=== PATIENT | male | born 1940 | race Caucasian/White ===

== ENCOUNTER 2017-05-23 12:31 | Outpatient (CLI) | payer MEDICARE, OTHER ==
[2017-05-23 20:23] LABS: BILIRUBIN,URINE NEGATIVE (NEGATIVE); GLUCOSE, URINE (UA) NEGATIVE (NEGATIVE); KETONES,URINE (UA) NEGATIVE (NEGATIVE); LEUKOCYTE ESTERASE, URINE SMALL (NEGATIVE); NITRITE,URINE NEGATIVE (NEGATIVE); OCCULT BLOOD,URINE NEGATIVE (NEGATIVE); PROTEIN,URINE NEGATIVE (NEGATIVE); UROBILINOGEN,URINE 0.2 (NORMAL) E.U./dL (NORMAL)
[2017-05-23 20:35] LABS: CLARITY,URINE CLOUDY (CLEAR); EPITHELIAL CELLS,UR RARE Transitional /HPF (<= Few); SQUAMOUS EPITHELIAL CELL,UR RARE Squamous (<= Few)
[2017-05-23 20:36] LABS: BACTERIA,URINE None Seen /HPF (None Seen); CRYSTALS,URINE 6-10 Calcium Oxalate /LPF
== END 2017-05-23 12:32 | disposition home or self-care (01) ==
LOC: LAB.R 12:31
PROVIDERS: ATTEND Family Medicine
DX: N39.0 Urinary tract infection, site not specified (principal)
CPT/HCPCS: 81001; 87077; 87086

== ENCOUNTER 2017-08-02 14:06 | Outpatient (CLI) | payer MEDICARE, OTHER | END 2017-08-02 14:07 | disposition critical access hospital (66) | LOC: EMS 14:06 | PROVIDERS: ATTEND Surgery | DX: H92.22 Otorrhagia, left ear (principal) | CPT/HCPCS: A0425; A0429 ==

== ENCOUNTER 2017-08-02 14:25 | Emergency (ER) | payer MEDICARE, OTHER ==
--- NOTE | 2017-08-02 14:35 | ED Physician Documentation ---
History of Present Illness - Stated complaint Stated Complaint: EAR BLEED - Chief complaint Chief Complaint: Heent - History obtained from History obtained from: Patient, EMS - History of Present Illness Timing: Today Pain level max: 0 Pain level now: 0 Improved by: nothing Worsened by: nothing - Additonal information Additional information: States was cleaning his left ear today when he developed a bleeding from the ear. He is on eliquis. Called EMS. No trauma. Currently feels normal. Bleeding is now resolved. 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 Cardiovascular: Pacemaker - Present Medications Home Medications: Ambulatory Orders Medication Instructions Recorded Confirmed Acetaminophen [Tylenol] 650 mg PO Q6H PRN 07/30/13 03/09/16 Digoxin [Lanoxin] 125 mcg PO DAILY 07/30/13 03/09/16 Docusate Sodium 250Mg Capsule 100 mg PO BID 07/30/13 03/09/16 [Colace] Famotidine 20 mg PO DAILY 07/30/13 03/09/16 Furosemide [Lasix] 40 mg PO BID 07/30/13 03/09/16 Metoprolol Succinate [Toprol Xl] 25 mg PO BID 07/30/13 03/09/16 Warfarin [Coumadin] 2 mg PO 1400 07/30/13 03/09/16 Calcium Carb, Citrate/Vit D3 1 tab PO DAILY 12/20/14 03/09/16 [Calcium + D3 ER Tablet] Multivit-Min/FA/Lycopen/Lutein 1 tab PO DAILY 12/20/14 03/09/16 [Centrum Silver Tablet] Vitamin B Complex 1 tab PO DAILY 12/20/14 03/09/16 Atorvastatin Calcium 40 mg PO QPM 03/09/16 03/09/16 - Allergies Allergies/Adverse Reactions: Allergies Allergy/AdvReac Type Severity Reaction Status Date / Time Sulfa (Sulfonamide Allergy Unknown unk Verified 07/30/13 14:22 Antibiotics) sulfamethoxazole Allergy Unknown unk Verified 07/30/13 14:22 [From Bactrim] trimethoprim [From Bactrim] Allergy Unknown unk Verified 07/30/13 14:22 - Social History Does the pt smoke?: No Smoking Status: Never smoker Does the pt drink ETOH?: No Does the pt have substance abuse?: No - Immunizations Immunizations are current?: Yes - POLST Patient has POLST: Yes POLST Status: CPR, no intubation, PD ED PE NORMAL - Vitals Vital signs reviewed: Yes - General General: Alert and oriented X 3, No acute distress - HEENT HEENT: Moist mucous membranes, Other (R ear is normal. L ear canal has no bleeding currently. clots removed with cotton swab. TM normal. ) - Neck Neck: Supple, no meningeal sign - Derm Derm: Warm and dry - Neuro Neuro: Alert and oriented X 3 - Psych Psych: Normal mood, Normal affect Results - Vitals Vitals: Vital Signs - 24 hr 08/02/17 14:28 Temperature 36.7 C Heart Rate 63 Respiratory 18 Rate Blood Pressure 151/60 H O2 Saturation 96 Oxygen O2 Source Room air PD MEDICAL DECISION MAKING - ED course Complexity details: considered differential, d/w patient ED course: Patient is a 76-year-old male who presents to the emergency department after sustaining trauma to the ear canal from a Q-tip earlier today. He is on Eliquis however the bleeding resolved spontaneously. Will continue supportive care and follow-up with his doctor. Patient counseled regarding signs and symptoms for which I believe and urgent re-evaluation would be necessary. Patient with good understanding of and agreement to plan and is comfortable going home at this time This document was made in part using voice recognition software. While efforts are made to proofread this document, sound alike and grammatical errors may occur. Departure - Departure Disposition: 01 Home, Self Care Clinical Impression: Trauma of ear canal Qualifiers: Encounter type: initial encounter Qualified Code(s): S09.91XA - Unspecified injury of ear, initial encounter Condition: Good Instructions: ED Wax Ear Home Removal Follow-Up: your,doctor in 1 week [Other] Comments: Please stop placing objects into your ear. Discharge Date/Time: 08/02/17 17:06
[2017-08-02 14:38] VITALS: BP 151/60
== END 2017-08-02 17:06 | disposition home or self-care (01) ==
LOC: ED 14:25
DX: S09.91XA Unspecified injury of ear, initial encounter (principal); X58.XXXA Exposure to other specified factors, initial encounter; Y93.E8 Activity, other personal hygiene; I48.91 Unspecified atrial fibrillation; Z79.01 Long term (current) use of anticoagulants
CPT/HCPCS: 85610; 99282; 99283

== ENCOUNTER 2017-09-20 07:02 | Outpatient (CLI) | payer MEDICARE, OTHER | END 2017-09-20 07:03 | disposition critical access hospital (66) | LOC: EMS 07:02 | PROVIDERS: ATTEND Surgery | DX: N50.82 Scrotal pain (principal); R06.02 Shortness of breath | CPT/HCPCS: A0425; A0427 ==

== ENCOUNTER 2017-09-20 07:22 | Inpatient (IN) | payer MEDICARE, OTHER ==
--- NOTE | 2017-09-20 07:58 | ED Physician Documentation ---
PD HPI DYSPNEA - Stated complaint Stated Complaint: SOA - Chief complaint Chief Complaint: General - History obtained from History obtained from: Patient - History of Present Illness Timing - onset: Today Timing - onset during: Rest Timing - duration: Hours Timing - details: Gradual onset, Still present Improved by: O2, Nitro, Lasix Worsened by: Exertion, Laying flat Associated symptoms: Other (testicular pain.). No: Chest pain / discomfort Similar symptoms before: Diagnosis (CHF/COPD) Recently seen: Not recently seen - Additional information Additional information: 77-year-old male with a history of COPD and CHF has developed increasing exertional dyspnea and pain in the testicles. He has not had much in way of swelling of his ankles he was evaluated at the scene by paramedics he did sound wet and was hypertensive and was given intravenous Lasix and nitroglycerin paste prior to arrival here. He is somewhat improved on arrival. He does have oxygen requirement for hypoxia. Review of Systems Constitutional: denies: Fever, Chills, Myalgias Eyes: denies: Decreased vision Ears: denies: Ear pain Nose: denies: Rhinorrhea / runny nose, Congestion Throat: denies: Sore throat Cardiac: denies: Chest pain / pressure, Palpitations Respiratory: reports: Dyspnea, Cough, Wheezing GI: denies: Abdominal Pain, Nausea, Vomiting : reports: Dysuria. denies: Frequency, Discharge Skin: denies: Rash Musculoskeletal: denies: Neck pain, Back pain, Extremity pain Neurologic: denies: Generalized weakness, Focal weakness, Numbness PD PAST MEDICAL HISTORY - Past Medical History Cardiovascular: Congestive heart failure, High cholesterol, CT, Atrial fibrillation Respiratory: Pneumonia, Shortness of breath Neuro: CVA Endocrine/Autoimmune: None GI: GI bleed, Ulcers, Hemorrhoids : Benign prostate hypertrophy, Incontinence HEENT: None Psych: None Musculoskeletal: None Derm: None - Past Surgical History Past Surgical History: Yes General: Cholecystectomy, 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 Cardiovascular: Pacemaker - Present Medications Home Medications: Ambulatory Orders Medication Instructions Recorded Confirmed Acetaminophen [Tylenol] 650 mg PO Q6H PRN 07/30/13 09/20/17 Digoxin [Lanoxin] 125 mcg PO DAILY 07/30/13 09/20/17 Furosemide [Lasix] 40 mg PO DAILY 07/30/13 09/20/17 Calcium Carb, Citrate/Vit D3 1 tab PO BID 12/20/14 09/20/17 [Calcium + D3 ER Tablet] Multivit-Min/FA/Lycopen/Lutein 1 tab PO DAILY 12/20/14 09/20/17 [Centrum Silver Tablet] Vitamin B Complex 1 tab PO DAILY 12/20/14 09/20/17 Atorvastatin Calcium 40 mg PO QPM 03/09/16 09/20/17 Amiodarone [Pacerone] 200 mg PO DAILY 09/20/17 09/20/17 Amox/Clav 875/125 [Augmentin] 1 each PO Q12H 09/20/17 09/20/17 Apixaban [Eliquis] 5 mg PO BID 09/20/17 09/20/17 Ascorbic Acid [Vitamin C] 500 mg PO DAILY 09/20/17 09/20/17 Aspirin [Aspirin EC] 325 mg PO DAILY 09/20/17 09/20/17 Ipratropium/Albuterol Sulfate 3 ml INH TID 09/20/17 09/20/17 [Iprat-Albut 0.5-3(2.5) mg/3 ml] Metoprolol Tartrate [Lopressor] 25 mg PO BID 09/20/17 09/20/17 Nitrofurantoin [Macrobid] 100 mg PO BID 09/20/17 09/20/17 Senna [Senokot] 8.6 mg PO BID 09/20/17 09/20/17 - Allergies Allergies/Adverse Reactions: Allergies Allergy/AdvReac Type Severity Reaction Status Date / Time Sulfa (Sulfonamide Allergy Unknown unk Verified 07/30/13 14:22 Antibiotics) sulfamethoxazole Allergy Unknown unk Verified 07/30/13 14:22 [From Bactrim] trimethoprim [From Bactrim] Allergy Unknown unk Verified 07/30/13 14:22 - Social History Does the pt smoke?: No Smoking Status: Never smoker Does the pt drink ETOH?: No Does the pt have substance abuse?: No - Immunizations Immunizations are current?: Yes - POLST Patient has POLST: Yes POLST Status: CPR, no intubation, PD ED PE NORMAL - Vitals Vital signs reviewed: Yes - General General: Well developed/nourished, Other (tachypneic with effort of sitting up) - HEENT HEENT: Atraumatic, PERRL, EOMI - Neck Neck: Supple, no meningeal sign, No bony TTP - Cardiac Cardiac: Other (irregularly irregular rate and rhythm) - Respiratory Respiratory: Other (tachypneic sitting up with crackles at the right base. ) - Abdomen Abdomen: Soft, Non tender - Male Male : Other (There is no swelling or specific tenderness the patient does complain of pain in the testicles. There is no obvious edema, no discharge, no erythema and no herniation. ) - Back Back: No CVA TTP, No spinal TTP - Derm Derm: Normal color, Warm and dry, No rash - Extremities Extremities: No deformity, No edema - Neuro Neuro: Alert and oriented X 3, Other (hemiparetic to the left There is dysarthria presnent as well. ) Eye Opening: Spontaneous Motor: Obeys Commands Verbal: Oriented GCS Score: 15 - Psych Psych: Normal mood, Normal affect Results - Vitals Vitals: Vital Signs - 24 hr 09/20/17 09/20/17 07:30 09:32 Temperature 36.3 C L Heart Rate 93 68 Respiratory 18 20 Rate Blood Pressure 126/93 H O2 Saturation 96 99 Oxygen O2 Source Room air - EKG (time done) 0733 Rate: Rate (enter#) (72) Rhythm: Atrial fibrillation Intervals: LBBB Compare to prior EKG: Changed from prior EKG ([facility] 03-09-2016 rate has decreased) Computer interpretation: Agree with computer - Labs Labs: Laboratory Tests 09/20/17 09/20/17 09/20/17 08:00 08:20 08:20 WBC 8.0 RBC 4.10 L Hgb 10.7 L Hct 34.0 L MCV 83.0 MCH 26.2 L MCHC 31.5 L RDW 17.2 H Plt Count 260 MPV 8.4 Neut # 6.3 Lymph # 0.8 L [place] # 0.7 Eos # 0.1 Baso # 0.1 Absolute Nucleated RBC 0.01 Nucleated RBC % 0.1 Sodium 139 Potassium 3.4 L Chloride 107 Carbon Dioxide 23 Anion Gap 9.0 BUN 24 H Creatinine 1.4 H Estimated GFR (MDRD) 49 L Glucose 76 Calcium 8.5 Total Bilirubin 1.0 AST 44 H ALT 38 Alkaline Phosphatase 172 H Troponin I B-Natriuretic Peptide Total Protein 8.4 H Albumin 3.0 L Globulin 5.4 H Albumin/Globulin Ratio 0.6 L Lipase 16 L Urine Color YELLOW Urine Clarity CLEAR Urine pH 6.0 Ur Specific [place] 1.010 Urine Protein NEGATIVE Urine Glucose (UA) NEGATIVE Urine Ketones NEGATIVE Urine Occult Blood NEGATIVE Urine Nitrite NEGATIVE Urine Bilirubin NEGATIVE Urine Urobilinogen 0.2 (NORMAL) Ur Leukocyte Esterase NEGATIVE Ur Microscopic Review NOT INDICATED Urine Culture Comments NOT INDICATED Last Dose Date Last Dose Time Digoxin 09/20/17 09/20/17 09/20/17 08:20 08:20 08:20 WBC RBC Hgb Hct MCV MCH MCHC RDW Plt Count MPV Neut # Lymph # [place] # Eos # Baso # Absolute Nucleated RBC Nucleated RBC % Sodium Potassium Chloride Carbon Dioxide Anion Gap BUN Creatinine Estimated GFR (MDRD) Glucose Calcium Total Bilirubin AST ALT Alkaline Phosphatase Troponin I 0.07 B-Natriuretic Peptide 898 H Total Protein Albumin Globulin Albumin/Globulin Ratio Lipase Urine Color Urine Clarity Urine pH Ur Specific [place] Urine Protein Urine Glucose (UA) Urine Ketones Urine Occult Blood Urine Nitrite Urine Bilirubin Urine Urobilinogen Ur Leukocyte Esterase Ur Microscopic Review Urine Culture Comments Last Dose Date UNK Last Dose Time UNK Digoxin 1.0 - Rads (name of study) 2 veiw chest Radiology: Prelim report reviewed (Impression: 1. Consistent with CHF superimposed on chronic lung disease. Superimposed infiltrate is not excluded.) , EMP read indepedently, See rad report Procedures - IVC sono (time) 0750 Bedside IVC sono: IVC measures (cm) (2.28), IVC collapsed c insp (cm) (2.28), High CVP PD MEDICAL DECISION MAKING - ED course Complexity details: reviewed old records, reviewed results, re-evaluated patient , considered differential, d/w patient ED course: 77 y/o male with increased dyspnea has a plethoric IVC on exam and no peripheral edema. He has testicular pain and on swelling. He was treated in the field for CHF and he is slightly improved on arrival to the ED. He continues to have dyspnea and hypoxia and his chest x-ray is concerning. He is admitted for further treatment. Departure - Departure Disposition: 66 [facility] DC/Xfer Clinical Impression: Hypoxia CHF (congestive heart failure) Qualifiers: Heart failure type: unspecified Heart failure chronicity: acute on chronic Qualified Code(s): I50.9 - Heart failure, unspecified Discharge Date/Time: 09/20/17 11:38
[2017-09-20 08:24] LABS: BILIRUBIN,URINE NEGATIVE (NEGATIVE); GLUCOSE, URINE (UA) NEGATIVE (NEGATIVE); KETONES,URINE (UA) NEGATIVE (NEGATIVE); LEUKOCYTE ESTERASE, URINE NEGATIVE (NEGATIVE); NITRITE,URINE NEGATIVE (NEGATIVE); OCCULT BLOOD,URINE NEGATIVE (NEGATIVE); PROTEIN,URINE NEGATIVE (NEGATIVE); UROBILINOGEN,URINE 0.2 (NORMAL) E.U./dL (NORMAL)
[2017-09-20 08:27] LABS: CLARITY,URINE CLEAR (CLEAR)
[2017-09-20 08:41] LABS: BASOPHILS # (AUTO) 0.1 10^3/uL (0.0-0.1); BASOPHILS % (AUTO) 1.3 %; EOSINOPHILS # (AUTO) 0.1 10^3/uL (0.0-0.7); EOSINOPHILS % (AUTO) 1.7 %; HGB - HEMOGLOBIN 10.7 g/dL (14.0-18.0); LYMPHOCYTES # (AUTO) 0.8 10^3/uL (1.5-3.5); LYMPHOCYTES % (AUTO) 10.3 %; MEAN CORPUSCULAR HEMOGLOBIN 26.2 pg (27.0-31.0); MEAN CORPUSCULAR HGB CONC 31.5 g/dL (32.0-36.0); MEAN PLATELET VOLUME 8.4 fL (7.4-11.4); MONOCYTES # (AUTO) 0.7 10^3/uL (0.0-1.0); MONOCYTES % (AUTO) 8.5 %; NEUTROPHILS # (AUTO) 6.3 10^3/uL (1.5-6.6); NEUTROPHILS % (AUTO) 78.2 %; PLT - PLATELET COUNT 260 10^3/uL (130-450); RED CELL DISTRIBUTION WIDTH 17.2 % (12.0-15.0)
[2017-09-20 08:57] LABS: ALBUMIN/GLOBULIN RATIO 0.6 (1.0-2.2); CALCIUM 8.5 mg/dL (8.5-10.3); CREATININE 1.4 mg/dL (0.6-1.2); TOTAL PROTEIN 8.4 g/dL (6.7-8.2)
--- NOTE | 2017-09-20 09:22 | XRAY Preliminary Report ---
Exam: XR CHEST 2 VIEW X-RAY IMPRESSION: 1. Consistent with CHF superimposed upon chronic lung disease. Superimposed infiltrate is not exclude atul [place] SITE ID: [id number]
--- NOTE | 2017-09-20 09:22 | XRAY Report ---
EXAM: CHEST RADIOGRAPHY EXAM DATE: 09/20/2017 09:03 AM. CLINICAL HISTORY: Dyspnea. History of CHF, COPD. COMPARISON: 03/09/2016. TECHNIQUE: 2 views. FINDINGS: Lungs/Pleura: Low lung volumes. Bilateral interstitial and airspace opacities and indistinct vasculat ure. Possible small pleural effusions. No pneumothorax. Mediastinum: Grossly stable prominent cardiomediastinal silhouette. Abandoned left subclavian ICD rem ains in place. Other: No acute fracture identified. IMPRESSION: 1. Consistent with CHF superimposed upon chronic lung disease. Superimposed infiltrate is not exclude atul [place] Referring Provider Line: [phone] SITE ID: [id number]
[2017-09-20] MEDS ORDERED: oxyCODONE 5 MG TABLET PO PRN (10:45)
[2017-09-20] MEDS ORDERED: PROMETHAZINE 25 MG/1 ML VIAL IM PRN (10:45)
[2017-09-20] MEDS ORDERED: ACETAMINOPHEN 325 MG TABLET PO PRN (10:45)
[2017-09-20] MEDS ORDERED: ONDANSETRON 4 MG/2 ML VIAL IVP PRN (10:45)
[2017-09-20] MEDS ORDERED: PROCHLORPERAZINE 10 MG/2 ML VIAL IVP PRN (10:45)
--- NOTE | 2017-09-20 10:56 | HISTORY & PHYSICAL EXAMINATION ---
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 The patient states that he was in his normal state of health when this morning he began feeling very short of air. He states that at baseline he gets around in on a scooter at his home in [facility]. The patient states that he minimally exerts himself to transfer to the scooter and states that he does not have any dyspnea with the exertion that he does. He states that today while he was just sitting in bed he began feeling very short of air. He also states that he felt orthopneic as he could not lie flat. The patient denies having had any cough, fevers or chills. He denies any upper respiratory symptoms. The patient does admit to mildly increased lower extremity edema. He also complains of pain in his groin and medial thighs which has been there for about 1 year. This has been assessed in the past with a testicular ultrasound that was within normal limits. The pain has not changed since then. The patient denies any chest pain or chest pressure. Patient denies any headaches, blurred vision, runny nose, sore throat, nasal congestion, difficulty swallowing, abdominal pain, nausea, vomiting, diaphoresis , diarrhea, constipation, urinary urgency, urinary frequency, dysuria, joint pain, muscle aches, back pain, neck stiffness, new focal neurologic deficits, recent unintentional weight loss, hair loss, skin changes or any changes in his appetite. Patient was seen at [place] by EMS who gave the patient IV Lasix and placed a Nitropaste as the patient appeared to be in respiratory distress and was hypoxic. On presentation to the emergency department the patient was afebrile and vital signs were within normal limits the patient however was hypoxic and did appear to be in some mild respiratory distress. The patient's lab work revealed a elevated BNP of 898 and a mild anemia of 10.7 with a creatinine of 1.4 which was near his baseline. The patient did have some slight hypokalemia of 3.4. The patient appeared to have some lower extremity swelling and crackles on examination. The emergency room physician did do a bedside ultrasound which did reveal that patient had a distended superior vena cava suggestive of fluid overload. The patient also underwent a chest x-ray which revealed CHF superimposed upon chronic lung disease. The patient had no leukocytosis or fevers and denied any cough. The patient's EKG was atrial fibrillation with no obvious ST elevations or ischemic changes. The patient's troponin was 0.07 which was near his baseline. Given the patient's hypoxia and increased shortness of air the patient was admitted to the hospital for a CHF exacerbation. 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 He has been there for about 15 years. His only family in the area is a nephew who lives in [place]. The patient has been twice and is . He has 4 sons who live all over the [place] 1 of whom is a colonel in the [employer]. 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 The patient [facility] The patient previously was a heavy smoker smoking 2 packs per day for about 20 years but quit after his stroke. The patient also was a heavy drinker but also quit after his stroke. The patient denies any illicit drug use. - POLST Patient has POLST: Yes POLST Status: CPR, no intubation Meds/Allgy - Home Medications Home Medications: Ambulatory Orders Medication Instructions Recorded Confirmed Acetaminophen [Tylenol] 650 mg PO Q6H PRN 07/30/13 09/20/17 Digoxin [Lanoxin] 125 mcg PO DAILY 07/30/13 09/20/17 Furosemide [Lasix] 40 mg PO DAILY 07/30/13 09/20/17 Calcium Carb, Citrate/Vit D3 1 tab PO BID 12/20/14 09/20/17 [Calcium + D3 ER Tablet] Multivit-Min/FA/Lycopen/Lutein 1 tab PO DAILY 12/20/14 09/20/17 [Centrum Silver Tablet] Vitamin B Complex 1 tab PO DAILY 12/20/14 09/20/17 Atorvastatin Calcium 40 mg PO QPM 03/09/16 09/20/17 Amiodarone [Pacerone] 200 mg PO DAILY 09/20/17 09/20/17 Amox/Clav 875/125 [Augmentin] 1 each PO Q12H 09/20/17 09/20/17 Apixaban [Eliquis] 5 mg PO BID 09/20/17 09/20/17 Ascorbic Acid [Vitamin C] 500 mg PO DAILY 09/20/17 09/20/17 Aspirin [Aspirin EC] 325 mg PO DAILY 09/20/17 09/20/17 Ipratropium/Albuterol Sulfate 3 ml INH TID 09/20/17 09/20/17 [Iprat-Albut 0.5-3(2.5) mg/3 ml] Metoprolol Tartrate [Lopressor] 25 mg PO BID 09/20/17 09/20/17 Nitrofurantoin [Macrobid] 100 mg PO BID 09/20/17 09/20/17 Senna [Senokot] 8.6 mg PO BID 09/20/17 09/20/17 - Allergies Allergies/Adverse Reactions: Allergies Allergy/AdvReac Type Severity Reaction Status Date / Time Sulfa (Sulfonamide Allergy Unknown unk Verified 07/30/13 14:22 Antibiotics) sulfamethoxazole Allergy Unknown unk Verified 07/30/13 14:22 [From Bactrim] trimethoprim [From Bactrim] Allergy Unknown unk Verified 07/30/13 14:22 Review of Systems - Other Findings Other Findings: A comprehensive review of systems was performed the pertinent positives and negatives are stated above in the HPI and the remainder of the review of systems is negative. Exam - Vital Signs Reviewed Vital Signs: Yes Vital Signs: Vital Signs x48h Temp Pulse Resp BP Pulse Ox 09/20/17 09:32 68 20 126/93 H 99 09/20/17 07:30 36.3 C L 93 18 96 - Physical Exam General Appearance: positive: Alert, Mild distress (respiratory) Eyes Bilateral: positive: Normal inspection, PERRL, EOMI, No lid inflammation, Conjunctivae nml, No scleral icterus ENT: positive: ENT inspection nml, Pharynx nml, No signs of dehydration. negative: Purulent nasal drainage, Pharyngeal erythema, Oral lesions Neck: positive: Nml inspection, Thyroid nml, Trachea midline. negative: Thyromegaly, Lymphadenopathy (R), Lymphadenopathy (L), Stiff neck, Carotid bruit , Tracheal deviation Respiratory: positive: Chest non-tender, Rales (Bibasilar) Cardiovascular: positive: No murmur, No gallop, Irregularly irregular, JVD present Peripheral Pulses: positive: 2+ Abdomen: positive: Non-tender, No organomegaly, Nml bowel sounds, No distention. negative: Guarding, Rebound, Hepatomegaly Back: positive: Nml inspection. negative: CVA tenderness (R), CVA tenderness (L ) Skin: positive: No rash, Warm. negative: Cyanosis, Diaphoresis, Pallor Extremities: positive: Non-tender, Full ROM, Nml appearance, Pedal edema ( Bilateral 1+) Neurologic/Psychiatric: positive: Oriented x3, CN's nml (2-12), Weakness (Left sided with left upper extremity contracture), Slurred/abnml speech (dysarthria) Conclusion/Plan - Problem List (1) Systolic CHF with reduced left ventricular function, NYHA class 3 Conclusion/Plan: Patient presented with shortness of air, lower extremity swelling, orthopnea had an elevated BNP of 898 and chest x-ray showed CHF pattern. The patient was hypoxic on presentation and crackles on examination with elevated JVD. [facility] and therefore does minimal exertion but today he was short of air at rest. Patient was given Lasix in the emergency department and did have some slight improvement but still remained hypoxic. Patient's previous echocardiogram showed an ejection fraction of less than 20%. EKG and troponin negative for acute infarct Plan: IV Lasix 40 mg twice daily Strict I's and O's Daily weights Fluid restriction 1500 mL's Continue patient's home dose of metoprolol and digoxin Start patient on spironolactone and lisinopril Monitor on telemetry Echocardiogram Supplemental oxygen (2) Atrial fibrillation Conclusion/Plan: The patient has history of chronic atrial fibrillation and is in atrial fibrillation on presentation. The patient has a controlled rate. He is on Eliquis for anticoagulation. Patient's chads 2 score is 5. Plan: Continue patient's home dose of Eliquis Continue metoprolol and digoxin for rate control Telemetry monitoring Qualifiers: Atrial fibrillation type: chronic Qualified Code(s): I48.2 - Chronic atrial fibrillation (3) Hypokalemia Conclusion/Plan: The patient has hypokalemia on presentation likely from Lasix at home. Patient will be given potassium replacement will monitor his potassium. (4) CKD (chronic kidney disease) stage 3, GFR 30-59 ml/min Conclusion/Plan: Patient has CKD stage III and presents with creatinine of 1.4 which is near his baseline. We will avoid nephrotoxic agents Patient will be started on lisinopril and spironolactone given his severe CHF to optimize treatment as his GFR is above 40 Monitor creatinine (5) COPD (chronic obstructive pulmonary disease) Conclusion/Plan: Patient has history of COPD likely due to smoking and does take nebulizer as needed. Patient does not appear to have wheezing or COPD exacerbation at this time We will continue the patient on as needed duo nebs but there is no need for steroids or antibiotics at this time Qualifiers: COPD type: unspecified COPD Qualified Code(s): J44.9 - Chronic obstructive pulmonary disease, unspecified (6) History of coronary artery disease Conclusion/Plan: Patient has history of coronary artery disease and is on metoprolol and Lipitor as well as aspirin for optimal treatment of CAD. Patient will be continued on these medications Patient does not appear to have had an PA as his troponin and EKG were negative. (7) History of CVA (cerebrovascular accident) Conclusion/Plan: Patient had a large CVA in 1998 leaving him with left sided weakness and dysarthria. Patient is currently on aspirin and Lipitor as well as Eliquis to prevent stroke. We will continue these treatments. - Lab Results Lab results reviewed: Yes Fish Bones: 09/20/17 08:20 09/20/17 08:20 Other Lab Results: Laboratory Results WBC 8.0 x10^3/uL (4.8-10.8) 09/20/17 08:20 RBC 4.10 10^6/uL (4.70-6.10) L 09/20/17 08:20 Hgb 10.7 g/dL (14.0-18.0) L 09/20/17 08:20 Hct 34.0 % (42.0-52.0) L 09/20/17 08:20 MCV 83.0 fL (80.0-94.0) 09/20/17 08:20 MCH 26.2 pg (27.0-31.0) L 09/20/17 08:20 MCHC 31.5 g/dL (32.0-36.0) L 09/20/17 08:20 RDW 17.2 % (12.0-15.0) H 09/20/17 08:20 Plt Count 260 10^3/uL (130-450) 09/20/17 08:20 MPV 8.4 fL (7.4-11.4) 09/20/17 08:20 Neut # 6.3 10^3/uL (1.5-6.6) 09/20/17 08:20 Lymph # 0.8 10^3/uL (1.5-3.5) L 09/20/17 08:20 [place] # 0.7 10^3/uL (0.0-1.0) 09/20/17 08:20 Eos # 0.1 10^3/uL (0.0-0.7) 09/20/17 08:20 Baso # 0.1 10^3/uL (0.0-0.1) 09/20/17 08:20 Absolute Nucleated RBC 0.01 x10^3/uL 09/20/17 08:20 Nucleated RBC % 0.1 /100WBC 09/20/17 08:20 Sodium 139 mmol/L (135-145) 09/20/17 08:20 Potassium 3.4 mmol/L (3.5-5.0) L 09/20/17 08:20 Chloride 107 mmol/L (101-111) 09/20/17 08:20 Carbon Dioxide 23 mmol/L (21-32) 09/20/17 08:20 Anion Gap 9.0 (6-13) 09/20/17 08:20 BUN 24 mg/dL (6-20) H 09/20/17 08:20 Creatinine 1.4 mg/dL (0.6-1.2) H 09/20/17 08:20 Estimated GFR (MDRD) 49 (>89) L 09/20/17 08:20 Glucose 76 mg/dL (70-100) 09/20/17 08:20 Calcium 8.5 mg/dL (8.5-10.3) 09/20/17 08:20 Total Bilirubin 1.0 mg/dL (0.2-1.0) 09/20/17 08:20 AST 44 IU/L (10-42) H 09/20/17 08:20 ALT 38 IU/L (10-60) 09/20/17 08:20 Alkaline Phosphatase 172 IU/L (42-121) H 09/20/17 08:20 Troponin I 0.07 ng/mL (<0.49) 09/20/17 08:20 B-Natriuretic Peptide 898 pg/mL (5-100) H 09/20/17 08:20 Total Protein 8.4 g/dL (6.7-8.2) H 09/20/17 08:20 Albumin 3.0 g/dL (3.2-5.5) L 09/20/17 08:20 Globulin 5.4 g/dL (2.1-4.2) H 09/20/17 08:20 Albumin/Globulin Ratio 0.6 (1.0-2.2) L 09/20/17 08:20 Lipase 16 U/L (22-51) L 09/20/17 08:20 Urine Color YELLOW 09/20/17 08:00 Urine Clarity CLEAR (CLEAR) 09/20/17 08:00 Urine pH 6.0 PH (5.0-7.5) 09/20/17 08:00 Ur Specific [place] 1.010 (1.002-1.030) 09/20/17 08:00 Urine Protein NEGATIVE mg/dL (NEGATIVE) 09/20/17 08:00 Urine Glucose (UA) NEGATIVE mg/dL (NEGATIVE) 09/20/17 08:00 Urine Ketones NEGATIVE mg/dL (NEGATIVE) 09/20/17 08:00 Urine Occult Blood NEGATIVE (NEGATIVE) 09/20/17 08:00 Urine Nitrite NEGATIVE (NEGATIVE) 09/20/17 08:00 Urine Bilirubin NEGATIVE (NEGATIVE) 09/20/17 08:00 Urine Urobilinogen 0.2 (NORMAL) E.U./dL (NORMAL) 09/20/17 08:00 Ur Leukocyte Esterase NEGATIVE (NEGATIVE) 09/20/17 08:00 Ur Microscopic Review NOT INDICATED 09/20/17 08:00 Urine Culture Comments NOT INDICATED 09/20/17 08:00 Last Dose Date [facility] 09/20/17 08:20 Last Dose Time [facility] 09/20/17 08:20 Digoxin 1.0 ng/mL 09/20/17 08:20 - Diagnostic Imaging Results Diagnostic Imaging Results: positive: Final report reviewed - EKG Results EKG Interpreted Independently: Yes EKG Findings: Atrial fibrillation Core Measures - Anticipated LOS I expect patient to be DC'd or transferred within 96 hours.: Yes - DVT/VTE - Prophylaxis VTE/DVT Device ordered at admit?: Yes
[2017-09-20] MEDS ORDERED: IPRATROPIUM/ALBUTEROL 3 ML NEB INH PRN (11:36)
[2017-09-20] MEDS ORDERED: DIGOXIN 125 MCG TABLET PO SCH (12:00)
[2017-09-20] MEDS: AMIODARONE 200 MG TABLET PO SCH (12:35)
[2017-09-20] MEDS ORDERED: PERFLUTREN LIPID MICROSPHERES 1.65 MG/1.5 ML VIAL IVP ONE (14:00)
[2017-09-20] MEDS: SODIUM CHLORIDE FLUSH 0.9% 10 ML SYRINGE IVP SCH (16:59)
[2017-09-20] MEDS: FUROSEMIDE 40 MG/4 ML VIAL IVP SCH (17:22)
[2017-09-20] MEDS ORDERED: METOPROLOL SUCCINATE 25 MG TABLET PO SCH (21:00)
[2017-09-20] MEDS: ATORVASTATIN 40 MG TABLET PO SCH (21:08)
[2017-09-20] MEDS: APIXABAN 2.5 MG TABLET PO SCH (21:09)
[2017-09-20] MEDS: MIN OIL/DIMETHICON/COCONUT OIL 92 GM TUBE TOP PRN (21:12)
[2017-09-21] MEDS: SODIUM CHLORIDE FLUSH 0.9% 10 ML SYRINGE IVP SCH ×3 (01:34→16:16)
[2017-09-21 05:18] LABS: BASOPHILS # (AUTO) 0.1 10^3/uL (0.0-0.1); BASOPHILS % (AUTO) 0.8 %; EOSINOPHILS # (AUTO) 0.1 10^3/uL (0.0-0.7); EOSINOPHILS % (AUTO) 1.6 %; HGB - HEMOGLOBIN 9.8 g/dL (14.0-18.0); LYMPHOCYTES # (AUTO) 0.9 10^3/uL (1.5-3.5); LYMPHOCYTES % (AUTO) 11.3 %; MEAN CORPUSCULAR HEMOGLOBIN 26.1 pg (27.0-31.0); MEAN CORPUSCULAR HGB CONC 31.2 g/dL (32.0-36.0); MEAN CORPUSCULAR VOLUME 83.7 fL (80.0-94.0); MEAN PLATELET VOLUME 8.4 fL (7.4-11.4); MONOCYTES # (AUTO) 0.7 10^3/uL (0.0-1.0); MONOCYTES % (AUTO) 9.1 %; NEUTROPHILS # (AUTO) 5.9 10^3/uL (1.5-6.6); NEUTROPHILS % (AUTO) 77.2 %; PLT - PLATELET COUNT 249 10^3/uL (130-450); RED BLOOD COUNT 3.74 10^6/uL (4.70-6.10); RED CELL DISTRIBUTION WIDTH 17.4 % (12.0-15.0); WHITE BLOOD COUNT 7.6 x10^3/uL (4.8-10.8)
[2017-09-21 05:39] LABS: ALBUMIN 2.8 g/dL (3.2-5.5); ALBUMIN/GLOBULIN RATIO 0.5 (1.0-2.2); CALCIUM 8.3 mg/dL (8.5-10.3); CREATININE 1.5 mg/dL (0.6-1.2)
[2017-09-21] MEDS: FUROSEMIDE 40 MG/4 ML VIAL IVP SCH ×2 (05:55→21:04)
[2017-09-21] MEDS: MIN OIL/DIMETHICON/COCONUT OIL 92 GM TUBE TOP PRN ×4 (05:58→19:53)
[2017-09-21] MEDS: AMIODARONE 200 MG TABLET PO SCH ×3 (08:38→12:26)
[2017-09-21] MEDS: APIXABAN 2.5 MG TABLET PO SCH ×2 (08:39→21:06)
[2017-09-21] MEDS: LISINOPRIL 5 MG TABLET PO SCH (08:41)
[2017-09-21] MEDS: FAMOTIDINE 20 MG TABLET PO SCH (08:41)
[2017-09-21] MEDS: SPIRONOLACTONE 25 MG TABLET PO SCH (08:41)
[2017-09-21] MEDS: POTASSIUM CHLORIDE 20 MEQ TABLET PO SCH (08:42)
[2017-09-21] MEDS: POLYETHYLENE GLYCOL 3350 17 GM PACKET PO SCH (08:45)
[2017-09-21] MEDS: METOPROLOL TARTRATE 25 MG TABLET PO SCH ×2 (08:54→21:07)
[2017-09-21] MEDS ORDERED: ENOXAPARIN 40 MG/0.4 ML SYRINGE SUBQ SCH (09:00)
[2017-09-21] MEDS ORDERED: SODIUM CHLORIDE FLUSH 0.9% 10 ML SYRINGE ONE ×2 (13:56→14:39)
[2017-09-21] MEDS ORDERED: FUROSEMIDE 40 MG TABLET PO SCH (16:00)
--- NOTE | 2017-09-21 17:10 | PROVIDER PROGRESS NOTE ---
Assessment/Plan - Problem List (1) Systolic CHF with reduced left ventricular function, NYHA class 3 Assessment/Plan: Patient presented with shortness of air, lower extremity swelling, orthopnea had an elevated BNP of 898 and chest x-ray showed CHF pattern. The patient was hypoxic on presentation and crackles on examination with elevated JVD. Patient [place] a sc[place] the [place] and therefore does minimal exertion but today he was short of air at rest. Patient was given Lasix in the emergency department and did have some slight improvement but still remained hypoxic. Patient's previous echocardiogram showed an ejection fraction of less than 20%. EKG and troponin negative for acute infarct Plan: IV Lasix 40 mg twice daily Strict I's and O's Daily weights Fluid restriction 1500 mL's Held patient's home dose of metoprolol and digoxin secondary to bradycardia Started patient on spironolactone and lisinopril for CHF Tele showing bradycardia with HR in 50s to 30s patient asymptomatic Echocardiogram shows improved EF of 30-35% with moderate to severe aortic stenosis and pulmonary hypertension Wean off O2 Will switch to PO lasix tomorrow Patient improving (2) Bradycardia Conclusion/Plan: Patient asymptomatic with normal BP HR in 50s down to 30s when sleeping Will hold metoprolol and digoxin and monitor Will restart meds once the HR is improved likely is on too much with both metoprolol and digoxin may need just one (3) Atrial fibrillation Conclusion/Plan: The patient has history of chronic atrial fibrillation and is in atrial fibrillation on presentation. The patient has a controlled rate. He is on Eliquis for anticoagulation. Patient's chads 2 score is 5. Plan: Continue patient's home dose of Eliquis Holding metoprolol and digoxin for bradycardia Continue Telemetry monitoring Qualifiers: Atrial fibrillation type: chronic Qualified Code(s): I48.2 - Chronic atrial fibrillation (4) Hypokalemia Conclusion/Plan: Resolved will continue supplemental K as patient is on Lasix (5) CKD (chronic kidney disease) stage 3, GFR 30-59 ml/min Conclusion/Plan: Patient has CKD stage III and presents with creatinine of 1.4 which is near his baseline. 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 Patient does not appear to have wheezing or COPD exacerbation at this time We will continue the patient on as needed duo nebs but there is no need for steroids or antibiotics at this time Stable Qualifiers: COPD type: unspecified COPD Qualified Code(s): J44.9 - Chronic obstructive pulmonary disease, unspecified (7) History of coronary artery disease Conclusion/Plan: Patient has history of coronary artery disease and is on metoprolol and Lipitor as well as aspirin for optimal treatment of CAD. Patient will be continued on these medications Patient does not appear to have had an SC as his troponin and EKG were negative. (8) History of CVA (cerebrovascular accident) Conclusion/Plan: Patient had a large CVA in 1998 leaving him with left sided weakness and dysarthria. Patient is currently on aspirin and Lipitor as well as Eliquis to prevent stroke. We will continue these treatments. - Current Meds Current Meds: Current Medications Generic Name Dose Route Start Last Admin Trade Name Freq PRN Reason Stop Dose Admin Amiodarone HCl 200 mg 09/20/17 12:00 09/21/17 12:26 Pacerone PO 200 mg DAILY LUCY Administration Apixaban 5 mg 09/20/17 21:00 09/21/17 08:39 Eliquis PO 5 mg BID LUCY Administration Atorvastatin Calcium 40 mg 09/20/17 21:00 09/20/17 21:08 Lipitor PO 40 mg QPM LUCY Administration Famotidine 20 mg 09/21/17 09:00 09/21/17 08:41 Pepcid PO 20 mg DAILY LUCY Administration Furosemide 60 mg 09/21/17 16:00 09/21/17 16:12 Lasix PO 60 mg BIDDIURETIC LUCY Administration Lisinopril 5 mg 09/21/17 09:00 09/21/17 08:41 Zestril PO 5 mg DAILY LUCY Administration Metoprolol Tartrate 25 mg 09/21/17 09:00 09/21/17 08:54 Lopressor PO Not Given BID LUCY Mineral Oil 1 applic 09/20/17 17:43 09/21/17 16:14 Cavilon TOP 1 applic PRN PRN Administration Skin Care Polyethylene Glycol 17 gm 09/21/17 09:00 09/21/17 08:45 Miralax PO 17 gm DAILY LUCY Administration Potassium Chloride 20 meq 09/21/17 08:00 09/21/17 08:42 K-Dur PO 20 meq DAILYWM LUCY Administration Sodium Chloride 10 ml 09/20/17 17:00 09/21/17 16:16 Normal Saline Flush 0.9% IVP 10 ml [id number],1700 LUCY Administration Spironolactone 12.5 mg 09/21/17 09:00 09/21/17 08:41 Aldactone PO 12.5 mg DAILY LUCY Administration - Lab Result Lab results reviewed: Yes Fish Bone Diagrams: 09/21/17 05:00 09/21/17 05:00 - Diagnostic Imaging Results Diagnostic Imaging Results: Final report reviewed - Additional Planning Condition/Complexity: Guarded My Orders: My Active Orders 09/20/17 17:43 Min Oil/Dimeth/Coconut Oil Crm [Cavilon] 1 applic TOP PRN PRN 09/20/17 21:00 Apixaban [Eliquis] 5 mg PO BID Atorvastatin [Lipitor] 40 mg PO QPM 09/20/17 Dinner Soft Mechanical Diet [DIET] 09/21/17 09:00 Lisinopril [Zestril] 5 mg PO DAILY Metoprolol Tartrate [Lopressor] 25 mg PO BID Spironolactone [Aldactone] 12.5 mg PO DAILY 09/21/17 16:00 Furosemide [Lasix] 60 mg PO BIDDIURETIC Plan Discussed with:: Patient Time Spent: 31-60 minutes Subjective - Subjective Patient Reports: Feeling Better, Shortness of Breath (Says his SOB is better today), Other (Lower extremity swelling is improved) Nursing Reports: No Complaints Objective Vital Signs: Vital Signs - 24 hr 09/20/17 09/20/17 09/20/17 17:14 18:51 23:41 Temperature 36.7 C 36.7 C Heart Rate [ 58 L 57 L Brachial] Respiratory 20 20 Rate Blood Pressure Blood Pressure 110/82 H 115/65 108/62 [Right Brachial artery] O2 Saturation 96 99 09/21/17 09/21/17 09/21/17 05:00 07:27 08:54 Temperature 36.4 C L 36.3 C L Heart Rate [ 56 L 102 H Brachial] Respiratory 20 20 Rate Blood Pressure 111/47 L Blood Pressure 104/53 L 125/53 L [Right Brachial artery] O2 Saturation 100 97 09/21/17 09/21/17 13:00 15:51 Temperature 36.3 C L 36.2 C L Heart Rate [ 57 L 63 Brachial] Respiratory 26 H 24 Rate Blood Pressure Blood Pressure 94/58 L 105/63 [Right Brachial artery] O2 Saturation 93 97 Oxygen O2 Source Room air I&O (Last 24 Hrs): Intake and Output Totals x24h 09/19/17 09/20/17 09/21/17 23:59 23:59 23:59 Intake Total 370 410 Output Total 1210 870 Balance -840 -460 General: Alert, Oriented x3, Cooperative, Other (Dysarthria) HEENT: Atraumatic, PERRLA, EOMI, Mucous membr. moist/pink Neck: Supple, No JVD, No thyromegaly, +2 carotid pulse wo bruit, No LAD Lymphatic: no adenopathy Neuro: Alert, CN 2-12 Grossly Intact, Oriented Times 3, Other (Left sided weakness with right upper extremity contracture, dysarthria) Cardiovascular: Other (Systolic murmur, irregular, bradycardia) Respiratory: Chest non-tender, Rales (bases) Abdomen: Normal bowel sounds, Soft, No tenderness, No hepatospenomegaly, No masses Extremities: No clubbing, No cyanosis, Normal pulses, Other (Mild LE edema) - Results Results: Laboratory Results WBC 7.6 x10^3/uL (4.8-10.8) 09/21/17 05:00 RBC 3.74 10^6/uL (4.70-6.10) L 09/21/17 05:00 Hgb 9.8 g/dL (14.0-18.0) L 09/21/17 05:00 Hct 31.3 % (42.0-52.0) L 09/21/17 05:00 MCV 83.7 fL (80.0-94.0) 09/21/17 05:00 MCH 26.1 pg (27.0-31.0) L 09/21/17 05:00 MCHC 31.2 g/dL (32.0-36.0) L 09/21/17 05:00 RDW 17.4 % (12.0-15.0) H 09/21/17 05:00 Plt Count 249 10^3/uL (130-450) 09/21/17 05:00 MPV 8.4 fL (7.4-11.4) 09/21/17 05:00 Neut # 5.9 10^3/uL (1.5-6.6) 09/21/17 05:00 Lymph # 0.9 10^3/uL (1.5-3.5) L 09/21/17 05:00 [place] # 0.7 10^3/uL (0.0-1.0) 09/21/17 05:00 Eos # 0.1 10^3/uL (0.0-0.7) 09/21/17 05:00 Baso # 0.1 10^3/uL (0.0-0.1) 09/21/17 05:00 Absolute Nucleated RBC 0.01 x10^3/uL 09/21/17 05:00 Nucleated RBC % 0.1 /100WBC 09/21/17 05:00 Sodium 138 mmol/L (135-145) 09/21/17 05:00 Potassium 3.6 mmol/L (3.5-5.0) 09/21/17 05:00 Chloride 103 mmol/L (101-111) 09/21/17 05:00 Carbon Dioxide 26 mmol/L (21-32) 09/21/17 05:00 Anion Gap 9.0 (6-13) 09/21/17 05:00 BUN 26 mg/dL (6-20) H 09/21/17 05:00 Creatinine 1.5 mg/dL (0.6-1.2) H 09/21/17 05:00 Estimated GFR (MDRD) 45 (>89) L 09/21/17 05:00 Glucose 78 mg/dL (70-100) 09/21/17 05:00 Calcium 8.3 mg/dL (8.5-10.3) L 09/21/17 05:00 Magnesium 2.0 mg/dL (1.7-2.8) 09/21/17 05:00 Total Bilirubin 1.0 mg/dL (0.2-1.0) 09/21/17 05:00 AST 39 IU/L (10-42) 09/21/17 05:00 ALT 34 IU/L (10-60) 09/21/17 05:00 Alkaline Phosphatase 153 IU/L (42-121) H 09/21/17 05:00 Troponin I 0.07 ng/mL (<0.49) 09/20/17 08:20 B-Natriuretic Peptide 697 pg/mL (5-100) H 09/21/17 05:00 Total Protein 8.0 g/dL (6.7-8.2) 09/21/17 05:00 Albumin 2.8 g/dL (3.2-5.5) L 09/21/17 05:00 Globulin 5.2 g/dL (2.1-4.2) H 09/21/17 05:00 Albumin/Globulin Ratio 0.5 (1.0-2.2) L 09/21/17 05:00 Lipase 16 U/L (22-51) L 09/20/17 08:20 Urine Color YELLOW 09/20/17 08:00 Urine Clarity CLEAR (CLEAR) 09/20/17 08:00 Urine pH 6.0 PH (5.0-7.5) 09/20/17 08:00 Ur Specific [place] 1.010 (1.002-1.030) 09/20/17 08:00 Urine Protein NEGATIVE mg/dL (NEGATIVE) 09/20/17 08:00 Urine Glucose (UA) NEGATIVE mg/dL (NEGATIVE) 09/20/17 08:00 Urine Ketones NEGATIVE mg/dL (NEGATIVE) 09/20/17 08:00 Urine Occult Blood NEGATIVE (NEGATIVE) 09/20/17 08:00 Urine Nitrite NEGATIVE (NEGATIVE) 09/20/17 08:00 Urine Bilirubin NEGATIVE (NEGATIVE) 09/20/17 08:00 Urine Urobilinogen 0.2 (NORMAL) E.U./dL (NORMAL) 09/20/17 08:00 Ur Leukocyte Esterase NEGATIVE (NEGATIVE) 09/20/17 08:00 Ur Microscopic Review NOT INDICATED 09/20/17 08:00 Urine Culture Comments NOT INDICATED 09/20/17 08:00 Last Dose Date K 09/20/17 08:20 Last Dose Time [facility] 09/20/17 08:20 Digoxin 1.0 ng/mL 09/20/17 08:20 ABX Reporting Has patient been on IV antibiotics over the past 48 hours?: No
[2017-09-21] MEDS: ZINC OXIDE 20% OINT 28.35 GM TUBE TOP PRN ×2 (17:57→19:53)
[2017-09-21] MEDS: SODIUM CHLORIDE FLUSH 0.9% 10 ML SYRINGE IVP PRN (21:04)
[2017-09-21] MEDS: ATORVASTATIN 40 MG TABLET PO SCH (21:06)
[2017-09-22] MEDS: SODIUM CHLORIDE FLUSH 0.9% 10 ML SYRINGE IVP SCH ×3 (00:03→20:57)
[2017-09-22] MEDS: ZINC OXIDE 20% OINT 28.35 GM TUBE TOP PRN ×2 (05:30→08:57)
[2017-09-22 05:34] LABS: BASOPHILS # (AUTO) 0.1 10^3/uL (0.0-0.1); BASOPHILS % (AUTO) 1.1 %; EOSINOPHILS # (AUTO) 0.2 10^3/uL (0.0-0.7); EOSINOPHILS % (AUTO) 2.2 %; HGB - HEMOGLOBIN 9.8 g/dL (14.0-18.0); LYMPHOCYTES # (AUTO) 1.1 10^3/uL (1.5-3.5); LYMPHOCYTES % (AUTO) 13.5 %; MEAN CORPUSCULAR HEMOGLOBIN 25.9 pg (27.0-31.0); MEAN CORPUSCULAR HGB CONC 31.1 g/dL (32.0-36.0); MEAN CORPUSCULAR VOLUME 83.2 fL (80.0-94.0); MONOCYTES % (AUTO) 11.8 %; NEUTROPHILS % (AUTO) 71.4 %; PLT - PLATELET COUNT 257 10^3/uL (130-450); RED BLOOD COUNT 3.79 10^6/uL (4.70-6.10); RED CELL DISTRIBUTION WIDTH 17.2 % (12.0-15.0); WHITE BLOOD COUNT 8.4 x10^3/uL (4.8-10.8)
[2017-09-22 06:08] LABS: ALBUMIN 2.6 g/dL (3.2-5.5); ALBUMIN/GLOBULIN RATIO 0.5 (1.0-2.2); BILIRUBIN,TOTAL 0.8 mg/dL (0.2-1.0); CALCIUM 8.3 mg/dL (8.5-10.3); CREATININE 1.8 mg/dL (0.6-1.2); MAGNESIUM 1.9 mg/dL (1.7-2.8); TOTAL PROTEIN 7.9 g/dL (6.7-8.2)
[2017-09-22] MEDS: SODIUM CHLORIDE FLUSH 0.9% 10 ML SYRINGE IVP PRN (06:11)
[2017-09-22] MEDS: FUROSEMIDE 40 MG/4 ML VIAL IVP SCH (06:11)
[2017-09-22] MEDS: POLYETHYLENE GLYCOL 3350 17 GM PACKET PO SCH (08:02)
[2017-09-22] MEDS: LISINOPRIL 5 MG TABLET PO SCH (08:52)
[2017-09-22] MEDS: SPIRONOLACTONE 25 MG TABLET PO SCH (08:52)
[2017-09-22] MEDS: FAMOTIDINE 20 MG TABLET PO SCH (10:17)
[2017-09-22] MEDS: POTASSIUM CHLORIDE 20 MEQ TABLET PO SCH (10:17)
[2017-09-22] MEDS: APIXABAN 2.5 MG TABLET PO SCH ×2 (10:18→20:56)
--- NOTE | 2017-09-22 18:17 | PROVIDER PROGRESS NOTE ---
Assessment/Plan - Problem List (1) Systolic CHF with reduced left ventricular function, NYHA class 3 Assessment/Plan: Patient presented with shortness of air, lower extremity swelling, orthopnea had an elevated BNP of 898 and chest x-ray showed CHF pattern. The patient was hypoxic on presentation and crackles on examination with elevated JVD. Patient uses a scooter at the snf and therefore does minimal exertion but today he was short of air at rest. Patient was given Lasix in the emergency department and did have some slight improvement but still remained hypoxic. Patient's previous echocardiogram showed an ejection fraction of less than 20%. 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 The patient has a controlled rate. He is on Eliquis for anticoagulation. Patient's chads 2 score is 5. Plan: Continue patient's home dose of Eliquis Holding metoprolol and digoxin for bradycardia Continue Telemetry monitoring Qualifiers: Atrial fibrillation type: chronic Qualified Code(s): I48.2 - Chronic atrial fibrillation (4) Hypokalemia Conclusion/Plan: Resolved will continue supplemental K as patient is on Lasix (5) CKD (chronic kidney disease) stage 3, GFR 30-59 ml/min Conclusion/Plan: Patient has CKD stage III and presents with creatinine of 1.4 which is near his baseline. Patient will be started on lisinopril and spironolactone given his severe CHF to optimize treatment as his GFR is above 40 [employer] worsening to 1.8 today Stop lasix and monitor (6) COPD (chronic obstructive pulmonary disease) Conclusion/Plan: Patient has history of COPD likely due to smoking and does take nebulizer as needed. Patient does not appear to have wheezing or COPD exacerbation at this time We will continue the patient on as needed duo nebs but there is no need for steroids or antibiotics at this time Stable Qualifiers: COPD type: unspecified COPD Qualified Code(s): J44.9 - Chronic obstructive pulmonary disease, unspecified (7) History of coronary artery disease Conclusion/Plan: Patient has history of coronary artery disease and is on metoprolol and Lipitor as well as aspirin for optimal treatment of CAD. Patient will be continued on these medications Patient does not appear to have had an SC as his troponin and EKG were negative. (8) History of CVA (cerebrovascular accident) Conclusion/Plan: Patient had a large CVA in 1998 leaving him with left sided weakness and dysarthria. Patient is currently on aspirin and Lipitor as well as Eliquis to prevent stroke. We will continue these treatments. - Current Meds Current Meds: Current Medications Generic Name Dose Route Start Last Admin Trade Name Freq PRN Reason Stop Dose Admin Apixaban 5 mg 09/20/17 21:00 09/22/17 10:18 Eliquis PO 5 mg BID LUCY Administration Atorvastatin Calcium 40 mg 09/20/17 21:00 09/21/17 21:06 Lipitor PO 40 mg QPM LUCY Administration Famotidine 20 mg 09/21/17 09:00 09/22/17 10:17 Pepcid PO 20 mg DAILY LUCY Administration Lisinopril 5 mg 09/21/17 09:00 09/22/17 08:52 Zestril PO Not Given DAILY LUCY Mineral Oil 1 applic 09/20/17 17:43 09/21/17 19:53 Cavilon TOP 1 applic PRN PRN Administration Skin Care Multi-Ingredient Ointment 1 applic 09/21/17 17:17 09/22/17 08:57 Zinc Oxide TOP 1 applic PRN PRN Administration Skin Care Polyethylene Glycol 17 gm 09/21/17 09:00 09/22/17 08:02 Miralax PO Not Given DAILY LUCY Potassium Chloride 20 meq 09/21/17 08:00 09/22/17 10:17 K-Dur PO 20 meq DAILYWM LUCY Administration Sodium Chloride 10 ml 09/20/17 10:45 09/22/17 06:11 Normal Saline Flush 0.9% IVP 10 ml PRN PRN Administration NEEDED PER PROVIDER ORDERS Sodium Chloride 10 ml 09/20/17 17:00 09/22/17 10:17 Normal Saline Flush 0.9% IVP 10 ml 0100,0900,1700 LUCY Administration Spironolactone 12.5 mg 09/21/17 09:00 09/22/17 08:52 Aldactone PO Not Given DAILY LUCY - Lab Result Lab results reviewed: Yes Fish Bone Diagrams: 09/22/17 05:25 09/22/17 05:25 - Diagnostic Imaging Results Diagnostic Imaging Results: Final report reviewed - Additional Planning Condition/Complexity: Improved My Orders: My Active Orders 09/21/17 17:17 Zinc Oxide 20% Oint [Zinc Oxide] 1 applic TOP PRN PRN Consult/Specialty: PT Plan Discussed with:: Patient Time Spent: 31-60 minutes Subjective - Subjective Patient Reports: Feeling Better, Resting Comfortably, Pain (Testicular pain improved), Shortness of Breath (Improved) Nursing Reports: No Complaints Objective Vital Signs: Vital Signs - 24 hr 09/21/17 09/21/17 09/21/17 19:57 20:24 21:07 Temperature 36.4 C L Heart Rate Heart Rate [ 56 L Brachial] Respiratory 28 H Rate Blood Pressure 110/65 Blood Pressure 102/46 L 110/65 [Right Brachial artery] O2 Saturation 96 09/22/17 09/22/17 09/22/17 00:01 05:00 07:43 Temperature 36.5 C 36.6 C 36.5 C Heart Rate Heart Rate [ 53 L 68 57 L Brachial] Respiratory 20 20 20 Rate Blood Pressure Blood Pressure 104/40 L 105/50 L 110/61 [Right Brachial artery] O2 Saturation 95 96 96 09/22/17 09/22/17 09/22/17 08:40 13:41 15:51 Temperature 36.3 C L 36.2 C L Heart Rate 59 L Heart Rate [ 70 62 Brachial] Respiratory 18 19 18 Rate Blood Pressure Blood Pressure 112/68 125/60 [Right Brachial artery] O2 Saturation 95 97 Oxygen O2 Source Room air I&O (Last 24 Hrs): Intake and Output Totals x24h 09/20/17 09/21/17 09/22/17 23:59 23:59 23:59 Intake Total 370 860 710 Output Total 1210 1195 745 Balance -840 -335 -35 General: Alert, Oriented x3, Cooperative, Other (Dysarthria) HEENT: Atraumatic, PERRLA, EOMI, Other (Dry mucus membranes) Neck: Supple, No JVD, No thyromegaly, +2 carotid pulse wo bruit, No LAD Lymphatic: no adenopathy Neuro: Alert, Focal Deficits (Left sided weakness, dysarthria), CN 2-12 Grossly Intact Cardiovascular: No murmurs, Other (Bradycardia) Respiratory: Chest non-tender, No respiratory distress, Rales (Bases) Abdomen: Normal bowel sounds, Soft, No tenderness, No hepatospenomegaly, No masses Extremities: No clubbing, No cyanosis, Normal pulses, Other (LE edema much improved) Skin: No rashes, No breakdown - Results Results: Laboratory Results WBC 8.4 x10^3/uL (4.8-10.8) 09/22/17 05:25 RBC 3.79 10^6/uL (4.70-6.10) L 09/22/17 05:25 Hgb 9.8 g/dL (14.0-18.0) L 09/22/17 05:25 Hct 31.5 % (42.0-52.0) L 09/22/17 05:25 MCV 83.2 fL (80.0-94.0) 09/22/17 05:25 MCH 25.9 pg (27.0-31.0) L 09/22/17 05:25 MCHC 31.1 g/dL (32.0-36.0) L 09/22/17 05:25 RDW 17.2 % (12.0-15.0) H 09/22/17 05:25 Plt Count 257 10^3/uL (130-450) 09/22/17 05:25 MPV 8.0 fL (7.4-11.4) 09/22/17 05:25 Neut # 6.0 10^3/uL (1.5-6.6) 09/22/17 05:25 Lymph # 1.1 10^3/uL (1.5-3.5) L 09/22/17 05:25 [place] # 1.0 10^3/uL (0.0-1.0) 09/22/17 05:25 Eos # 0.2 10^3/uL (0.0-0.7) 09/22/17 05:25 Baso # 0.1 10^3/uL (0.0-0.1) 09/22/17 05:25 Absolute Nucleated RBC 0.00 x10^3/uL 09/22/17 05:25 Nucleated RBC % 0.0 /100WBC 09/22/17 05:25 Sodium 137 mmol/L (135-145) 09/22/17 05:25 Potassium 3.9 mmol/L (3.5-5.0) 09/22/17 05:25 Chloride 102 mmol/L (101-111) 09/22/17 05:25 Carbon Dioxide 27 mmol/L (21-32) 09/22/17 05:25 Anion Gap 8.0 (6-13) 09/22/17 05:25 BUN 32 mg/dL (6-20) H 09/22/17 05:25 Creatinine 1.8 mg/dL (0.6-1.2) H 09/22/17 05:25 Estimated GFR (MDRD) 37 (>89) L 09/22/17 05:25 Glucose 79 mg/dL (70-100) 09/22/17 05:25 Calcium 8.3 mg/dL (8.5-10.3) L 09/22/17 05:25 Magnesium 1.9 mg/dL (1.7-2.8) 09/22/17 05:25 Total Bilirubin 0.8 mg/dL (0.2-1.0) 09/22/17 05:25 AST 36 IU/L (10-42) 09/22/17 05:25 ALT 31 IU/L (10-60) 09/22/17 05:25 Alkaline Phosphatase 149 IU/L (42-121) H 09/22/17 05:25 Troponin I 0.07 ng/mL (<0.49) 09/20/17 08:20 B-Natriuretic Peptide 499 pg/mL (5-100) H 09/22/17 05:25 Total Protein 7.9 g/dL (6.7-8.2) 09/22/17 05:25 Albumin 2.6 g/dL (3.2-5.5) L 09/22/17 05:25 Globulin 5.3 g/dL (2.1-4.2) H 09/22/17 05:25 Albumin/Globulin Ratio 0.5 (1.0-2.2) L 09/22/17 05:25 Lipase 16 U/L (22-51) L 09/20/17 08:20 Urine Color YELLOW 09/20/17 08:00 Urine Clarity CLEAR (CLEAR) 09/20/17 08:00 Urine pH 6.0 PH (5.0-7.5) 09/20/17 08:00 Ur Specific [place] 1.010 (1.002-1.030) 09/20/17 08:00 Urine Protein NEGATIVE mg/dL (NEGATIVE) 09/20/17 08:00 Urine Glucose (UA) NEGATIVE mg/dL (NEGATIVE) 09/20/17 08:00 Urine Ketones NEGATIVE mg/dL (NEGATIVE) 09/20/17 08:00 Urine Occult Blood NEGATIVE (NEGATIVE) 09/20/17 08:00 Urine Nitrite NEGATIVE (NEGATIVE) 09/20/17 08:00 Urine Bilirubin NEGATIVE (NEGATIVE) 09/20/17 08:00 Urine Urobilinogen 0.2 (NORMAL) E.U./dL (NORMAL) 09/20/17 08:00 Ur Leukocyte Esterase NEGATIVE (NEGATIVE) 09/20/17 08:00 Ur Microscopic Review NOT INDICATED 09/20/17 08:00 Urine Culture Comments NOT INDICATED 09/20/17 08:00 Last Dose Date K 09/20/17 08:20 Last Dose Time [facility] 09/20/17 08:20 Digoxin 1.0 ng/mL 09/20/17 08:20 ABX Reporting Has patient been on IV antibiotics over the past 48 hours?: No
[2017-09-22] MEDS: ATORVASTATIN 40 MG TABLET PO SCH (20:56)
[2017-09-23] MEDS: SODIUM CHLORIDE FLUSH 0.9% 10 ML SYRINGE IVP SCH ×3 (00:11→20:39)
[2017-09-23] MEDS ORDERED: ZOLPIDEM 5 MG TABLET PO PRN (00:46)
[2017-09-23 05:30] LABS: BASOPHILS # (AUTO) 0.1 10^3/uL (0.0-0.1); BASOPHILS % (AUTO) 1.3 %; EOSINOPHILS # (AUTO) 0.1 10^3/uL (0.0-0.7); EOSINOPHILS % (AUTO) 1.5 %; HGB - HEMOGLOBIN 10.1 g/dL (14.0-18.0); LYMPHOCYTES # (AUTO) 0.9 10^3/uL (1.5-3.5); LYMPHOCYTES % (AUTO) 12.4 %; MEAN CORPUSCULAR HEMOGLOBIN 25.5 pg (27.0-31.0); MEAN CORPUSCULAR HGB CONC 30.9 g/dL (32.0-36.0); MEAN CORPUSCULAR VOLUME 82.7 fL (80.0-94.0); MONOCYTES # (AUTO) 0.8 10^3/uL (0.0-1.0); MONOCYTES % (AUTO) 10.8 %; NEUTROPHILS # (AUTO) 5.6 10^3/uL (1.5-6.6); PLT - PLATELET COUNT 268 10^3/uL (130-450); RED BLOOD COUNT 3.97 10^6/uL (4.70-6.10); RED CELL DISTRIBUTION WIDTH 17.2 % (12.0-15.0); WHITE BLOOD COUNT 7.6 x10^3/uL (4.8-10.8)
[2017-09-23 05:47] LABS: ALBUMIN 2.7 g/dL (3.2-5.5); ALBUMIN/GLOBULIN RATIO 0.5 (1.0-2.2); BILIRUBIN,TOTAL 0.8 mg/dL (0.2-1.0); CALCIUM 8.7 mg/dL (8.5-10.3); CREATININE 1.7 mg/dL (0.6-1.2); TOTAL PROTEIN 8.4 g/dL (6.7-8.2)
[2017-09-23] MEDS: POLYETHYLENE GLYCOL 3350 17 GM PACKET PO SCH (09:27)
[2017-09-23] MEDS: SPIRONOLACTONE 25 MG TABLET PO SCH (10:40)
[2017-09-23] MEDS: POTASSIUM CHLORIDE 20 MEQ TABLET PO SCH (10:40)
[2017-09-23] MEDS: APIXABAN 2.5 MG TABLET PO SCH ×2 (10:41→20:39)
[2017-09-23] MEDS: FAMOTIDINE 20 MG TABLET PO SCH (10:41)
[2017-09-23] MEDS ORDERED: FUROSEMIDE 20 MG TABLET PO SCH (11:00)
[2017-09-23] MEDS: CARVEDILOL 3.125 MG TABLET PO SCH ×2 (11:16→20:44)
--- NOTE | 2017-09-23 12:56 | PROVIDER PROGRESS NOTE ---
Assessment/Plan - Problem List (1) Systolic CHF with reduced left ventricular function, NYHA class 3 Assessment/Plan: Yesterday his Dig and Metoprolol were stopped (due to bradycardia). Will remain off Dig due to low HR. Amiodarone was also stopped (due to bradycardia) and will stay off it, since it is not maintaining sinus rhythm. I will restart B-yogi as HR is 60-70 today, and use Coreg 6.25 bid. Due to his COPD, will watch for wheezing and if not tolerated, will resume Metoprolol. Stop Lisinopril (as CKD got worse), resume Lasix po and start Spironolactone. (2) Bradycardia Assessment/Plan: Yesterday his Dig and Metoprolol were stopped (due to bradycardia). Will remain off Dig due to low HR, in order to restart a B-yogi. Amiodarone was also stopped (due to bradycardia) and will stay off it, since it is not maintaining sinus rhythm. (3) Atrial fibrillation Qualifiers: Atrial fibrillation type: chronic Qualified Code(s): I48.2 - Chronic atrial fibrillation Assessment/Plan: Pt on Eliquis, dose reviewed and is correct. Amio stopped as it is not maintaining NSR. Restarting a B-yogi may be enough to control HR. (4) CKD (chronic kidney disease) stage 3, GFR 30-59 ml/min Assessment/Plan: Yesterday, the Lasix was stopped when creat katlin. I will restart Lasix plus Spironolactone but stop Potassium. Watch creat before Dc (probably tomorrow). (5) History of CVA (cerebrovascular accident) Assessment/Plan: Chronic L sided weakness and patient is at baseline. - Current Meds Current Meds: Current Medications Generic Name Dose Route Start Last Admin Trade Name Freq PRN Reason Stop Dose Admin Apixaban 5 mg 09/20/17 21:00 09/23/17 10:41 Eliquis PO 5 mg BID LUCY Administration Atorvastatin Calcium 40 mg 09/20/17 21:00 09/22/17 20:56 Lipitor PO 40 mg QPM LUCY Administration Carvedilol 6.25 mg 09/23/17 11:00 09/23/17 11:16 Coreg PO 6.25 mg BID LUCY Administration Famotidine 20 mg 09/21/17 09:00 09/23/17 10:41 Pepcid PO 20 mg DAILY LUCY Administration Furosemide 20 mg 09/23/17 11:00 09/23/17 11:16 Lasix PO 20 mg DAILY LUCY Administration Mineral Oil 1 applic 09/20/17 17:43 09/21/17 19:53 Cavilon TOP 1 applic PRN PRN Administration Skin Care Multi-Ingredient Ointment 1 applic 09/21/17 17:17 09/22/17 08:57 Zinc Oxide TOP 1 applic PRN PRN Administration Skin Care Polyethylene Glycol 17 gm 09/21/17 09:00 09/23/17 09:27 Miralax PO Not Given DAILY LUCY Potassium Chloride 20 meq 09/21/17 08:00 09/23/17 10:40 K-Dur PO 20 meq DAILYWM LUCY Administration Sodium Chloride 10 ml 09/20/17 10:45 09/22/17 06:11 Normal Saline Flush 0.9% IVP 10 ml PRN PRN Administration NEEDED PER PROVIDER ORDERS Sodium Chloride 10 ml 09/20/17 17:00 09/23/17 10:41 Normal Saline Flush 0.9% IVP 10 ml 0100,0900,1700 LUCY Administration Spironolactone 12.5 mg 09/21/17 09:00 09/23/17 10:40 Aldactone PO 12.5 mg DAILY LUCY Administration - Lab Result Fish Bone Diagrams: 09/23/17 05:14 09/23/17 05:14 - Additional Planning My Orders: My Active Orders 09/23/17 10:24 Miscellaenous Nursing Order [RC] QSHIFT 09/23/17 11:00 Carvedilol [Coreg] 6.25 mg PO BID Furosemide [Lasix] 20 mg PO DAILY Subjective - Subjective Patient Reports: Feeling Better, Resting Comfortably, Fatigue Nursing Reports: No Complaints Objective Vital Signs: Vital Signs - 24 hr 09/22/17 09/22/17 09/22/17 13:41 15:51 20:58 Temperature 36.3 C L 36.2 C L 36.3 C L Heart Rate [ 70 62 62 Brachial] Respiratory 19 18 18 Rate Blood Pressure 112/68 125/60 123/59 L [Right Brachial artery] O2 Saturation 95 97 95 09/23/17 09/23/17 09/23/17 00:26 05:00 08:27 Temperature 36.3 C L 36.3 C L 36.3 C L Heart Rate [ 62 61 70 Brachial] Respiratory 18 18 19 Rate Blood Pressure 129/77 122/77 125/106 H [Right Brachial artery] O2 Saturation 96 97 93 Oxygen O2 Source Room air I&O (Last 24 Hrs): Intake and Output Totals x24h 09/21/17 09/22/17 09/23/17 23:59 23:59 23:59 Intake Total 860 710 640 Output Total 1195 845 240 Balance -335 -135 400 General: Alert, Oriented x3 HEENT: Mucous membr. moist/pink Neck: Supple, No JVD Neuro: Other (L sided weakness from old CVA) Cardiovascular: No murmurs Respiratory: Breath sounds nml Abdomen: Soft Extremities: No edema - Results Results: Laboratory Results WBC 7.6 x10^3/uL (4.8-10.8) 09/23/17 05:14 RBC 3.97 10^6/uL (4.70-6.10) L 09/23/17 05:14 Hgb 10.1 g/dL (14.0-18.0) L 09/23/17 05:14 Hct 32.8 % (42.0-52.0) L 09/23/17 05:14 MCV 82.7 fL (80.0-94.0) 09/23/17 05:14 MCH 25.5 pg (27.0-31.0) L 09/23/17 05:14 MCHC 30.9 g/dL (32.0-36.0) L 09/23/17 05:14 RDW 17.2 % (12.0-15.0) H 09/23/17 05:14 Plt Count 268 10^3/uL (130-450) 09/23/17 05:14 MPV 8.0 fL (7.4-11.4) 09/23/17 05:14 Neut # 5.6 10^3/uL (1.5-6.6) 09/23/17 05:14 Lymph # 0.9 10^3/uL (1.5-3.5) L 09/23/17 05:14 [place] # 0.8 10^3/uL (0.0-1.0) 09/23/17 05:14 Eos # 0.1 10^3/uL (0.0-0.7) 09/23/17 05:14 Baso # 0.1 10^3/uL (0.0-0.1) 09/23/17 05:14 Absolute Nucleated RBC 0.00 x10^3/uL 09/23/17 05:14 Nucleated RBC % 0.0 /100WBC 09/23/17 05:14 Sodium 138 mmol/L (135-145) 09/23/17 05:14 Potassium 4.1 mmol/L (3.5-5.0) 09/23/17 05:14 Chloride 104 mmol/L (101-111) 09/23/17 05:14 Carbon Dioxide 26 mmol/L (21-32) 09/23/17 05:14 Anion Gap 8.0 (6-13) 09/23/17 05:14 BUN 34 mg/dL (6-20) H 09/23/17 05:14 Creatinine 1.7 mg/dL (0.6-1.2) H 09/23/17 05:14 Estimated GFR (MDRD) 39 (>89) L 09/23/17 05:14 Glucose 81 mg/dL (70-100) 09/23/17 05:14 Calcium 8.7 mg/dL (8.5-10.3) 09/23/17 05:14 Magnesium 2.0 mg/dL (1.7-2.8) 09/23/17 05:14 Total Bilirubin 0.8 mg/dL (0.2-1.0) 09/23/17 05:14 AST 34 IU/L (10-42) 09/23/17 05:14 ALT 31 IU/L (10-60) 09/23/17 05:14 Alkaline Phosphatase 149 IU/L (42-121) H 09/23/17 05:14 Troponin I 0.07 ng/mL (<0.49) 09/20/17 08:20 B-Natriuretic Peptide 669 pg/mL (5-100) H 09/23/17 05:14 Total Protein 8.4 g/dL (6.7-8.2) H 09/23/17 05:14 Albumin 2.7 g/dL (3.2-5.5) L 09/23/17 05:14 Globulin 5.7 g/dL (2.1-4.2) H 09/23/17 05:14 Albumin/Globulin Ratio 0.5 (1.0-2.2) L 09/23/17 05:14 Lipase 16 U/L (22-51) L 09/20/17 08:20 Urine Color YELLOW 09/20/17 08:00 Urine Clarity CLEAR (CLEAR) 09/20/17 08:00 Urine pH 6.0 PH (5.0-7.5) 09/20/17 08:00 Ur Specific [place] 1.010 (1.002-1.030) 09/20/17 08:00 Urine Protein NEGATIVE mg/dL (NEGATIVE) 09/20/17 08:00 Urine Glucose (UA) NEGATIVE mg/dL (NEGATIVE) 09/20/17 08:00 Urine Ketones NEGATIVE mg/dL (NEGATIVE) 09/20/17 08:00 Urine Occult Blood NEGATIVE (NEGATIVE) 09/20/17 08:00 Urine Nitrite NEGATIVE (NEGATIVE) 09/20/17 08:00 Urine Bilirubin NEGATIVE (NEGATIVE) 09/20/17 08:00 Urine Urobilinogen 0.2 (NORMAL) E.U./dL (NORMAL) 09/20/17 08:00 Ur Leukocyte Esterase NEGATIVE (NEGATIVE) 09/20/17 08:00 Ur Microscopic Review NOT INDICATED 09/20/17 08:00 Urine Culture Comments NOT INDICATED 09/20/17 08:00 Last Dose Date [facility] 09/20/17 08:20 Last Dose Time [facility] 09/20/17 08:20 Digoxin 1.0 ng/mL 09/20/17 08:20 ABX Reporting Has patient been on IV antibiotics over the past 48 hours?: No
[2017-09-23] MEDS: ATORVASTATIN 40 MG TABLET PO SCH (20:39)
[2017-09-24] MEDS: SODIUM CHLORIDE FLUSH 0.9% 10 ML SYRINGE IVP SCH ×3 (00:05→21:03)
[2017-09-24 05:47] LABS: BASOPHILS # (AUTO) 0.1 10^3/uL (0.0-0.1); BASOPHILS % (AUTO) 1.2 %; EOSINOPHILS # (AUTO) 0.1 10^3/uL (0.0-0.7); HGB - HEMOGLOBIN 10.1 g/dL (14.0-18.0); LYMPHOCYTES # (AUTO) 0.9 10^3/uL (1.5-3.5); LYMPHOCYTES % (AUTO) 12.4 %; MEAN CORPUSCULAR HEMOGLOBIN 25.9 pg (27.0-31.0); MEAN CORPUSCULAR HGB CONC 31.3 g/dL (32.0-36.0); MEAN CORPUSCULAR VOLUME 82.6 fL (80.0-94.0); MEAN PLATELET VOLUME 8.6 fL (7.4-11.4); MONOCYTES # (AUTO) 0.8 10^3/uL (0.0-1.0); MONOCYTES % (AUTO) 10.4 %; NEUTROPHILS # (AUTO) 5.5 10^3/uL (1.5-6.6); PLT - PLATELET COUNT 261 10^3/uL (130-450); RED BLOOD COUNT 3.89 10^6/uL (4.70-6.10); RED CELL DISTRIBUTION WIDTH 17.2 % (12.0-15.0); WHITE BLOOD COUNT 7.4 x10^3/uL (4.8-10.8)
[2017-09-24 06:01] LABS: ALBUMIN 2.7 g/dL (3.2-5.5); ALBUMIN/GLOBULIN RATIO 0.5 (1.0-2.2); BILIRUBIN,TOTAL 0.9 mg/dL (0.2-1.0); CALCIUM 8.7 mg/dL (8.5-10.3); CREATININE 1.6 mg/dL (0.6-1.2); MAGNESIUM 2.1 mg/dL (1.7-2.8)
[2017-09-24] MEDS: POTASSIUM CHLORIDE 20 MEQ TABLET PO SCH (10:13)
[2017-09-24] MEDS: FUROSEMIDE 20 MG TABLET PO SCH ×2 (10:15→21:04)
[2017-09-24] MEDS: APIXABAN 2.5 MG TABLET PO SCH ×2 (10:15→21:04)
[2017-09-24] MEDS: FAMOTIDINE 20 MG TABLET PO SCH (10:15)
[2017-09-24] MEDS: SPIRONOLACTONE 25 MG TABLET PO SCH (10:16)
[2017-09-24] MEDS: CARVEDILOL 3.125 MG TABLET PO SCH (10:16)
[2017-09-24] MEDS: POLYETHYLENE GLYCOL 3350 17 GM PACKET PO SCH (12:05)
--- NOTE | 2017-09-24 17:46 | PROVIDER PROGRESS NOTE ---
Assessment/Plan - Problem List (1) Systolic CHF with reduced left ventricular function, NYHA class 3 Assessment/Plan: BNP went up, O2 sats dropped and RR increased this am. Will increase Lasix dose. No DCh today. (2) Bradycardia Assessment/Plan: HR estella even with low dose of Coreg. Will decrease Coreg mckinney to 3.125 bid. Poss DCh tomorrow. (3) Atrial fibrillation Qualifiers: Atrial fibrillation type: chronic Qualified Code(s): I48.2 - Chronic atrial fibrillation Assessment/Plan: Continue anticoagulant. (4) CKD (chronic kidney disease) stage 3, GFR 30-59 ml/min Assessment/Plan: Abnormal. Watching creat as meds adjusted for CHF. (5) History of CVA (cerebrovascular accident) Assessment/Plan: Stable. - Current Meds Current Meds: Current Medications Generic Name Dose Route Start Last Admin Trade Name Freq PRN Reason Stop Dose Admin Apixaban 5 mg 09/20/17 21:00 09/24/17 10:15 Eliquis PO 5 mg BID LUCY Administration Atorvastatin Calcium 40 mg 09/20/17 21:00 09/23/17 20:39 Lipitor PO 40 mg QPM LUCY Administration Carvedilol 6.25 mg 09/23/17 11:00 09/24/17 10:16 Coreg PO 6.25 mg BID LUCY Administration Famotidine 20 mg 09/21/17 09:00 09/24/17 10:15 Pepcid PO 20 mg DAILY LUCY Administration Furosemide 40 mg 09/24/17 09:08 09/24/17 10:15 Lasix PO 40 mg BID LUCY Administration Mineral Oil 1 applic 09/20/17 17:43 09/21/17 19:53 Cavilon TOP 1 applic PRN PRN Administration Skin Care Multi-Ingredient Ointment 1 applic 09/21/17 17:17 09/22/17 08:57 Zinc Oxide TOP 1 applic PRN PRN Administration Skin Care Polyethylene Glycol 17 gm 09/21/17 09:00 09/24/17 12:05 Miralax PO Not Given DAILY LUCY Potassium Chloride 20 meq 09/21/17 08:00 09/24/17 10:13 K-Dur PO 20 meq DAILYWM LUCY Administration Sodium Chloride 10 ml 09/20/17 10:45 09/22/17 06:11 Normal Saline Flush 0.9% IVP 10 ml PRN PRN Administration NEEDED PER PROVIDER ORDERS Sodium Chloride 10 ml 09/20/17 17:00 09/24/17 10:13 Normal Saline Flush 0.9% IVP 10 ml 0100,0900,1700 LUCY Administration Spironolactone 12.5 mg 09/21/17 09:00 09/24/17 10:16 Aldactone PO 12.5 mg DAILY LUCY Administration - Lab Result Fish Bone Diagrams: 09/24/17 05:05 09/24/17 05:05 - Additional Planning My Orders: My Active Orders 09/24/17 09:08 Furosemide [Lasix] 40 mg PO BID 09/24/17 10:54 Zolpidem [Ambien] 5 mg PO QPM PRN 09/25/17 05:00 BMP, RFLX TO IONIZED CA IF [CHEM] DAILYLAB BNP - B-NATRIURETIC PEPTIDE [IAI] DAILYLAB MAGNESIUM [CHEM] DAILYLAB Subjective - Subjective Patient Reports: Feeling Better Nursing Reports: Other (Appears more weak. HR was in 40's during sleep.) Objective Vital Signs: Vital Signs - 24 hr 09/23/17 09/24/17 09/24/17 19:43 00:55 05:00 Temperature 36.2 C L 36.3 C L 36.4 C L Heart Rate [ Apical] Heart Rate [ 51 L 57 L 82 Brachial] Respiratory 18 18 18 Rate Blood Pressure 117/77 104/54 L 115/58 L [Right Brachial artery] O2 Saturation 94 95 95 09/24/17 09/24/17 09/24/17 08:28 10:29 13:57 Temperature 36.2 C L Heart Rate [ 45 L Apical] Heart Rate [ 81 Brachial] Respiratory 20 26 H Rate Blood Pressure 145/56 H 120/51 L [Right Brachial artery] O2 Saturation 90 L 96 89 L 09/24/17 09/24/17 13:58 15:53 Temperature 36.3 C L Heart Rate [ Apical] Heart Rate [ 58 L Brachial] Respiratory 26 H 24 Rate Blood Pressure 113/76 [Right Brachial artery] O2 Saturation 99 95 Oxygen O2 Source Nasal cannula I&O (Last 24 Hrs): Intake and Output Totals x24h 09/22/17 09/23/17 09/24/17 23:59 23:59 23:59 Intake Total 710 965 600 Output Total 845 540 815 Balance -135 425 -215 General: Alert, Other (Appears tired and more pale.) HEENT: Atraumatic, Mucous membr. moist/pink Neck: Supple, No JVD Neuro: Other (L sided weakness) Cardiovascular: No murmurs Respiratory: Other (Diminished) Abdomen: Soft Extremities: No edema - Results Results: Laboratory Results WBC 7.4 x10^3/uL (4.8-10.8) 09/24/17 05:05 RBC 3.89 10^6/uL (4.70-6.10) L 09/24/17 05:05 Hgb 10.1 g/dL (14.0-18.0) L 09/24/17 05:05 Hct 32.1 % (42.0-52.0) L 09/24/17 05:05 MCV 82.6 fL (80.0-94.0) 09/24/17 05:05 MCH 25.9 pg (27.0-31.0) L 09/24/17 05:05 MCHC 31.3 g/dL (32.0-36.0) L 09/24/17 05:05 RDW 17.2 % (12.0-15.0) H 09/24/17 05:05 Plt Count 261 10^3/uL (130-450) 09/24/17 05:05 MPV 8.6 fL (7.4-11.4) 09/24/17 05:05 Neut # 5.5 10^3/uL (1.5-6.6) 09/24/17 05:05 Lymph # 0.9 10^3/uL (1.5-3.5) L 09/24/17 05:05 [place] # 0.8 10^3/uL (0.0-1.0) 09/24/17 05:05 Eos # 0.1 10^3/uL (0.0-0.7) 09/24/17 05:05 Baso # 0.1 10^3/uL (0.0-0.1) 09/24/17 05:05 Absolute Nucleated RBC 0.01 x10^3/uL 09/24/17 05:05 Nucleated RBC % 0.1 /100WBC 09/24/17 05:05 Sodium 135 mmol/L (135-145) 09/24/17 05:05 Potassium 4.4 mmol/L (3.5-5.0) 09/24/17 05:05 Chloride 103 mmol/L (101-111) 09/24/17 05:05 Carbon Dioxide 24 mmol/L (21-32) 09/24/17 05:05 Anion Gap 8.0 (6-13) 09/24/17 05:05 BUN 34 mg/dL (6-20) H 09/24/17 05:05 Creatinine 1.6 mg/dL (0.6-1.2) H 09/24/17 05:05 Estimated GFR (MDRD) 42 (>89) L 09/24/17 05:05 Glucose 86 mg/dL (70-100) 09/24/17 05:05 Calcium 8.7 mg/dL (8.5-10.3) 09/24/17 05:05 Magnesium 2.1 mg/dL (1.7-2.8) 09/24/17 05:05 Total Bilirubin 0.9 mg/dL (0.2-1.0) 09/24/17 05:05 AST 34 IU/L (10-42) 09/24/17 05:05 ALT 29 IU/L (10-60) 09/24/17 05:05 Alkaline Phosphatase 150 IU/L (42-121) H 09/24/17 05:05 Troponin I 0.07 ng/mL (<0.49) 09/20/17 08:20 B-Natriuretic Peptide 755 pg/mL (5-100) H 09/24/17 05:05 Total Protein 8.0 g/dL (6.7-8.2) 09/24/17 05:05 Albumin 2.7 g/dL (3.2-5.5) L 09/24/17 05:05 Globulin 5.3 g/dL (2.1-4.2) H 09/24/17 05:05 Albumin/Globulin Ratio 0.5 (1.0-2.2) L 09/24/17 05:05 Lipase 16 U/L (22-51) L 09/20/17 08:20 Urine Color YELLOW 09/20/17 08:00 Urine Clarity CLEAR (CLEAR) 09/20/17 08:00 Urine pH 6.0 PH (5.0-7.5) 09/20/17 08:00 Ur Specific [place] 1.010 (1.002-1.030) 09/20/17 08:00 Urine Protein NEGATIVE mg/dL (NEGATIVE) 09/20/17 08:00 Urine Glucose (UA) NEGATIVE mg/dL (NEGATIVE) 09/20/17 08:00 Urine Ketones NEGATIVE mg/dL (NEGATIVE) 09/20/17 08:00 Urine Occult Blood NEGATIVE (NEGATIVE) 09/20/17 08:00 Urine Nitrite NEGATIVE (NEGATIVE) 09/20/17 08:00 Urine Bilirubin NEGATIVE (NEGATIVE) 09/20/17 08:00 Urine Urobilinogen 0.2 (NORMAL) E.U./dL (NORMAL) 09/20/17 08:00 Ur Leukocyte Esterase NEGATIVE (NEGATIVE) 09/20/17 08:00 Ur Microscopic Review NOT INDICATED 09/20/17 08:00 Urine Culture Comments NOT INDICATED 09/20/17 08:00 Last Dose Date [facility] 09/20/17 08:20 Last Dose Time [facility] 09/20/17 08:20 Digoxin 1.0 ng/mL 09/20/17 08:20
[2017-09-24] MEDS: ATORVASTATIN 40 MG TABLET PO SCH (21:04)
[2017-09-24] MEDS: ZOLPIDEM 5 MG TABLET PO PRN (21:07)
[2017-09-25] MEDS: SODIUM CHLORIDE FLUSH 0.9% 10 ML SYRINGE IVP SCH ×4 (01:43→23:45)
[2017-09-25 05:15] LABS: BUN - BLOOD UREA NITROGEN 31 mg/dL (6-20); CALCIUM 8.6 mg/dL (8.5-10.3); CARBON DIOXIDE - CO2 25 mmol/L (21-32); CHLORIDE 102 mmol/L (101-111); CREATININE 1.6 mg/dL (0.6-1.2); GFR - MDRD 42 (>89); GLUCOSE 91 mg/dL (70-100); MAGNESIUM 2.1 mg/dL (1.7-2.8); SODIUM 134 mmol/L (135-145)
[2017-09-25] MEDS: FAMOTIDINE 20 MG TABLET PO SCH (09:08)
[2017-09-25] MEDS: FUROSEMIDE 20 MG TABLET PO SCH ×2 (09:09→20:48)
[2017-09-25] MEDS: SPIRONOLACTONE 25 MG TABLET PO SCH (09:09)
[2017-09-25] MEDS: CARVEDILOL 3.125 MG TABLET PO SCH ×2 (09:10→20:48)
[2017-09-25] MEDS: POLYETHYLENE GLYCOL 3350 17 GM PACKET PO SCH (09:10)
[2017-09-25] MEDS: POTASSIUM CHLORIDE 20 MEQ TABLET PO SCH (09:10)
[2017-09-25] MEDS: APIXABAN 2.5 MG TABLET PO SCH ×2 (09:10→20:48)
--- NOTE | 2017-09-25 15:49 | PROVIDER PROGRESS NOTE ---
Assessment/Plan - Problem List (1) Systolic CHF with reduced left ventricular function, NYHA class 3 Assessment/Plan: Fatigue is worse, despite improved respiratory exam. BNP katlin again. Will not DCh yest today due to marked fatigue. (2) Bradycardia Assessment/Plan: HR now 50's on lowest dose of Coreg, no Dig or Amiodarone (3) Atrial fibrillation Qualifiers: Atrial fibrillation type: chronic Qualified Code(s): I48.2 - Chronic atrial fibrillation Assessment/Plan: Stable HR and on Anticoagulant. (4) CKD (chronic kidney disease) stage 3, GFR 30-59 ml/min Assessment/Plan: Stable despite higher po Lasix dose Continue to monitor creat (5) History of CVA (cerebrovascular accident) Assessment/Plan: Stable - Current Meds Current Meds: Current Medications Generic Name Dose Route Start Last Admin Trade Name Freq PRN Reason Stop Dose Admin Apixaban 5 mg 09/20/17 21:00 09/25/17 09:10 Eliquis PO 5 mg BID LUCY Administration Atorvastatin Calcium 40 mg 09/20/17 21:00 09/24/17 21:04 Lipitor PO 40 mg QPM LUCY Administration Carvedilol 3.125 mg 09/25/17 09:00 09/25/17 09:10 Coreg PO 3.125 mg BID LUCY Administration Famotidine 20 mg 09/21/17 09:00 09/25/17 09:08 Pepcid PO 20 mg DAILY LUCY Administration Furosemide 40 mg 09/24/17 09:08 09/25/17 09:09 Lasix PO 40 mg BID LUCY Administration Mineral Oil 1 applic 09/20/17 17:43 09/21/17 19:53 Cavilon TOP 1 applic PRN PRN Administration Skin Care Multi-Ingredient Ointment 1 applic 09/21/17 17:17 09/22/17 08:57 Zinc Oxide TOP 1 applic PRN PRN Administration Skin Care Polyethylene Glycol 17 gm 09/21/17 09:00 09/25/17 09:10 Miralax PO Not Given DAILY LUCY Potassium Chloride 20 meq 09/21/17 08:00 09/25/17 09:10 K-Dur PO 20 meq DAILYWM LUCY Administration Sodium Chloride 10 ml 09/20/17 10:45 09/22/17 06:11 Normal Saline Flush 0.9% IVP 10 ml PRN PRN Administration NEEDED PER PROVIDER ORDERS Sodium Chloride 10 ml 09/20/17 17:00 09/25/17 09:10 Normal Saline Flush 0.9% IVP 10 ml 0100,0900,1700 LUCY Administration Spironolactone 12.5 mg 09/21/17 09:00 09/25/17 09:09 Aldactone PO 12.5 mg DAILY LUCY Administration Zolpidem Tartrate 5 mg 09/24/17 10:54 09/24/17 21:07 Ambien PO 5 mg QPM PRN Administration Insomnia - Lab Result Fish Bone Diagrams: 09/24/17 05:05 09/25/17 04:35 - Additional Planning My Orders: My Active Orders 09/25/17 09:00 Carvedilol [Coreg] 3.125 mg PO BID 09/26/17 05:00 BMP - BASIC METABOLIC PANEL [CHEM] DAILYLAB BNP - B-NATRIURETIC PEPTIDE [IAI] DAILYLAB CBC - COMP BLD CT W/AUTO DIFF [HEME] DAILYLAB Subjective - Subjective Patient Reports: Fatigue Nursing Reports: Other (Too tired to eat) Objective Vital Signs: Vital Signs - 24 hr 09/24/17 09/24/17 09/25/17 15:53 21:01 00:45 Temperature 36.3 C L 36.4 C L Heart Rate [ 58 L 60 57 L Brachial] Respiratory 24 22 20 Rate Blood Pressure 113/76 106/71 105/48 L [Right Brachial artery] O2 Saturation 95 98 99 09/25/17 09/25/17 09/25/17 05:58 08:43 14:07 Temperature 36.3 C L 36.3 C L 36.3 C L Heart Rate [ 60 126 H 58 L Brachial] Respiratory 18 22 20 Rate Blood Pressure 109/54 L 131/49 H 131/83 H [Right Brachial artery] O2 Saturation 100 92 96 Oxygen O2 Source Room air I&O (Last 24 Hrs): Intake and Output Totals x24h 09/23/17 09/24/17 09/25/17 23:59 23:59 23:59 Intake Total 965 750 395 Output Total 540 1140 1200 Balance 425 390 80 General: Other (Sleeping,arouses but appears tired) HEENT: Mucous membr. moist/pink Neck: Supple, No JVD Neuro: Other (L sided weakness) Cardiovascular: No murmurs Respiratory: No respiratory distress, Breath sounds nml Abdomen: Soft Extremities: No edema - Results Results: Laboratory Results WBC 7.4 x10^3/uL (4.8-10.8) 09/24/17 05:05 RBC 3.89 10^6/uL (4.70-6.10) L 09/24/17 05:05 Hgb 10.1 g/dL (14.0-18.0) L 09/24/17 05:05 Hct 32.1 % (42.0-52.0) L 09/24/17 05:05 MCV 82.6 fL (80.0-94.0) 09/24/17 05:05 MCH 25.9 pg (27.0-31.0) L 09/24/17 05:05 MCHC 31.3 g/dL (32.0-36.0) L 09/24/17 05:05 RDW 17.2 % (12.0-15.0) H 09/24/17 05:05 Plt Count 261 10^3/uL (130-450) 09/24/17 05:05 MPV 8.6 fL (7.4-11.4) 09/24/17 05:05 Neut # 5.5 10^3/uL (1.5-6.6) 09/24/17 05:05 Lymph # 0.9 10^3/uL (1.5-3.5) L 09/24/17 05:05 [place] # 0.8 10^3/uL (0.0-1.0) 09/24/17 05:05 Eos # 0.1 10^3/uL (0.0-0.7) 09/24/17 05:05 Baso # 0.1 10^3/uL (0.0-0.1) 09/24/17 05:05 Absolute Nucleated RBC 0.01 x10^3/uL 09/24/17 05:05 Nucleated RBC % 0.1 /100WBC 09/24/17 05:05 Sodium 134 mmol/L (135-145) L 09/25/17 04:35 Potassium 4.3 mmol/L (3.5-5.0) 09/25/17 04:35 Chloride 102 mmol/L (101-111) 09/25/17 04:35 Carbon Dioxide 25 mmol/L (21-32) 09/25/17 04:35 Anion Gap 7.0 (6-13) 09/25/17 04:35 BUN 31 mg/dL (6-20) H 09/25/17 04:35 Creatinine 1.6 mg/dL (0.6-1.2) H 09/25/17 04:35 Estimated GFR (MDRD) 42 (>89) L 09/25/17 04:35 Glucose 91 mg/dL (70-100) 09/25/17 04:35 Calcium 8.6 mg/dL (8.5-10.3) 09/25/17 04:35 Ionized Calcium NO 09/25/17 04:35 Magnesium 2.1 mg/dL (1.7-2.8) 09/25/17 04:35 Total Bilirubin 0.9 mg/dL (0.2-1.0) 09/24/17 05:05 AST 34 IU/L (10-42) 09/24/17 05:05 ALT 29 IU/L (10-60) 09/24/17 05:05 Alkaline Phosphatase 150 IU/L (42-121) H 09/24/17 05:05 Troponin I 0.07 ng/mL (<0.49) 09/20/17 08:20 B-Natriuretic Peptide 866 pg/mL (5-100) H 09/25/17 04:35 Total Protein 8.0 g/dL (6.7-8.2) 09/24/17 05:05 Albumin 2.7 g/dL (3.2-5.5) L 09/24/17 05:05 Globulin 5.3 g/dL (2.1-4.2) H 09/24/17 05:05 Albumin/Globulin Ratio 0.5 (1.0-2.2) L 09/24/17 05:05 Lipase 16 U/L (22-51) L 09/20/17 08:20 Urine Color YELLOW 09/20/17 08:00 Urine Clarity CLEAR (CLEAR) 09/20/17 08:00 Urine pH 6.0 PH (5.0-7.5) 09/20/17 08:00 Ur Specific [place] 1.010 (1.002-1.030) 09/20/17 08:00 Urine Protein NEGATIVE mg/dL (NEGATIVE) 09/20/17 08:00 Urine Glucose (UA) NEGATIVE mg/dL (NEGATIVE) 09/20/17 08:00 Urine Ketones NEGATIVE mg/dL (NEGATIVE) 09/20/17 08:00 Urine Occult Blood NEGATIVE (NEGATIVE) 09/20/17 08:00 Urine Nitrite NEGATIVE (NEGATIVE) 09/20/17 08:00 Urine Bilirubin NEGATIVE (NEGATIVE) 09/20/17 08:00 Urine Urobilinogen 0.2 (NORMAL) E.U./dL (NORMAL) 09/20/17 08:00 Ur Leukocyte Esterase NEGATIVE (NEGATIVE) 09/20/17 08:00 Ur Microscopic Review NOT INDICATED 09/20/17 08:00 Urine Culture Comments NOT INDICATED 09/20/17 08:00 Last Dose Date [facility] 09/20/17 08:20 Last Dose Time [facility] 09/20/17 08:20 Digoxin 1.0 ng/mL 09/20/17 08:20
[2017-09-25] MEDS: ATORVASTATIN 40 MG TABLET PO SCH (20:48)
[2017-09-25] MEDS: ZOLPIDEM 5 MG TABLET PO PRN (23:44)
[2017-09-26 04:58] LABS: BASOPHILS # (AUTO) 0.1 10^3/uL (0.0-0.1); BASOPHILS % (AUTO) 1.1 %; EOSINOPHILS # (AUTO) 0.2 10^3/uL (0.0-0.7); HGB - HEMOGLOBIN 10.3 g/dL (14.0-18.0); LYMPHOCYTES % (AUTO) 12.9 %; MEAN CORPUSCULAR HEMOGLOBIN 25.8 pg (27.0-31.0); MEAN CORPUSCULAR HGB CONC 31.5 g/dL (32.0-36.0); MEAN PLATELET VOLUME 8.7 fL (7.4-11.4); MONOCYTES # (AUTO) 0.7 10^3/uL (0.0-1.0); MONOCYTES % (AUTO) 9.3 %; NEUTROPHILS # (AUTO) 5.8 10^3/uL (1.5-6.6); NEUTROPHILS % (AUTO) 73.7 %; PLT - PLATELET COUNT 270 10^3/uL (130-450); RED BLOOD COUNT 3.99 10^6/uL (4.70-6.10); WHITE BLOOD COUNT 7.8 x10^3/uL (4.8-10.8)
[2017-09-26 05:02] LABS: CALCIUM 8.7 mg/dL (8.5-10.3); CREATININE 1.7 mg/dL (0.6-1.2)
[2017-09-26 08:30] VITALS: BP 132/59
[2017-09-26] MEDS: CARVEDILOL 3.125 MG TABLET PO SCH (09:59)
[2017-09-26] MEDS: SPIRONOLACTONE 25 MG TABLET PO SCH (10:01)
[2017-09-26] MEDS: SODIUM CHLORIDE FLUSH 0.9% 10 ML SYRINGE IVP SCH (10:01)
[2017-09-26] MEDS: APIXABAN 2.5 MG TABLET PO SCH (10:02)
[2017-09-26] MEDS: FAMOTIDINE 20 MG TABLET PO SCH (10:03)
[2017-09-26] MEDS: POTASSIUM CHLORIDE 20 MEQ TABLET PO SCH (10:03)
[2017-09-26] MEDS: FUROSEMIDE 20 MG TABLET PO SCH (10:03)
[2017-09-26] MEDS: POLYETHYLENE GLYCOL 3350 17 GM PACKET PO SCH (10:04)
--- NOTE | 2017-09-26 11:23 | Discharge Plan ---
"Discharge Plan for SNF / [facility] - DC Plan and Transition Orders Disposition: 03 SNF DC/Xfer Condition: Stable SNF Transition Orders: Admit to: [facility] under the care of Dr Hernandez Discharge Diagnosis: 1) Acute on chronic systolic heart failure exacerbation (NYHA Class III) 2) Symptomatic Bradycardia 3) Chronic Afib 4) CKD, stage 3 5) History of CVA with L sided weakness 6) COPD, stable 7) History of CAD, stable 8) Anemia, of chronic disease 9) Code Status: Full Code Medicare Certification: I certify that Post Hospital detention care is medically necessary on a continuing basis for any of the conditions for which she/he is receiving care during hospitalization. Notify PCP of admission and forward orders to primary provider for signature. Weight on admission and Daily. Call PCP immediately if weight increases by 5 pounds over 1 day, or if patient develops dyspnea, chest pain/tightness or edema. House Bowel Program: Yes If no BM after 2 days, nurse may give M.O.M. 30ml PO PRN and /or ducolax Supp 1 ND and /or KEARA 250mg P.O., and/or senna 1-2 tabs PO. On day 3 nurse may give repeat above order until residents constipation is resolved. Immunizations: Annual Influenza Vaccine: Yes. (between Jan 17 and August 16.) Unless allergy or already given Two-Step PPD: Yes per [facility] [id number] or appropriate documentation of approved exceptions Treatments & Other Orders: OOB daily Oxygen Orders: None Lab Tests or X-Rays Orders: None Orthopedic Orders: None. Medications: PLEASE REFER TO THE DISCHARGE MEDICATION LIST. Insulin Orders? No Allergies and Adverse Reactions: Allergies Allergy/AdvReac Type Severity Reaction Status Date / Time Sulfa (Sulfonamide Allergy Unknown unk Verified 07/30/13 14:22 Antibiotics) sulfamethoxazole Allergy Unknown unk Verified 07/30/13 14:22 [From Bactrim] trimethoprim [From Bactrim] Allergy Unknown unk Verified 07/30/13 14:22 - Medications New Prescriptions: Carvedilol [Coreg] 3.125 mg PO BID #60 tablet Furosemide [Lasix] 40 mg PO BID #60 tablet Potassium Chloride [K-Dur] 10 meq PO DAILYWM #30 tablet Spironolactone [Aldactone] 12.5 mg PO DAILY #15 tablet - Diet Type: No added salt May have monthly special meal: Yes - Therapies | Activity Rehabilitation Potential: Maintain present ADL Functional Activity: Activity as Tolerated Additional Instructions: Note: some new medications, some were stopped and some changed doses. A Palliative Care Consult is recommended (to reconsider and establish Code Status and consider Comfort Care)"
--- NOTE | 2017-09-30 09:52 | DISCHARGE SUMMARY ---
Physician: Romana Pascual MD DATE OF ADMISSION: 09/20/2017 DATE OF DISCHARGE: 09/26/2017 HISTORY OF PRESENT ILLNESS: This is a 77-year-old white male with a history of systolic heart failure, EF of 20%, history of stroke in 1998 with residual left-sided weakness, dysarthria, hypertension, hyperlipidemia, CAD, atrial fibrillation on Eliquis, history of a pacemaker which has stopped working after he underwent an MRI. The patient presented to the hospital with complaints of shortness of breath even despite only having minimal exertion with transferring to a scooter, which is his baseline activity. He had no cough or fever. He was admitted for management of a congestive heart failure exacerbation. HOSPITAL COURSE AND DISCHARGE DIAGNOSES 1. Acute on chronic systolic heart failure exacerbation, [place] Heart Association class III, ACC/AHA, class III. The patient required IV diuretics. He improved and then had worsening with climb of BNP and was already back on oral diuretics, which needed to be doubled in dose. He had blood tests showing BNP of 898 on presentation, improved to 499, but then increased again to 866 on the day before discharge and at discharge was again better at 669. Troponin test during this stay was negative at 0.07. He underwent an echo on 09/20/2017 which showed LVEF of 30% to 35%, mild improvement from the past. RV is enlarged with moderately depressed function as well and PA pressure 58 mmHg was found. The patient had no physical therapy ordered because of his baseline minimal activity. 2. Symptomatic bradycardia. On admission, he was found to have heart rates as low as 30 and because no pacemaker was now working, his medications were adjusted, with digoxin being stopped entirely, amiodarone being stopped entirely since it was not maintaining sinus rhythm, and metoprolol tartrate 25 mg b.i.d. being changed to Coreg, eventually down to just Coreg 3.125 b.i.d. With this, his heart rate at discharge was 55-80. 3. Chronic atrial fibrillation. The patient was maintained on his anticoagulant. His amiodarone was discontinued as it was not maintaining sinus rhythm. As above, many medications were stopped because of slow ventricular rate in atrial fibrillation. 4. Chronic kidney disease stage 3. The patient's diuretics needed to be balanced with a rising creatinine. For this reason, his diuresis and hospital stay was long. His admission creatinine was 1.4, which was between 1.5 and 1.8 during the hospital stay; on discharge today, his creatinine was 1.7. 5. History of cerebrovascular accident with left-sided weakness. The patient was able to feed himself. His other activity was severely limited as described above. The patient's plan was to be able to continue to use a scooter upon discharge back to his assisted living facility. 6. Chronic obstructive pulmonary disease. The patient had no wheezing, no obvious exacerbation of COPD or bronchospasm during the stay. 7. History of coronary artery disease. There was no evidence of ischemia, no symptoms of angina during the stay. 8. Anemia of chronic disease. This patient's admission hemoglobin was 10.7, and he ranged in the 9.8-10.3 range during hospitalization. ALLERGIES 1. SULFA. 2. TRIMETHOPRIM. MEDICATIONS AT TIME OF DISCHARGE 1. Tylenol p.r.n. 2. Eliquis 5 mg p.o. b.i.d. 3. Vitamin C daily. 4. Adult dose aspirin daily. 5. Lipitor 40 mg every evening. 6. Calcium with vitamin D3 daily. 7. Coreg 3.125 p.o. b.i.d. 8. Lasix 40 mg p.o. b.i.d. 9. Ipratropium albuterol inhaler t.i.d. p.r.n. 10. Centrum Silver 1 daily. 11. Potassium 10 mEq daily. 12. Senna 8.6 mg b.i.d. 13. Spironolactone 12.5 mg daily. 14. Vitamin B daily. (his Digoxin and amiodarone and Lopressor were entirely stopped). NEW MEDICATIONS 1. Coreg. 2. Spironolactone. 3. There was a lower dose of potassium. LABORATORY AND IMAGING: Reviewed and summarized above. CONDITION AT DISCHARGE: Poor. PHYSICAL EXAMINATION VITAL SIGNS: Blood pressure 132/60, heart rate of 84, in atrial fibrillation, afebrile. Room air saturation 91%-94%. HEENT: Revealed moist oral mucosa. NECK: Without JVD or carotid bruits. CHEST: Clear. HEART: Sounds are normal, but distant. ABDOMEN: Obese, nontender. EXTREMITIES: No edema. No clubbing or cyanosis. NEUROLOGIC: Left-sided weakness and speech was slow but appropriate. FOLLOWUP: With his PCP and upper extremity surgeon in the next 1-2 weeks. CODE STATUS: FULL CODE. This was reviewed with the patient and he does want to be resuscitated and intubated if needed. Time required to complete this entire discharge, dictation, review of records, medication management 60 minutes. TD: 09/30/2017 00:12 NARESH
== END 2017-09-26 12:59 | disposition home or self-care (01) | DRG 291 ==
LOC: EDUNIT# → ED 07:22 → MS3 10:45
PROVIDERS: ADMIT Internal Medicine; ATTEND Internal Medicine
DX: I50.9 Heart failure, unspecified (principal); I13.0 Hypertensive heart and chronic kidney disease with heart failure and stage 1 through stage 4 chronic kidney disease, or unspecified chronic kidney disease; N50.812 Left testicular pain; N50.811 Right testicular pain; I50.23 Acute on chronic systolic (congestive) heart failure; I48.91 Unspecified atrial fibrillation; I69.354 Hemiplegia and hemiparesis following cerebral infarction affecting left non-dominant side; N18.3 Chronic kidney disease, stage 3 (moderate); I69.322 Dysarthria following cerebral infarction; E78.5 Hyperlipidemia, unspecified; Z95.0 Presence of cardiac pacemaker; R09.02 Hypoxemia; E87.6 Hypokalemia; J44.9 Chronic obstructive pulmonary disease, unspecified; I25.10 Atherosclerotic heart disease of native coronary artery without angina pectoris; D63.8 Anemia in other chronic diseases classified elsewhere; I48.2 Chronic atrial fibrillation; R00.1 Bradycardia, unspecified; T46.0X5A Adverse effect of cardiac-stimulant glycosides and drugs of similar action, initial encounter; T44.7X5A Adverse effect of beta-adrenoreceptor antagonists, initial encounter; I27.20 Pulmonary hypertension, unspecified; I35.0 Nonrheumatic aortic (valve) stenosis; N40.1 Benign prostatic hyperplasia with lower urinary tract symptoms; N39.498 Other specified urinary incontinence; N50.819 Testicular pain, unspecified; I25.2 Old myocardial infarction; Z79.899 Other long term (current) drug therapy; Z79.01 Long term (current) use of anticoagulants; Z79.82 Long term (current) use of aspirin; Z87.01 Personal history of pneumonia (recurrent); Z87.11 Personal history of peptic ulcer disease; Z87.891 Personal history of nicotine dependence
CPT/HCPCS: 36415; 71046; 80048; 80053; 80162; 81001; 81003; 83690; 83735; 83880; 84439; 84484; 85025; 87086; 93005; 93306; 99284; 99285

== ENCOUNTER 2017-10-12 06:23 | Inpatient (IN) | payer MEDICARE, OTHER ==
[2017-10-12 06:52] LABS: BASOPHILS # (AUTO) 0.1 10^3/uL (0.0-0.1); EOSINOPHILS # (AUTO) 0.1 10^3/uL (0.0-0.7); EOSINOPHILS % (AUTO) 1.2 %; HGB - HEMOGLOBIN 9.3 g/dL (14.0-18.0); LYMPHOCYTES # (AUTO) 1.2 10^3/uL (1.5-3.5); LYMPHOCYTES % (AUTO) 17.5 %; MEAN CORPUSCULAR HEMOGLOBIN 25.1 pg (27.0-31.0); MEAN CORPUSCULAR HGB CONC 31.1 g/dL (32.0-36.0); MEAN CORPUSCULAR VOLUME 80.8 fL (80.0-94.0); MEAN PLATELET VOLUME 8.2 fL (7.4-11.4); MONOCYTES # (AUTO) 0.7 10^3/uL (0.0-1.0); MONOCYTES % (AUTO) 10.5 %; NEUTROPHILS % (AUTO) 69.8 %; PLT - PLATELET COUNT 278 10^3/uL (130-450); RED BLOOD COUNT 3.69 10^6/uL (4.70-6.10); RED CELL DISTRIBUTION WIDTH 18.2 % (12.0-15.0); WHITE BLOOD COUNT 7.1 x10^3/uL (4.8-10.8)
[2017-10-12 06:59] LABS: CALCIUM 8.5 mg/dL (8.5-10.3); CREATININE 1.6 mg/dL (0.6-1.2)
[2017-10-12] MEDS ORDERED: POTASSIUM BICARB 25 MEQ TABLET PO STA (07:11)
--- NOTE | 2017-10-12 07:26 | XRAY Report ---
EXAM: CHEST RADIOGRAPHY EXAM DATE: 10/12/2017 07:13 AM. CLINICAL HISTORY: Dyspnea. COMPARISON: 09/20/2017. TECHNIQUE: 2 views. FINDINGS: Lungs/Pleura: Lung volumes are low. There are extensive diffuse bilateral interstitial and airspace o pacities. The proximal pulmonary vasculature is prominent and indistinct. The bilateral costophrenic sulci are obscured, which may be due to small bilateral pleural effusions. No pneumothorax. Mediastinum: There is stable marked enlargement of the cardiac silhouette. There is an abandoned left subclavian cardiac lead, in unchanged position. Other: Bones appear diffusely demineralized. No acute osseous abnormality. IMPRESSION: Findings suggestive of CHF/fluid overload, likely on a background of chronic lung disease. Superimpos ed aspiration or pneumonia cannot be completely excluded. [facility] Referring Provider Line: [phone] SITE ID: [id number]
--- NOTE | 2017-10-12 07:26 | XRAY Preliminary Report ---
Exam: XR CHEST 2 VIEW X-RAY IMPRESSION: Findings suggestive of CHF/fluid overload, likely on a background of chronic lung disease. Superimpos ed aspiration or pneumonia cannot be completely excluded. [facility] SITE ID: [id number]
--- NOTE | 2017-10-12 07:30 | ED Physician Documentation ---
PD HPI DYSPNEA - Stated complaint Stated Complaint: MALE - Chief complaint Chief Complaint: Resp - History obtained from History obtained from: Patient - History of Present Illness Timing - onset: How many days ago (2) Timing - onset during: Rest Timing - duration: Days Timing - details: Gradual onset, Still present Inciting event(s): Other (On lasix 80mg daily) Improved by: O2, Rest, Sitting up Worsened by: Exertion, Laying flat Associated symptoms: Other (pain in the thighs medially) Similar symptoms before: Diagnosis (CHF) Recently seen: Admitted - Additional information Additional information: 77-year-old male with history of CHF with an ejection fraction of 35% and a history of COPD has been in the hospital earlier this month diuresed extensively and his medications have been adjusted. He has been on 40 mg of Lasix twice daily and spironolactone. He is now developed pain and spasm of the muscles on the inside of his thighs bilaterally and this is bad enough pain that is kept him awake at night for the past 2 nights. He states that his breathing itself is not different from his usual baseline. Review of Systems Constitutional: denies: Fever Eyes: denies: Decreased vision Ears: denies: Ear pain Nose: denies: Congestion Throat: denies: Sore throat Cardiac: denies: Chest pain / pressure, Palpitations Respiratory: reports: Dyspnea. denies: Cough GI: denies: Abdominal Pain, Nausea, Vomiting : reports: Frequency. denies: Dysuria Skin: denies: Rash Musculoskeletal: reports: Extremity pain. denies: Neck pain, Back pain Neurologic: reports: Generalized weakness. 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 Cardiovascular: Pacemaker - Present Medications Home Medications: Ambulatory Orders Medication Instructions Recorded Confirmed Acetaminophen [Tylenol] 650 mg PO Q6H PRN 07/30/13 09/20/17 Calcium Carb, Citrate/Vit D3 1 tab PO BID 12/20/14 09/20/17 [Calcium + D3 ER Tablet] Multivit-Min/FA/Lycopen/Lutein 1 tab PO DAILY 12/20/14 09/20/17 [Centrum Silver Tablet] Apixaban [Eliquis] 5 mg PO BID #0 09/26/17 09/20/17 Ascorbic Acid [Vitamin C] 500 mg PO DAILY #0 09/26/17 09/20/17 Aspirin [Aspirin EC] 325 mg PO DAILY #0 09/26/17 09/20/17 Atorvastatin Calcium 40 mg PO QPM #0 09/26/17 09/20/17 Carvedilol [Coreg] 3.125 mg PO BID #60 tablet 09/26/17 Furosemide [Lasix] 40 mg PO BID #60 tablet 09/26/17 Ipratropium/Albuterol Sulfate 3 ml INH TID #0 09/26/17 09/20/17 [Iprat-Albut 0.5-3(2.5) mg/3 ml] Senna [Senokot] 8.6 mg PO BID #0 09/26/17 09/20/17 Spironolactone [Aldactone] 12.5 mg PO DAILY #15 tablet 09/26/17 Vitamin B Complex 1 tab PO DAILY #0 09/26/17 09/20/17 Potassium Citrate [Potassium 1 tab PO DAILY 10/12/17 10/12/17 Citrate ER] - Allergies Allergies/Adverse Reactions: Allergies Allergy/AdvReac Type Severity Reaction Status Date / Time Sulfa (Sulfonamide Allergy Unknown unk Verified 10/12/17 06:39 Antibiotics) sulfamethoxazole Allergy Unknown unk Verified 10/12/17 06:39 [From Bactrim] trimethoprim [From Bactrim] Allergy Unknown unk Verified 10/12/17 06:39 - Social History Does the pt smoke?: No Smoking Status: Never smoker Does the pt drink ETOH?: No Does the pt have substance abuse?: No - Immunizations Immunizations are current?: Yes - POLST Patient has POLST: Yes POLST Status: CPR, no intubation, PD ED PE NORMAL - Vitals Vital signs reviewed: Yes (hypertensive ) - General General: Alert and oriented X 3, Well developed/nourished, Other (There is dysarthria present and baseline tachypnea. There is no audible wheeze. ) - HEENT HEENT: Atraumatic, PERRL, EOMI - Neck Neck: Supple, no meningeal sign - Cardiac Cardiac: Other (irregularly irregular heart rate and rhythm with 2/6 holosystolic murmer at LSB) - Respiratory Respiratory: Other (tachypneic at rest with scattered rales and squeaks. ) - Abdomen Abdomen: Soft, Non tender - Back Back: No CVA TTP, No spinal TTP - Derm Derm: Normal color, Warm and dry, No rash - Extremities Extremities: No deformity, No edema, Other (There is intense muscle spasm on the inner thighs bilaterally. There is no peripheral edema and no scrotal edema the testes are nontender.) - Neuro Neuro: No motor deficit, No sensory deficit Eye Opening: Spontaneous Motor: Obeys Commands Verbal: Oriented GCS Score: 15 - Psych Psych: Normal mood, Normal affect Results - Vitals Vitals: Vital Signs - 24 hr 10/12/17 10/12/17 10/12/17 06:25 07:39 10:18 Temperature 36.0 C L Heart Rate 90 94 102 H Respiratory 18 22 29 H Rate Blood Pressure 151/91 H 126/84 H 102/75 O2 Saturation 99 93 91 L 10/12/17 10/12/17 11:20 13:58 Temperature Heart Rate 87 92 Respiratory 20 20 Rate Blood Pressure 99/73 118/81 H O2 Saturation 100 95 Oxygen O2 Source Nasal cannula - Labs Labs: Laboratory Tests 10/12/17 10/12/17 10/12/17 06:46 06:46 06:46 WBC 7.1 RBC 3.69 L Hgb 9.3 L Hct 29.9 L MCV 80.8 MCH 25.1 L MCHC 31.1 L RDW 18.2 H Plt Count 278 MPV 8.2 Neut # 5.0 Lymph # 1.2 L [place] # 0.7 Eos # 0.1 Baso # 0.1 Absolute Nucleated RBC 0.00 Nucleated RBC % 0.1 Sodium 134 L Potassium 3.1 L Chloride 102 Carbon Dioxide 25 Anion Gap 7.0 BUN 31 H Creatinine 1.6 H Estimated GFR (MDRD) 42 L Glucose 72 Calcium 8.5 Troponin I 0.07 B-Natriuretic Peptide Urine Color Urine Clarity Urine pH Ur Specific [place] Urine Protein Urine Glucose (UA) Urine Ketones Urine Occult Blood Urine Nitrite Urine Bilirubin Urine Urobilinogen Ur Leukocyte Esterase Urine RBC Urine WBC Ur Squamous Epith Cells Urine Bacteria Urine Casts Ur Microscopic Review Urine Culture Comments 10/12/17 10/12/17 06:46 10:20 WBC RBC Hgb Hct MCV MCH MCHC RDW Plt Count MPV Neut # Lymph # [place] # Eos # Baso # Absolute Nucleated RBC Nucleated RBC % Sodium Potassium Chloride Carbon Dioxide Anion Gap BUN Creatinine Estimated GFR (MDRD) Glucose Calcium Troponin I B-Natriuretic Peptide 880 H Urine Color YELLOW Urine Clarity CLEAR Urine pH 5.0 Ur Specific [place] 1.015 Urine Protein NEGATIVE Urine Glucose (UA) NEGATIVE Urine Ketones NEGATIVE Urine Occult Blood NEGATIVE Urine Nitrite NEGATIVE Urine Bilirubin NEGATIVE Urine Urobilinogen 0.2 (NORMAL) Ur Leukocyte Esterase SMALL H Urine RBC None Seen Urine WBC 11-25 H Ur Squamous Epith Cells FEW Squamous Urine Bacteria Moderate H Urine Casts 3-5 Hyaline Casts Ur Microscopic Review INDICATED Urine Culture Comments INDICATED - Rads (name of study) chest Radiology: Prelim report reviewed (Impression: Findings suggestive of CHF/fluid overload, likely on a background of chronic lung disease. Superimposed aspiration or pneumonia cannot be completely excluded.), EMP read indepedently, See rad report Procedures - IVC sono (time) 0740 Bedside IVC sono: IVC measures (cm) (2.39), IVC collapsed c insp (cm) (2.39), High CVP PD MEDICAL DECISION MAKING - ED course Complexity details: reviewed old records, reviewed results, re-evaluated patient , considered differential, d/w patient ED course: Presents to the emergency department with pain in his groin which on examination appears to be muscle spasm of the thigh muscles. He has been under extensive diuresis and despite this he continues to have some pulmonary edema. His breathing does not appear to be different from his baseline according to the patient and he has no peripheral edema. His inferior vena cava is plethoric with a measurement of 2.39 consistent with an elevated central venous pressure. His BNP is slightly above where his discharge value was from his recent hospitalization. Here in the emergency department an IV is established and he is administered magnesium sulfate and morphine. This does help with his pain and he is able to sleep in the ED but he feels he needs to be in the hospital. He does have UTI and he is given a dose of levaquin IV. The hospitalist Dr. Recio is consulted in the case and will care for the patients needs in the hospital. Departure - Departure Disposition: ED Place in Observation Clinical Impression: Systolic CHF with reduced left ventricular function, NYHA class 3 Urinary tract infection Qualifiers: Urinary tract infection type: site unspecified Hematuria presence: without hematuria Qualified Code(s): N39.0 - Urinary tract infection, site not specified
[2017-10-12] MEDS ORDERED: MAGNESIUM SULFATE 2 GRAM 2 GM/50 ML BAG IV ONE (07:42)
[2017-10-12] MEDS ORDERED: ONDANSETRON 4 MG/2 ML VIAL IVP STA (07:42)
[2017-10-12] MEDS ORDERED: MORPHINE 2 MG/ML SYRINGE IVP STA (07:42)
[2017-10-12 10:29] LABS: BILIRUBIN,URINE NEGATIVE (NEGATIVE); GLUCOSE, URINE (UA) NEGATIVE (NEGATIVE); KETONES,URINE (UA) NEGATIVE (NEGATIVE); LEUKOCYTE ESTERASE, URINE SMALL (NEGATIVE); NITRITE,URINE NEGATIVE (NEGATIVE); OCCULT BLOOD,URINE NEGATIVE (NEGATIVE); PROTEIN,URINE NEGATIVE (NEGATIVE); UROBILINOGEN,URINE 0.2 (NORMAL) E.U./dL (NORMAL)
[2017-10-12 10:31] LABS: CLARITY,URINE CLEAR (CLEAR)
[2017-10-12 10:43] LABS: BACTERIA,URINE Moderate /HPF (None Seen); CASTS, URINE 3-5 Hyaline Casts /LPF; RBC,URINE None Seen /HPF (0-5); SQUAMOUS EPITHELIAL CELL,UR FEW Squamous (<= Few)
[2017-10-12] MEDS ORDERED: levoFLOXacin 500 MG/100 ML 500 MG/100 ML BAG IV ONE (12:55)
[2017-10-12] MEDS ORDERED: ACETAMINOPHEN 325 MG TABLET PO PRN (15:10)
[2017-10-12] MEDS ORDERED: ONDANSETRON 4 MG/2 ML VIAL IVP PRN (15:10)
[2017-10-12] MEDS ORDERED: MORPHINE 2 MG/ML SYRINGE IVP PRN (15:10)
[2017-10-12] MEDS ORDERED: POTASSIUM CHLORIDE 20 MEQ TABLET PO STA (15:21)
--- NOTE | 2017-10-12 15:27 | HISTORY & PHYSICAL EXAMINATION ---
Chief Complaint - Chief Complaint Chief Complaint: groin area pain History of Present Illness - Admitted From Admitted From:: ER - History Obtained From History obtained from: Pt - History of Present Illness HPI Comment/Other: Mr. Beltre is 77-yrs-old male with a PMH significant for systolic CHF with EF of 30-35%, pulmonary hypertension, high cholesterol, CO, Afib with Eliquis, COPD, GI bleeding, ulcers, hemorrhoids, BPH, pneumonia, shortness of breath, who present ER for complaints of recurrence of groin edema, testicle pain and difficult to walk. Upon examination to pt, pt has mild groin area edema but without tenderness, erythema or skin teared or infection. Then pt actually pointed to his inner bilateral thighs pain, and muscle spasm. He state he can not walk because of pain. Pt also present cough with yellowish sputum per pt reports. Pt denies fever, chill, chest pain, abdominal pain, nausea, vomiting, diarrhea, dysuria. Pt report he has smoked cigarette for more than 40 yrs, then stopped now. He has COPD as well. Lab test in ER, pt has low Na 134, K 3.1, creatinine 1.6 which is similar as his previous test, BNO 880 mildly elevated from previous 670, HGB 9.3 with MCV 81. CXR reveals suggestion of CHF/Fluid overload, likely on a background of chronic lung disease. Superimposed aspiration or pneumonia can not be completely excluded. pt is afrible, HR 92, BP 118/81, 95% sats on 2 liter of O2. History - Past Medical History Cardiovascular: reports: Congestive heart failure, High cholesterol, CO, Atrial fibrillation Respiratory: reports: Pneumonia, Shortness of breath Endocrine/Autoimmune: reports: None GI: reports: GI bleed, Ulcers, Hemorrhoids : reports: Benign prostate hypertrophy, Incontinence HEENT: reports: None Psych: reports: None Musculoskeletal: reports: None Derm: reports: None MRSA Hx?: No - Past Surgical History General: reports: Cholecystectomy, EGD Ortho: reports: Hip replacement /[employer]: reports: Other Cardiovascular: reports: Pacemaker - Family & Social History Family History: Mother: , Diabetes, Type 2, Father: , CAD Family History Comment/Other: Father and sister both had rheumatoid arthritis Social History Notes: Patient lives at [facility]. He has been there for about 15 years. His only family in the area is a nephew who lives in [place]. The patient has been twice and is . He has 4 sons who live all over the [place] 1 of whom is a colonel in the [employer]. 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 The patient currently uses a scooter at his correction. The patient previously was a heavy smoker smoking 2 packs per day for about 20 years but quit after his stroke. The patient also was a heavy drinker but also quit after his stroke. The patient denies any illicit drug use. - POLST Patient has POLST: Yes POLST Status: Full Code Meds/Allgy - Home Medications Home Medications: Ambulatory Orders Medication Instructions Recorded Confirmed Acetaminophen [Tylenol] 650 mg PO Q6H PRN 07/30/13 10/12/17 Calcium Carb, Citrate/Vit D3 1 tab PO BID 12/20/14 10/12/17 [Calcium + D3 ER Tablet] Multivit-Min/FA/Lycopen/Lutein 1 tab PO DAILY 12/20/14 10/12/17 [Centrum Silver Tablet] Apixaban [Eliquis] 5 mg PO BID #0 09/26/17 10/12/17 Ascorbic Acid [Vitamin C] 500 mg PO DAILY #0 09/26/17 10/12/17 Aspirin [Aspirin EC] 325 mg PO DAILY #0 09/26/17 10/12/17 Atorvastatin Calcium 40 mg PO QPM #0 09/26/17 10/12/17 Carvedilol [Coreg] 3.125 mg PO BID #60 tablet 09/26/17 10/12/17 Furosemide [Lasix] 40 mg PO BID #60 tablet 09/26/17 10/12/17 Ipratropium/Albuterol Sulfate 3 ml INH TID #0 09/26/17 10/12/17 [Iprat-Albut 0.5-3(2.5) mg/3 ml] Senna [Senokot] 8.6 mg PO BID #0 09/26/17 10/12/17 Spironolactone [Aldactone] 12.5 mg PO DAILY #15 tablet 09/26/17 10/12/17 Vitamin B Complex 1 tab PO DAILY #0 09/26/17 10/12/17 Potassium Citrate [Potassium 1 tab PO DAILY 10/12/17 10/12/17 Citrate ER] - Allergies Allergies/Adverse Reactions: Allergies Allergy/AdvReac Type Severity Reaction Status Date / Time Sulfa (Sulfonamide Allergy Unknown unk Verified 10/12/17 06:39 Antibiotics) sulfamethoxazole Allergy Unknown unk Verified 10/12/17 06:39 [From Bactrim] trimethoprim [From Bactrim] Allergy Unknown unk Verified 10/12/17 06:39 Review of Systems - Constitutional Constitutional: reports: Fatigue, Weakness. denies: Fever, Chills, Malaise, Poor appetite, Diaphoresis, Night sweats - Eyes Eyes: denies: Pain, Irritation, Amaurosis, Blurred vision, Spots in vision, Field loss, Vision loss, Dipolpia - Ears, Nose & Throat Ears, Nose & Throat: reports: Hearing loss. denies: Ear pain, Hearing aids, Tinnitus, Vertigo, Nasal pain, Nasal discharge, Nosebleeds, Nasal obstruction, Nasal congestion, Dentures, Sore throat, Mouth lesions, Bleeding gums - Cardiovascular Cariovascular: denies: Irregular heart rate, Palpitations, Chest pain, Edema, Lightheadedness, Syncope, Exertional dyspnea, Decr. exercise tolerance - Respiratory Respiratory: reports: Cough, Sputum production. denies: Wheezing, Snoring, Hemoptysis, Orthopnea, SOB at rest, SOB with exertion, Apnea, Pleuritic pain - Gastrointestinal Gastrointestinal: denies: Abdominal pain, Abdominal distention, Constipation, Diarrhea, Change in bowel habits, Rectal bleeding, Black stools, Bloody stools, Nausea, Vomiting, Bile emesis, [place] blood emesis, Coffee grounds emesis, Reflux /heartburn - Genitourinary Genitourinary: reports: Incontinence. denies: Dysuria, Frequency, Urgency, Hematuria, Flank pain, Nocturia, Urethral discharge - Musculoskeletal Musculoskeletal: reports: Muscle pain. denies: Back pain, Muscle aches, Stiffness, Limited range of motion, Muscle weakness, Gout, Joint pain - Integumentary Integumentary: denies: Rash, Pruritis, Lesions, Dryness, Lumps, Acne, Pigment changes, Nail changes - Neurological Neurological: reports: General weakness. denies: Focal weakness, Headache, Dizziness, Numbness, Memory problems, Pre-existing deficit, Abnormal gait, Seizures, Incoordination, Slurred speech - Psychiatric Psychiatric: denies: Depression, Anxiety, Suicidal, Delusions, Hallucinations, Homicidal - Endocrine Endocrine: denies: Polyuria, Polydypsia, Polyphagia, Intolerance to cold - Hematologic/Lymphatic Hematologic/Lymphatic: denies: Anemia, Bruising, Petechiae, Blood clots, Lymphadenopathy, Bleeding tendencies Exam - Vital Signs Reviewed Vital Signs: Yes Vital Signs: Vital Signs x48h Pulse Resp BP Pulse Ox 10/12/17 13:58 92 20 118/81 H 95 10/12/17 11:20 87 20 99/73 100 10/12/17 10:18 102 H 29 H 102/75 91 L 10/12/17 07:39 94 22 126/84 H 93 - Physical Exam General Appearance: positive: No acute distress, Alert. negative: Lethargic Eyes Bilateral: positive: Normal inspection, PERRL, No lid inflammation, Conjunctivae nml ENT: positive: ENT inspection nml, Pharynx nml, No signs of dehydration. negative: Purulent nasal drainage, Pharyngeal erythema, Oral lesions Neck: positive: Nml inspection, Thyroid nml, No JVD, Trachea midline. negative : Thyromegaly, Lymphadenopathy (R), Lymphadenopathy (L), Stiff neck, Swelling/ bruising, Tracheal deviation Respiratory: positive: Chest non-tender, No respiratory distress, Other ( bilateral low lobe with crackles) Cardiovascular: positive: Regular rate & rhythm, Systolic murmur, Diastolic murmur. negative: Extrasystoles, Tachycardia, Bradycardia Peripheral Pulses: positive: 2+ Abdomen: positive: Non-tender, No organomegaly, Nml bowel sounds, No distention. negative: Tenderness, Guarding, Rebound Back: positive: Nml inspection. negative: CVA tenderness (R), CVA tenderness (L ) Skin: positive: Color nml, No rash, Warm, Dry. negative: Cyanosis, Diaphoresis , Pallor Extremities: positive: Non-tender, Full ROM, Nml appearance. negative: Pedal edema, Calf tenderness, Joint swelling, Troy's sign/cords Neurologic/Psychiatric: positive: Oriented x3, Sensation nml, Mood/affect nml, Weakness. negative: Sensory loss, Facial droop, Slurred/abnml speech, Depressed mood/affect Conclusion/Plan - Problem List (1) CHF exacerbation Conclusion/Plan: CXR revealing, elevated BNP, edema at groin area, previous ECHO study revealing of impaired systolic CHF, all suggest pt has CHF exacerbation start on IV of Lasix, and closely monitor renal function, and check BNP. pt's base BNP at 670 on tele and vital monitor daily lab test daily weight fluid restriction reduce salt (2) UTI (urinary tract infection) Conclusion/Plan: UA reveals positive UTI start on Rocephin follow up UA culture (3) Pneumonia Conclusion/Plan: pt present strong cough with yellowish sputum, with crackles lung sound, hx of COPD, and CXR indicate possible pneumonia treat with Azithyromycin PO add Rocephin IV sputum culture breathing treatment O2 supplement as needed blood culture, follow up (4) CKD (chronic kidney disease) Conclusion/Plan: stable as his baseline. avoid nephotoxical agent daily lab monitor (5) Hypokalemia Conclusion/Plan: replacement daily lab monitor (6) History of COPD Conclusion/Plan: stable, Duoneb PRN (7) Hx of coronary artery disease Conclusion/Plan: stable, denies chest pain tele, vital monitor (8) A-fib Conclusion/Plan: HR stable, resume home Eliquis and aspirin (9) Spasm of muscle Conclusion/Plan: pain control, baclofen (10) DVT prophylaxis Conclusion/Plan: SCD. pt has Eliquis and Aspirin (11) Full code status Conclusion/Plan: pt request full code - Lab Results Fish Bones: 10/12/17 06:46 10/12/17 06:46 Core Measures - Anticipated LOS I expect patient to be DC'd or transferred within 96 hours.: Yes - DVT/VTE - Prophylaxis VTE/DVT Device ordered at admit?: Yes VTE/DVT Prophylaxis med ordered at admit?: No
[2017-10-12] MEDS: SODIUM CHLORIDE FLUSH 0.9% 10 ML SYRINGE IVP SCH (16:30)
[2017-10-12] MEDS: FUROSEMIDE 40 MG/4 ML VIAL IVP SCH (16:31)
[2017-10-12 17:04] LABS: MEAN RETIC VALUE 60.6; RED BLOOD COUNT 3.8 10^6/uL (4.70-6.10)
[2017-10-12 17:23] LABS: % IRON SATURATION 6 % (20-50); IRON 25 ug/dL (45-182); TOTAL IRON BINDING CAPACITY 427 ug/dL (250-450); TRANSFERRIN 305 mg/dL (180-329)
[2017-10-12 18:00] LABS: FERRITIN 12.6 ng/mL (23.9-336.2)
[2017-10-12] MEDS: ATORVASTATIN 40 MG TABLET PO SCH (20:59)
[2017-10-12] MEDS: BACLOFEN 10 MG TABLET PO SCH (20:59)
[2017-10-12] MEDS: CARVEDILOL 3.125 MG TABLET PO SCH (20:59)
[2017-10-12] MEDS: cefTRIAXone 1 GM in SODIUM CHLORIDE 0.9% MINIBAG 100 ML IV SCH (20:59)
[2017-10-12] MEDS: APIXABAN 2.5 MG TABLET PO SCH (20:59)
[2017-10-12] MEDS: guaiFENesin 600 MG TABLET PO SCH (20:59)
[2017-10-12] MEDS ORDERED: cefTRIAXone 1 GM VIAL IVP SCH (21:00)
[2017-10-12] MEDS: FAMOTIDINE 20 MG TABLET PO SCH (21:00)
[2017-10-12] MEDS: SODIUM CHLORIDE FLUSH 0.9% 10 ML SYRINGE IVP PRN (21:00)
--- NOTE | 2017-10-12 22:21 | Ultrasound Preliminary Report ---
Exam: US TESTICLE IMPRESSION: Left epididymal cyst, otherwise unremarkable scrotal ultrasound exam. [facility] SITE ID: [id number]
--- NOTE | 2017-10-12 22:21 | Ultrasound Report ---
EXAM: SCROTAL ULTRASOUND EXAM DATE: 10/12/2017 08:22 PM. CLINICAL HISTORY: Pain and edema. COMPARISON: None. TECHNIQUE: Real-time scanning was performed with static images obtained. Both color-flow and Doppler spectral analysis were utilized. FINDINGS: Right: Testis: 3.7 x 2.2 x 2.6 cm. Heterogeneous echotexture without evidence of mass or hyperemia. Epididymis: 0.9 x 0.7 x 1 cm. Normal size and echotexture. No mass or abnormal blood flow. Hydrocele: None. Varicocele: None. Left: Testis: 3.8 x 2.2 x 2.8 cm. Heterogeneous echotexture without evidence of mass or hyperemia. Epididymis: 1.3 x 0.7 x 1.1 cm. normal size and echotexture. There is a 4 mm cyst within the body of the epididymis. Hydrocele: None. Varicocele: None. IMPRESSION: Left epididymal cyst, otherwise unremarkable scrotal ultrasound exam. [facility] Referring Provider Line: [phone] SITE ID: [id number]
[2017-10-13] MEDS: SODIUM CHLORIDE FLUSH 0.9% 10 ML SYRINGE IVP SCH ×4 (01:13→23:43)
[2017-10-13] MEDS: FUROSEMIDE 40 MG/4 ML VIAL IVP SCH ×2 (05:31→13:53)
[2017-10-13] MEDS: BACLOFEN 10 MG TABLET PO SCH ×3 (05:31→21:59)
[2017-10-13] MEDS: SODIUM CHLORIDE FLUSH 0.9% 10 ML SYRINGE IVP PRN ×3 (05:32→13:53)
[2017-10-13 06:32] LABS: BASOPHILS # (AUTO) 0.1 10^3/uL (0.0-0.1); BASOPHILS % (AUTO) 1.7 %; EOSINOPHILS % (AUTO) 0.5 %; HGB - HEMOGLOBIN 9.2 g/dL (14.0-18.0); LYMPHOCYTES # (AUTO) 0.9 10^3/uL (1.5-3.5); LYMPHOCYTES % (AUTO) 11.7 %; MEAN CORPUSCULAR HEMOGLOBIN 25.6 pg (27.0-31.0); MEAN CORPUSCULAR HGB CONC 31.4 g/dL (32.0-36.0); MEAN CORPUSCULAR VOLUME 81.5 fL (80.0-94.0); MEAN PLATELET VOLUME 8.8 fL (7.4-11.4); MONOCYTES # (AUTO) 0.8 10^3/uL (0.0-1.0); MONOCYTES % (AUTO) 10.9 %; NEUTROPHILS # (AUTO) 5.6 10^3/uL (1.5-6.6); NEUTROPHILS % (AUTO) 75.2 %; PLT - PLATELET COUNT 246 10^3/uL (130-450); RED BLOOD COUNT 3.58 10^6/uL (4.70-6.10); WHITE BLOOD COUNT 7.5 x10^3/uL (4.8-10.8)
[2017-10-13 06:42] LABS: ALBUMIN 2.6 g/dL (3.2-5.5); ALBUMIN/GLOBULIN RATIO 0.5 (1.0-2.2); CREATININE 1.9 mg/dL (0.6-1.2); MAGNESIUM 2.4 mg/dL (1.7-2.8); TOTAL PROTEIN 7.8 g/dL (6.7-8.2)
[2017-10-13] MEDS ORDERED: cefTRIAXone 1 GM VIAL IVP SCH (09:00)
[2017-10-13] MEDS: FAMOTIDINE 20 MG TABLET PO SCH ×2 (09:07→21:59)
[2017-10-13] MEDS: CARVEDILOL 3.125 MG TABLET PO SCH ×2 (09:07→21:59)
[2017-10-13] MEDS: AZITHROMYCIN 250 MG TABLET PO SCH (09:13)
[2017-10-13] MEDS: CHOLECALCIFEROL 400 UNIT TABLET PO SCH ×2 (09:14→21:59)
[2017-10-13] MEDS: MULTIVITAMIN W/MINERALS TABLET PO SCH (09:14)
[2017-10-13] MEDS: ASPIRIN EC 325 MG TABLET PO SCH (09:15)
[2017-10-13] MEDS: CALCIUM CITRATE 250 MG TABLET PO SCH ×3 (09:15→21:59)
[2017-10-13] MEDS: APIXABAN 2.5 MG TABLET PO SCH ×2 (09:15→21:59)
[2017-10-13] MEDS: ASCORBIC ACID CHEW 500 MG TABLET PO SCH (09:15)
[2017-10-13] MEDS: POTASSIUM CHLORIDE 20 MEQ TABLET PO SCH (09:15)
[2017-10-13] MEDS: guaiFENesin 600 MG TABLET PO SCH ×2 (09:17→21:59)
[2017-10-13] MEDS: SPIRONOLACTONE 25 MG TABLET PO SCH (09:17)
[2017-10-13] MEDS: FERROUS SULFATE 325 MG TABLET PO SCH (09:17)
[2017-10-13] MEDS: cefTRIAXone 1 GM in SODIUM CHLORIDE 0.9% MINIBAG 100 ML IV SCH (10:23)
[2017-10-13] MEDS: POLYETHYLENE GLYCOL 3350 17 GM PACKET PO SCH (10:24)
--- NOTE | 2017-10-13 15:38 | PROVIDER PROGRESS NOTE ---
Subjective - Prog Note Date Prog Note Date: 10/13/17 - Subjective Pt reports feeling: Improved Subjective: pt report he is doing better, breathing is better, no more pain at groin area. Pt denies fever, chill, CP. Current Medications - Current Medications Current Medications: Active Medications Acetaminophen (Tylenol) 650 mg PO Q4HR PRN PRN Reason: Pain 1 to 4 Albuterol/Ipratropium (Duoneb) 3 ml INH Q4HR PRN PRN Reason: Wheezing Apixaban (Eliquis) 5 mg PO BID [facility] Last Admin: 10/13/17 09:15 Dose: 5 mg Ascorbic Acid (Vitamin C) 500 mg PO DAILY [facility] Last Admin: 10/13/17 09:15 Dose: 500 mg Aspirin (Ecotrin) 325 mg PO DAILY [facility] Last Admin: 10/13/17 09:15 Dose: 325 mg Atorvastatin Calcium (Lipitor) 40 mg PO QPM [facility] Last Admin: 10/12/17 20:59 Dose: 40 mg Azithromycin (Zithromax) 500 mg PO DAILY [facility] Last Admin: 10/13/17 09:13 Dose: 500 mg Baclofen (Lioresal) 10 mg PO TID [facility] Last Admin: 10/13/17 13:53 Dose: 10 mg Calcium Citrate () 250 mg PO BID [facility] Last Admin: 10/13/17 10:25 Dose: 250 mg Carvedilol (Coreg) 3.125 mg PO BID [facility] Last Admin: 10/13/17 09:07 Dose: 3.125 mg Cholecalciferol (Vitamin D3) 400 unit PO BID [facility] Last Admin: 10/13/17 09:14 Dose: 400 unit Famotidine (Pepcid) 20 mg PO BID [facility] Last Admin: 10/13/17 09:07 Dose: 20 mg Ferrous Sulfate (Feosol) 325 mg PO DAILYWM [facility] Last Admin: 10/13/17 09:17 Dose: 325 mg Furosemide (Lasix Inj 40 Mg Vial) 40 mg IVP BIDDIURETIC [facility] Last Admin: 10/13/17 13:53 Dose: 40 mg Guaifenesin (Mucinex) 600 mg PO BID [facility] Last Admin: 10/13/17 09:17 Dose: 600 mg Ceftriaxone Sodium 1 gm/ (Sodium Chloride) 100 mls @ 200 mls/hr IV DAILY [facility] Last Infusion: 10/13/17 10:45 Dose: Infused Morphine Sulfate (Morphine) 2 mg IVP Q2H PRN PRN Reason: Pain 8 to 10 Multivitamins/Minerals (Theragran M) 1 tab PO DAILYWM [facility] Last Admin: 10/13/17 09:14 Dose: 1 tab Ondansetron HCl (Zofran Inj) 4 mg IVP Q6HR PRN PRN Reason: Nausea / Vomiting Vitamin B Complex 1 each PO DAILY [facility] Last Admin: 10/13/17 10:25 Dose: Not Given Polyethylene Glycol (Miralax) 17 gm PO DAILY [facility] Last Admin: 10/13/17 10:24 Dose: 17 gm Potassium Chloride (K-Dur) 20 meq PO DAILY [facility] Last Admin: 10/13/17 09:15 Dose: 20 meq Sodium Chloride (Normal Saline Flush 0.9%) 10 ml IVP PRN PRN PRN Reason: NEEDED PER PROVIDER ORDERS Last Admin: 10/13/17 13:53 Dose: 10 ml Sodium Chloride (Normal Saline Flush 0.9%) 10 ml IVP 0100,0900,1700 [facility] Last Admin: 10/13/17 09:29 Dose: 10 ml Spironolactone (Aldactone) 12.5 mg PO DAILY [facility] Last Admin: 10/13/17 09:17 Dose: 12.5 mg Acetaminophen [Tylenol] 650 mg PO Q6H PRN 07/30/13 Calcium Carb, Citrate/Vit D3 [Calcium + D3 ER Tablet] 1 tab PO BID 12/20/14 Multivit-Min/FA/Lycopen/Lutein [Centrum Silver Tablet] 1 tab PO DAILY 12/20/14 Potassium Citrate [Potassium Citrate ER] 1 tab PO DAILY 10/12/17 Objective - Vital Signs/Intake & Output Reviewed Vital Signs: Yes Vital Signs: Vital Signs x48h Temp Pulse Resp BP Pulse Ox 10/13/17 08:00 36.3 C L 88 18 98/64 96 Intake & Output: Intake & Output 10/10/17 10/11/17 10/12/17 10/13/17 23:59 23:59 23:59 23:59 Intake Total 970 1200 Output Total 725 850 Balance 245 350 - Objective General Appearance: positive: No acute distress, Alert. negative: Lethargic Eyes Bilateral: positive: Normal inspection, PERRL, No lid inflammation, Conjunctivae nml ENT: positive: ENT inspection nml, Pharynx nml, No signs of dehydration. negative: Purulent nasal drainage, Pharyngeal erythema, Oral lesions Neck: positive: Nml inspection, Thyroid nml, No JVD, Trachea midline. negative : Thyromegaly, Lymphadenopathy (R), Lymphadenopathy (L), Stiff neck, Carotid bruit, Swelling/bruising, Tracheal deviation Respiratory: positive: Chest non-tender, No respiratory distress. negative: Wheezes, Rales, Rhonchi Cardiovascular: positive: Regular rate & rhythm, No gallop, Systolic murmur. negative: Irregularly irregular, Extrasystoles, Tachycardia, Bradycardia, JVD present Peripheral Pulses: 2+ Radial (R), 2+ Radial (L), 2+ Dorsalis pedis (R), 2+ Dorsalis pedis (L) Abdomen: positive: Non-tender, No organomegaly, Nml bowel sounds, No distention. negative: Tenderness, Guarding, Rebound Back: positive: Nml inspection. negative: CVA tenderness (R), CVA tenderness (L ) Skin: positive: Color nml, No rash, Warm, Dry. negative: Cyanosis, Diaphoresis , Pallor Extremities: positive: Non-tender, Full ROM, Nml appearance. negative: Calf tenderness, Joint swelling, Troy's sign/cords Neurologic/Psychiatric: positive: Oriented x3, Sensation nml, Mood/affect nml. negative: Sensory loss, Facial droop, Slurred/abnml speech, Depressed mood/ affect - Lab Results Fish Bones: 10/13/17 05:50 10/13/17 05:50 Other Labs: Lab Results x24hrs 10/13/17 10/13/17 10/13/17 Range/Units 05:50 05:50 05:50 WBC 7.5 (4.8-10.8) x10^3/uL RBC 3.58 L (4.70-6.10) 10^6/uL Hgb 9.2 L (14.0-18.0) g/dL Hct 29.2 L (42.0-52.0) % MCV 81.5 (80.0-94.0) fL MCH 25.6 L (27.0-31.0) pg MCHC 31.4 L (32.0-36.0) g/dL RDW 18.0 H (12.0-15.0) % Plt Count 246 (130-450) 10^3/uL MPV 8.8 (7.4-11.4) fL Reticulocyte % (Auto) (0.5-2.3) % Neut # 5.6 (1.5-6.6) 10^3/uL Lymph # 0.9 L (1.5-3.5) 10^3/uL [place] # 0.8 (0.0-1.0) 10^3/uL Eos # 0.0 (0.0-0.7) 10^3/uL Baso # 0.1 (0.0-0.1) 10^3/uL Absolute Nucleated RBC 0.00 x10^3/uL Nucleated RBC % 0.0 /100WBC Absolute Retic (0.020-0.110) 10^6/uL Sodium 134 L (135-145) mmol/L Potassium 4.2 (3.5-5.0) mmol/L Chloride 102 (101-111) mmol/L Carbon Dioxide 23 (21-32) mmol/L Anion Gap 9.0 (6-13) BUN 37 H (6-20) mg/dL Creatinine 1.9 H (0.6-1.2) mg/dL Estimated GFR (MDRD) 35 L (>89) Glucose 81 (70-100) mg/dL Calcium 8.0 L (8.5-10.3) mg/dL Magnesium 2.4 (1.7-2.8) mg/dL Iron (45-182) ug/dL TIBC (250-450) ug/dL % Saturation (20-50) % Transferrin (180-329) mg/dL Ferritin (23.9-336.2) ng/mL Total Bilirubin 1.0 (0.2-1.0) mg/dL AST 54 H (10-42) IU/L ALT 55 (10-60) IU/L Alkaline Phosphatase 169 H (42-121) IU/L Lactate Dehydrogenase (91-225) IU/L B-Natriuretic Peptide 869 H (5-100) pg/mL Total Protein 7.8 (6.7-8.2) g/dL Albumin 2.6 L (3.2-5.5) g/dL Globulin 5.2 H (2.1-4.2) g/dL Albumin/Globulin Ratio 0.5 L (1.0-2.2) Vitamin B12 (180-914) pg/mL 10/12/17 10/12/17 10/12/17 Range/Units 16:50 16:50 16:50 WBC (4.8-10.8) x10^3/uL RBC (4.70-6.10) 10^6/uL Hgb (14.0-18.0) g/dL Hct (42.0-52.0) % MCV (80.0-94.0) fL MCH (27.0-31.0) pg MCHC (32.0-36.0) g/dL RDW (12.0-15.0) % Plt Count (130-450) 10^3/uL MPV (7.4-11.4) fL Reticulocyte % (Auto) (0.5-2.3) % Neut # (1.5-6.6) 10^3/uL Lymph # (1.5-3.5) 10^3/uL [place] # (0.0-1.0) 10^3/uL Eos # (0.0-0.7) 10^3/uL Baso # (0.0-0.1) 10^3/uL Absolute Nucleated RBC x10^3/uL Nucleated RBC % /100WBC Absolute Retic (0.020-0.110) 10^6/uL Sodium (135-145) mmol/L Potassium (3.5-5.0) mmol/L Chloride (101-111) mmol/L Carbon Dioxide (21-32) mmol/L Anion Gap (6-13) BUN (6-20) mg/dL Creatinine (0.6-1.2) mg/dL Estimated GFR (MDRD) (>89) Glucose (70-100) mg/dL Calcium (8.5-10.3) mg/dL Magnesium (1.7-2.8) mg/dL Iron 25 L (45-182) ug/dL TIBC 427 (250-450) ug/dL % Saturation 6 L (20-50) % Transferrin 305 (180-329) mg/dL Ferritin 12.6 L (23.9-336.2) ng/mL Total Bilirubin (0.2-1.0) mg/dL AST (10-42) IU/L ALT (10-60) IU/L Alkaline Phosphatase (42-121) IU/L Lactate Dehydrogenase 192 (91-225) IU/L B-Natriuretic Peptide (5-100) pg/mL Total Protein (6.7-8.2) g/dL Albumin (3.2-5.5) g/dL Globulin (2.1-4.2) g/dL Albumin/Globulin Ratio (1.0-2.2) Vitamin B12 844 (180-914) pg/mL 10/12/17 Range/Units 16:50 WBC (4.8-10.8) x10^3/uL RBC 3.80 L (4.70-6.10) 10^6/uL Hgb (14.0-18.0) g/dL Hct (42.0-52.0) % MCV (80.0-94.0) fL MCH (27.0-31.0) pg MCHC (32.0-36.0) g/dL RDW (12.0-15.0) % Plt Count (130-450) 10^3/uL MPV (7.4-11.4) fL Reticulocyte % (Auto) 2.61 H (0.5-2.3) % Neut # (1.5-6.6) 10^3/uL Lymph # (1.5-3.5) 10^3/uL [place] # (0.0-1.0) 10^3/uL Eos # (0.0-0.7) 10^3/uL Baso # (0.0-0.1) 10^3/uL Absolute Nucleated RBC x10^3/uL Nucleated RBC % /100WBC Absolute Retic 0.099 (0.020-0.110) 10^6/uL Sodium (135-145) mmol/L Potassium (3.5-5.0) mmol/L Chloride (101-111) mmol/L Carbon Dioxide (21-32) mmol/L Anion Gap (6-13) BUN (6-20) mg/dL Creatinine (0.6-1.2) mg/dL Estimated GFR (MDRD) (>89) Glucose (70-100) mg/dL Calcium (8.5-10.3) mg/dL Magnesium (1.7-2.8) mg/dL Iron (45-182) ug/dL TIBC (250-450) ug/dL % Saturation (20-50) % Transferrin (180-329) mg/dL Ferritin (23.9-336.2) ng/mL Total Bilirubin (0.2-1.0) mg/dL AST (10-42) IU/L ALT (10-60) IU/L Alkaline Phosphatase (42-121) IU/L Lactate Dehydrogenase (91-225) IU/L B-Natriuretic Peptide (5-100) pg/mL Total Protein (6.7-8.2) g/dL Albumin (3.2-5.5) g/dL Globulin (2.1-4.2) g/dL Albumin/Globulin Ratio (1.0-2.2) Vitamin B12 (180-914) pg/mL ABX Reporting Has patient been on IV antibiotics over the past 48 hours?: Yes Assessment/Plan - Problem List (1) CHF exacerbation Impression: (1) CHF exacerbation Conclusion/Plan: pt feel better, breathing is better, BNP slightly is going down. continue Lasix IV daily lab test daily weight fluid restriction reduce salt tele and vital monitor CXR revealing, elevated BNP, edema at groin area, previous ECHO study revealing of impaired systolic CHF, all suggest pt has CHF exacerbation start on IV of Lasix, and closely monitor renal function, and check BNP. pt's base BNP at 670 on tele and vital monitor daily lab test daily weight fluid restriction reduce salt (2) UTI (urinary tract infection) Conclusion/Plan: UA reveals positive UTI start on Rocephin follow up UA culture (3) Pneumonia Conclusion/Plan: pt present strong cough with yellowish sputum, with crackles lung sound, hx of COPD, and CXR indicate possible pneumonia treat with Azithyromycin PO add Rocephin IV sputum culture breathing treatment O2 supplement as needed blood culture, follow up (4) CKD (chronic kidney disease) Conclusion/Plan: stable as his baseline. avoid nephotoxical agent daily lab monitor (5) Hypokalemia Conclusion/Plan: resolved replacement daily lab monitor (6) History of COPD Conclusion/Plan: stable, Duoneb PRN (7) Hx of coronary artery disease Conclusion/Plan: stable, denies chest pain tele, vital monitor (8) A-fib Conclusion/Plan: stable, continue Eliquis and aspirin HR stable, resume home Eliquis and aspirin (9) Spasm of muscle Conclusion/Plan: pain is controlled pain control, baclofen (10) weakness order PT/OT continue PT/OT
[2017-10-13] MEDS: ATORVASTATIN 40 MG TABLET PO SCH (21:59)
[2017-10-14 06:24] LABS: BASOPHILS # (AUTO) 0.1 10^3/uL (0.0-0.1); BASOPHILS % (AUTO) 0.8 %; EOSINOPHILS # (AUTO) 0.1 10^3/uL (0.0-0.7); EOSINOPHILS % (AUTO) 1.4 %; HGB - HEMOGLOBIN 9.4 g/dL (14.0-18.0); LYMPHOCYTES # (AUTO) 0.9 10^3/uL (1.5-3.5); LYMPHOCYTES % (AUTO) 12.4 %; MEAN CORPUSCULAR HEMOGLOBIN 25.3 pg (27.0-31.0); MEAN CORPUSCULAR HGB CONC 31.4 g/dL (32.0-36.0); MEAN CORPUSCULAR VOLUME 80.6 fL (80.0-94.0); MEAN PLATELET VOLUME 8.5 fL (7.4-11.4); MONOCYTES # (AUTO) 0.8 10^3/uL (0.0-1.0); MONOCYTES % (AUTO) 12.3 %; NEUTROPHILS # (AUTO) 5.1 10^3/uL (1.5-6.6); NEUTROPHILS % (AUTO) 73.1 %; PLT - PLATELET COUNT 258 10^3/uL (130-450); RED BLOOD COUNT 3.69 10^6/uL (4.70-6.10); WHITE BLOOD COUNT 6.9 x10^3/uL (4.8-10.8)
[2017-10-14 06:36] LABS: ALBUMIN 2.6 g/dL (3.2-5.5); ALBUMIN/GLOBULIN RATIO 0.5 (1.0-2.2); BILIRUBIN,TOTAL 0.7 mg/dL (0.2-1.0); CALCIUM 8.3 mg/dL (8.5-10.3); TOTAL PROTEIN 8.1 g/dL (6.7-8.2)
[2017-10-14] MEDS: FUROSEMIDE 40 MG/4 ML VIAL IVP SCH (07:00)
[2017-10-14] MEDS: BACLOFEN 10 MG TABLET PO SCH ×3 (07:00→20:46)
[2017-10-14] MEDS: IPRATROPIUM/ALBUTEROL 3 ML NEB INH PRN (07:30)
[2017-10-14] MEDS: cefTRIAXone 1 GM in SODIUM CHLORIDE 0.9% MINIBAG 100 ML IV SCH (09:00)
[2017-10-14] MEDS: SODIUM CHLORIDE FLUSH 0.9% 10 ML SYRINGE IVP SCH ×2 (09:01→17:01)
[2017-10-14] MEDS: AZITHROMYCIN 250 MG TABLET PO SCH (09:02)
[2017-10-14] MEDS: CHOLECALCIFEROL 400 UNIT TABLET PO SCH ×2 (09:02→20:46)
[2017-10-14] MEDS: POTASSIUM CHLORIDE 20 MEQ TABLET PO SCH (09:02)
[2017-10-14] MEDS: SODIUM CHLORIDE FLUSH 0.9% 10 ML SYRINGE IVP PRN ×2 (09:02→09:45)
[2017-10-14] MEDS: SPIRONOLACTONE 25 MG TABLET PO SCH (09:03)
[2017-10-14] MEDS: ASCORBIC ACID CHEW 500 MG TABLET PO SCH (09:03)
[2017-10-14] MEDS: ASPIRIN EC 325 MG TABLET PO SCH (09:03)
[2017-10-14] MEDS: FAMOTIDINE 20 MG TABLET PO SCH ×2 (09:03→20:46)
[2017-10-14] MEDS: FERROUS SULFATE 325 MG TABLET PO SCH (09:03)
[2017-10-14] MEDS: CARVEDILOL 3.125 MG TABLET PO SCH ×2 (09:03→20:46)
[2017-10-14] MEDS: MULTIVITAMIN W/MINERALS TABLET PO SCH (09:03)
[2017-10-14] MEDS: CALCIUM CITRATE 250 MG TABLET PO SCH ×2 (09:04→20:46)
[2017-10-14] MEDS: guaiFENesin 600 MG TABLET PO SCH ×2 (09:04→20:46)
[2017-10-14] MEDS: POLYETHYLENE GLYCOL 3350 17 GM PACKET PO SCH (09:18)
[2017-10-14] MEDS: APIXABAN 2.5 MG TABLET PO SCH ×2 (09:26→20:46)
[2017-10-14] MEDS ORDERED: FUROSEMIDE 40 MG TABLET PO SCH (14:00)
--- NOTE | 2017-10-14 15:12 | PROVIDER PROGRESS NOTE ---
Subjective - Prog Note Date Prog Note Date: 10/14/17 - Subjective Pt reports feeling: Improved Subjective: pt state he feel better than before. he breath better. No fever, chill, CP Current Medications - Current Medications Current Medications: Active Medications Acetaminophen (Tylenol) 650 mg PO Q4HR PRN PRN Reason: Pain 1 to 4 Albuterol/Ipratropium (Duoneb) 3 ml INH Q4HR PRN PRN Reason: Wheezing Last Admin: 10/14/17 07:30 Dose: 3 ml Apixaban (Eliquis) 5 mg PO BID [facility] Last Admin: 10/14/17 09:26 Dose: 5 mg Ascorbic Acid (Vitamin C) 500 mg PO DAILY [facility] Last Admin: 10/14/17 09:03 Dose: 500 mg Aspirin (Ecotrin) 325 mg PO DAILY [facility] Last Admin: 10/14/17 09:03 Dose: 325 mg Atorvastatin Calcium (Lipitor) 40 mg PO QPM [facility] Last Admin: 10/13/17 21:59 Dose: 40 mg Azithromycin (Zithromax) 500 mg PO DAILY [facility] Last Admin: 10/14/17 09:02 Dose: 500 mg Baclofen (Lioresal) 10 mg PO TID [facility] Last Admin: 10/14/17 13:57 Dose: 10 mg Calcium Citrate () 250 mg PO BID [facility] Last Admin: 10/14/17 09:04 Dose: 250 mg Carvedilol (Coreg) 3.125 mg PO BID [facility] Last Admin: 10/14/17 09:03 Dose: 3.125 mg Cholecalciferol (Vitamin D3) 400 unit PO BID [facility] Last Admin: 10/14/17 09:02 Dose: 400 unit Famotidine (Pepcid) 20 mg PO BID [facility] Last Admin: 10/14/17 09:03 Dose: 20 mg Ferrous Sulfate (Feosol) 325 mg PO DAILYWM [facility] Last Admin: 10/14/17 09:03 Dose: 325 mg Furosemide (Lasix) 40 mg PO BID [facility] Last Admin: 10/14/17 17:01 Dose: Not Given Guaifenesin (Mucinex) 600 mg PO BID [facility] Last Admin: 10/14/17 09:04 Dose: 600 mg Ceftriaxone Sodium 1 gm/ (Sodium Chloride) 100 mls @ 200 mls/hr IV DAILY [facility] Last Infusion: 10/14/17 09:30 Dose: Infused Morphine Sulfate (Morphine) 2 mg IVP Q2H PRN PRN Reason: Pain 8 to 10 Multivitamins/Minerals (Theragran M) 1 tab PO DAILYWM [facility] Last Admin: 10/14/17 09:03 Dose: 1 tab Ondansetron HCl (Zofran Inj) 4 mg IVP Q6HR PRN PRN Reason: Nausea / Vomiting Vitamin B Complex 1 each PO DAILY [facility] Last Admin: 10/14/17 09:15 Dose: Not Given Polyethylene Glycol (Miralax) 17 gm PO DAILY [facility] Last Admin: 10/14/17 09:18 Dose: Not Given Potassium Chloride (K-Dur) 20 meq PO DAILY [facility] Last Admin: 10/14/17 09:02 Dose: 20 meq Sodium Chloride (Normal Saline Flush 0.9%) 10 ml IVP PRN PRN PRN Reason: NEEDED PER PROVIDER ORDERS Last Admin: 10/14/17 09:45 Dose: 10 ml Sodium Chloride (Normal Saline Flush 0.9%) 10 ml IVP 0100,0900,1700 [facility] Last Admin: 10/14/17 17:01 Dose: 10 ml Spironolactone (Aldactone) 12.5 mg PO DAILY [facility] Last Admin: 10/14/17 09:03 Dose: 12.5 mg Acetaminophen [Tylenol] 650 mg PO Q6H PRN 07/30/13 Calcium Carb, Citrate/Vit D3 [Calcium + D3 ER Tablet] 1 tab PO BID 12/20/14 Multivit-Min/FA/Lycopen/Lutein [Centrum Silver Tablet] 1 tab PO DAILY 12/20/14 Potassium Citrate [Potassium Citrate ER] 1 tab PO DAILY 10/12/17 Objective - Vital Signs/Intake & Output Reviewed Vital Signs: Yes Vital Signs: Vital Signs x48h Temp Pulse Pulse Pulse Pulse Resp BP 10/14/17 13:27 36.4 C L 80 22 10/14/17 11:10 72 83 118/98 H 10/14/17 07:45 36.2 C L 82 20 10/14/17 07:30 79 22 BP BP Pulse Ox 10/14/17 13:27 118/98 H 96 10/14/17 11:10 122/54 L 10/14/17 07:45 113/88 H 93 10/14/17 07:30 Intake & Output: Intake & Output 10/11/17 10/12/17 10/13/17 10/14/17 23:59 23:59 23:59 23:59 Intake Total 970 1570 640 Output Total 725 1250 470 Balance 245 320 170 - Objective General Appearance: positive: No acute distress, Alert. negative: Lethargic Eyes Bilateral: positive: Normal inspection, PERRL, No lid inflammation, Conjunctivae nml ENT: positive: ENT inspection nml, Pharynx nml. negative: Purulent nasal drainage, Pharyngeal erythema, Oral lesions Neck: positive: Nml inspection, Thyroid nml, No JVD, Trachea midline. negative : Thyromegaly, Lymphadenopathy (R), Lymphadenopathy (L), Stiff neck, Swelling/ bruising, Tracheal deviation Respiratory: positive: Chest non-tender, No respiratory distress, Breath sounds nml. negative: Wheezes, Rales Cardiovascular: positive: Regular rate & rhythm, No gallop, Systolic murmur. negative: Irregularly irregular, Extrasystoles, Tachycardia, Bradycardia Peripheral Pulses: 2+ Radial (R), 2+ Radial (L), 2+ Dorsalis pedis (R), 2+ Dorsalis pedis (L) Abdomen: positive: Non-tender, No organomegaly, Nml bowel sounds, No distention. negative: Tenderness, Guarding, Rebound Back: positive: Nml inspection. negative: CVA tenderness (R), CVA tenderness (L ) Skin: positive: Color nml, No rash, Warm, Dry. negative: Cyanosis, Diaphoresis , Pallor Extremities: positive: Non-tender, Full ROM, Nml appearance. negative: Calf tenderness, Joint swelling, Troy's sign/cords Neurologic/Psychiatric: positive: Oriented x3, Motor nml, Sensation nml. negative: Mood/affect nml, Sensory loss, Facial droop, Slurred/abnml speech, Depressed mood/affect Reflexes: Bicep (L): 0 - Lab Results Fish Bones: 10/14/17 06:04 10/14/17 06:04 Other Labs: Lab Results x24hrs 10/14/17 10/14/17 Range/Units 06:04 06:04 WBC 6.9 (4.8-10.8) x10^3/uL RBC 3.69 L (4.70-6.10) 10^6/uL Hgb 9.4 L (14.0-18.0) g/dL Hct 29.8 L (42.0-52.0) % MCV 80.6 (80.0-94.0) fL MCH 25.3 L (27.0-31.0) pg MCHC 31.4 L (32.0-36.0) g/dL RDW 18.0 H (12.0-15.0) % Plt Count 258 (130-450) 10^3/uL MPV 8.5 (7.4-11.4) fL Neut # 5.1 (1.5-6.6) 10^3/uL Lymph # 0.9 L (1.5-3.5) 10^3/uL [place] # 0.8 (0.0-1.0) 10^3/uL Eos # 0.1 (0.0-0.7) 10^3/uL Baso # 0.1 (0.0-0.1) 10^3/uL Absolute Nucleated RBC 0.01 x10^3/uL Nucleated RBC % 0.1 /100WBC Sodium 133 L (135-145) mmol/L Potassium 4.3 (3.5-5.0) mmol/L Chloride 102 (101-111) mmol/L Carbon Dioxide 24 (21-32) mmol/L Anion Gap 7.0 (6-13) BUN 41 H (6-20) mg/dL Creatinine 2.0 H (0.6-1.2) mg/dL Estimated GFR (MDRD) 33 L (>89) Glucose 104 H (70-100) mg/dL Calcium 8.3 L (8.5-10.3) mg/dL Total Bilirubin 0.7 (0.2-1.0) mg/dL AST 53 H (10-42) IU/L ALT 56 (10-60) IU/L Alkaline Phosphatase 180 H (42-121) IU/L Total Protein 8.1 (6.7-8.2) g/dL Albumin 2.6 L (3.2-5.5) g/dL Globulin 5.5 H (2.1-4.2) g/dL Albumin/Globulin Ratio 0.5 L (1.0-2.2) ABX Reporting Has patient been on IV antibiotics over the past 48 hours?: Yes Assessment/Plan - Problem List (1) CHF exacerbation Impression: (1) CHF exacerbation Conclusion/Plan: pt feel better and improved switched PO Lasix as home meds daily lab test daily weight fluid restriction reduce salt tele and vital monitor pt feel better, breathing is better, BNP slightly is going down. continue Lasix IV daily lab test daily weight fluid restriction reduce salt tele and vital monitor CXR revealing, elevated BNP, edema at groin area, previous ECHO study revealing of impaired systolic CHF, all suggest pt has CHF exacerbation start on IV of Lasix, and closely monitor renal function, and check BNP. pt's base BNP at 670 on tele and vital monitor daily lab test daily weight fluid restriction reduce salt (2) UTI (urinary tract infection) Conclusion/Plan: UA culture positive Proteus Mirabilis, sensitivity to Rocephin continue Rocephin UA reveals positive UTI start on Rocephin follow up UA culture (3) Pneumonia Conclusion/Plan: pt state his breath is better continue antibiotics and breathing treatment blood culture negative in preliminary culture pt present strong cough with yellowish sputum, with crackles lung sound, hx of COPD, and CXR indicate possible pneumonia treat with Azithyromycin PO add Rocephin IV sputum culture breathing treatment O2 supplement as needed blood culture, follow up (4) CKD (chronic kidney disease) Conclusion/Plan: slight worsening, switch IV Lasix to PO hydration stable as his baseline. avoid nephotoxical agent daily lab monitor (5) Hypokalemia Conclusion/Plan: resolved replacement daily lab monitor (6) History of COPD Conclusion/Plan: stable, Duoneb PRN (7) Hx of coronary artery disease Conclusion/Plan: stable, denies chest pain tele, vital monitor (8) A-fib Conclusion/Plan: stable, continue Eliquis and aspirin HR stable, resume home Eliquis and aspirin (9) Spasm of muscle Conclusion/Plan: pain is controlled pain control, baclofen (10) weakness continue PT/OT recommendation of previous living location order PT/OT continue PT/OT
[2017-10-14] MEDS: FUROSEMIDE 40 MG TABLET PO SCH ×2 (17:01→20:49)
[2017-10-14] MEDS: ATORVASTATIN 40 MG TABLET PO SCH (20:46)
[2017-10-15] MEDS: SODIUM CHLORIDE FLUSH 0.9% 10 ML SYRINGE IVP SCH ×4 (00:23→23:36)
[2017-10-15 05:44] LABS: BASOPHILS # (AUTO) 0.1 10^3/uL (0.0-0.1); BASOPHILS % (AUTO) 0.9 %; EOSINOPHILS # (AUTO) 0.1 10^3/uL (0.0-0.7); HGB - HEMOGLOBIN 9.4 g/dL (14.0-18.0); LYMPHOCYTES # (AUTO) 0.7 10^3/uL (1.5-3.5); LYMPHOCYTES % (AUTO) 9.4 %; MEAN CORPUSCULAR HEMOGLOBIN 25.1 pg (27.0-31.0); MEAN CORPUSCULAR HGB CONC 30.6 g/dL (32.0-36.0); MEAN CORPUSCULAR VOLUME 81.8 fL (80.0-94.0); MEAN PLATELET VOLUME 8.8 fL (7.4-11.4); MONOCYTES # (AUTO) 0.9 10^3/uL (0.0-1.0); MONOCYTES % (AUTO) 12.4 %; NEUTROPHILS # (AUTO) 5.5 10^3/uL (1.5-6.6); NEUTROPHILS % (AUTO) 75.3 %; PLT - PLATELET COUNT 248 10^3/uL (130-450); RED BLOOD COUNT 3.73 10^6/uL (4.70-6.10); RED CELL DISTRIBUTION WIDTH 18.5 % (12.0-15.0); WHITE BLOOD COUNT 7.3 x10^3/uL (4.8-10.8)
[2017-10-15 05:57] LABS: ALBUMIN 2.5 g/dL (3.2-5.5); ALBUMIN/GLOBULIN RATIO 0.5 (1.0-2.2); BILIRUBIN,TOTAL 0.6 mg/dL (0.2-1.0); CALCIUM 8.3 mg/dL (8.5-10.3); CREATININE 1.9 mg/dL (0.6-1.2); TOTAL PROTEIN 7.6 g/dL (6.7-8.2)
[2017-10-15] MEDS: BACLOFEN 10 MG TABLET PO SCH ×3 (06:08→21:11)
[2017-10-15] MEDS: IPRATROPIUM/ALBUTEROL 3 ML NEB INH PRN ×2 (07:39→13:16)
[2017-10-15] MEDS: cefTRIAXone 1 GM in SODIUM CHLORIDE 0.9% MINIBAG 100 ML IV SCH (08:14)
[2017-10-15] MEDS: MULTIVITAMIN W/MINERALS TABLET PO SCH (08:14)
[2017-10-15] MEDS: SPIRONOLACTONE 25 MG TABLET PO SCH (08:14)
[2017-10-15] MEDS: CALCIUM CITRATE 250 MG TABLET PO SCH ×2 (08:14→21:12)
[2017-10-15] MEDS: ASPIRIN EC 325 MG TABLET PO SCH (08:14)
[2017-10-15] MEDS: FAMOTIDINE 20 MG TABLET PO SCH ×2 (08:15→21:12)
[2017-10-15] MEDS: FERROUS SULFATE 325 MG TABLET PO SCH (08:15)
[2017-10-15] MEDS: POTASSIUM CHLORIDE 20 MEQ TABLET PO SCH (08:15)
[2017-10-15] MEDS: CHOLECALCIFEROL 400 UNIT TABLET PO SCH ×2 (08:15→21:12)
[2017-10-15] MEDS: CARVEDILOL 3.125 MG TABLET PO SCH ×2 (08:15→21:12)
[2017-10-15] MEDS: guaiFENesin 600 MG TABLET PO SCH ×2 (08:15→21:12)
[2017-10-15] MEDS: APIXABAN 2.5 MG TABLET PO SCH ×2 (08:15→21:11)
[2017-10-15] MEDS: ASCORBIC ACID CHEW 500 MG TABLET PO SCH (08:15)
[2017-10-15] MEDS: FUROSEMIDE 40 MG TABLET PO SCH ×2 (08:15→21:12)
[2017-10-15] MEDS: POLYETHYLENE GLYCOL 3350 17 GM PACKET PO SCH (08:16)
[2017-10-15] MEDS ORDERED: MIN OIL/DIMETHICON/COCONUT OIL 92 GM TUBE TOP PRN (09:04)
--- NOTE | 2017-10-15 13:12 | PROVIDER PROGRESS NOTE ---
Subjective - Prog Note Date Prog Note Date: 10/15/17 - Subjective Pt reports feeling: Improved Subjective: pt report he feel better. pt is living at [facility] where request pre- schedule of [facility]. plan pt to d/c tomorrow. Pt denies chest pain, fiver, chill. Current Medications - Current Medications Current Medications: Active Medications Acetaminophen (Tylenol) 650 mg PO Q4HR PRN PRN Reason: Pain 1 to 4 Albuterol/Ipratropium (Duoneb) 3 ml INH Q4HR PRN PRN Reason: Wheezing Last Admin: 10/15/17 13:16 Dose: 3 ml Apixaban (Eliquis) 5 mg PO BID [facility] Last Admin: 10/15/17 08:15 Dose: 5 mg Ascorbic Acid (Vitamin C) 500 mg PO DAILY [facility] Last Admin: 10/15/17 08:15 Dose: 500 mg Aspirin (Ecotrin) 325 mg PO DAILY [facility] Last Admin: 10/15/17 08:14 Dose: 325 mg Atorvastatin Calcium (Lipitor) 40 mg PO QPM [facility] Last Admin: 10/14/17 20:46 Dose: 40 mg Baclofen (Lioresal) 10 mg PO TID [facility] Last Admin: 10/15/17 06:08 Dose: 10 mg Calcium Citrate () 250 mg PO BID [facility] Last Admin: 10/15/17 08:14 Dose: 250 mg Carvedilol (Coreg) 3.125 mg PO BID [facility] Last Admin: 10/15/17 08:15 Dose: 3.125 mg Cholecalciferol (Vitamin D3) 400 unit PO BID [facility] Last Admin: 10/15/17 08:15 Dose: 400 unit Famotidine (Pepcid) 20 mg PO BID [facility] Last Admin: 10/15/17 08:15 Dose: 20 mg Ferrous Sulfate (Feosol) 325 mg PO DAILYWM [facility] Last Admin: 10/15/17 08:15 Dose: 325 mg Furosemide (Lasix) 40 mg PO BID [facility] Last Admin: 10/15/17 08:15 Dose: 40 mg Guaifenesin (Mucinex) 600 mg PO BID [facility] Last Admin: 10/15/17 08:15 Dose: 600 mg Ceftriaxone Sodium 1 gm/ (Sodium Chloride) 100 mls @ 200 mls/hr IV DAILY [facility] Last Infusion: 10/15/17 09:33 Dose: Infused Mineral Oil (Cavilon) 1 applic TOP PRN PRN PRN Reason: Skin Care Morphine Sulfate (Morphine) 2 mg IVP Q2H PRN PRN Reason: Pain 8 to 10 Multivitamins/Minerals (Theragran M) 1 tab PO DAILYWM [facility] Last Admin: 10/15/17 08:14 Dose: 1 tab Ondansetron HCl (Zofran Inj) 4 mg IVP Q6HR PRN PRN Reason: Nausea / Vomiting Vitamin B Complex 1 each PO DAILY [facility] Last Admin: 10/15/17 08:16 Dose: Not Given Polyethylene Glycol (Miralax) 17 gm PO DAILY [facility] Last Admin: 10/15/17 08:16 Dose: Not Given Potassium Chloride (K-Dur) 20 meq PO DAILY [facility] Last Admin: 10/15/17 08:15 Dose: 20 meq Sodium Chloride (Normal Saline Flush 0.9%) 10 ml IVP PRN PRN PRN Reason: NEEDED PER PROVIDER ORDERS Last Admin: 10/14/17 09:45 Dose: 10 ml Sodium Chloride (Normal Saline Flush 0.9%) 10 ml IVP 0100,0900,1700 [facility] Last Admin: 10/15/17 08:16 Dose: 10 ml Spironolactone (Aldactone) 12.5 mg PO DAILY [facility] Last Admin: 10/15/17 08:14 Dose: 12.5 mg Acetaminophen [Tylenol] 650 mg PO Q6H PRN 14 Calcium Carb, Citrate/Vit D3 [Calcium + D3 ER Tablet] 1 tab PO BID 12/20/14 Multivit-Min/FA/Lycopen/Lutein [Centrum Silver Tablet] 1 tab PO DAILY 12/20/14 Potassium Citrate [Potassium Citrate ER] 1 tab PO DAILY 10/12/17 Objective - Vital Signs/Intake & Output Reviewed Vital Signs: Yes Vital Signs: Vital Signs x48h Temp Pulse Pulse Resp BP Pulse Ox 10/15/17 08:00 36.2 C L 81 18 127/69 94 10/15/17 07:39 48 L 20 Intake & Output: Intake & Output 10/12/17 10/13/17 10/14/17 10/15/17 23:59 23:59 23:59 23:59 Intake Total 970 1570 1276 440 Output Total 725 1250 670 650 Balance 245 320 606 -210 - Objective General Appearance: positive: No acute distress, Alert. negative: Lethargic Eyes Bilateral: positive: Normal inspection, PERRL, No lid inflammation, Conjunctivae nml ENT: positive: ENT inspection nml, Pharynx nml, No signs of dehydration. negative: Purulent nasal drainage, Pharyngeal erythema, Oral lesions Neck: positive: Nml inspection, Thyroid nml, No JVD, Trachea midline. negative : Thyromegaly, Lymphadenopathy (R), Lymphadenopathy (L), Stiff neck, Swelling/ bruising, Tracheal deviation Respiratory: positive: Chest non-tender, No respiratory distress, Breath sounds nml. negative: Wheezes, Rales, Rhonchi Cardiovascular: positive: Regular rate & rhythm, No gallop, Systolic murmur. negative: Irregularly irregular, Extrasystoles, Tachycardia, Bradycardia, Diastolic murmur Peripheral Pulses: 2+ Radial (R), 2+ Radial (L), 2+ Dorsalis pedis (R), 2+ Dorsalis pedis (L) Abdomen: positive: Non-tender, No organomegaly, Nml bowel sounds, No distention. negative: Tenderness, Guarding, Rebound Back: positive: Nml inspection. negative: CVA tenderness (R), CVA tenderness (L ) Skin: positive: Color nml, No rash, Warm, Dry. negative: Cyanosis, Diaphoresis , Pallor Extremities: positive: Non-tender, Full ROM, Nml appearance. negative: Calf tenderness, Joint swelling, Troy's sign/cords Neurologic/Psychiatric: positive: Oriented x3, Sensation nml, Weakness. negative: Sensory loss, Facial droop, Slurred/abnml speech, Depressed mood/ affect - Lab Results Fish Bones: 10/15/17 05:15 10/15/17 05:15 Other Labs: Lab Results x24hrs 10/15/17 10/15/17 Range/Units 05:15 05:15 WBC 7.3 (4.8-10.8) x10^3/uL RBC 3.73 L (4.70-6.10) 10^6/uL Hgb 9.4 L (14.0-18.0) g/dL Hct 30.5 L (42.0-52.0) % MCV 81.8 (80.0-94.0) fL MCH 25.1 L (27.0-31.0) pg MCHC 30.6 L (32.0-36.0) g/dL RDW 18.5 H (12.0-15.0) % Plt Count 248 (130-450) 10^3/uL MPV 8.8 (7.4-11.4) fL Neut # 5.5 (1.5-6.6) 10^3/uL Lymph # 0.7 L (1.5-3.5) 10^3/uL [place] # 0.9 (0.0-1.0) 10^3/uL Eos # 0.1 (0.0-0.7) 10^3/uL Baso # 0.1 (0.0-0.1) 10^3/uL Absolute Nucleated RBC 0.02 x10^3/uL Nucleated RBC % 0.3 /100WBC Sodium 136 (135-145) mmol/L Potassium 3.7 (3.5-5.0) mmol/L Chloride 106 (101-111) mmol/L Carbon Dioxide 23 (21-32) mmol/L Anion Gap 7.0 (6-13) BUN 37 H (6-20) mg/dL Creatinine 1.9 H (0.6-1.2) mg/dL Estimated GFR (MDRD) 35 L (>89) Glucose 122 H (70-100) mg/dL Calcium 8.3 L (8.5-10.3) mg/dL Total Bilirubin 0.6 (0.2-1.0) mg/dL AST 42 (10-42) IU/L ALT 47 (10-60) IU/L Alkaline Phosphatase 176 H (42-121) IU/L Total Protein 7.6 (6.7-8.2) g/dL Albumin 2.5 L (3.2-5.5) g/dL Globulin 5.1 H (2.1-4.2) g/dL Albumin/Globulin Ratio 0.5 L (1.0-2.2) ABX Reporting Has patient been on IV antibiotics over the past 48 hours?: Yes Assessment/Plan - Problem List (1) CHF exacerbation Impression: Conclusion/Plan: pt get improved. breathing is better, pt feel better. 94% sat on room air. plan d/c pt tomorrow daily lab test daily weight fluid restriction reduce salt tele and vital monitor pt feel better and improved switched PO Lasix as home meds daily lab test daily weight fluid restriction reduce salt tele and vital monitor pt feel better, breathing is better, BNP slightly is going down. continue Lasix IV daily lab test daily weight fluid restriction reduce salt tele and vital monitor CXR revealing, elevated BNP, edema at groin area, previous ECHO study revealing of impaired systolic CHF, all suggest pt has CHF exacerbation start on IV of Lasix, and closely monitor renal function, and check BNP. pt's base BNP at 670 on tele and vital monitor daily lab test daily weight fluid restriction reduce salt (2) UTI (urinary tract infection) Conclusion/Plan: continue Rocephin UA culture positive Proteus Mirabilis, sensitivity to Rocephin continue Rocephin UA reveals positive UTI start on Rocephin follow up UA culture (3) Pneumonia Conclusion/Plan: pt state his breath is better continue antibiotics and breathing treatment blood culture negative in preliminary culture pt present strong cough with yellowish sputum, with crackles lung sound, hx of COPD, and CXR indicate possible pneumonia treat with Azithyromycin PO add Rocephin IV sputum culture breathing treatment O2 supplement as needed blood culture, follow up (4) CKD (chronic kidney disease) Conclusion/Plan: slight worsening, switch IV Lasix to PO hydration stable as his baseline. avoid nephotoxical agent daily lab monitor (5) Hypokalemia Conclusion/Plan: resolved replacement daily lab monitor (6) History of COPD Conclusion/Plan: stable, Duoneb PRN (7) Hx of coronary artery disease Conclusion/Plan: stable, denies chest pain tele, vital monitor (8) A-fib Conclusion/Plan: stable, continue Eliquis and aspirin HR stable, resume home Eliquis and aspirin (9) Spasm of muscle Conclusion/Plan: pain is controlled pain control, baclofen (10) weakness PT/OT recommend home health PT/OT order home health PT/OT continue PT/OT recommendation of previous living location order PT/OT continue PT/OT
[2017-10-15] MEDS: ATORVASTATIN 40 MG TABLET PO SCH (21:12)
[2017-10-15] MEDS ORDERED: LOPERAMIDE 2 MG CAPSULE PO PRN (22:33)
[2017-10-15] MEDS: SACCHAROMYCES BOULARDII 250 MG CAPSULE PO SCH (23:36)
[2017-10-16] MEDS ORDERED: HALOPERIDOL 5 MG/ML VIAL IM ONE (00:29)
[2017-10-16] MEDS: SODIUM CHLORIDE FLUSH 0.9% 10 ML SYRINGE IVP PRN (03:14)
[2017-10-16 06:30] LABS: BASOPHILS # (AUTO) 0.1 10^3/uL (0.0-0.1); BASOPHILS % (AUTO) 0.8 %; EOSINOPHILS % (AUTO) 0.3 %; HGB - HEMOGLOBIN 9.5 g/dL (14.0-18.0); LYMPHOCYTES # (AUTO) 0.8 10^3/uL (1.5-3.5); LYMPHOCYTES % (AUTO) 9.4 %; MEAN CORPUSCULAR HGB CONC 31.7 g/dL (32.0-36.0); MEAN PLATELET VOLUME 8.9 fL (7.4-11.4); MONOCYTES # (AUTO) 0.9 10^3/uL (0.0-1.0); MONOCYTES % (AUTO) 10.7 %; NEUTROPHILS # (AUTO) 6.7 10^3/uL (1.5-6.6); NEUTROPHILS % (AUTO) 78.8 %; PLT - PLATELET COUNT 229 10^3/uL (130-450); RED BLOOD COUNT 3.63 10^6/uL (4.70-6.10); RED CELL DISTRIBUTION WIDTH 17.9 % (12.0-15.0); WHITE BLOOD COUNT 8.5 x10^3/uL (4.8-10.8)
[2017-10-16] MEDS: BACLOFEN 10 MG TABLET PO SCH (06:31)
[2017-10-16 06:35] LABS: ALBUMIN 2.5 g/dL (3.2-5.5); ALBUMIN/GLOBULIN RATIO 0.5 (1.0-2.2); BILIRUBIN,TOTAL 0.6 mg/dL (0.2-1.0); CALCIUM 8.4 mg/dL (8.5-10.3); CREATININE 1.7 mg/dL (0.6-1.2); TOTAL PROTEIN 7.7 g/dL (6.7-8.2)
[2017-10-16 09:43] LABS: INR 2.6 (0.8-1.2); PT - PROTHROMBIN TIME 28.5 secs (9.9-12.6)
[2017-10-16] MEDS ORDERED: FUROSEMIDE 40 MG/4 ML VIAL IVP SCH (11:00)
[2017-10-16] MEDS: cefTRIAXone 1 GM in SODIUM CHLORIDE 0.9% MINIBAG 100 ML IV SCH (11:08)
[2017-10-16] MEDS: SODIUM CHLORIDE FLUSH 0.9% 10 ML SYRINGE IVP SCH ×2 (11:08→17:04)
[2017-10-16] MEDS: APIXABAN 2.5 MG TABLET PO SCH ×2 (11:10→21:03)
[2017-10-16] MEDS: SPIRONOLACTONE 25 MG TABLET PO SCH (11:10)
[2017-10-16] MEDS: CARVEDILOL 3.125 MG TABLET PO SCH ×3 (11:10→21:03)
[2017-10-16] MEDS: POTASSIUM CHLORIDE 20 MEQ TABLET PO SCH (11:12)
[2017-10-16] MEDS: ASPIRIN EC 325 MG TABLET PO SCH (11:12)
[2017-10-16] MEDS: POLYETHYLENE GLYCOL 3350 17 GM PACKET PO SCH (11:12)
[2017-10-16] MEDS: CHOLECALCIFEROL 400 UNIT TABLET PO SCH ×2 (11:13→21:03)
[2017-10-16] MEDS: FAMOTIDINE 20 MG TABLET PO SCH ×2 (11:13→21:03)
[2017-10-16] MEDS: guaiFENesin 600 MG TABLET PO SCH ×2 (11:13→21:03)
[2017-10-16] MEDS: FERROUS SULFATE 325 MG TABLET PO SCH (11:14)
[2017-10-16] MEDS: CALCIUM CITRATE 250 MG TABLET PO SCH ×2 (11:14→21:03)
[2017-10-16] MEDS: ASCORBIC ACID CHEW 500 MG TABLET PO SCH (11:14)
[2017-10-16] MEDS: SACCHAROMYCES BOULARDII 250 MG CAPSULE PO SCH ×2 (11:14→17:05)
[2017-10-16] MEDS: MULTIVITAMIN W/MINERALS TABLET PO SCH (11:14)
[2017-10-16] MEDS ORDERED: METOPROLOL 5 MG/5 ML VIAL IVP ONE (12:00)
--- NOTE | 2017-10-16 12:06 | PROVIDER PROGRESS NOTE ---
Subjective - Prog Note Date Prog Note Date: 10/16/17 - Subjective Pt reports feeling: Worse Subjective: pt is some confused. nurse report last night pt present some agitation and restless. Pt also present sinus tachycardia with irregular rate at 105-150, BP 147/117. pt was ordered 2.5 mg IV of Lopressor. Then HR is around 100, SBP is around 110. But pt also is reported to have respiratory distress, pt is on ICU now. Current Medications - Current Medications Current Medications: Active Medications Acetaminophen (Tylenol) 650 mg PO Q4HR PRN PRN Reason: Pain 1 to 4 Albuterol/Ipratropium (Duoneb) 3 ml INH Q4HR PRN PRN Reason: Wheezing Last Admin: 10/16/17 12:23 Dose: 3 ml Apixaban (Eliquis) 5 mg PO BID [facility] Last Admin: 10/16/17 11:10 Dose: 5 mg Ascorbic Acid (Vitamin C) 500 mg PO DAILY [facility] Last Admin: 10/16/17 11:14 Dose: Not Given Aspirin (Ecotrin) 325 mg PO DAILY [facility] Last Admin: 10/16/17 11:12 Dose: 325 mg Atorvastatin Calcium (Lipitor) 40 mg PO QPM [facility] Last Admin: 10/15/17 21:12 Dose: 40 mg Calcium Citrate () 250 mg PO BID [facility] Last Admin: 10/16/17 11:14 Dose: Not Given Carvedilol (Coreg) 6.25 mg PO BID [facility] Cholecalciferol (Vitamin D3) 400 unit PO BID [facility] Last Admin: 10/16/17 11:13 Dose: Not Given Famotidine (Pepcid) 20 mg PO BID [facility] Last Admin: 10/16/17 11:13 Dose: Not Given Ferrous Sulfate (Feosol) 325 mg PO DAILYWM [facility] Last Admin: 10/16/17 11:14 Dose: Not Given Furosemide (Lasix Inj 40 Mg Vial) 40 mg IVP BIDDIURETIC [facility] Last Admin: 10/16/17 11:12 Dose: 40 mg Guaifenesin (Mucinex) 600 mg PO BID [facility] Last Admin: 10/16/17 11:13 Dose: Not Given Ceftriaxone Sodium 1 gm/ (Sodium Chloride) 100 mls @ 200 mls/hr IV DAILY [facility] Last Infusion: 10/16/17 11:56 Dose: Infused Loperamide HCl (Imodium) 2 mg PO QID PRN PRN Reason: Diarrhea Last Admin: 10/15/17 23:36 Dose: 2 mg Mineral Oil (Cavilon) 1 applic TOP PRN PRN PRN Reason: Skin Care Morphine Sulfate (Morphine) 2 mg IVP Q2H PRN PRN Reason: Pain 8 to 10 Last Admin: 10/16/17 03:14 Dose: 2 mg Multivitamins/Minerals (Theragran M) 1 tab PO DAILYWM [facility] Last Admin: 10/16/17 11:14 Dose: Not Given Ondansetron HCl (Zofran Inj) 4 mg IVP Q6HR PRN PRN Reason: Nausea / Vomiting Vitamin B Complex 1 each PO DAILY [facility] Last Admin: 10/16/17 11:13 Dose: Not Given Polyethylene Glycol (Miralax) 17 gm PO DAILY [facility] Last Admin: 10/16/17 11:12 Dose: Not Given Potassium Chloride (K-Dur) 20 meq PO DAILY [facility] Last Admin: 10/16/17 11:12 Dose: 20 meq Saccharomyces Boulardii (Florastor) 250 mg PO BIDWM [facility] Last Admin: 10/16/17 11:14 Dose: Not Given Sodium Chloride (Normal Saline Flush 0.9%) 10 ml IVP PRN PRN PRN Reason: NEEDED PER PROVIDER ORDERS Last Admin: 10/16/17 03:14 Dose: 10 ml Sodium Chloride (Normal Saline Flush 0.9%) 10 ml IVP 0100,0900,1700 [facility] Last Admin: 10/16/17 11:08 Dose: 10 ml Spironolactone (Aldactone) 12.5 mg PO DAILY [facility] Last Admin: 10/16/17 11:10 Dose: 12.5 mg Acetaminophen [Tylenol] 650 mg PO Q6H PRN 07/30/13 Calcium Carb, Citrate/Vit D3 [Calcium + D3 ER Tablet] 1 tab PO BID 12/20/14 Multivit-Min/FA/Lycopen/Lutein [Centrum Silver Tablet] 1 tab PO DAILY 12/20/14 Potassium Citrate [Potassium Citrate ER] 1 tab PO DAILY 10/12/17 Objective - Vital Signs/Intake & Output Reviewed Vital Signs: Yes Vital Signs: Vital Signs x48h Pulse Pulse Resp BP BP Pulse Ox 10/16/17 11:36 122 H 147/114 H 05/31/18 09:45 80 15 10/16/17 07:37 16 93/54 L 96 10/16/17 06:28 67 16 101/48 L 100 Intake & Output: Intake & Output 10/13/17 10/14/17 10/15/17 10/16/17 23:59 23:59 23:59 23:59 Intake Total 1570 1276 640 100 Output Total 9162 653 7263 100 Balance 320 606 -585 0 - Objective General Appearance: positive: No acute distress, Alert. negative: Lethargic Eyes Bilateral: positive: Normal inspection, PERRL, No lid inflammation, Conjunctivae nml ENT: positive: ENT inspection nml, Pharynx nml, No signs of dehydration. negative: Purulent nasal drainage, Pharyngeal erythema, Oral lesions Neck: positive: Nml inspection, Thyroid nml, No JVD, Trachea midline. negative : Thyromegaly, Lymphadenopathy (R), Lymphadenopathy (L), Stiff neck, Carotid bruit, Swelling/bruising, Tracheal deviation Cardiovascular: positive: No gallop, Irregularly irregular, Tachycardia, Systolic murmur. negative: Extrasystoles, Bradycardia, Diastolic murmur Peripheral Pulses: 2+ Radial (R), 2+ Radial (L), 2+ Dorsalis pedis (R), 2+ Dorsalis pedis (L) Abdomen: positive: Non-tender, No organomegaly, Nml bowel sounds, No distention. negative: Tenderness, Guarding, Rebound Back: positive: Nml inspection. negative: CVA tenderness (R), CVA tenderness (L ) Skin: positive: Color nml, No rash, Warm, Dry. negative: Cyanosis, Diaphoresis , Pallor Extremities: positive: Non-tender, Full ROM, Nml appearance. negative: Calf tenderness, Joint swelling, Troy's sign/cords Neurologic/Psychiatric: positive: Sensation nml. negative: Sensory loss, Facial droop, Slurred/abnml speech, Depressed mood/affect - Lab Results Fish Bones: 10/16/17 06:00 10/16/17 06:00 Other Labs: Lab Results x24hrs 10/16/17 10/16/17 10/16/17 Range/Units 09:01 09:01 06:19 WBC (4.8-10.8) x10^3/uL RBC (4.70-6.10) 10^6/uL Hgb (14.0-18.0) g/dL Hct (42.0-52.0) % MCV (80.0-94.0) fL MCH (27.0-31.0) pg MCHC (32.0-36.0) g/dL RDW (12.0-15.0) % Plt Count (130-450) 10^3/uL MPV (7.4-11.4) fL Neut # (1.5-6.6) 10^3/uL Lymph # (1.5-3.5) 10^3/uL [place] # (0.0-1.0) 10^3/uL Eos # (0.0-0.7) 10^3/uL Baso # (0.0-0.1) 10^3/uL Absolute Nucleated RBC x10^3/uL Nucleated RBC % /100WBC PT 28.5 H (9.9-12.6) secs INR 2.6 H (0.8-1.2) Sodium (135-145) mmol/L Potassium (3.5-5.0) mmol/L Chloride (101-111) mmol/L Carbon Dioxide (21-32) mmol/L Anion Gap (6-13) BUN (6-20) mg/dL Creatinine (0.6-1.2) mg/dL Estimated GFR (MDRD) (>89) Glucose (70-100) mg/dL Calcium (8.5-10.3) mg/dL Total Bilirubin (0.2-1.0) mg/dL AST (10-42) IU/L ALT (10-60) IU/L Alkaline Phosphatase (42-121) IU/L Troponin I 0.06 (<0.49) ng/mL B-Natriuretic Peptide 1439 H (5-100) pg/mL Total Protein (6.7-8.2) g/dL Albumin (3.2-5.5) g/dL Globulin (2.1-4.2) g/dL Albumin/Globulin Ratio (1.0-2.2) 10/16/17 10/16/17 Range/Units 06:00 06:00 WBC 8.5 (4.8-10.8) x10^3/uL RBC 3.63 L (4.70-6.10) 10^6/uL Hgb 9.5 L (14.0-18.0) g/dL Hct 29.8 L (42.0-52.0) % MCV 82.0 (80.0-94.0) fL MCH 26.0 L (27.0-31.0) pg MCHC 31.7 L (32.0-36.0) g/dL RDW 17.9 H (12.0-15.0) % Plt Count 229 (130-450) 10^3/uL MPV 8.9 (7.4-11.4) fL Neut # 6.7 H (1.5-6.6) 10^3/uL Lymph # 0.8 L (1.5-3.5) 10^3/uL [place] # 0.9 (0.0-1.0) 10^3/uL Eos # 0.0 (0.0-0.7) 10^3/uL Baso # 0.1 (0.0-0.1) 10^3/uL Absolute Nucleated RBC 0.01 x10^3/uL Nucleated RBC % 0.1 /100WBC PT (9.9-12.6) secs INR (0.8-1.2) Sodium 139 (135-145) mmol/L Potassium 3.7 (3.5-5.0) mmol/L Chloride 106 (101-111) mmol/L Carbon Dioxide 27 (21-32) mmol/L Anion Gap 6.0 (6-13) BUN 29 H (6-20) mg/dL Creatinine 1.7 H (0.6-1.2) mg/dL Estimated GFR (MDRD) 39 L (>89) Glucose 80 (70-100) mg/dL Calcium 8.4 L (8.5-10.3) mg/dL Total Bilirubin 0.6 (0.2-1.0) mg/dL AST 46 H (10-42) IU/L ALT 46 (10-60) IU/L Alkaline Phosphatase 168 H (42-121) IU/L Troponin I (<0.49) ng/mL B-Natriuretic Peptide (5-100) pg/mL Total Protein 7.7 (6.7-8.2) g/dL Albumin 2.5 L (3.2-5.5) g/dL Globulin 5.2 H (2.1-4.2) g/dL Albumin/Globulin Ratio 0.5 L (1.0-2.2) ABX Reporting Has patient been on IV antibiotics over the past 48 hours?: Yes Assessment/Plan - Problem List (1) CHF exacerbation Impression: Conclusion/Plan: IV Lasix, daily weight fluid restriction reduce salt tele and vital monitor pt get improved. breathing is better, pt feel better. 94% sat on room air. plan d/c pt tomorrow daily lab test daily weight fluid restriction reduce salt tele and vital monitor pt feel better and improved switched PO Lasix as home meds daily lab test daily weight fluid restriction reduce salt tele and vital monitor pt feel better, breathing is better, BNP slightly is going down. continue Lasix IV daily lab test daily weight fluid restriction reduce salt tele and vital monitor CXR revealing, elevated BNP, edema at groin area, previous ECHO study revealing of impaired systolic CHF, all suggest pt has CHF exacerbation start on IV of Lasix, and closely monitor renal function, and check BNP. pt's base BNP at 670 on tele and vital monitor daily lab test daily weight fluid restriction reduce salt (2) UTI (urinary tract infection) Conclusion/Plan: continue Rocephin UA culture positive Proteus Mirabilis, sensitivity to Rocephin continue Rocephin UA reveals positive UTI start on Rocephin follow up UA culture (3) Pneumonia Conclusion/Plan: pt state his breath is better continue antibiotics and breathing treatment blood culture negative in preliminary culture pt present strong cough with yellowish sputum, with crackles lung sound, hx of COPD, and CXR indicate possible pneumonia treat with Azithyromycin PO add Rocephin IV sputum culture breathing treatment O2 supplement as needed blood culture, follow up (4) CKD (chronic kidney disease) Conclusion/Plan: slight improved slight worsening, switch IV Lasix to PO hydration stable as his baseline. avoid nephotoxical agent daily lab monitor (5) Hypokalemia Conclusion/Plan: resolved replacement daily lab monitor (6) History of COPD Conclusion/Plan: stable, Duoneb PRN (7) Hx of coronary artery disease Conclusion/Plan: stable, denies chest pain tele, vital monitor (8) A-fib Conclusion/Plan: stable, continue Eliquis and aspirin HR stable, resume home Eliquis and aspirin (9) Spasm of muscle Conclusion/Plan: pain is controlled pain control, baclofen (10) weakness PT/OT recommend home health PT/OT order home health PT/OT continue PT/OT recommendation of previous living location order PT/OT continue PT/OT (11) sinus tachycardia with irregular rate pt has hx of Afib. pt's HR is around 105-150, and elevated BP IV of Lopressor 2.5 mg given to pt continue Coreg tele monitor, vital monitor at ICU (12) respiratory distress pt present restless and agitation on last night. Haldol was given, On ICU with BiPAP Blood gas
[2017-10-16] MEDS: IPRATROPIUM/ALBUTEROL 3 ML NEB INH PRN ×3 (12:23→23:43)
[2017-10-16] MEDS: FUROSEMIDE 40 MG/4 ML VIAL IVP SCH (16:08)
[2017-10-16 17:25] LABS: VBG BASE EXCESS 0.7 mmol/L (-2 - +2); VBG PCO2 39.9 mmHg (41-51); VBG PH 7.419 (7.31-7.41); VBG PO2 64.4 mmHg (25-47); VBG TOTAL CO2 26.5 mmol/L (24-29)
--- NOTE | 2017-10-16 19:12 | CT Report ---
EXAM: CT HEAD EXAM DATE: 10/16/2017 06:47 PM. CLINICAL HISTORY: 77-year-old man with abnormal breathing pattern. Concern for stroke. COMPARISON: 05/18/2014. TECHNIQUE: Multiaxial CT images were obtained from the foramen magnum to the vertex. Reformats: Coron al. IV contrast: None. In accordance with CT protocol optimization, one or more of the following dose reduction techniques w ere utilized for this exam: automated exposure control, adjustment of mA and/or KV based on patient s ize, or use of iterative reconstructive technique. FINDINGS: Parenchyma: No hemorrhage. Region of hypoattenuation in the right superior cerebellar hemisphere is n ew compared to the 05/18/2014 exam and consistent with age indeterminant infarct in the right superio r cerebellar territory, likely remote. Geographic region of encephalomalacia involving much of the ri ght MCA territory is unchanged from the 2013 exam. Ventricles and Extra-axial Spaces: There is ex vacuo dilation of the right lateral and third ventricl es, stable or slightly increased compared to the 2014 exam. No extra-axial hemorrhage or fluid collec tion. Orbits: Unremarkable. Sinuses: Paranasal sinuses and mastoid air cells are clear. Extracranial Soft Tissues and Bones: Soft tissues are unremarkable. No fractures. IMPRESSION: 1. No acute intracranial abnormality. Specifically, no evidence of acute infarct, hemorrhage, or mass lesion. 2. 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 3. Encephalomalacia involving much of the right MCA territory, unchanged from the 2014 exam and consi stent with remote infarct. [facility] The call report notification system was initiated by Dr. Nitish Guerra at 19:06 hrs on 10/16/17. The above findings were discussed with KRIS Smith by Dr. Nitish Guerra at 19:11 hrs on . Referring Provider Line: [phone] SITE ID: [id number]
[2017-10-16] MEDS: ATORVASTATIN 40 MG TABLET PO SCH (21:03)
[2017-10-17] MEDS: SODIUM CHLORIDE FLUSH 0.9% 10 ML SYRINGE IVP SCH ×4 (01:27→23:38)
[2017-10-17 05:16] LABS: BASOPHILS # (AUTO) 0.1 10^3/uL (0.0-0.1); BASOPHILS % (AUTO) 0.9 %; EOSINOPHILS % (AUTO) 0.5 %; HGB - HEMOGLOBIN 9.5 g/dL (14.0-18.0); LYMPHOCYTES # (AUTO) 0.7 10^3/uL (1.5-3.5); LYMPHOCYTES % (AUTO) 9.4 %; MEAN CORPUSCULAR HEMOGLOBIN 25.5 pg (27.0-31.0); MEAN CORPUSCULAR VOLUME 82.1 fL (80.0-94.0); MONOCYTES # (AUTO) 0.8 10^3/uL (0.0-1.0); MONOCYTES % (AUTO) 11.1 %; NEUTROPHILS # (AUTO) 5.9 10^3/uL (1.5-6.6); NEUTROPHILS % (AUTO) 78.1 %; PLT - PLATELET COUNT 242 10^3/uL (130-450); RED BLOOD COUNT 3.72 10^6/uL (4.70-6.10); RED CELL DISTRIBUTION WIDTH 18.2 % (12.0-15.0); WHITE BLOOD COUNT 7.6 x10^3/uL (4.8-10.8)
--- NOTE | 2017-10-17 05:17 | XRAY Report ---
EXAM: CHEST RADIOGRAPHY EXAM DATE: 10/17/2017 03:36 AM. CLINICAL HISTORY: Acute respiratory failure. COMPARISON: 10/12/2017. TECHNIQUE: 1 view. FINDINGS: Lungs/Pleura: Extensive bilateral interstitial and airspace opacities. Trace pleural effusions. No pn eumothorax. Mediastinum: Mild cardiomegaly. Other: Abandoned implanted defibrillator lead. Old left humerus fracture. IMPRESSION: 1. Cardiomegaly with extensive interstitial and airspace opacities. There may be pulmonary edema. Und erlying chronic lung disease may be present as well. 2. Trace pleural effusions. [facility] Referring Provider Line: [phone] SITE ID: [id number]
--- NOTE | 2017-10-17 05:17 | XRAY Preliminary Report ---
Exam: XR CHEST 1 VIEW X-RAY IMPRESSION: 1. Cardiomegaly with extensive interstitial and airspace opacities. There may be pulmonary edema. Und erlying chronic lung disease may be present as well. 2. Trace pleural effusions. [facility] SITE ID: [id number]
[2017-10-17 05:28] LABS: ALBUMIN 2.6 g/dL (3.2-5.5); ALBUMIN/GLOBULIN RATIO 0.5 (1.0-2.2); BILIRUBIN,TOTAL 0.8 mg/dL (0.2-1.0); CALCIUM 8.5 mg/dL (8.5-10.3); CREATININE 1.9 mg/dL (0.6-1.2); TOTAL PROTEIN 7.5 g/dL (6.7-8.2)
[2017-10-17] MEDS: FUROSEMIDE 40 MG/4 ML VIAL IVP SCH ×2 (06:30→13:41)
[2017-10-17] MEDS: cefTRIAXone 1 GM in SODIUM CHLORIDE 0.9% MINIBAG 100 ML IV SCH (09:02)
[2017-10-17] MEDS: SODIUM CHLORIDE FLUSH 0.9% 10 ML SYRINGE IVP PRN ×3 (09:09→13:42)
[2017-10-17] MEDS: FERROUS SULFATE 325 MG TABLET PO SCH (10:09)
[2017-10-17] MEDS: APIXABAN 2.5 MG TABLET PO SCH ×2 (10:10→20:47)
[2017-10-17] MEDS: ASPIRIN EC 325 MG TABLET PO SCH (10:10)
[2017-10-17] MEDS: CALCIUM CITRATE 250 MG TABLET PO SCH ×2 (10:10→20:48)
[2017-10-17] MEDS: SACCHAROMYCES BOULARDII 250 MG CAPSULE PO SCH ×2 (10:10→18:17)
[2017-10-17] MEDS: MULTIVITAMIN W/MINERALS TABLET PO SCH (10:10)
[2017-10-17] MEDS: POTASSIUM CHLORIDE 20 MEQ TABLET PO SCH (10:11)
[2017-10-17] MEDS: SPIRONOLACTONE 25 MG TABLET PO SCH (10:11)
[2017-10-17] MEDS: CHOLECALCIFEROL 400 UNIT TABLET PO SCH ×2 (10:11→20:48)
[2017-10-17] MEDS: guaiFENesin 600 MG TABLET PO SCH ×3 (10:11→20:48)
[2017-10-17] MEDS: FAMOTIDINE 20 MG TABLET PO SCH ×2 (10:11→20:48)
[2017-10-17] MEDS: POLYETHYLENE GLYCOL 3350 17 GM PACKET PO SCH (10:15)
[2017-10-17] MEDS: CARVEDILOL 3.125 MG TABLET PO SCH ×2 (10:19→20:48)
[2017-10-17] MEDS: ASCORBIC ACID CHEW 500 MG TABLET PO SCH (10:19)
--- NOTE | 2017-10-17 17:09 | PROVIDER PROGRESS NOTE ---
Subjective - Prog Note Date Prog Note Date: 10/17/17 Prog Note Time: 17:07 - Subjective Subjective: Yesterday morning and afternoon he was becoming confused. Starting to get cantankerous and refused therapy. In the forepart rounder hours of yesterday he received Haldol because of his behavior. By late afternoon he was sleepy. Quieter. But starting to have episodes of apnea that were quite impressive. At one point I was in the room and apnea was up to 30 seconds, and the patient was becoming more unresponsive. As such I transferred him to ICU and started him on BiPAP. Blood gas was done: Laboratory Tests 10/16/17 17:12 VBG pH 7.419 H VBG pCO2 39.9 L VBG pO2 64.4 H VBG HCO3 25.2 VBG Total CO2 26.5 VBG O2 Saturation 91.1 H Respiratory therapy says it is fascinating. He still has apnea even with the BiPAP mask. He will actually also have the BiPAP mask off, be eating in the middle of chewing become apneic. While he is definitely more himself today, Speech is still occasional garbled, or slurred. Not always clear. He is easily prompted, the apnea episodes continue with Brian-Roblero respiration. Appetite varies from not eating at all, eating 10% of his meals, to eating 100% of his snacks. In reviewing his past medical history Mr. Beltre had an echocardiogram done in 2015 which showed right-sided heart failure, and moderate to severe aortic stenosis with an ejection fraction of less than 20% on his left side back then. With a September 20, 2017 echocardiogram his ejection fraction is improved on the left side and it is not 25-30%. He has paradoxical wall motion abnormalities compatible with the bundle branch block. He is right ventricular ejection fraction is moderately impaired and he has a right ventricular systolic resting pressure of 58 mmHg. He has mild tricuspid regurgitation. What is interesting is that the moderate to severe aortic stenosis is now being interpreted as mild aortic stenosis with mild to moderate mitral regurgitation. He presented here with scrotal edema and thigh edema that is attributed to his congestive heart failure. His intake and output was +245 on October 12, +320 on October 13, +606 on October 14, -585 on October 15, and -317 yesterday his weight was as high as 104 kg back in 2013. On September 24 it was 69 kg. Here he has gone up to 75 kg today according to the ICU scale. Yesterday he was 70.5 kg on the MedSurg scale. Current Medications - Current Medications Current Medications: Active Medications Acetaminophen (Tylenol) 650 mg PO Q4HR PRN PRN Reason: Pain 1 to 4 Albuterol/Ipratropium (Duoneb) 3 ml INH Q4HR PRN PRN Reason: Wheezing Last Admin: 10/16/17 23:43 Dose: 3 ml Apixaban (Eliquis) 5 mg PO BID [facility] Last Admin: 10/17/17 10:10 Dose: 5 mg Ascorbic Acid (Vitamin C) 500 mg PO DAILY [facility] Last Admin: 10/17/17 10:19 Dose: 500 mg Aspirin (Ecotrin) 325 mg PO DAILY [facility] Last Admin: 10/17/17 10:10 Dose: 325 mg Atorvastatin Calcium (Lipitor) 40 mg PO QPM [facility] Last Admin: 10/16/17 21:03 Dose: 40 mg Calcium Citrate () 250 mg PO BID [facility] Last Admin: 10/17/17 10:10 Dose: 250 mg Carvedilol (Coreg) 6.25 mg PO BID [facility] Last Admin: 10/17/17 10:19 Dose: 6.25 mg Cholecalciferol (Vitamin D3) 400 unit PO BID [facility] Last Admin: 10/17/17 10:11 Dose: 400 unit Famotidine (Pepcid) 20 mg PO BID [facility] Last Admin: 10/17/17 10:11 Dose: 20 mg Ferrous Sulfate (Feosol) 325 mg PO DAILYWM [facility] Last Admin: 10/17/17 10:09 Dose: 325 mg Furosemide (Lasix Inj 40 Mg Vial) 40 mg IVP BIDDIURETIC [facility] Last Admin: 10/17/17 13:41 Dose: 40 mg Guaifenesin (Mucinex) 600 mg PO BID [facility] Last Admin: 10/17/17 10:32 Dose: Not Given Ceftriaxone Sodium 1 gm/ (Sodium Chloride) 100 mls @ 200 mls/hr IV DAILY [facility] Last Infusion: 10/17/17 09:32 Dose: Infused Loperamide HCl (Imodium) 2 mg PO QID PRN PRN Reason: Diarrhea Last Admin: 10/15/17 23:36 Dose: 2 mg Mineral Oil (Cavilon) 1 applic TOP PRN PRN PRN Reason: Skin Care Morphine Sulfate (Morphine) 2 mg IVP Q2H PRN PRN Reason: Pain 8 to 10 Last Admin: 10/16/17 03:14 Dose: 2 mg Multivitamins/Minerals (Theragran M) 1 tab PO DAILYWM [facility] Last Admin: 10/17/17 10:10 Dose: 1 tab Ondansetron HCl (Zofran Inj) 4 mg IVP Q6HR PRN PRN Reason: Nausea / Vomiting Vitamin B Complex 1 each PO DAILY [facility] Last Admin: 10/17/17 10:36 Dose: Not Given Polyethylene Glycol (Miralax) 17 gm PO DAILY [facility] Last Admin: 10/17/17 10:15 Dose: 17 gm Potassium Chloride (K-Dur) 20 meq PO DAILY [facility] Last Admin: 10/17/17 10:11 Dose: 20 meq Saccharomyces Boulardii (Florastor) 250 mg PO BIDWM [facility] Last Admin: 10/17/17 10:10 Dose: 250 mg Sodium Chloride (Normal Saline Flush 0.9%) 10 ml IVP PRN PRN PRN Reason: NEEDED PER PROVIDER ORDERS Last Admin: 10/17/17 13:42 Dose: 10 ml Sodium Chloride (Normal Saline Flush 0.9%) 10 ml IVP 0100,0900,1700 [facility] Last Admin: 10/17/17 06:30 Dose: 10 ml Spironolactone (Aldactone) 12.5 mg PO DAILY [facility] Last Admin: 10/17/17 10:11 Dose: 12.5 mg Acetaminophen [Tylenol] 650 mg PO Q6H PRN 07/30/13 Calcium Carb, Citrate/Vit D3 [Calcium + D3 ER Tablet] 1 tab PO BID 12/20/14 Multivit-Min/FA/Lycopen/Lutein [Centrum Silver Tablet] 1 tab PO DAILY 12/20/14 Potassium Citrate [Potassium Citrate ER] 1 tab PO DAILY 10/12/17 Objective - Vital Signs/Intake & Output Reviewed Vital Signs: Yes Vital Signs: Vital Signs Temp Pulse Pulse Resp BP Pulse Ox 10/17/17 16:00 91 87 23 104/86 H 100 10/17/17 15:00 36.3 C L 83 29 H 114/93 H 95 10/17/17 14:11 70 10/17/17 14:00 89 26 H 109/83 H 100 Intake & Output: Intake & Output 10/14/17 10/15/17 10/16/17 10/17/17 23:59 23:59 23:59 23:59 Intake Total 1276 640 638 220 Output Total 670 [phone] Balance 436 -585 -[phone] - Objective General Appearance: positive: No acute distress, Alert, Other (He is confused at times) Eyes Bilateral: positive: PERRL, EOMI ENT: positive: Pharynx nml, Other (Nursing reports that he is choking or aspirating liquids when he eats) Neck: positive: No JVD. negative: Stiff neck, Carotid bruit Respiratory: positive: Chest non-tender, Rales, Other (Brian-Roblero respirations and is quite dramatic with spells of apnea that are quite prolonged in up to 30 seconds). negative: Wheezes (But he has prolonged and exhalation at times), Rhonchi Cardiovascular: positive: Irregularly irregular. negative: Tachycardia, Gallop/ S4, Friction rub Abdomen: positive: Non-tender, No organomegaly, Nml bowel sounds, No distention , Other (Obese and protuberant) Skin: positive: Warm, Dry Neurologic/Psychiatric: positive: CN's nml (2-12), Motor nml (He does not have focal deficits and is moving his arms and legs spontaneously but not really purposefully), Disoriented to time, Slurred/abnml speech (At times) - Lab Results Fish Bones: 10/17/17 04:25 10/17/17 04:25 Other Labs: Lab Results x24hrs 10/17/17 10/17/17 10/16/17 Range/Units 04:25 04:25 17:12 WBC 7.6 (4.8-10.8) x10^3/uL RBC 3.72 L (4.70-6.10) 10^6/uL Hgb 9.5 L (14.0-18.0) g/dL Hct 30.6 L (42.0-52.0) % MCV 82.1 (80.0-94.0) fL MCH 25.5 L (27.0-31.0) pg MCHC 31.0 L (32.0-36.0) g/dL RDW 18.2 H (12.0-15.0) % Plt Count 242 (130-450) 10^3/uL MPV 9.0 (7.4-11.4) fL Neut # 5.9 (1.5-6.6) 10^3/uL Lymph # 0.7 L (1.5-3.5) 10^3/uL [place] # 0.8 (0.0-1.0) 10^3/uL Eos # 0.0 (0.0-0.7) 10^3/uL Baso # 0.1 (0.0-0.1) 10^3/uL Absolute Nucleated RBC 0.02 x10^3/uL Nucleated RBC % 0.2 /100WBC VBG pH 7.419 H (7.31-7.41) VBG pCO2 39.9 L (41-51) mmHg VBG pO2 64.4 H (25-47) mmHg VBG HCO3 25.2 (23-28) mmol/L VBG Total CO2 26.5 (24-29) mmol/L VBG O2 Saturation 91.1 H (60-80) % VBG Base Excess 0.7 (-2 - +2) mmol/L Sodium 141 (135-145) mmol/L Potassium 4.3 (3.5-5.0) mmol/L Chloride 106 (101-111) mmol/L Carbon Dioxide 26 (21-32) mmol/L Anion Gap 9.0 (6-13) BUN 37 H (6-20) mg/dL Creatinine 1.9 H (0.6-1.2) mg/dL Estimated GFR (MDRD) 35 L (>89) Glucose 78 (70-100) mg/dL Calcium 8.5 (8.5-10.3) mg/dL Total Bilirubin 0.8 (0.2-1.0) mg/dL AST 58 H (10-42) IU/L ALT 53 (10-60) IU/L Alkaline Phosphatase 177 H (42-121) IU/L Total Protein 7.5 (6.7-8.2) g/dL Albumin 2.6 L (3.2-5.5) g/dL Globulin 4.9 H (2.1-4.2) g/dL Albumin/Globulin Ratio 0.5 L (1.0-2.2) Assessment/Plan - Problem List (1) Acute on chronic right-sided heart failure Impression: With acute on chronic systolic heart failure, left side. NYHA Class 4. .. He has been receiving Lasix 40 mg IV push, and has been on his Aldactone. His intake and output has not been impressively positive, nor has it been impressively negative. Creatinine has remained stable at 1.9 today. The highest has been during his stay is 2.0 on October 14. I will increase Lasix to 60 mg IV push twice daily. He is on potassium supplement, Aldactone, and Coreg. (2) Central sleep apnea with Brian-Roblero respiration Impression: I can only attributed to the fact that is bilateral congestive heart failure is severe. It is an actual ominous sign. I did call the sleep lab at [facility] and left my name with the doctor who was on-call for the day. It has been 3 hours and they have not call me back. Hopefully he will call me back before I leave for the day. I do not know what else to do other than to treat the congestive heart failure. I do not know if the patient will be a candidate for modafinil or something else In the meantime he is still in ICU with BiPAP. Again quite impressive that he does stop breathing even in the middle of the eating up. (3) Urinary tract infection due to Proteus Impression: Sensitive to ceftriaxone. Today is day #6. As an elderly gentleman, would treat for close to 3 weeks on the basis of age and probable prostate disease. Would switch him over to oral tomorrow. (4) Pneumonia Impression: This was seen on chest x-ray but no fever, no elevated white cell count. Treated empirically with 6 days of Rocephin.Blood cultures have been negative and sputum cultures not helpful (5) History of COPD Impression: no acute exacerbation. on nebs prn. (6) Chronic atrial fibrillation Impression: rate is controlled. no change in coreg for now. On eliquis.
[2017-10-17] MEDS: IPRATROPIUM/ALBUTEROL 3 ML NEB INH PRN (19:29)
[2017-10-17] MEDS: ATORVASTATIN 40 MG TABLET PO SCH (20:47)
[2017-10-18 04:53] LABS: BASOPHILS # (AUTO) 0.1 10^3/uL (0.0-0.1); BASOPHILS % (AUTO) 0.7 %; EOSINOPHILS # (AUTO) 0.2 10^3/uL (0.0-0.7); EOSINOPHILS % (AUTO) 2.2 %; HGB - HEMOGLOBIN 9.5 g/dL (14.0-18.0); LYMPHOCYTES # (AUTO) 0.7 10^3/uL (1.5-3.5); LYMPHOCYTES % (AUTO) 9.6 %; MEAN CORPUSCULAR HEMOGLOBIN 26.1 pg (27.0-31.0); MEAN CORPUSCULAR HGB CONC 32.1 g/dL (32.0-36.0); MEAN CORPUSCULAR VOLUME 81.2 fL (80.0-94.0); MEAN PLATELET VOLUME 8.7 fL (7.4-11.4); MONOCYTES # (AUTO) 0.8 10^3/uL (0.0-1.0); MONOCYTES % (AUTO) 11.4 %; NEUTROPHILS # (AUTO) 5.6 10^3/uL (1.5-6.6); NEUTROPHILS % (AUTO) 76.1 %; PLT - PLATELET COUNT 230 10^3/uL (130-450); RED BLOOD COUNT 3.66 10^6/uL (4.70-6.10); RED CELL DISTRIBUTION WIDTH 18.7 % (12.0-15.0); WHITE BLOOD COUNT 7.3 x10^3/uL (4.8-10.8)
[2017-10-18 05:01] LABS: VBG BASE EXCESS 3.9 mmol/L (-2 - +2); VBG PCO2 42.8 mmHg (41-51); VBG PH 7.44 (7.31-7.41); VBG PO2 80.7 mmHg (25-47); VBG TOTAL CO2 29.7 mmol/L (24-29)
[2017-10-18 05:14] LABS: ALBUMIN 2.6 g/dL (3.2-5.5); ALBUMIN/GLOBULIN RATIO 0.5 (1.0-2.2); ALKALINE PHOSPHATASE 169 IU/L (42-121); ALT ALANINE AMINOTRANSFERASE 50 IU/L (10-60); AST ASPARTATE AMINOTRANSFERASE 52 IU/L (10-42); BILIRUBIN,TOTAL 0.8 mg/dL (0.2-1.0); BUN - BLOOD UREA NITROGEN 39 mg/dL (6-20); CALCIUM 8.6 mg/dL (8.5-10.3); CARBON DIOXIDE - CO2 31 mmol/L (21-32); CHLORIDE 103 mmol/L (101-111); CREATININE 1.7 mg/dL (0.6-1.2); GFR - MDRD 39 (>89); GLUCOSE 102 mg/dL (70-100); MAGNESIUM 2.2 mg/dL (1.7-2.8); PHOSPHORUS 2.9 mg/dL (2.5-4.6); SODIUM 138 mmol/L (135-145); TOTAL PROTEIN 7.7 g/dL (6.7-8.2)
[2017-10-18] MEDS: FUROSEMIDE 40 MG/4 ML VIAL IVP SCH ×2 (05:37→14:15)
[2017-10-18] MEDS: CALCIUM CITRATE 250 MG TABLET PO SCH ×2 (08:24→21:25)
[2017-10-18] MEDS: CARVEDILOL 3.125 MG TABLET PO SCH ×2 (08:24→21:25)
[2017-10-18] MEDS: SPIRONOLACTONE 25 MG TABLET PO SCH (08:25)
[2017-10-18] MEDS: guaiFENesin 600 MG TABLET PO SCH ×2 (08:25→21:24)
[2017-10-18] MEDS: CHOLECALCIFEROL 400 UNIT TABLET PO SCH ×2 (08:25→21:25)
[2017-10-18] MEDS: ASCORBIC ACID CHEW 500 MG TABLET PO SCH (08:26)
[2017-10-18] MEDS: FERROUS SULFATE 325 MG TABLET PO SCH (08:26)
[2017-10-18] MEDS: APIXABAN 2.5 MG TABLET PO SCH ×2 (08:26→21:24)
[2017-10-18] MEDS: SACCHAROMYCES BOULARDII 250 MG CAPSULE PO SCH ×2 (08:26→17:30)
[2017-10-18] MEDS: MULTIVITAMIN W/MINERALS TABLET PO SCH (08:26)
[2017-10-18] MEDS: POTASSIUM CHLORIDE 20 MEQ TABLET PO SCH (08:27)
[2017-10-18] MEDS: ASPIRIN EC 325 MG TABLET PO SCH (08:27)
[2017-10-18] MEDS: FAMOTIDINE 20 MG TABLET PO SCH ×2 (08:27→21:25)
[2017-10-18] MEDS: SODIUM CHLORIDE FLUSH 0.9% 10 ML SYRINGE IVP SCH ×2 (08:46→14:17)
[2017-10-18] MEDS: POLYETHYLENE GLYCOL 3350 17 GM PACKET PO SCH (08:47)
[2017-10-18] MEDS: cefTRIAXone 1 GM in SODIUM CHLORIDE 0.9% MINIBAG 100 ML IV SCH (08:48)
[2017-10-18] MEDS ORDERED: MAGNESIUM OXIDE 400 MG TABLET PO PRN (11:08)
--- NOTE | 2017-10-18 13:42 | PROVIDER PROGRESS NOTE ---
Subjective - Prog Note Date Prog Note Date: 10/18/17 Prog Note Time: 13:42 - Subjective Pt reports feeling: Improved Subjective: His episodes of apnea have disappeared to the point that the current nurse on shift has not seen any. He likes the BiPAP mask. He will take it off to eat, relaxed, watching TV and then when he goes to sleep he wants it back on. I spoke to the hospitalist who took care of him on admission. Even on a good day his speech was slow, and slightly garbled and slurred. It would take a long time to understand what he was saying. Here he has been almost nonverbal but appropriate. He answers yes no. Waves to me. Use the remote control to watch TV.Even with the BiPAP mask on Current Medications - Current Medications Current Medications: Active Medications Acetaminophen (Tylenol) 650 mg PO Q4HR PRN PRN Reason: Pain 1 to 4 Albuterol/Ipratropium (Duoneb) 3 ml INH Q4HR PRN PRN Reason: Wheezing Last Admin: 10/17/17 19:29 Dose: 3 ml Apixaban (Eliquis) 5 mg PO BID [facility] Last Admin: 10/18/17 08:26 Dose: 5 mg Ascorbic Acid (Vitamin C) 500 mg PO DAILY [facility] Last Admin: 10/18/17 08:26 Dose: 500 mg Aspirin (Ecotrin) 325 mg PO DAILY [facility] Last Admin: 10/18/17 08:27 Dose: 325 mg Atorvastatin Calcium (Lipitor) 40 mg PO QPM [facility] Last Admin: 10/17/17 20:47 Dose: 40 mg Calcium Citrate () 250 mg PO BID [facility] Last Admin: 10/18/17 08:24 Dose: 250 mg Carvedilol (Coreg) 6.25 mg PO BID [facility] Last Admin: 10/18/17 08:24 Dose: 6.25 mg Cholecalciferol (Vitamin D3) 400 unit PO BID [facility] Last Admin: 10/18/17 08:25 Dose: 400 unit Famotidine (Pepcid) 20 mg PO BID [facility] Last Admin: 10/18/17 08:27 Dose: 20 mg Ferrous Sulfate (Feosol) 325 mg PO DAILYWM [facility] Last Admin: 10/18/17 08:26 Dose: 325 mg Furosemide (Lasix Inj 40 Mg Vial) 40 mg IVP BIDDIURETIC [facility] Last Admin: 10/18/17 05:37 Dose: 40 mg Guaifenesin (Mucinex) 600 mg PO BID [facility] Last Admin: 10/18/17 08:25 Dose: 600 mg Loperamide HCl (Imodium) 2 mg PO QID PRN PRN Reason: Diarrhea Last Admin: 10/15/17 23:36 Dose: 2 mg Magnesium Oxide (Mag Ox) 400 mg PO BID PRN PRN Reason: Spasms Mineral Oil (Cavilon) 1 applic TOP PRN PRN PRN Reason: Skin Care Morphine Sulfate (Morphine) 2 mg IVP Q2H PRN PRN Reason: Pain 8 to 10 Last Admin: 10/16/17 03:14 Dose: 2 mg Multivitamins/Minerals (Theragran M) 1 tab PO DAILYWM [facility] Last Admin: 10/18/17 08:26 Dose: 1 tab Ondansetron HCl (Zofran Inj) 4 mg IVP Q6HR PRN PRN Reason: Nausea / Vomiting Vitamin B Complex 1 each PO DAILY [facility] Last Admin: 10/17/17 10:36 Dose: Not Given Polyethylene Glycol (Miralax) 17 gm PO DAILY [facility] Last Admin: 10/18/17 08:47 Dose: 17 gm Potassium Chloride (K-Dur) 20 meq PO DAILY [facility] Last Admin: 10/18/17 08:27 Dose: 20 meq Saccharomyces Boulardii (Florastor) 250 mg PO BIDWM [facility] Last Admin: 10/18/17 08:26 Dose: 250 mg Sodium Chloride (Normal Saline Flush 0.9%) 10 ml IVP PRN PRN PRN Reason: NEEDED PER PROVIDER ORDERS Last Admin: 10/17/17 13:42 Dose: 10 ml Sodium Chloride (Normal Saline Flush 0.9%) 10 ml IVP 0100,0900,1700 [facility] Last Admin: 10/18/17 08:46 Dose: 10 ml Spironolactone (Aldactone) 12.5 mg PO DAILY [facility] Last Admin: 10/18/17 08:25 Dose: 12.5 mg Acetaminophen [Tylenol] 650 mg PO Q6H PRN 07/30/13 Calcium Carb, Citrate/Vit D3 [Calcium + D3 ER Tablet] 1 tab PO BID 12/20/14 Multivit-Min/FA/Lycopen/Lutein [Centrum Silver Tablet] 1 tab PO DAILY 12/20/14 Potassium Citrate [Potassium Citrate ER] 1 tab PO DAILY 10/12/17 Objective - Vital Signs/Intake & Output Reviewed Vital Signs: Yes Vital Signs: Vital Signs Pulse Pulse Resp BP Pulse Ox 10/18/17 13:00 86 26 H 130/67 96 10/18/17 12:00 102 H 15 92/68 99 10/18/17 11:06 72 10/18/17 11:00 83 24 102/72 94 10/18/17 10:00 93 23 90/62 94 Intake & Output: Intake & Output 10/15/17 10/16/17 10/17/17 10/18/17 23:59 23:59 23:59 23:59 Intake Total 640 377 325 7731 Output Total 2219 859 0016 1285 [facility] -585 -317 -[phone] -95 - Objective General Appearance: positive: No acute distress, Alert, Other (he just not speaking much) Eyes Bilateral: positive: PERRL ENT: positive: Pharynx nml Neck: positive: No JVD. negative: Stiff neck, Carotid bruit Respiratory: positive: Chest non-tender, Rales, Other (it takes very little for resp rate to go up to 25 with effort. starts to wheeze with it) Cardiovascular: positive: Irregularly irregular. negative: Gallop/S4, Friction rub Abdomen: positive: Non-tender, No organomegaly, Nml bowel sounds, No distention Extremities: positive: Full ROM, Pedal edema Neurologic/Psychiatric: positive: Other (Hard to tell of this gentleman is oriented to person place and time. I cannot understand what he saying when I ask him questions. But he smiles, will answer yes no appropriately. Indicates what he wants. Uses his arms for purposeful movements such as feeding himself, using a remote, rearranging the bed she is to make himself comfortable. He does not have any focal deficits. No facial droop.) - Lab Results Fish Bones: 10/18/17 04:15 10/18/17 04:15 Other Labs: Lab Results x24hrs 10/18/17 10/18/17 10/18/17 Range/Units 04:15 04:15 04:15 WBC (4.8-10.8) x10^3/uL RBC (4.70-6.10) 10^6/uL Hgb (14.0-18.0) g/dL Hct (42.0-52.0) % MCV (80.0-94.0) fL MCH (27.0-31.0) pg MCHC (32.0-36.0) g/dL RDW (12.0-15.0) % Plt Count (130-450) 10^3/uL MPV (7.4-11.4) fL Neut # (Auto) (1.5-6.6) 10^3/uL Lymph # (Auto) (1.5-3.5) 10^3/uL [facility] # (Auto) (0.0-1.0) 10^3/uL Eos # (Auto) (0.0-0.7) 10^3/uL Baso # (Auto) (0.0-0.1) 10^3/uL Absolute Nucleated RBC x10^3/uL Nucleated RBC % /100WBC VBG pH 7.440 H (7.31-7.41) VBG pCO2 42.8 (41-51) mmHg VBG pO2 80.7 H (25-47) mmHg VBG HCO3 28.4 H (23-28) mmol/L VBG Total CO2 29.7 H (24-29) mmol/L VBG O2 Saturation 95.5 H (60-80) % VBG Base Excess 3.9 H (-2 - +2) mmol/L Sodium 138 (135-145) mmol/L Potassium 4.1 (3.5-5.0) mmol/L Chloride 103 (101-111) mmol/L Carbon Dioxide 31 (21-32) mmol/L Anion Gap 4.0 L (6-13) BUN 39 H (6-20) mg/dL Creatinine 1.7 H (0.6-1.2) mg/dL Estimated GFR (MDRD) 39 L (>89) Glucose 102 H (70-100) mg/dL Calcium 8.6 (8.5-10.3) mg/dL Ionized Calcium NO Phosphorus 2.9 (2.5-4.6) mg/dL Magnesium 2.2 (1.7-2.8) mg/dL Total Bilirubin 0.8 (0.2-1.0) mg/dL AST 52 H (10-42) IU/L ALT 50 (10-60) IU/L Alkaline Phosphatase 169 H (42-121) IU/L B-Natriuretic Peptide 821 H (5-100) pg/mL Total Protein 7.7 (6.7-8.2) g/dL Albumin 2.6 L (3.2-5.5) g/dL Globulin 5.1 H (2.1-4.2) g/dL Albumin/Globulin Ratio 0.5 L (1.0-2.2) 10/18/17 Range/Units 04:15 WBC 7.3 (4.8-10.8) x10^3/uL RBC 3.66 L (4.70-6.10) 10^6/uL Hgb 9.5 L (14.0-18.0) g/dL Hct 29.7 L (42.0-52.0) % MCV 81.2 (80.0-94.0) fL MCH 26.1 L (27.0-31.0) pg MCHC 32.1 (32.0-36.0) g/dL RDW 18.7 H (12.0-15.0) % Plt Count 230 (130-450) 10^3/uL MPV 8.7 (7.4-11.4) fL Neut # (Auto) 5.6 (1.5-6.6) 10^3/uL Lymph # (Auto) 0.7 L (1.5-3.5) 10^3/uL [facility] # (Auto) 0.8 (0.0-1.0) 10^3/uL Eos # (Auto) 0.2 (0.0-0.7) 10^3/uL Baso # (Auto) 0.1 (0.0-0.1) 10^3/uL Absolute Nucleated RBC 0.01 x10^3/uL Nucleated RBC % 0.2 /100WBC VBG pH (7.31-7.41) VBG pCO2 (41-51) mmHg VBG pO2 (25-47) mmHg VBG HCO3 (23-28) mmol/L VBG Total CO2 (24-29) mmol/L VBG O2 Saturation (60-80) % VBG Base Excess (-2 - +2) mmol/L Sodium (135-145) mmol/L Potassium (3.5-5.0) mmol/L Chloride (101-111) mmol/L Carbon Dioxide (21-32) mmol/L Anion Gap (6-13) BUN (6-20) mg/dL Creatinine (0.6-1.2) mg/dL Estimated GFR (MDRD) (>89) Glucose (70-100) mg/dL Calcium (8.5-10.3) mg/dL Ionized Calcium Phosphorus (2.5-4.6) mg/dL Magnesium (1.7-2.8) mg/dL Total Bilirubin (0.2-1.0) mg/dL AST (10-42) IU/L ALT (10-60) IU/L Alkaline Phosphatase (42-121) IU/L B-Natriuretic Peptide (5-100) pg/mL Total Protein (6.7-8.2) g/dL Albumin (3.2-5.5) g/dL Globulin (2.1-4.2) g/dL Albumin/Globulin Ratio (1.0-2.2) Assessment/Plan - Problem List (1) Acute on chronic right-sided heart failure Impression: With acute on chronic systolic heart failure, left side. NYHA Class 4. .. He had been receiving Lasix 40 mg IV push, and has been on his Aldactone. His intake and output has not been impressively positive, nor has it been impressively negative. Creatinine has remained stable at 1.9 on 10/17. The highest has been during his stay is 2.0 on October 14. I increased Lasix to 60 mg IV push twice daily on 10/17. He is on potassium supplement, Aldactone, and Coreg. Will continue that for now. He is definitely improving on exam and alertness I just can't madyson his thoughts since not speaking well. His intake and output has now become negative enough that it is made a clinical difference. For instance his apnea has resolved and is less short of breath and he is sitting up in a chair alert, interactive just not very verbal. Since October 15 his intake and output was -585, -317, yesterday -2036, and so far this morning -95. Weight on admission was 69 kg and he went up to 71.5 kg the day I put him in the ICU. ICU bed weight was 75 kg yesterday and today he is 72 kg. (2) Central sleep apnea with Brian-Roblero respiration Impression: I can only attributed to the fact that is bilateral congestive heart failure is severe. It is an actual ominous sign. I did call the sleep lab at [facility] and left my name with the doctor who was on-call for the day on 10/17. They have not call me back. I do not know what else to do other than to treat the congestive heart failure and so far it's working. His apnea episodes have diminished and while watching him this am, no apnea at all off the BiPAP. But he likes the BiPAP and wants it on a lot. I do not know if the patient will be a candidate for modafinil or something else In the meantime he is still in ICU with BiPAP. (3) Urinary tract infection due to Proteus Impression: Sensitive to ceftriaxone. Today is day #7. As an elderly gentleman, would treat for close to 3 weeks on the basis of age and probable prostate disease. Would switch him over to oral today. (4) Pneumonia Impression: This was seen on chest x-ray but no fever, no elevated white cell count. Treated empirically with 7 days of Rocephin.Blood cultures have been negative and sputum cultures not helpful (5) History of COPD Impression: no acute exacerbation. on nebs prn. (6) Chronic atrial fibrillation Impression: rate is controlled. no change in coreg for now. On eliquis.
[2017-10-18] MEDS: CIPROFLOXACIN 250 MG TABLET PO SCH (20:12)
[2017-10-18] MEDS: ATORVASTATIN 40 MG TABLET PO SCH (21:25)
[2017-10-19] MEDS: SODIUM CHLORIDE FLUSH 0.9% 10 ML SYRINGE IVP SCH ×3 (02:23→21:30)
[2017-10-19] MEDS: FUROSEMIDE 40 MG/4 ML VIAL IVP SCH ×2 (06:19→17:45)
[2017-10-19] MEDS: SODIUM CHLORIDE FLUSH 0.9% 10 ML SYRINGE IVP PRN (06:19)
[2017-10-19] MEDS: MULTIVITAMIN W/MINERALS TABLET PO SCH (08:35)
[2017-10-19] MEDS: POTASSIUM CHLORIDE 20 MEQ TABLET PO SCH (08:36)
[2017-10-19] MEDS: APIXABAN 2.5 MG TABLET PO SCH ×2 (08:36→20:55)
[2017-10-19] MEDS: CARVEDILOL 3.125 MG TABLET PO SCH ×2 (08:36→20:55)
[2017-10-19] MEDS: ASPIRIN EC 325 MG TABLET PO SCH (08:37)
[2017-10-19] MEDS: guaiFENesin 600 MG TABLET PO SCH ×2 (08:37→20:55)
[2017-10-19] MEDS: FAMOTIDINE 20 MG TABLET PO SCH ×2 (08:37→20:55)
[2017-10-19] MEDS: SPIRONOLACTONE 25 MG TABLET PO SCH (08:37)
[2017-10-19] MEDS: ASCORBIC ACID CHEW 500 MG TABLET PO SCH (08:39)
[2017-10-19] MEDS: SACCHAROMYCES BOULARDII 250 MG CAPSULE PO SCH ×2 (08:39→17:45)
[2017-10-19] MEDS: CIPROFLOXACIN 250 MG TABLET PO SCH ×2 (08:39→17:55)
[2017-10-19] MEDS: POLYETHYLENE GLYCOL 3350 17 GM PACKET PO SCH (08:40)
[2017-10-19] MEDS: CHOLECALCIFEROL 400 UNIT TABLET PO SCH ×2 (08:40→20:56)
[2017-10-19] MEDS: FERROUS SULFATE 325 MG TABLET PO SCH (12:17)
[2017-10-19] MEDS: CALCIUM CITRATE 250 MG TABLET PO SCH ×2 (12:17→20:55)
--- NOTE | 2017-10-19 18:33 | PROVIDER PROGRESS NOTE ---
Subjective - Prog Note Date Prog Note Date: 10/19/17 Prog Note Time: 18:31 - Subjective Pt reports feeling: Improved Subjective: Since he has been in the ICU, he went from having flagrant frequent apneic episodes that were over 30 seconds long. I have diuresed him, put him on BiPAP , and now he is still having occasional apnea of less than 20 seconds but with much less frequency on the monitor. RN reports that he has had no desaturations with the apnea starting yesterday to today. The patient himself has been much more alert, much more conversant. Using a remote control. Likes his food. And really really likes the attention from the good care of the nurses in the ICU. He still occasionally wants to use the BiPAP. He uses it for shortness of breath as needed not because he is truly desaturating or having episodes of apnea. Current Medications - Current Medications Current Medications: Active Medications Acetaminophen (Tylenol) 650 mg PO Q4HR PRN PRN Reason: Pain 1 to 4 Albuterol/Ipratropium (Duoneb) 3 ml INH Q4HR PRN PRN Reason: Wheezing Last Admin: 10/17/17 19:29 Dose: 3 ml Apixaban (Eliquis) 5 mg PO BID [facility] Last Admin: 10/19/17 08:36 Dose: 5 mg Ascorbic Acid (Vitamin C) 500 mg PO DAILY [facility] Last Admin: 10/19/17 08:39 Dose: 500 mg Aspirin (Ecotrin) 325 mg PO DAILY [facility] Last Admin: 10/19/17 08:37 Dose: 325 mg Atorvastatin Calcium (Lipitor) 40 mg PO QPM [facility] Last Admin: 10/18/17 21:25 Dose: 40 mg Calcium Citrate () 250 mg PO BID [facility] Last Admin: 10/19/17 12:17 Dose: 250 mg Carvedilol (Coreg) 6.25 mg PO BID [facility] Last Admin: 10/19/17 08:36 Dose: 6.25 mg Cholecalciferol (Vitamin D3) 400 unit PO BID [facility] Last Admin: 10/19/17 08:40 Dose: 400 unit Ciprofloxacin (Cipro) 250 mg PO Q12H [facility] Last Admin: 10/19/17 17:55 Dose: 250 mg Famotidine (Pepcid) 20 mg PO BID [facility] Last Admin: 10/19/17 08:37 Dose: 20 mg Ferrous Sulfate (Feosol) 325 mg PO DAILYWM [facility] Last Admin: 10/19/17 12:17 Dose: 325 mg Furosemide (Lasix Inj 40 Mg Vial) 40 mg IVP BIDDIURETIC [facility] Last Admin: 10/19/17 17:45 Dose: 40 mg Guaifenesin (Mucinex) 600 mg PO BID [facility] Last Admin: 10/19/17 08:37 Dose: 600 mg Loperamide HCl (Imodium) 2 mg PO QID PRN PRN Reason: Diarrhea Last Admin: 10/15/17 23:36 Dose: 2 mg Magnesium Oxide (Mag Ox) 400 mg PO BID PRN PRN Reason: Spasms Mineral Oil (Cavilon) 1 applic TOP PRN PRN PRN Reason: Skin Care Morphine Sulfate (Morphine) 2 mg IVP Q2H PRN PRN Reason: Pain 8 to 10 Last Admin: 10/16/17 03:14 Dose: 2 mg Multivitamins/Minerals (Theragran M) 1 tab PO DAILYWM [facility] Last Admin: 10/19/17 08:35 Dose: 1 tab Ondansetron HCl (Zofran Inj) 4 mg IVP Q6HR PRN PRN Reason: Nausea / Vomiting Vitamin B Complex 1 each PO DAILY [facility] Last Admin: 10/19/17 08:40 Dose: 1 each Polyethylene Glycol (Miralax) 17 gm PO DAILY [facility] Last Admin: 10/19/17 08:40 Dose: Not Given Potassium Chloride (K-Dur) 20 meq PO DAILY [facility] Last Admin: 10/19/17 08:36 Dose: 20 meq Saccharomyces Boulardii (Florastor) 250 mg PO BIDWM [facility] Last Admin: 10/19/17 17:45 Dose: 250 mg Sodium Chloride (Normal Saline Flush 0.9%) 10 ml IVP PRN PRN PRN Reason: NEEDED PER PROVIDER ORDERS Last Admin: 10/19/17 06:19 Dose: 10 ml Sodium Chloride (Normal Saline Flush 0.9%) 10 ml IVP 0100,0900,1700 [facility] Last Admin: 10/19/17 17:45 Dose: 10 ml Spironolactone (Aldactone) 12.5 mg PO DAILY [facility] Last Admin: 10/19/17 08:37 Dose: 12.5 mg Acetaminophen [Tylenol] 650 mg PO Q6H PRN 07/30/13 Calcium Carb, Citrate/Vit D3 [Calcium + D3 ER Tablet] 1 tab PO BID 12/20/14 Multivit-Min/FA/Lycopen/Lutein [Centrum Silver Tablet] 1 tab PO DAILY 12/20/14 Potassium Citrate [Potassium Citrate ER] 1 tab PO DAILY 10/12/17 Objective - Vital Signs/Intake & Output Reviewed Vital Signs: Yes Vital Signs: Vital Signs x48h Pulse Resp BP Pulse Ox 10/19/17 17:00 100 22 102/65 94 10/19/17 16:00 101 H 17 90/62 98 10/19/17 15:00 109 H 23 99/66 95 10/19/17 14:00 92 22 94/74 100 10/19/17 13:20 46 L 18 113/70 79 L 10/19/17 12:00 113 H 26 H 104/69 94 10/19/17 11:00 116 H 22 104/69 90 L Intake & Output: Intake & Output 10/16/17 10/17/17 10/18/17 10/19/17 23:59 23:59 23:59 23:59 Intake Total 535 724 9633 670 Output Total 953 4067 2288 1353 Balance -317 -2037 -778 -683 - Objective General Appearance: positive: No acute distress, Alert, Other (His speech is still slightly garbled and difficult to understand but he makes his wishes known and he can communicate effectively) Eyes Bilateral: positive: PERRL, EOMI Neck: positive: No JVD. negative: Stiff neck, Carotid bruit Respiratory: positive: Chest non-tender, Other (But he coughs and phlegm is yellow to martínez in color). negative: Wheezes, Rales, Rhonchi Cardiovascular: positive: Irregularly irregular. negative: Gallop/S4, Friction rub Abdomen: positive: Non-tender, No organomegaly, Nml bowel sounds, No distention Extremities: positive: Non-tender, Full ROM, No pedal edema (Today. He has had less and less edema in the last 2 days) Neurologic/Psychiatric: positive: Disoriented to time, Slurred/abnml speech, Other (He really is more alert than I have ever seen him. Comfortable with his respirations, mentating better). negative: Motor nml (Left body weakness from previous stroke) - Lab Results Fish Bones: 10/18/17 04:15 10/18/17 04:15 ABX Reporting Has patient been on IV antibiotics over the past 48 hours?: Yes Assessment/Plan - Problem List (1) Acute on chronic right-sided heart failure Impression: With acute on chronic systolic heart failure, left side. NYHA Class 4. .. He had been receiving Lasix 40 mg IV push, and has been on his Aldactone. His intake and output has not been impressively positive, nor has it been impressively negative. Creatinine has remained stable at 1.9 on 10/17. The highest has been during his stay is 2.0 on October 14. I increased Lasix to 60 mg IV push twice daily on 10/17. He is on potassium supplement, Aldactone, and Coreg. He is definitely improving on exam and alertness I just can't madyson his thoughts since not speaking well. His intake and output has now become negative enough that it is made a clinical difference. For instance his apnea has resolved and is less short of breath and he is sitting up in a chair alert, interactive just not very verbal. Since October 15 his intake and output was -585, -317, 10/17 -2036, 10/18 (-)778 and so far today (-)600. Weight on admission was 69 kg and he went up to 71.5 kg the day I put him in the ICU. ICU bed weight was 75 kg 10/17 , on 10/18 was 72 kg and today 71.24 He has improved enough that I will switch to po lasix. transfer to med surg status. (2) Central sleep apnea with Brian-Roblero respiration Impression: I can only attributed to the fact that is bilateral congestive heart failure is severe. It is an actual ominous sign. I did call the sleep lab at [facility] and left my name with the doctor who was on-call for the day on 10/17. They have not call me back. I do not know what else to do other than to treat the congestive heart failure and so far it's working. His apnea episodes have diminished and while watching him this am, no apnea at all off the BiPAP. But he likes the BiPAP and wants it on a lot. I do not know if the patient will be a candidate for modafinil or something else In the meantime he is still in ICU with BiPAP. I will stop the BiPap and switch to Med surg status. (3) Urinary tract infection due to Proteus Impression: Sensitive to ceftriaxone. Today is day #7. As an elderly gentleman, would treat for close to 3 weeks on the basis of age and probable prostate disease. Would switch him over to oral today. (4) Pneumonia Impression: This was seen on chest x-ray but no fever, no elevated white cell count. Treated empirically with 7 days of Rocephin.Blood cultures have been negative and sputum cultures not helpful (5) History of COPD Impression: no acute exacerbation. on nebs prn. (6) Chronic atrial fibrillation Impression: rate is controlled. no change in coreg for now. On eliquis.
[2017-10-19] MEDS: ATORVASTATIN 40 MG TABLET PO SCH (20:55)
[2017-10-20] MEDS: SODIUM CHLORIDE FLUSH 0.9% 10 ML SYRINGE IVP SCH ×3 (01:57→17:09)
[2017-10-20] MEDS: FUROSEMIDE 40 MG/4 ML VIAL IVP SCH ×2 (05:52→17:09)
[2017-10-20] MEDS: CIPROFLOXACIN 250 MG TABLET PO SCH ×2 (05:52→17:09)
[2017-10-20] MEDS: SODIUM CHLORIDE FLUSH 0.9% 10 ML SYRINGE IVP PRN (05:53)
[2017-10-20] MEDS: POLYETHYLENE GLYCOL 3350 17 GM PACKET PO SCH (07:49)
[2017-10-20 08:24] LABS: BASOPHILS # (AUTO) 0.1 10^3/uL (0.0-0.1); BASOPHILS % (AUTO) 1.1 %; EOSINOPHILS # (AUTO) 0.2 10^3/uL (0.0-0.7); EOSINOPHILS % (AUTO) 1.7 %; HGB - HEMOGLOBIN 10.3 g/dL (14.0-18.0); LYMPHOCYTES # (AUTO) 0.9 10^3/uL (1.5-3.5); MEAN CORPUSCULAR HEMOGLOBIN 26.2 pg (27.0-31.0); MEAN CORPUSCULAR VOLUME 81.9 fL (80.0-94.0); MEAN PLATELET VOLUME 8.1 fL (7.4-11.4); MONOCYTES # (AUTO) 0.9 10^3/uL (0.0-1.0); MONOCYTES % (AUTO) 9.6 %; NEUTROPHILS % (AUTO) 77.6 %; PLT - PLATELET COUNT 240 10^3/uL (130-450); RED BLOOD COUNT 3.92 10^6/uL (4.70-6.10); RED CELL DISTRIBUTION WIDTH 18.7 % (12.0-15.0)
[2017-10-20 08:40] LABS: ALBUMIN 2.7 g/dL (3.2-5.5); ALBUMIN/GLOBULIN RATIO 0.5 (1.0-2.2); BILIRUBIN,TOTAL 0.8 mg/dL (0.2-1.0); CREATININE 1.9 mg/dL (0.6-1.2); MAGNESIUM 2.3 mg/dL (1.7-2.8); TOTAL PROTEIN 8.5 g/dL (6.7-8.2)
[2017-10-20] MEDS: APIXABAN 2.5 MG TABLET PO SCH ×2 (09:54→21:21)
[2017-10-20] MEDS: SACCHAROMYCES BOULARDII 250 MG CAPSULE PO SCH ×2 (09:54→17:08)
[2017-10-20] MEDS: guaiFENesin 600 MG TABLET PO SCH ×2 (09:55→21:21)
[2017-10-20] MEDS: CARVEDILOL 3.125 MG TABLET PO SCH ×2 (09:55→21:21)
[2017-10-20] MEDS: ASPIRIN EC 325 MG TABLET PO SCH (09:55)
[2017-10-20] MEDS: ASCORBIC ACID CHEW 500 MG TABLET PO SCH (09:55)
[2017-10-20] MEDS: SPIRONOLACTONE 25 MG TABLET PO SCH (09:55)
[2017-10-20] MEDS: CALCIUM CITRATE 250 MG TABLET PO SCH ×2 (09:55→21:21)
[2017-10-20] MEDS: MULTIVITAMIN W/MINERALS TABLET PO SCH (09:55)
[2017-10-20] MEDS: CHOLECALCIFEROL 400 UNIT TABLET PO SCH ×2 (09:55→21:22)
[2017-10-20] MEDS: FERROUS SULFATE 325 MG TABLET PO SCH (09:56)
[2017-10-20] MEDS: POTASSIUM CHLORIDE 20 MEQ TABLET PO SCH (09:56)
[2017-10-20] MEDS: FAMOTIDINE 20 MG TABLET PO SCH ×2 (09:56→21:21)
--- NOTE | 2017-10-20 11:36 | Discharge Plan ---
Discharge Plan for SNF / HALFWAY - DC Plan and Transition Orders Disposition: 06 Home Health Service Condition: Poor SNF Transition Orders: Admit to: [Facility] under the care of [Doctor Name] Discharge Diagnosis: [] Medicare Certification: I certify that Post Hospital care home care is medically necessary on a continuing basis for any of the conditions for which she/he is receiving care during hospitalization. Notify PCP of admission and forward orders to primary provider for signature. Weight on admission and [Daily/Weekly/Monthly]. Call PCP immediately if weight increases by [Number] pounds or if patient develops dyspnea, chest pain/ tightness or edema. House Bowel Program: [Yes/No] If no BM after 2 days, nurse may give M.O.M. 30ml PO PRN and /or ducolax Supp 1 NE and /or KEARA 250mg P.O., and/or senna 1-2 tabs PO. On day 3 nurse may give repeat above order until residents constipation is resolved. Immunizations: Annual Influenza Vaccine: [Yes/No]. (between Jan 17 and August 16.) Unless allergy or already given Two-Step PPD: [Yes/No] per [facility] 248-235 or appropriate documentation of approved exceptions Treatments & Other Orders: [] Oxygen Orders: [] Lab Tests or X-Rays Orders: [] Orthopedic Orders: [Remove Sutures/[place] and Comment]. Medications: PLEASE REFER TO THE DISCHARGE MEDICATION LIST. Insulin Orders? [Yes/No] Diagnosis: Diabetes Initiate hypo and hyperglycemia protocols for BG <70 and BG >375. May check BG prn for signs/symptoms of dysglycemia. Frequency of BG checks: [AC/Meal/HS] Basal Insulin: [] Lantus 100 units / ml inject subq as follows: [] [] Other: [] Correction Insulin: - Select the type of insulin below [Choose: Novolog/Humalog]100 units /ml insulin inject subq per orders indicate below [] LOW DOSE [] MODERATE DOSE [] MODERATE/HIGH DOSE [] HIGH DOSE GB UNITS GB UNITS GB UNITS GB UNITS 61-140 0 UNITS 61-140 0 UNITS 61-140 0 UNITS 61-140 0 UNITS 141-175 1 UNITS 141-175 1 UNITS 141-175 2 UNITS 141-175 3 UNITS 176-225 2 UNITS 176-225 3 UNITS 176-225 4 UNITS 176-225 5 UNITS 226-275 3 UNITS 226-275 5 UNITS 226-275 6 UNITS 226-275 7 UNITS 276-325 4 UNITS 276-325 7 UNITS 276-325 8 UNITS 276-325 9 UNITS 326-375 5 UNITS 326-375 9 UNITS 326-375 10 UNITS 326-375 11 UNITS >375 CONTACT MD >375 CONTACT MD >375 CONTACT MD >375 CONTACT MD Custom Dosing: [Choose: None/Novolog/Humalog] 100 units/ml Insulin inject subq as follows: GB Units 61-140 [] Units 141-175 [] Units 176-225 [] Units 226-275 [] Units 276-325 []Units 326-375 [] Units >375 Contact MD Allergies and Adverse Reactions: Allergies Allergy/AdvReac Type Severity Reaction Status Date / Time Sulfa (Sulfonamide Allergy Unknown unk Verified 10/12/17 06:39 Antibiotics) sulfamethoxazole Allergy Unknown unk Verified 10/12/17 06:39 [From Bactrim] trimethoprim [From Bactrim] Allergy Unknown unk Verified 10/12/17 06:39
--- NOTE | 2017-10-20 16:00 | PROVIDER PROGRESS NOTE ---
Subjective - Prog Note Date Prog Note Date: 10/20/17 - Subjective Pt reports feeling: No change Subjective: pt is comfortable watching TV, no other complaints. pt is step down from ICU for flagrant frequent apneic episodes. [facility] can not take pt back due to lack of paratransits. Current Medications - Current Medications Current Medications: Active Medications Acetaminophen (Tylenol) 650 mg PO Q4HR PRN PRN Reason: Pain 1 to 4 Albuterol/Ipratropium (Duoneb) 3 ml INH Q4HR PRN PRN Reason: Wheezing Last Admin: 10/17/17 19:29 Dose: 3 ml Apixaban (Eliquis) 5 mg PO BID [facility] Last Admin: 10/20/17 09:54 Dose: 5 mg Ascorbic Acid (Vitamin C) 500 mg PO DAILY [facility] Last Admin: 10/20/17 09:55 Dose: 500 mg Aspirin (Ecotrin) 325 mg PO DAILY [facility] Last Admin: 10/20/17 09:55 Dose: 325 mg Atorvastatin Calcium (Lipitor) 40 mg PO QPM [facility] Last Admin: 10/19/17 20:55 Dose: 40 mg Calcium Citrate () 250 mg PO BID [facility] Last Admin: 10/20/17 09:55 Dose: 250 mg Carvedilol (Coreg) 6.25 mg PO BID [facility] Last Admin: 10/20/17 09:55 Dose: 6.25 mg Cholecalciferol (Vitamin D3) 400 unit PO BID [facility] Last Admin: 10/20/17 09:55 Dose: 400 unit Ciprofloxacin (Cipro) 250 mg PO Q12H [facility] Last Admin: 10/20/17 05:52 Dose: 250 mg Famotidine (Pepcid) 20 mg PO BID [facility] Last Admin: 10/20/17 09:56 Dose: 20 mg Ferrous Sulfate (Feosol) 325 mg PO DAILYWM [facility] Last Admin: 10/20/17 09:56 Dose: 325 mg Guaifenesin (Mucinex) 600 mg PO BID [facility] Last Admin: 10/20/17 09:55 Dose: 600 mg Loperamide HCl (Imodium) 2 mg PO QID PRN PRN Reason: Diarrhea Last Admin: 10/15/17 23:36 Dose: 2 mg Magnesium Oxide (Mag Ox) 400 mg PO BID PRN PRN Reason: Spasms Mineral Oil (Cavilon) 1 applic TOP PRN PRN PRN Reason: Skin Care Multivitamins/Minerals (Theragran M) 1 tab PO DAILYWM [facility] Last Admin: 10/20/17 09:55 Dose: 1 tab Ondansetron HCl (Zofran Inj) 4 mg IVP Q6HR PRN PRN Reason: Nausea / Vomiting Vitamin B Complex 1 each PO DAILY [facility] Last Admin: 10/20/17 09:56 Dose: Not Given Polyethylene Glycol (Miralax) 17 gm PO DAILY [facility] Last Admin: 10/20/17 07:49 Dose: Not Given Potassium Chloride (K-Dur) 20 meq PO DAILY [facility] Last Admin: 10/20/17 09:56 Dose: 20 meq Saccharomyces Boulardii (Florastor) 250 mg PO BIDWM [facility] Last Admin: 10/20/17 09:54 Dose: 250 mg Sodium Chloride (Normal Saline Flush 0.9%) 10 ml IVP PRN PRN PRN Reason: NEEDED PER PROVIDER ORDERS Last Admin: 10/20/17 05:53 Dose: 10 ml Sodium Chloride (Normal Saline Flush 0.9%) 10 ml IVP 0100,0900,1700 [facility] Last Admin: 10/20/17 09:56 Dose: 10 ml Spironolactone (Aldactone) 12.5 mg PO DAILY [facility] Last Admin: 10/20/17 09:55 Dose: 12.5 mg Acetaminophen [Tylenol] 650 mg PO Q6H PRN 07/30/13 Calcium Carb, Citrate/Vit D3 [Calcium + D3 ER Tablet] 1 tab PO BID 12/20/14 Multivit-Min/FA/Lycopen/Lutein [Centrum Silver Tablet] 1 tab PO DAILY 12/20/14 Potassium Citrate [Potassium Citrate ER] 1 tab PO DAILY 10/12/17 Objective - Vital Signs/Intake & Output Reviewed Vital Signs: Yes Vital Signs: Vital Signs x48h Temp Pulse Pulse Resp BP BP Pulse Ox 10/20/17 15:43 36.3 C L 99 22 96/60 94 10/20/17 13:25 36.3 C L 101 H 20 92/59 L 97 10/20/17 09:32 104 H 18 10/20/17 08:39 36.3 C L 58 L 26 H 120/98 H 95 Intake & Output: Intake & Output 10/17/17 10/18/17 10/19/1710/20/18 23:59 23:59 23:59 23:59 Intake Total 570 1510 1030 1070 Output Total 8171 1282 1832 1200 [facility] -2037 -778 -1453 -130 - Objective General Appearance: positive: No acute distress, Alert. negative: Lethargic Eyes Bilateral: positive: Normal inspection, PERRL, No lid inflammation, Conjunctivae nml ENT: positive: ENT inspection nml, Pharynx nml, No signs of dehydration. negative: Purulent nasal drainage, Pharyngeal erythema, Oral lesions Neck: positive: Nml inspection, Thyroid nml, No JVD, Trachea midline. negative : Thyromegaly, Lymphadenopathy (R), Lymphadenopathy (L), Stiff neck, Carotid bruit, Swelling/bruising, Tracheal deviation Respiratory: positive: Chest non-tender, No respiratory distress, Breath sounds nml. negative: Wheezes, Rales, Rhonchi Cardiovascular: positive: Regular rate & rhythm, No murmur, No gallop. negative : Irregularly irregular, Extrasystoles, Tachycardia, Bradycardia, JVD present, Systolic murmur, Diastolic murmur Peripheral Pulses: 2+ Radial (R), 2+ Radial (L), 2+ Dorsalis pedis (R), 2+ Dorsalis pedis (L) Abdomen: positive: Non-tender, No organomegaly, Nml bowel sounds, No distention. negative: Tenderness, Guarding, Rebound Back: positive: Nml inspection. negative: CVA tenderness (R), CVA tenderness (L ) Skin: positive: Color nml, No rash, Warm, Dry. negative: Cyanosis, Diaphoresis , Pallor Extremities: positive: Non-tender, Full ROM, Nml appearance. negative: Calf tenderness, Joint swelling, Troy's sign/cords Neurologic/Psychiatric: positive: Sensation nml, Mood/affect nml. negative: Sensory loss, Facial droop, Slurred/abnml speech, Depressed mood/affect - Lab Results Fish Bones: 10/20/17 08:20 10/20/17 08:20 Other Labs: Lab Results x24hrs 10/20/17 10/20/17 Range/Units 08:20 08:20 WBC 9.0 (4.8-10.8) x10^3/uL RBC 3.92 L (4.70-6.10) 10^6/uL Hgb 10.3 L (14.0-18.0) g/dL Hct 32.1 L (42.0-52.0) % MCV 81.9 (80.0-94.0) fL MCH 26.2 L (27.0-31.0) pg MCHC 32.0 (32.0-36.0) g/dL RDW 18.7 H (12.0-15.0) % Plt Count 240 (130-450) 10^3/uL MPV 8.1 (7.4-11.4) fL Neut # (Auto) 7.0 H (1.5-6.6) 10^3/uL Lymph # (Auto) 0.9 L (1.5-3.5) 10^3/uL Greenlee # (Auto) 0.9 (0.0-1.0) 10^3/uL Eos # (Auto) 0.2 (0.0-0.7) 10^3/uL Baso # (Auto) 0.1 (0.0-0.1) 10^3/uL Absolute Nucleated RBC 0.00 x10^3/uL Nucleated RBC % 0.0 /100WBC Sodium 137 (135-145) mmol/L Potassium 4.6 (3.5-5.0) mmol/L Chloride 98 L (101-111) mmol/L Carbon Dioxide 33 H (21-32) mmol/L Anion Gap 6.0 (6-13) BUN 39 H (6-20) mg/dL Creatinine 1.9 H (0.6-1.2) mg/dL Estimated GFR (MDRD) 35 L (>89) Glucose 97 (70-100) mg/dL Calcium 9.0 (8.5-10.3) mg/dL Magnesium 2.3 (1.7-2.8) mg/dL Total Bilirubin 0.8 (0.2-1.0) mg/dL AST 65 H (10-42) IU/L ALT 56 (10-60) IU/L Alkaline Phosphatase 189 H (42-121) IU/L Total Protein 8.5 H (6.7-8.2) g/dL Albumin 2.7 L (3.2-5.5) g/dL Globulin 5.8 H (2.1-4.2) g/dL Albumin/Globulin Ratio 0.5 L (1.0-2.2) ABX Reporting Has patient been on IV antibiotics over the past 48 hours?: Yes Assessment/Plan - Problem List (1) CHF exacerbation Impression: (1) 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 NYHA Class 4. .. He had been receiving Lasix 40 mg IV push, and has been on his Aldactone. His intake and output has not been impressively positive, nor has it been impressively negative. Creatinine has remained stable at 1.9 on 10/17. The highest has been during his stay is 2.0 on October 14. I increased Lasix to 60 mg IV push twice daily on 10/17. He is on potassium supplement, Aldactone, and Coreg. He is definitely improving on exam and alertness I just can't madyson his thoughts since not speaking well. His intake and output has now become negative enough that it is made a clinical difference. For instance his apnea has resolved and is less short of breath and he is sitting up in a chair alert, interactive just not very verbal. Since October 15 his intake and output was -585, -317, 10/17 -2036, 10/18 (-)778 and so far today (-)600. Weight on admission was 69 kg and he went up to 71.5 kg the day I put him in the ICU. ICU bed weight was 75 kg 10/17 , on 10/18 was 72 kg and today 71.24 He has improved enough that I will switch to po lasix. transfer to med surg status. (2) Central sleep apnea with Brian-Roblero respiration Impression: it seems pt breath normal with 97% sats on room air continue closely monitor, vital check I can only attributed to the fact that is bilateral congestive heart failure is severe. It is an actual ominous sign. I did call the sleep lab at [facility] and left my name with the doctor who was on-call for the day on 10/17. They have not call me back. I do not know what else to do other than to treat the congestive heart failure and so far it's working. His apnea episodes have diminished and while watching him this am, no apnea at all off the BiPAP. But he likes the BiPAP and wants it on a lot. I do not know if the patient will be a candidate for modafinil or something else In the meantime he is still in ICU with BiPAP. I will stop the BiPap and switch to Med surg status. (3) Urinary tract infection due to Proteus Impression: continue Cipro, sensitive study reveals cipro sensitive to Proteus Sensitive to ceftriaxone. Today is day #7. As an elderly gentleman, would treat for close to 3 weeks on the basis of age and probable prostate disease. Would switch him over to oral today. (4) Pneumonia Impression: This was seen on chest x-ray but no fever, no elevated white cell count. Treated empirically with 7 days of Rocephin.Blood cultures have been negative and sputum cultures not helpful (5) History of COPD Impression: no acute exacerbation. on nebs prn. (6) Chronic atrial fibrillation Impression: rate is controlled. no change in coreg for now. On eliquis.
[2017-10-20] MEDS: IPRATROPIUM/ALBUTEROL 3 ML NEB INH PRN (19:53)
[2017-10-20] MEDS: ATORVASTATIN 40 MG TABLET PO SCH (21:21)
[2017-10-21] MEDS: SODIUM CHLORIDE FLUSH 0.9% 10 ML SYRINGE IVP SCH ×2 (05:13→08:03)
[2017-10-21] MEDS: FUROSEMIDE 40 MG/4 ML VIAL IVP SCH (05:19)
[2017-10-21] MEDS: CIPROFLOXACIN 250 MG TABLET PO SCH (05:22)
[2017-10-21 07:45] VITALS: BP 96/61
[2017-10-21] MEDS: ASCORBIC ACID CHEW 500 MG TABLET PO SCH (08:02)
[2017-10-21] MEDS: FERROUS SULFATE 325 MG TABLET PO SCH (08:02)
[2017-10-21] MEDS: MULTIVITAMIN W/MINERALS TABLET PO SCH (08:02)
[2017-10-21] MEDS: FAMOTIDINE 20 MG TABLET PO SCH (08:02)
[2017-10-21] MEDS: ASPIRIN EC 325 MG TABLET PO SCH (08:02)
[2017-10-21] MEDS: CALCIUM CITRATE 250 MG TABLET PO SCH (08:02)
[2017-10-21] MEDS: SPIRONOLACTONE 25 MG TABLET PO SCH (08:02)
[2017-10-21] MEDS: SACCHAROMYCES BOULARDII 250 MG CAPSULE PO SCH (08:02)
[2017-10-21] MEDS: POTASSIUM CHLORIDE 20 MEQ TABLET PO SCH (08:02)
[2017-10-21] MEDS: guaiFENesin 600 MG TABLET PO SCH (08:02)
[2017-10-21] MEDS: APIXABAN 2.5 MG TABLET PO SCH (08:02)
[2017-10-21] MEDS: CARVEDILOL 3.125 MG TABLET PO SCH (08:02)
[2017-10-21] MEDS: CHOLECALCIFEROL 400 UNIT TABLET PO SCH (08:02)
[2017-10-21] MEDS: POLYETHYLENE GLYCOL 3350 17 GM PACKET PO SCH (08:03)
--- NOTE | 2017-10-21 08:49 | Discharge Plan ---
"Discharge Plan for SNF / [facility] - DC Plan and Transition Orders Disposition: 06 Home Health Service Condition: Good SNF Transition Orders: Admit to: [facility] under the care of Dr. Roderick Hernandez (PCP) Discharge Diagnosis: Right heart failure, Proteus Mirabilis UTI, aspiration PNA , chronic A-fib- on Eliquis, CKD stage 3, hyperlipidemia, HTN, COPD. Medicare Certification: I certify that [facility] home care is medically necessary on a continuing basis for any of the conditions for which she/he is receiving care during hospitalization. Notify PCP of admission and forward orders to primary provider for signature. Weight on admission and monthly. Call PCP immediately if weight increases by 10 pounds or if patient develops dyspnea, chest pain/tightness or edema. House Bowel Program: yes If no BM after 2 days, nurse may give M.O.M. 30ml PO PRN and /or ducolax Supp 1 NE and /or KEARA 250mg P.O., and/or senna 1-2 tabs PO. On day 3 nurse may give repeat above order until residents constipation is resolved. Immunizations: Annual Influenza Vaccine: yes. (between Jan 17 and August 16. ) Unless allergy or already given Two-Step PPD: yes per [facility] [phone] or appropriate documentation of approved exceptions Treatments & Other Orders: Continue treatment of UTI with Cipro, and a probiotic. Home health services for further physical therapy for strength training and endurance. Oxygen Orders: Not indicated. On room air upon discharge. May use 1-2L per nasal cannula to keep oxygen saturation greater than 90%, PRN. Lab Tests or X-Rays Orders: Not indicated, as per facility or PCP discretion. Medications: PLEASE REFER TO THE DISCHARGE MEDICATION LIST. Insulin Orders? No Allergies and Adverse Reactions: Allergies Allergy/AdvReac Type Severity Reaction Status Date / Time Sulfa (Sulfonamide Allergy Unknown unk Verified 10/12/17 06:39 Antibiotics) sulfamethoxazole Allergy Unknown unk Verified 10/12/17 06:39 [From Bactrim] trimethoprim [From Bactrim] Allergy Unknown unk Verified 10/12/17 06:39 - Medications New Prescriptions: Ipratropium/Albuterol [Duoneb] 3 ml INH Q4HR PRN #120 neb PRN Reason: Wheezing Ciprofloxacin [Cipro] 250 mg PO Q12H 10 Days #20 tablet guaiFENesin [Mucinex] 600 mg PO BID #30 tablet Lactobac No.41/Bifidobact No.7 [Probiotic-10 3 Billion Cell Cp] 70 mg PO BID 20 Days #40 capsule - Diet Type: No added salt Texture: Regular Liquids: Thin May have monthly special meal: Yes - Therapies | Activity Therapy: Evaluation | Treat if indicated: Speech, PT, OT Rehabilitation Potential: Maximize functional status Activity: No Restrictions Weight Bearing: Full Weight Assistance Devices: Walker"
--- NOTE | 2017-10-21 08:50 | DISCHARGE SUMMARY ---
Discharge Summary Admit Date: 10/12/17 Discharge Date: 10/21/17 Discharging Provider: KRIS Alaniz Primary Care Provider: Roderick Hernandez Code Status: Attempt Resuscitation Condition at Discharge: Good Discharge Disposition: Home Health Service Discharge Facility Name: [facility] - DIAGNOSES Admission Diagnoses: Heart failure, unspecified (I50.9) Urinary tract infection, site not specified (N39.0) Pneumonia, unspecified organism (J18.9) Unspecified atrial fibrillation (I48.91) Chronic kidney disease, unspecified (N18.9) Hypokalemia (E87.6) Other muscle spasm (M62.838) Discharge Diagnoses with Status of Each Condition: Acute on chronic right-sided heart failure (I50.813) -chronic, acute phase resolved, stable. Central sleep apnea due to Brian-Roblero respiration (R06.3) -chronic, stable. Urinary tract infection due to Proteus (N39.0) -new on this admission, stable and oral treatment to continue ~10 days. Pneumonia (J18.9) -new on this admission, continue oral antibiotics/probiotics. History of COPD (Z87.09) -chronic, stable. Chronic atrial fibrillation (I48.2) -chronic, stable. - HPI History of Present Illness: Jakob Beltre is a 77-yr-old male with a past medical history of systolic CHF with an EF of 30-35%, pulmonary hypertension, hyperlipidemia, ME, Afib on Eliquis, COPD, GI bleed, ulcers, hemorrhoids, BPH, COPD, pneumonia, remote tobacco abuse/dependence, and shortness of breath. He presented to the ED with complaints of recurrence of groin edema, testicle pain and difficulty walking. Upon initial examination the patient was found to have mild groin edema, without tenderness, erythema, skin tears or infection. The patient noted the pain to be localized to his inner bilateral thighs and was accompanied with muscle spasms, which has made ambulation difficult. The patient also complained of a productive cough with yellowish sputum, but denied recent fevers , chills, chest pain, abdominal pain, nausea, vomiting, diarrhea, or dysuria. Lab tests upon presentation to the ED show a low sodium at 134, a low potassium of 3.1, an elevated creatinine of 1.6, a BNP of 880, which is mildly elevated from previous 670, and a hemoglobin of 9.3 with an MCV of 81. A chest x-ray suggested evidence of CHF or fluid overload, with noted chronic lung disease. Superimposed aspiration or pneumonia can not be completely excluded. Patient was afebrile, HR 92, BP 118/81, 95% oxygen saturation on 2Ls of O2. He will be admitted to inpatient for treatment of probable pneumonia, and further monitoring of groin swelling. - HOSPITAL COURSE Hospital Course: The following diagnoses were prevalent during this hospital stay: (1) Acute on chronic right-sided heart failure The patient is prescribed potassium supplement, Aldactone, Coreg, and Lasix at home. He was found to have an acute exacerbation of left sided heart failure upon admission. He has chronic left-sided systolic heart failure- NYHA Class 4 based on an echocardiogram that was completed on 09/20/17, which showed systolic dysfunction with an estimated EF of 25-30%. He was initially treated with IV Lasix 40 mg, and continued Aldactone. Intakes and outputs/daily weights were monitored to ensure fluid balance. Creatinine has remained stable with the last value being 1.9. The patient has a known creatinine max of 2.0, and a creatinine baseline of 1.7. The patient was considered to be stable at the time of discharge and upon exam, he had no dependent edema, crackles auscultated and no oxygen needs. The patient's presenting complaint of groin swelling is resolved and this may have been a consequence of his fluid balance abnormalities. (2) Central sleep apnea with Brian-Roblero respiration The patient was found to have evidence of bilateral congestive heart failure upon admission, that became more exacerbated with further respiratory depression , requiring transfer to a higher level of care, ICU status. The patient was placed on BiPAP, given IV Rocephin and His apnea episodes slowly improved and his acute respiratory depression subsided. He was weaned off the BiPAP after 4 days and transferred back to Med-Surg status. (3) Urinary tract infection due to Proteus Urine was obtained upon admission, and grew out Proteus Mirabilis, which is sensitive to several antibiotics. He was given Cipro, which is to continue upon discharge for the next 10 days. (4) Pneumonia This was seen on chest x-ray but no fever, no elevated white cell count. Treated empirically with 7 days of Rocephin.Blood cultures have been negative and sputum cultures could not isolate any one organism. The patient's clinical condition continued to improved up until the time of discharge. He should continue oral Ciprofloxacin for the next 10 days, and take a pro-biotic. (5) History of COPD Patient was known to be a life long tobacco user with a remote history of cessation. He was urgently sent to our ICU due to respiratory distress and was found to have suspected aspiration pneumonia. At the time of discharge, the patient was noted to be stable and not thought to be in any acute exacerbation. He was continued on Duo-nebs to be given as needed. (6) Chronic atrial fibrillation The patient's rate is controlled with coreg at home, which was continued while in the hospital. He is anticoagulated with eliquis, which was also continued. There was no evidence of RVR or ectopy during his stay. The patient was in stable condition at the time of discharge to [facility]. He was transported without oxygen, and with recommendations for further home health services including physical therapy for strength training and endurance. [id number] exam was completed and the patient was feeling well, conversational and of clear mind regarding transition to assisted living. - ALLERGIES Allergies/Adverse Reactions: Allergies Allergy/AdvReac Type Severity Reaction Status Date / Time Sulfa (Sulfonamide Allergy Unknown unk Verified 10/12/17 06:39 Antibiotics) sulfamethoxazole Allergy Unknown unk Verified 10/12/17 06:39 [From Bactrim] trimethoprim [From Bactrim] Allergy Unknown unk Verified 10/12/17 06:39 - MEDICATIONS Home Medications: Ambulatory Orders Medication Instructions Recorded Confirmed Acetaminophen [Tylenol] 650 mg PO Q6H PRN 07/30/13 10/12/17 Calcium Carb, Citrate/Vit D3 1 tab PO BID 12/20/14 10/12/17 [Calcium + D3 ER Tablet] Multivit-Min/FA/Lycopen/Lutein 1 tab PO DAILY 12/20/14 10/12/17 [Centrum Silver Tablet] Carvedilol [Coreg] 3.125 mg PO BID #60 tablet 09/26/17 10/12/17 Furosemide [Lasix] 40 mg PO BID #60 tablet 09/26/17 10/12/17 Ipratropium/Albuterol Sulfate 3 ml INH TID #0 09/26/17 10/12/17 [Iprat-Albut 0.5-3(2.5) mg/3 ml] Senna [Senokot] 8.6 mg PO BID #0 09/26/17 10/12/17 Vitamin B Complex 1 tab PO DAILY #0 09/26/17 10/12/17 Potassium Citrate [Potassium 1 tab PO DAILY 10/12/17 10/12/17 Citrate ER] Apixaban [Eliquis] 5 mg PO BID #30 10/21/17 10/12/17 Ascorbic Acid [Vitamin C] 500 mg PO DAILY #30 10/21/17 10/12/17 Aspirin [Aspirin EC] 325 mg PO DAILY #30 10/21/17 10/12/17 Atorvastatin Calcium 40 mg PO QPM #30 10/21/17 10/12/17 Ciprofloxacin [Cipro] 250 mg PO Q12H 10 Days #20 tablet 10/21/17 Ipratropium/Albuterol [Duoneb] 3 ml INH Q4HR PRN #120 neb 10/21/17 Lactobac No.41/Bifidobact No.7 70 mg PO BID 20 Days #40 capsule 10/21/17 [Probiotic-10 3 Billion Cell Cp] Spironolactone [Aldactone] 12.5 mg PO DAILY #15 tablet 10/21/17 10/12/17 guaiFENesin [Mucinex] 600 mg PO BID #30 tablet 10/21/17 - PHYSICAL EXAM AT DISCHARGE General Appearance: positive: No acute distress, Alert Eyes Bilateral: positive: Normal inspection, PERRL ENT: positive: ENT inspection nml, Pharynx nml, Dry mucous membranes, Other ( chronic drooling from left mouth.) Neck: positive: Nml inspection, Thyroid nml, No JVD, Trachea midline Respiratory: positive: Chest non-tender, No respiratory distress, Breath sounds nml, Other (severe kyphosis) Cardiovascular: positive: Regular rate & rhythm, No gallop Peripheral Pulses: positive: 2+ Abdomen: positive: Non-tender, Nml bowel sounds, Other (rounded, soft.) Back: positive: Nml inspection Skin: positive: No rash, Warm, Dry, Pallor Extremities: positive: Non-tender, Full ROM, No pedal edema, Joint swelling Neurologic/Psychiatric: positive: Oriented x3, Motor nml, Sensation nml, Weakness, Sensory loss, Depressed mood/affect, Other (left sided drift, patient states this is "normal" for him.) Reflexes: Bicep (R): 2+, Bicep (L): 2+, Ankle (R): 2+, Ankle (L): 2+ - LABS Result Diagrams: 10/20/17 08:20 10/20/17 08:20 - DIAGNOSTIC IMAGING Diagnostic Imaging Results: Final report reviewed Diagnostic Imaging Results Comments: EXAM: CHEST RADIOGRAPHY EXAM DATE: 09/20/2017 09:03 AM. CLINICAL HISTORY: Dyspnea. History of CHF, COPD. COMPARISON: 03/09/2016. TECHNIQUE: 2 views. FINDINGS: Lungs/Pleura: Low lung volumes. Bilateral interstitial and airspace opacities and indistinct vasculature. Possible small pleural effusions. No pneumothorax. Mediastinum: Grossly stable prominent cardiomediastinal silhouette. Abandoned left subclavian ICD remains in place. Other: No acute fracture identified. IMPRESSION: 1. Consistent with CHF superimposed upon chronic lung disease. Superimposed infiltrate is not excluded. EXAM: CHEST RADIOGRAPHY EXAM DATE: 10/12/2017 07:13 AM. CLINICAL HISTORY: Dyspnea. COMPARISON: 09/20/2017. TECHNIQUE: 2 views. FINDINGS: Lungs/Pleura: Lung volumes are low. There are extensive diffuse bilateral interstitial and airspace opacities. The proximal pulmonary vasculature is prominent and indistinct. The bilateral costophrenic sulci are obscured, which may be due to small bilateral pleural effusions. No pneumothorax. Mediastinum: There is stable marked enlargement of the cardiac silhouette. There is an abandoned left subclavian cardiac lead, in unchanged position. Other: Bones appear diffusely demineralized. No acute osseous abnormality. IMPRESSION: Findings suggestive of CHF/fluid overload, likely on a background of chronic lung disease. Superimposed aspiration or pneumonia cannot be completely excluded. EXAM: SCROTAL ULTRASOUND EXAM DATE: 10/12/2017 08:22 PM. CLINICAL HISTORY: Pain and edema. COMPARISON: None. TECHNIQUE: Real-time scanning was performed with static images obtained. Both color-flow and Doppler spectral analysis were utilized. FINDINGS: Right: Testis: 3.7 x 2.2 x 2.6 cm. Heterogeneous echotexture without evidence of mass or hyperemia. Epididymis: 0.9 x 0.7 x 1 cm. Normal size and echotexture. No mass or abnormal blood flow. Hydrocele: None. Varicocele: None. Left: Testis: 3.8 x 2.2 x 2.8 cm. Heterogeneous echotexture without evidence of mass or hyperemia. Epididymis: 1.3 x 0.7 x 1.1 cm. normal size and echotexture. There is a 4 mm cyst within the body of the epididymis. Hydrocele: None. Varicocele: None. IMPRESSION: Left epididymal cyst, otherwise unremarkable scrotal ultrasound exam. EXAM: CT HEAD EXAM DATE: 10/16/2017 06:47 PM. CLINICAL HISTORY: 77-year-old man with abnormal breathing pattern. Concern for stroke. COMPARISON: 05/18/2014. TECHNIQUE: Multiaxial CT images were obtained from the foramen magnum to the vertex. Reformats: Coronal. IV contrast: None. In accordance with CT protocol optimization, one or more of the following dose reduction techniques were utilized for this exam: automated exposure control, adjustment of mA and/or KV based on patient size, or use of iterative reconstructive technique. FINDINGS: Parenchyma: No hemorrhage. Region of hypoattenuation in the right superior cerebellar hemisphere is new compared to the 05/18/2014 exam and consistent with age indeterminant infarct in the right superior cerebellar territory, likely remote. Geographic region of encephalomalacia involving much of the right MCA territory is unchanged from the 2014 exam. Ventricles and Extra-axial Spaces: There is ex vacuo dilation of the right lateral and third ventricles, stable or slightly increased compared to the 2014 exam. No extra-axial hemorrhage or fluid collection. Orbits: Unremarkable. Sinuses: Paranasal sinuses and mastoid air cells are clear. Extracranial Soft Tissues and Bones: Soft tissues are unremarkable. No fractures. IMPRESSION: 1. No acute intracranial abnormality. Specifically, no evidence of acute infarct, hemorrhage, or mass lesion. 2. Age indeterminant infarct in the right superior cerebellar artery territory, new compared to the 05/18/2014 CT but likely remote. 3. Encephalomalacia involving much of the right MCA territory, unchanged from the 2014 exam and consistent with remote infarct. EXAM: CHEST RADIOGRAPHY EXAM DATE: 10/17/2017 03:36 AM. CLINICAL HISTORY: Acute respiratory failure. COMPARISON: 10/12/2017. TECHNIQUE: 1 view. FINDINGS: Lungs/Pleura: Extensive bilateral interstitial and airspace opacities. Trace pleural effusions. No pneumothorax. Mediastinum: Mild cardiomegaly. Other: Abandoned implanted defibrillator lead. Old left humerus fracture. IMPRESSION: 1. Cardiomegaly with extensive interstitial and airspace opacities. There may be pulmonary edema. Underlying chronic lung disease may be present as well. 2. Trace pleural effusions. - FOLLOW UP Follow Up: Disposition: Home Health Service Condition: Good SNF Transition Orders: Admit to: [facility] under the care of Dr. Roderick Hernandez (PCP) Discharge Diagnosis: Right heart failure, Proteus Mirabilis UTI, aspiration PNA , chronic A-fib- on Eliquis, CKD stage 3, hyperlipidemia, HTN, COPD. - TIME SPENT Time Spent in Discharge (Minutes): 45
== END 2017-10-21 10:18 | disposition home health service (06) | DRG 291 ==
LOC: ED 06:23 → MS2 15:10 → ICU 10-16 12:41 → MS2 10-19 22:40
PROVIDERS: ADMIT Nurse Practitioner Gerontology; ATTEND Nurse Practitioner
DX: I50.20 Unspecified systolic (congestive) heart failure (principal); I13.0 Hypertensive heart and chronic kidney disease with heart failure and stage 1 through stage 4 chronic kidney disease, or unspecified chronic kidney disease; J69.0 Pneumonitis due to inhalation of food and vomit; I50.23 Acute on chronic systolic (congestive) heart failure; N39.0 Urinary tract infection, site not specified; I69.354 Hemiplegia and hemiparesis following cerebral infarction affecting left non-dominant side; I48.91 Unspecified atrial fibrillation; I50.813 Acute on chronic right heart failure; B96.4 Proteus (mirabilis) (morganii) as the cause of diseases classified elsewhere; I48.2 Chronic atrial fibrillation; G47.31 Primary central sleep apnea; Z87.01 Personal history of pneumonia (recurrent); E87.6 Hypokalemia; M62.838 Other muscle spasm; M79.652 Pain in left thigh; M79.651 Pain in right thigh; N18.3 Chronic kidney disease, stage 3 (moderate); J44.9 Chronic obstructive pulmonary disease, unspecified; I27.20 Pulmonary hypertension, unspecified; E78.5 Hyperlipidemia, unspecified; N40.1 Benign prostatic hyperplasia with lower urinary tract symptoms; N39.498 Other specified urinary incontinence; I08.3 Combined rheumatic disorders of mitral, aortic and tricuspid valves; I25.10 Atherosclerotic heart disease of native coronary artery without angina pectoris; I25.2 Old myocardial infarction; I69.322 Dysarthria following cerebral infarction; Z79.01 Long term (current) use of anticoagulants; Z87.891 Personal history of nicotine dependence; Z79.899 Other long term (current) drug therapy; Z78.1 Physical restraint status; Z95.0 Presence of cardiac pacemaker; Z79.82 Long term (current) use of aspirin
CPT/HCPCS: 36415; 70450; 71045; 71046; 76870; 80048; 80053; 81001; 81003; 82607; 82728; 82803; 83540; 83615; 83735; 83880; 84100; 84466; 84484; 85025; 85044; 85610; 87040; 87070; 87077; 87086; 87181; 87205; 93005; 94640; 94660; 96365; 96366; 96367; 96375; 99284; 99285

== ENCOUNTER 2017-10-12 11:30 | Outpatient (CLI) | payer MEDICARE, OTHER | END 2017-10-12 11:31 | disposition critical access hospital (66) | LOC: EMS 11:30 | PROVIDERS: ATTEND Surgery | DX: R06.00 Dyspnea, unspecified (principal); N50.819 Testicular pain, unspecified; R53.1 Weakness | CPT/HCPCS: A0425; A0427 ==

== ENCOUNTER 2017-10-30 14:50 | Outpatient (CLI) | payer MEDICARE, OTHER ==
[2017-10-30 19:18] LABS: BASOPHILS # (AUTO) 0.1 10^3/uL (0.0-0.1); EOSINOPHILS # (AUTO) 0.1 10^3/uL (0.0-0.7); EOSINOPHILS % (AUTO) 2.3 %; HGB - HEMOGLOBIN 8.5 g/dL (14.0-18.0); LYMPHOCYTES # (AUTO) 0.6 10^3/uL (1.5-3.5); LYMPHOCYTES % (AUTO) 9.8 %; MEAN CORPUSCULAR HEMOGLOBIN 26.5 pg (27.0-31.0); MEAN CORPUSCULAR HGB CONC 30.6 g/dL (32.0-36.0); MEAN CORPUSCULAR VOLUME 86.6 fL (80.0-94.0); MEAN PLATELET VOLUME 8.4 fL (7.4-11.4); MONOCYTES # (AUTO) 0.6 10^3/uL (0.0-1.0); MONOCYTES % (AUTO) 9.5 %; NEUTROPHILS # (AUTO) 4.8 10^3/uL (1.5-6.6); NEUTROPHILS % (AUTO) 77.4 %; PLT - PLATELET COUNT 289 10^3/uL (130-450); RED BLOOD COUNT 3.19 10^6/uL (4.70-6.10); RED CELL DISTRIBUTION WIDTH 21.2 % (12.0-15.0); WHITE BLOOD COUNT 6.1 x10^3/uL (4.8-10.8)
[2017-10-30 19:28] LABS: ALBUMIN 2.5 g/dL (3.2-5.5); ALBUMIN/GLOBULIN RATIO 0.5 (1.0-2.2); BILIRUBIN,TOTAL 0.7 mg/dL (0.2-1.0); CALCIUM 8.2 mg/dL (8.5-10.3); CREATININE 1.6 mg/dL (0.6-1.2); TOTAL PROTEIN 7.9 g/dL (6.7-8.2)
[2017-10-30 20:09] LABS: PLATELET ESTIMATE, MANUAL NORMAL (130-450,000) (NORMAL); PLATELET MORPHOLOGY NORMAL APPEARANCE (NORMAL)
== END 2017-10-30 14:51 | disposition home or self-care (01) ==
LOC: LAB.WCP 14:50
PROVIDERS: ATTEND Family Medicine
DX: N19 Unspecified kidney failure (principal); Z79.01 Long term (current) use of anticoagulants; I48.0 Paroxysmal atrial fibrillation; I63.9 Cerebral infarction, unspecified; I42.9 Cardiomyopathy, unspecified; I10 Essential (primary) hypertension
CPT/HCPCS: 36415; 80053; 83880; 84443; 85025

== ENCOUNTER 2017-11-16 19:18 | Outpatient (CLI) | payer MEDICARE, OTHER | END 2017-11-16 19:19 | disposition critical access hospital (66) | LOC: EMS 19:18 | PROVIDERS: ATTEND Surgery | DX: M79.89 Other specified soft tissue disorders (principal); R06.02 Shortness of breath; R05 Cough; N50.82 Scrotal pain | CPT/HCPCS: A0425; A0429 ==

== ENCOUNTER 2017-11-16 19:34 | Inpatient (IN) | payer MEDICARE, OTHER ==
[2017-11-16] MEDS ORDERED: IPRATROPIUM/ALBUTEROL 3 ML NEB INH STA (20:29)
--- NOTE | 2017-11-16 20:45 | ED Physician Documentation ---
PD HPI DYSPNEA - Stated complaint Stated Complaint: L ARM SWELLING, SCROTUM PAIN, SOA - Chief complaint Chief Complaint: Resp - History obtained from History obtained from: EMS - History of Present Illness Timing - onset: How many days ago (3) Timing - details: Gradual onset, Still present Improved by: O2 Associated symptoms: Cough Similar symptoms before: Work up / diagnostics, Treatment - Additional information Additional information: Patient is a 77 year old male with a history of copd, chf (stage III), pulmonary htn, afib who was brought in by ems for shortness of breath and leg swelling. Patient has a long history of peripheral edema and shortness of breath. patient states that over the last three days the symptoms have become progressively worse. Patient is most concerned about the pain in his groin. Patient does not want to be intubated but states that he wants other therapies done. Review of Systems Constitutional: denies: Fever, Chills Cardiac: denies: Chest pain / pressure Respiratory: reports: Dyspnea, Wheezing. denies: Cough GI: reports: Abdominal Swelling Skin: reports: Rash, Lesions Musculoskeletal: reports: Extremity pain, Joint pain, Extremity swelling, Joint swelling Neurologic: denies: Focal weakness, Difficulty speaking PD PAST MEDICAL HISTORY - Past Medical History Past Medical History: Yes Cardiovascular: Congestive heart failure, Hypertension, High cholesterol, Coronary artery disease, CA, Atrial fibrillation, Arrhythmia, Other Respiratory: Pneumonia, Shortness of breath Endocrine/Autoimmune: None GI: GI bleed, Ulcers, Hemorrhoids : Benign prostate hypertrophy, Incontinence HEENT: None Psych: None Musculoskeletal: None Derm: None - Past Surgical History Past Surgical History: Yes General: Cholecystectomy, EGD Ortho: Hip replacement /[employer]: Other Cardiovascular: Pacemaker - Present Medications Home Medications: Ambulatory Orders Medication Instructions Recorded Confirmed Acetaminophen [Tylenol] 650 mg PO Q6H PRN 07/30/13 10/12/17 Calcium Carb, Citrate/Vit D3 1 tab PO BID 12/20/14 10/12/17 [Calcium + D3 ER Tablet] Multivit-Min/FA/Lycopen/Lutein 1 tab PO DAILY 12/20/14 10/12/17 [Centrum Silver Tablet] Carvedilol [Coreg] 3.125 mg PO BID #60 tablet 09/26/17 10/12/17 Furosemide [Lasix] 40 mg PO BID #60 tablet 09/26/17 10/12/17 Ipratropium/Albuterol Sulfate 3 ml INH TID #0 09/26/17 10/12/17 [Iprat-Albut 0.5-3(2.5) mg/3 ml] Senna [Senokot] 8.6 mg PO BID #0 09/26/17 10/12/17 Vitamin B Complex 1 tab PO DAILY #0 09/26/17 10/12/17 Potassium Citrate [Potassium 1 tab PO DAILY 10/12/17 10/12/17 Citrate ER] Apixaban [Eliquis] 5 mg PO BID #30 10/21/17 10/12/17 Ascorbic Acid [Vitamin C] 500 mg PO DAILY #30 10/21/17 10/12/17 Aspirin [Aspirin EC] 325 mg PO DAILY #30 10/21/17 10/12/17 Atorvastatin Calcium 40 mg PO QPM #30 10/21/17 10/12/17 Ciprofloxacin [Cipro] 250 mg PO Q12H 10 Days #20 tablet 10/21/17 Ipratropium/Albuterol [Duoneb] 3 ml INH Q4HR PRN #120 neb 10/21/17 Lactobac No.41/Bifidobact No.7 70 mg PO BID 20 Days #40 capsule 10/21/17 [Probiotic-10 3 Billion Cell Cp] Spironolactone [Aldactone] 12.5 mg PO DAILY #15 tablet 10/21/17 10/12/17 guaiFENesin [Mucinex] 600 mg PO BID #30 tablet 10/21/17 - Allergies Allergies/Adverse Reactions: Allergies Allergy/AdvReac Type Severity Reaction Status Date / Time Sulfa (Sulfonamide Allergy Unknown unk Verified 10/12/17 06:39 Antibiotics) sulfamethoxazole Allergy Unknown unk Verified 10/12/17 06:39 [From Bactrim] trimethoprim [From Bactrim] Allergy Unknown unk Verified 10/12/17 06:39 - Social History Does the pt smoke?: No Smoking Status: Never smoker Does the pt drink ETOH?: No Does the pt have substance abuse?: No - Immunizations Immunizations are current?: Yes - POLST Patient has POLST: Yes POLST Status: Full Code PD ED PE NORMAL - Vitals Vital signs reviewed: Yes - General General: Alert and oriented X 3 PD ED PE EXPANDED - General General: Alert, Disheveled, poorly kept, In distress - Cardiac Cardiac: Tachy, Irregularly irregular - Respiratory Respiratory: Distress, Accessory mm use, Rales, Decreased breath sounds - Male Male : Skin lesions (scrotal rash consistent with fungal infection ) - Derm Derm: Bruising, Other (fungal infection in groin) - Extremities Extremities: Pedal edema bilateral Results - Vitals Vitals: Vital Signs - 24 hr 11/16/17 11/16/17 11/16/17 19:39 20:47 21:17 Temperature 35.9 C L Heart Rate 105 H 100 96 Respiratory 24 26 H 27 H Rate Blood Pressure 108/76 112/66 O2 Saturation 90 L 100 11/16/17 23:00 Temperature 36.8 C Heart Rate 97 Respiratory 24 Rate Blood Pressure 94/74 O2 Saturation 97 Oxygen O2 Source Nasal cannula Oxygen Flow Rate 2 - EKG (time done) 194 Rate: Rate (enter#) (111) Rhythm: Atrial fibrillation Intervals: LBBB Compare to prior EKG: Unchanged from prior EKG - Labs Labs: Laboratory Tests 11/16/17 11/16/17 11/16/17 20:30 20:30 20:30 WBC 7.0 RBC 3.15 L Hgb 8.2 L Hct 25.7 L MCV 81.6 MCH 25.8 L MCHC 31.7 L RDW 21.0 H Plt Count 264 MPV 8.8 Neut # (Auto) 5.6 Lymph # (Auto) 0.6 L Taney # (Auto) 0.7 Eos # (Auto) 0.1 Baso # (Auto) 0.0 Absolute Nucleated RBC 0.03 Nucleated RBC % 0.4 Manual Slide Review Indicated WBC Morphology NORMAL APPEARANCE Platelet Estimate NORMAL (130-450,000) Platelet Morphology NORMAL APPEARANCE RBC Morph Micro Appear 2+ HYPOCHROMASIA PT 42.3 H INR 3.9 H APTT 35.8 H Sodium 127 L Potassium 4.0 Chloride 96 L Carbon Dioxide 23 Anion Gap 8.0 BUN 42 H Creatinine 2.0 H Estimated GFR (MDRD) 33 L Glucose 145 H Lactic Acid Calcium 8.5 Phosphorus 3.7 Magnesium 2.0 Total Bilirubin 0.8 AST 39 ALT 26 Alkaline Phosphatase 191 H Troponin I B-Natriuretic Peptide Total Protein 8.2 Albumin 2.5 L Globulin 5.7 H Albumin/Globulin Ratio 0.4 L Lipase 27 Urine Color Urine Clarity Urine pH Ur Specific [place] Urine Protein Urine Glucose (UA) Urine Ketones Urine Occult Blood Urine Nitrite Urine Bilirubin Urine Urobilinogen Ur Leukocyte Esterase Ur Microscopic Review Urine Culture Comments Influenza A (Rapid) Influenza B (Rapid) 11/16/17 11/16/17 11/16/17 20:30 20:30 20:30 WBC RBC Hgb Hct MCV MCH MCHC RDW Plt Count MPV Neut # (Auto) Lymph # (Auto) Taney # (Auto) Eos # (Auto) Baso # (Auto) Absolute Nucleated RBC Nucleated RBC % Manual Slide Review WBC Morphology Platelet Estimate Platelet Morphology RBC Morph Micro Appear PT INR APTT Sodium Potassium Chloride Carbon Dioxide Anion Gap BUN Creatinine Estimated GFR (MDRD) Glucose Lactic Acid 2.3 H Calcium Phosphorus Magnesium Total Bilirubin AST ALT Alkaline Phosphatase Troponin I 0.04 B-Natriuretic Peptide 1340 H Total Protein Albumin Globulin Albumin/Globulin Ratio Lipase Urine Color Urine Clarity Urine pH Ur Specific [place] Urine Protein Urine Glucose (UA) Urine Ketones Urine Occult Blood Urine Nitrite Urine Bilirubin Urine Urobilinogen Ur Leukocyte Esterase Ur Microscopic Review Urine Culture Comments Influenza A (Rapid) Influenza B (Rapid) 11/16/17 11/16/17 20:30 21:00 WBC RBC Hgb Hct MCV MCH MCHC RDW Plt Count MPV Neut # (Auto) Lymph # (Auto) Taney # (Auto) Eos # (Auto) Baso # (Auto) Absolute Nucleated RBC Nucleated RBC % Manual Slide Review WBC Morphology Platelet Estimate Platelet Morphology RBC Morph Micro Appear PT INR APTT Sodium Potassium Chloride Carbon Dioxide Anion Gap BUN Creatinine Estimated GFR (MDRD) Glucose Lactic Acid Calcium Phosphorus Magnesium Total Bilirubin AST ALT Alkaline Phosphatase Troponin I B-Natriuretic Peptide Total Protein Albumin Globulin Albumin/Globulin Ratio Lipase Urine Color LIGHT YELLOW Urine Clarity CLEAR Urine pH 5.5 Ur Specific [place] 1.015 Urine Protein NEGATIVE Urine Glucose (UA) NEGATIVE Urine Ketones NEGATIVE Urine Occult Blood NEGATIVE Urine Nitrite NEGATIVE Urine Bilirubin NEGATIVE Urine Urobilinogen 0.2 (NORMAL) Ur Leukocyte Esterase NEGATIVE Ur Microscopic Review NOT INDICATED Urine Culture Comments NOT INDICATED Influenza A (Rapid) Negative Influenza B (Rapid) Negative - Rads (name of study) chest x-ray Radiology: Final report received (pulmonary edema, cardiomegaly) PD MEDICAL DECISION MAKING - ED course Complexity details: reviewed old records, reviewed results, re-evaluated patient , considered differential, d/w patient, d/w life skills consultant ED course: Patient was seen and examined at bedside. IV access was gained and labs were drawn. ekg was performed and was similar to previous ekg. chest x-ray was performed and showed pulmonary edema. Patient was treated nebulizer treatment. When patient's diagnostics came back the case was discussed with the hospitalist who accepted the patient for further care. - Sepsis Event Vital Signs: Vital Signs - 24 hr 11/16/17 11/16/17 11/16/17 19:39 20:47 21:17 Temperature 35.9 C L Heart Rate 105 H 100 96 Respiratory 24 26 H 27 H Rate Blood Pressure 108/76 112/66 O2 Saturation 90 L 100 11/16/17 23:00 Temperature 36.8 C Heart Rate 97 Respiratory 24 Rate Blood Pressure 94/74 O2 Saturation 97 Oxygen O2 Source Nasal cannula Oxygen Flow Rate 2 Departure - Departure Disposition: [facility] DC/Xfer Clinical Impression: COPD (chronic obstructive pulmonary disease), Systolic CHF with reduced left ventricular function, NYHA class 3 Condition: Stable
[2017-11-16 20:46] LABS: BASOPHILS % (AUTO) 0.3 %; EOSINOPHILS # (AUTO) 0.1 10^3/uL (0.0-0.7); EOSINOPHILS % (AUTO) 0.8 %; HGB - HEMOGLOBIN 8.2 g/dL (14.0-18.0); LYMPHOCYTES # (AUTO) 0.6 10^3/uL (1.5-3.5); LYMPHOCYTES % (AUTO) 9.3 %; MEAN CORPUSCULAR HEMOGLOBIN 25.8 pg (27.0-31.0); MEAN CORPUSCULAR HGB CONC 31.7 g/dL (32.0-36.0); MEAN CORPUSCULAR VOLUME 81.6 fL (80.0-94.0); MEAN PLATELET VOLUME 8.8 fL (7.4-11.4); MONOCYTES # (AUTO) 0.7 10^3/uL (0.0-1.0); MONOCYTES % (AUTO) 9.9 %; NEUTROPHILS # (AUTO) 5.6 10^3/uL (1.5-6.6); NEUTROPHILS % (AUTO) 79.7 %; PLT - PLATELET COUNT 264 10^3/uL (130-450); RED BLOOD COUNT 3.15 10^6/uL (4.70-6.10)
[2017-11-16 20:56] LABS: INR 3.9 (0.8-1.2); PT - PROTHROMBIN TIME 42.3 secs (9.9-12.6)
[2017-11-16 20:59] LABS: PLATELET ESTIMATE, MANUAL NORMAL (130-450,000) (NORMAL); PLATELET MORPHOLOGY NORMAL APPEARANCE (NORMAL)
[2017-11-16 21:09] LABS: ALBUMIN 2.5 g/dL (3.2-5.5); ALBUMIN/GLOBULIN RATIO 0.4 (1.0-2.2); BILIRUBIN,TOTAL 0.8 mg/dL (0.2-1.0); CALCIUM 8.5 mg/dL (8.5-10.3); PHOSPHORUS 3.7 mg/dL (2.5-4.6); TOTAL PROTEIN 8.2 g/dL (6.7-8.2)
--- NOTE | 2017-11-16 21:17 | XRAY Report ---
Procedure Date: 11/16/2017 Accession Number: [id number] / [id number] Procedure: XR - Chest 1 View X-Ray CPT Code: 10688 FULL RESULT: EXAM: CHEST RADIOGRAPHY EXAM DATE: 11/16/2017 08:39 PM. CLINICAL HISTORY: Fever, hx of lung failure. COMPARISON: Chest 10/17/2017. TECHNIQUE: 1 view. FINDINGS: Cardiomegaly and ICD again noted. Moderate diffuse bilateral airspace disease, could represent pulmonary edema, appears similar to the prior. Small bilateral pleural effusions, increased. No pneumothorax. IMPRESSION: Cardiomegaly and ICD again noted. Moderate diffuse bilateral airspace disease, could represent pulmonary edema, appears similar to the prior. Small bilateral pleural effusions, increased. RADIA
[2017-11-16 21:24] LABS: BILIRUBIN,URINE NEGATIVE (NEGATIVE); GLUCOSE, URINE (UA) NEGATIVE (NEGATIVE); KETONES,URINE (UA) NEGATIVE (NEGATIVE); LEUKOCYTE ESTERASE, URINE NEGATIVE (NEGATIVE); NITRITE,URINE NEGATIVE (NEGATIVE); OCCULT BLOOD,URINE NEGATIVE (NEGATIVE); PH,URINE 5.5 PH (5.0-7.5); PROTEIN,URINE NEGATIVE (NEGATIVE); UROBILINOGEN,URINE 0.2 (NORMAL) E.U./dL (NORMAL)
[2017-11-16 21:28] LABS: CLARITY,URINE CLEAR (CLEAR)
--- NOTE | 2017-11-16 22:53 | Ultrasound Report ---
Procedure Date: 11/16/2017 Accession Number: [id number] / [id number] Procedure: US - Duplex Upr Ext Arterial LT CPT Code: FULL RESULT: EXAM: LEFT UPPER EXTREMITY ARTERIAL DOPPLER ULTRASOUND EXAM DATE: 11/16/2017 09:30 PM. CLINICAL HISTORY: Left arm swelling, decreased pulses. COMPARISON: None. TECHNIQUE: Real-time sonographic vascular imaging was performed by the plate shear operator, utilizing color-flow, Doppler flow, and spectral analysis. Multiple telephone service representative static images were saved for review. FINDINGS: Left Upper Extremity Velocities: Subclavian prox: PSV 35.3 cm/sec, monophasic waveform. Subclavian mid: PSV 34 cm/sec, monophasic waveform. Subclavian distal: PSV 68 cm/sec, biphasic waveform. Axillary prox: PSV 73.3 cm/sec, biphasic waveform. Axillary distal: PSV 74.2 cm/sec, biphasic waveform. Brachial prox: PSV 70.4 cm/sec, biphasic waveform. Brachial dist: PSV 57 cm/sec, biphasic waveform. Radial prox: PSV 55.5 cm/sec, biphasic waveform. Radial distal: PSV 42.9 cm/sec, monophasic waveform. Ulnar prox: PSV 10.4 cm/sec, monophasic waveform. Ulnar dist: PSV 11.5 cm/sec, monophasic waveform. IMPRESSION: 1. Study is limited by edema. 2. No evidence of arterial occlusion or high-grade stenosis. 3. There is monophasic and biphasic flow within the arteries of the left upper extremity. RADIA
[2017-11-16] MEDS ORDERED: PROMETHAZINE 25 MG/1 ML VIAL IM PRN (23:43)
[2017-11-16] MEDS ORDERED: IPRATROPIUM/ALBUTEROL 3 ML NEB INH PRN (23:43)
[2017-11-16] MEDS ORDERED: ONDANSETRON 4 MG/2 ML VIAL IVP PRN (23:43)
[2017-11-16] MEDS ORDERED: ZOLPIDEM 5 MG TABLET PO PRN (23:43)
[2017-11-16] MEDS ORDERED: PROCHLORPERAZINE 10 MG/2 ML VIAL IVP PRN (23:43)
[2017-11-16] MEDS ORDERED: FUROSEMIDE 40 MG/4 ML VIAL IVP SCH (23:45)
[2017-11-17] MEDS: SODIUM CHLORIDE FLUSH 0.9% 10 ML SYRINGE IVP SCH ×3 (01:02→18:20)
--- NOTE | 2017-11-17 01:58 | HISTORY & PHYSICAL EXAMINATION ---
Chief Complaint - Chief Complaint Chief Complaint: Shortness of breath History of Present Illness - Admitted From Admitted From:: Emergency department - History Obtained From Records Reviewed: Yes History obtained from: Patient and medical records Exam Limitations: The patient does have dysarthria which makes him difficult to understand - History of Present Illness HPI Comment/Other: Patient is an unfortunate 77-year-old gentleman who is a resident of [facility] with a past medical history significant for chronic systolic congestive heart failure with an ejection fraction of 25-30%, 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 The patient has been admitted to [facility] 2 times in the last 2 months with CHF exacerbation. The patient states that over the last 3 days he has had increasing shortness of breath to a point where he can barely speak a few sentences without having to gasp for air. The patient states that he was doing well up until earlier this week when he started having increasing swelling of his left upper extremity and also increased swelling of bilateral lower extremities. He states that over the last 3 days he has had an increasing wet cough. He also admits to orthopnea. He states that initially the shortness of breath was with some exertion but now it has become at rest and he gets short of breath just trying to have a conversation. The staff at [facility] sent the patient to the emergency room tonight as he appeared to be quite short of breath and in some respiratory distress. The patient denies any fevers or chills. He denies any chest pain, palpitations, nausea, diaphoresis or abdominal pain. Patient also complains of scrotal pain which is chronic for him. The patient denies any headache, dizziness, sore throat, nasal congestion, difficulty swallowing, vomiting, diarrhea, constipation, urinary urgency, urinary frequency, dysuria, back pain, neck stiffness, hair loss, skin changes, recent unintentional weight loss, changes in his appetite, night sweats, or any new focal neurologic deficits. On presentation to the emergency department the patient is afebrile and slightly tachycardic with a heart rate of 105. Patient's blood pressure is low normal at 108/76 and the patient appears to be tachypneic with hypoxia down to 90% on room air. The patient underwent routine labs which showed a sodium of 127 with a creatinine of 2.0 which is slightly elevated from his baseline of about 1.6. Patient is also slightly hyperglycemic. The patient's BNP is elevated at 1340. The patient's UA was negative and influenza swab was negative. Patient underwent a chest x-ray in the emergency department which showed cardiomegaly with moderate diffuse bilateral airspace disease which look to represent pulmonary edema. The patient also appeared to be volume overloaded with bilateral lower extremity edema as well as edema of his left upper extremity. Given the left upper extremity edema the emergency room physician ordered a Doppler of the left upper extremity which showed no evidence of arterial occlusion or high-grade stenosis. The patient appear to be in a CHF exacerbation and was admitted to the medical menard for treatment with diuresis. History - Past Medical History Cardiovascular: reports: Congestive heart failure, Hypertension, High cholesterol, Coronary artery disease, AR, Atrial fibrillation, Arrhythmia, Other Respiratory: reports: Pneumonia, Shortness of breath Endocrine/Autoimmune: reports: None GI: reports: GI bleed, Ulcers, Hemorrhoids : reports: Benign prostate hypertrophy, Incontinence HEENT: reports: None Psych: reports: None Musculoskeletal: reports: None Derm: reports: None MRSA Hx?: No - Past Surgical History General: reports: Cholecystectomy, EGD Ortho: reports: Hip replacement /REGISTERED SAFETY ENGINEER: reports: Other Cardiovascular: reports: Pacemaker - Family & Social History Family History: Mother: , Diabetes, Type 2, Father: , CAD Family History Comment/Other: Father and sister both had rheumatoid arthritis Social History Notes: Patient lives at [facility]. He has been there for about 15 years. His only family in the area is a nephew who lives in [place]. The patient has been twice and is . He has 4 sons who live all over the [place] 1 of whom is a colonel in the [employer]. 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 The patient currently uses a scooter at his longterm. The patient previously was a heavy smoker smoking 2 packs per day for about 20 years but quit after his stroke. The patient also was a heavy drinker but also quit after his stroke. The patient denies any illicit drug use. - POLST Patient has POLST: Yes POLST Status: Full Code Meds/Allgy - Home Medications Home Medications: Ambulatory Orders Medication Instructions Recorded Confirmed Acetaminophen [Tylenol] 650 mg PO Q6H PRN 07/30/13 10/12/17 Calcium Carb, Citrate/Vit D3 1 tab PO BID 12/20/14 10/12/17 [Calcium + D3 ER Tablet] Multivit-Min/FA/Lycopen/Lutein 1 tab PO DAILY 12/20/14 10/12/17 [Centrum Silver Tablet] Carvedilol [Coreg] 3.125 mg PO BID #60 tablet 09/26/17 10/12/17 Furosemide [Lasix] 40 mg PO BID #60 tablet 09/26/17 10/12/17 Ipratropium/Albuterol Sulfate 3 ml INH TID #0 09/26/17 10/12/17 [Iprat-Albut 0.5-3(2.5) mg/3 ml] Senna [Senokot] 8.6 mg PO BID #0 09/26/17 10/12/17 Vitamin B Complex 1 tab PO DAILY #0 09/26/17 10/12/17 Potassium Citrate [Potassium 1 tab PO DAILY 10/12/17 10/12/17 Citrate ER] Apixaban [Eliquis] 5 mg PO BID #30 10/21/17 10/12/17 Ascorbic Acid [Vitamin C] 500 mg PO DAILY #30 10/21/17 10/12/17 Aspirin [Aspirin EC] 325 mg PO DAILY #30 10/21/17 10/12/17 Atorvastatin Calcium 40 mg PO QPM #30 10/21/17 10/12/17 Ciprofloxacin [Cipro] 250 mg PO Q12H 10 Days #20 tablet 10/21/17 Ipratropium/Albuterol [Duoneb] 3 ml INH Q4HR PRN #120 neb 10/21/17 Lactobac No.41/Bifidobact No.7 70 mg PO BID 20 Days #40 capsule 10/21/17 [Probiotic-10 3 Billion Cell Cp] Spironolactone [Aldactone] 12.5 mg PO DAILY #15 tablet 10/21/17 10/12/17 guaiFENesin [Mucinex] 600 mg PO BID #30 tablet 10/21/17 - Allergies Allergies/Adverse Reactions: Allergies Allergy/AdvReac Type Severity Reaction Status Date / Time Sulfa (Sulfonamide Allergy Unknown unk Verified 10/12/17 06:39 Antibiotics) sulfamethoxazole Allergy Unknown unk Verified 10/12/17 06:39 [From Bactrim] trimethoprim [From Bactrim] Allergy Unknown unk Verified 10/12/17 06:39 Review of Systems - Other Findings Other Findings: A comprehensive review of systems was performed the pertinent positives and negatives are stated above in the HPI and the remainder of the review of systems is negative. Exam - Vital Signs Reviewed Vital Signs: Yes Vital Signs: Vital Signs x48h Pulse Pulse Resp BP BP Pulse Ox 11/17/17 01:00 105 H 24 102/80 98 11/17/17 00:45 102 H 21 115/75 96 11/17/17 00:22 90 29 H 101/71 11/16/17 23:59 92 27 H 90/70 96 - Physical Exam General Appearance: positive: Alert, Moderate distress (Tachypneic with conversational dyspnea, respiratory distress) Eyes Bilateral: positive: Normal inspection, PERRL, EOMI, No lid inflammation, Conjunctivae nml, No scleral icterus ENT: positive: ENT inspection nml, Pharynx nml, No signs of dehydration. negative: Purulent nasal drainage, Pharyngeal erythema, Oral lesions Neck: positive: Nml inspection, Thyroid nml, Trachea midline. negative: Thyromegaly, Lymphadenopathy (R), Lymphadenopathy (L), Stiff neck, Carotid bruit , Tracheal deviation Respiratory: positive: Rales (Coarse breath sounds with crackles bilaterally worse on the right). negative: Wheezes, Rhonchi Cardiovascular: positive: No gallop, Irregularly irregular, Tachycardia, JVD present, Systolic murmur Abdomen: positive: Non-tender, No organomegaly, Nml bowel sounds, No distention. negative: Guarding, Rebound, Hepatomegaly, Splenomegaly Back: positive: Nml inspection. negative: CVA tenderness (R), CVA tenderness (L ) Skin: positive: No rash, Dry, Pallor, Other (Bruising of the left arm with petechiae). negative: Cyanosis, Diaphoresis Extremities: positive: Pedal edema (Bilateral LE edema 4+), Other (Left upper extremty with pitting edema 3+ likely dependent edema as patient has weakness from stroke in that arm) Neurologic/Psychiatric: positive: Oriented x3, CN's nml (2-12), Weakness ( Bilateral LE weakness, left upper extremy weakness and contracture), Slurred/ abnml speech (dysarthria) Conclusion/Plan - Problem List (1) Systolic CHF with reduced left ventricular function, NYHA class 3 Conclusion/Plan: Patient presents to the emergency department with 3 days of worsening shortness of breath, and respiratory distress, with increasing lower extremity swelling as well as left arm swelling. Patient has had 2 previous hospitalizations in the last 2 months for CHF exacerbation. Patient was found to be in respiratory distress on presentation, with bilateral lower extremity edema, crackles on examination, BNP of 1340 and chest x-ray showing pulmonary edema. Patient appears to be in CHF exacerbation and likely has both left and right sided failure. The patient's most recent echocardiogram from 09/20/2017 shows ejection fraction of 25-30% with moderately abnormal right heart pressures with a right ventricular systolic pressure of 58 mmHg. Patient was admitted to the medical menard for CHF exacerbation. Plan: IV Lasix 40 mg twice daily if patient does not have adequate output we may need to increase dose given his renal function Fluid restriction 2 L 2 g sodium restriction Telemetry monitoring Strict I's and O's Daily weights Continue optimal treatment for systolic heart failure with Coreg, spironolactone and add low-dose lisinopril. Serial troponins x3 No need for repeat echo as there was one just 2 months ago. CHF teaching and more detailed instructions on discharge as patient has now had a second readmission within the last 2 months for the same problem. (2) Acute renal failure superimposed on stage 3 chronic kidney disease Conclusion/Plan: Patient has acute on chronic renal failure. Patient's creatinine is elevated to 2.0 on presentation with a baseline of 1.6. The patient appears to be volume overloaded and likely has cardiorenal syndrome. Plan: Give IV Lasix Avoid nephrotoxic agents Monitor creatinine Qualifiers: Acute renal failure type: unspecified Qualified Code(s): N17.9 - Acute kidney failure, unspecified; N18.3 - Chronic kidney disease, stage 3 (moderate) ; N18.3 - Chronic kidney disease, stage 3 (moderate); N18.3 - Chronic kidney disease, stage 3 (moderate) (3) Hyponatremia Conclusion/Plan: Patient sodium is 127 on presentation. Patient's sodium has been normal in the past during hospitalizations. The patient does not appear dry on examination rather he appears hypervolemic. Patient appears to have hypovolemic hyponatremia. Patient will be given IV Lasix and we believe that his sodium will improve with diuresis. (4) Anemia Conclusion/Plan: The patient is anemic on presentation with a hemoglobin of 8.2 it appears the patient's baseline hemoglobin runs at around 9.5. During previous hospitalization patient was found to have iron deficiency anemia. He is not currently on iron. We will give the patient iron supplementation. Given this iron deficiency anemia the patient does need a EGD and colonoscopy to work him up for possible malignancy or other causes of iron deficiency. Given the patient's cardiac history he may not be an optimal candidate for EGD and colonoscopy. Plan: Iron supplementation Monitor hemoglobin Qualifiers: Anemia type: iron deficiency Iron deficiency anemia type: unspecified iron deficiency Qualified Code(s): D50.9 - Iron deficiency anemia, unspecified (5) Hyperglycemia Conclusion/Plan: Patient has no history of diabetes but on presentation is hyperglycemic with a blood glucose of 145. This may just be a stress response from the patient. It appears in the past he has had elevated glucoses but also had normal glucoses. He does not appear to have had a hemoglobin A1c checked. We will check a hemoglobin A1c in the morning and continue to monitor the patient's glucose. If hemoglobin A1c is elevated we will consider placing the patient on a diabetic diet or starting sliding scale insulin while he is hospitalized. (6) Atrial fibrillation Conclusion/Plan: Patient has chronic atrial fibrillation and is on Eliquis at home. Patient's chads 2 score is 4 and he is being at appropriately treated with anticoagulation. Patient's INR is elevated on presentation and this could be due to the Eliquis. The patient does not appear to be actively bleeding. Patient is on Coreg for rate control. Patient's heart rate is in the low 100s to high 90s. Plan: Telemetry monitoring Continue Eliquis Titrate dose of Coreg as patient does have room when his heart rate but may not have room with the blood pressure. Qualifiers: Atrial fibrillation type: chronic Qualified Code(s): I48.2 - Chronic atrial fibrillation (7) Hypertension Conclusion/Plan: The patient has history of hypertension and has been on Coreg and Aldactone for hypertension and CHF. On presentation the patient's blood pressure is low normal. We will need to be careful with giving him his antihypertensive medication however given his CHF it is important that we try to continue it. We are also adding a low-dose of lisinopril and will continue to monitor the blood pressure closely. Given the patient's low ejection fraction and right- sided heart failure he may live at a low blood pressure. We will try to carry medications as appropriate. Qualifiers: Hypertension type: essential hypertension Qualified Code(s): I10 - Essential (primary) hypertension (8) Hyperlipidemia Conclusion/Plan: Patient has a history of hyperlipidemia and is on Lipitor given his history of strokes. We will continue the patient on his home dose of Lipitor while he is hospitalized . Qualifiers: Hyperlipidemia type: unspecified Qualified Code(s): E78.5 - Hyperlipidemia , unspecified (9) History of CVA (cerebrovascular accident) Conclusion/Plan: Patient has history of CVA with lower extremity and left sided weakness as well as dysarthria. The patient is on Eliquis to prevent future strokes given his atrial fibrillation. The patient is also on aspirin and Lipitor. Patient is wheelchair and bedbound. We will continue patient's home medications - Lab Results Lab results reviewed: Yes Fish Bones: 11/16/17 20:30 11/16/17 20:30 Other Lab Results: Laboratory Results WBC 7.0 x10^3/uL (4.8-10.8) 11/16/17 20: RBC 3.15 10^6/uL (4.70-6.10) L 11/16/17 20:30 Hgb 8.2 g/dL (14.0-18.0) L 11/16/17 20:30 Hct 25.7 % (42.0-52.0) L 11/16/17 20:30 MCV 81.6 fL (80.0-94.0) 11/16/17 20: MCH 25.8 pg (27.0-31.0) L 11/16/17 20: MCHC 31.7 g/dL (32.0-36.0) L 11/16/17 20:30 RDW 21.0 % (12.0-15.0) H 11/16/17 20:30 Plt Count 264 10^3/uL (130-450) 11/16/17 20:30 MPV 8.8 fL (7.4-11.4) 11/16/17 20:30 Neut # (Auto) 5.6 10^3/uL (1.5-6.6) 11/16/17 20:30 Lymph # (Auto) 0.6 10^3/uL (1.5-3.5) L 11/16/17 20:30 [place] # (Auto) 0.7 10^3/uL (0.0-1.0) 11/16/17 20:30 Eos # (Auto) 0.1 10^3/uL (0.0-0.7) 11/16/17 20:30 Baso # (Auto) 0.0 10^3/uL (0.0-0.1) 11/16/17 20:30 Absolute Nucleated RBC 0.03 x10^3/uL 11/16/17 20:30 Nucleated RBC % 0.4 /100WBC 11/16/17 20:30 Manual Slide Review Indicated 11/16/17 20:30 WBC Morphology NORMAL APPEARANCE (NORMAL) 11/16/17 20:30 Platelet Estimate NORMAL (130-450,000) (NORMAL) 11/16/17 20:30 Platelet Morphology NORMAL APPEARANCE (NORMAL) 11/16/17 20:30 RBC Morph Micro Appear 2+ ANISOCYTOSIS (NORMAL) 2+ HYPOCHROMASIA (NORMAL) 11/16/17 20:30 RBC Morph Micro Appear 2+ ANISOCYTOSIS (NORMAL) 2+ HYPOCHROMASIA (NORMAL) 11/16/17 20:30 PT 42.3 secs (9.9-12.6) H 11/16/17 20:30 INR 3.9 (0.8-1.2) H 11/16/17 20:30 APTT 35.8 secs (24.9-33.3) H 11/16/17 20:30 Sodium 127 mmol/L (135-145) L 11/16/17 20:30 Potassium 4.0 mmol/L (3.5-5.0) 11/16/17 20:30 Chloride 96 mmol/L (101-111) L 11/16/17 20:30 Carbon Dioxide 23 mmol/L (21-32) 11/16/17 20:30 Anion Gap 8.0 (6-13) 11/16/17 20:30 BUN 42 mg/dL (6-20) H 11/16/17 20:30 Creatinine 2.0 mg/dL (0.6-1.2) H 11/16/17 20:30 Estimated GFR (MDRD) 33 (>89) L 11/16/17 20:30 Glucose 145 mg/dL (70-100) H 11/16/17 20:30 Lactic Acid 1.6 mmol/L (0.5-2.2) 11/16/17 23:50 Calcium 8.5 mg/dL (8.5-10.3) 11/16/17 20:30 Phosphorus 3.7 mg/dL (2.5-4.6) 11/16/17 20:30 Magnesium 2.0 mg/dL (1.7-2.8) 11/16/17 20:30 Total Bilirubin 0.8 mg/dL (0.2-1.0) 11/16/17 20:30 AST 39 IU/L (10-42) 11/16/17 20:30 ALT 26 IU/L (10-60) 11/16/17 20:30 Alkaline Phosphatase 191 IU/L (42-121) H 11/16/17 20:30 Troponin I 0.04 ng/mL (<0.49) 11/16/17 20:30 B-Natriuretic Peptide 1340 pg/mL (5-100) H 11/16/17 20:30 Total Protein 8.2 g/dL (6.7-8.2) 11/16/17 20:30 Albumin 2.5 g/dL (3.2-5.5) L 11/16/17 20:30 Globulin 5.7 g/dL (2.1-4.2) H 11/16/17 20:30 Albumin/Globulin Ratio 0.4 (1.0-2.2) L 11/16/17 20:30 Lipase 27 U/L (22-51) 11/16/17 20:30 Urine Color LIGHT YELLOW 11/16/17 21:00 Urine Clarity CLEAR (CLEAR) 11/16/17 21:00 Urine pH 5.5 PH (5.0-7.5) 11/16/17 21:00 Ur Specific [place] 1.015 (1.002-1.030) 11/16/17 21:00 Urine Protein NEGATIVE mg/dL (NEGATIVE) 11/16/17 21:00 Urine Glucose (UA) NEGATIVE mg/dL (NEGATIVE) 11/16/17 21:00 Urine Ketones NEGATIVE mg/dL (NEGATIVE) 11/16/17 21:00 Urine Occult Blood NEGATIVE (NEGATIVE) 11/16/17 21:00 Urine Nitrite NEGATIVE (NEGATIVE) 11/16/17 21:00 Urine Bilirubin NEGATIVE (NEGATIVE) 11/16/17 21:00 Urine Urobilinogen 0.2 (NORMAL) E.U./dL (NORMAL) 11/16/17 21:00 Ur Leukocyte Esterase NEGATIVE (NEGATIVE) 11/16/17 21:00 Ur Microscopic Review NOT INDICATED 11/16/17 21:00 Urine Culture Comments NOT INDICATED 11/16/17 21:00 Influenza A (Rapid) Negative (Negative) 11/16/17 20:30 Influenza B (Rapid) Negative (Negative) 11/16/17 20:30 - Diagnostic Imaging Results Diagnostic Imaging Results: positive: Final report reviewed Diagnostic Imaging Results Comments: EXAM: XR/[id number] ([id number]) Procedure Date: 11/16/2017 Accession Number: [id number] / [id number] Procedure: XR - Chest 1 View X-Ray CPT Code: 15276 FULL RESULT: EXAM: CHEST RADIOGRAPHY EXAM DATE: 11/16/2017 08:39 PM. CLINICAL HISTORY: Fever, hx of lung failure. COMPARISON: Chest 10/17/2017. TECHNIQUE: 1 view. FINDINGS: Cardiomegaly and ICD again noted. Moderate diffuse bilateral airspace disease, could represent pulmonary edema, appears similar to the prior. Small bilateral pleural effusions, increased. No pneumothorax. IMPRESSION: Cardiomegaly and ICD again noted. Moderate diffuse bilateral airspace disease, could represent pulmonary edema, appears similar to the prior. Small bilateral pleural effusions, increased. EXAM: US/ARTLUE ([id number]) Procedure Date: 11/16/2017 Accession Number: [id number] / [id number] Procedure: US - Duplex Upr Ext Arterial LT CPT Code: FULL RESULT: EXAM: LEFT UPPER EXTREMITY ARTERIAL DOPPLER ULTRASOUND EXAM DATE: 11/16/2017 09:30 PM. CLINICAL HISTORY: Left arm swelling, decreased pulses. COMPARISON: None. TECHNIQUE: Real-time sonographic vascular imaging was performed by the final assembler boat, utilizing color-flow, Doppler flow, and spectral analysis. Multiple life assurance representative static images were saved for review. FINDINGS: Left Upper Extremity Velocities: Subclavian prox: PSV 35.3 cm/sec, monophasic waveform. Subclavian mid: PSV 34 cm/sec, monophasic waveform. Subclavian distal: PSV 68 cm/sec, biphasic waveform. Axillary prox: PSV 73.3 cm/sec, biphasic waveform. Axillary distal: PSV 74.2 cm/sec, biphasic waveform. Brachial prox: PSV 70.4 cm/sec, biphasic waveform. Brachial dist: PSV 57 cm/sec, biphasic waveform. Radial prox: PSV 55.5 cm/sec, biphasic waveform. Radial distal: PSV 42.9 cm/sec, monophasic waveform. Ulnar prox: PSV 10.4 cm/sec, monophasic waveform. Ulnar dist: PSV 11.5 cm/sec, monophasic waveform. IMPRESSION: 1. Study is limited by edema. 2. No evidence of arterial occlusion or high-grade stenosis. 3. There is monophasic and biphasic flow within the arteries of the left upper extremity. - EKG Results EKG Interpreted Independently: Yes EKG Comparison: Unchanged from prior EKG EKG Findings: LBBB, atrial fibrillation Core Measures - Anticipated LOS I expect patient to be DC'd or transferred within 96 hours.: Yes - DVT/VTE - Prophylaxis VTE/DVT Device ordered at admit?: Yes
[2017-11-17] MEDS: oxyCODONE 5 MG TABLET PO PRN (03:23)
[2017-11-17 04:30] LABS: BASOPHILS # (AUTO) 0.1 10^3/uL (0.0-0.1); BASOPHILS % (AUTO) 0.9 %; EOSINOPHILS # (AUTO) 0.1 10^3/uL (0.0-0.7); EOSINOPHILS % (AUTO) 1.2 %; HGB - HEMOGLOBIN 7.8 g/dL (14.0-18.0); INR 3.5 (0.8-1.2); LYMPHOCYTES # (AUTO) 0.7 10^3/uL (1.5-3.5); LYMPHOCYTES % (AUTO) 9.6 %; MEAN CORPUSCULAR HEMOGLOBIN 25.3 pg (27.0-31.0); MEAN CORPUSCULAR HGB CONC 31.5 g/dL (32.0-36.0); MEAN CORPUSCULAR VOLUME 80.4 fL (80.0-94.0); MEAN PLATELET VOLUME 8.3 fL (7.4-11.4); MONOCYTES # (AUTO) 0.9 10^3/uL (0.0-1.0); NEUTROPHILS # (AUTO) 5.6 10^3/uL (1.5-6.6); NEUTROPHILS % (AUTO) 76.3 %; PLT - PLATELET COUNT 229 10^3/uL (130-450); PT - PROTHROMBIN TIME 37.9 secs (9.9-12.6); RED CELL DISTRIBUTION WIDTH 21.3 % (12.0-15.0); WHITE BLOOD COUNT 7.3 x10^3/uL (4.8-10.8)
[2017-11-17 04:38] LABS: ALBUMIN 2.4 g/dL (3.2-5.5); ALBUMIN/GLOBULIN RATIO 0.5 (1.0-2.2); BILIRUBIN,TOTAL 0.9 mg/dL (0.2-1.0); CALCIUM 8.6 mg/dL (8.5-10.3); TOTAL PROTEIN 7.6 g/dL (6.7-8.2)
[2017-11-17 04:49] LABS: HB2 TOTAL 8.1 g/dL; HEMOGLOBIN A1C 0.34 g/dL
[2017-11-17 05:01] LABS: PLATELET ESTIMATE, MANUAL NORMAL (130-450,000) (NORMAL); PLATELET MORPHOLOGY NORMAL APPEARANCE (NORMAL)
[2017-11-17] MEDS: PANTOPRAZOLE 40 MG TABLET PO SCH (06:19)
[2017-11-17] MEDS ORDERED: POTASSIUM CHLORIDE 20 MEQ TABLET PO SCH (08:00)
[2017-11-17] MEDS: guaiFENesin 600 MG TABLET PO SCH ×2 (08:33→20:28)
[2017-11-17] MEDS: FUROSEMIDE 100 MG/10 ML VIAL IVP SCH ×2 (08:33→20:29)
[2017-11-17] MEDS: POLYETHYLENE GLYCOL 3350 17 GM PACKET PO SCH (08:34)
[2017-11-17] MEDS: SPIRONOLACTONE 25 MG TABLET PO SCH (08:35)
[2017-11-17] MEDS: FERROUS SULFATE 325 MG TABLET PO SCH ×2 (08:36→18:20)
[2017-11-17] MEDS ORDERED: APIXABAN 2.5 MG TABLET PO SCH (09:00)
[2017-11-17] MEDS ORDERED: CARVEDILOL 3.125 MG TABLET PO SCH (09:00)
[2017-11-17] MEDS ORDERED: ASPIRIN EC 325 MG TABLET PO SCH (09:00)
[2017-11-17] MEDS ORDERED: LISINOPRIL 5 MG TABLET PO SCH (09:00)
[2017-11-17] MEDS ORDERED: LEVALBUTEROL 1.25 MG/3 ML NEB INH PRN (11:22)
[2017-11-17] MEDS ORDERED: DIGOXIN 500 MCG/2 ML AMP IVP SCH (12:00)
[2017-11-17] MEDS: METOPROLOL TARTRATE 25 MG TABLET PO SCH ×2 (12:06→20:28)
[2017-11-17] MEDS: LEVALBUTEROL 1.25 MG/3 ML NEB INH SCH ×2 (14:00→20:06)
[2017-11-17] MEDS: ATORVASTATIN 40 MG TABLET PO SCH (20:28)
[2017-11-17] MEDS: SODIUM CHLORIDE FLUSH 0.9% 10 ML SYRINGE IVP PRN (20:29)
[2017-11-18] MEDS: SODIUM CHLORIDE FLUSH 0.9% 10 ML SYRINGE IVP SCH ×3 (01:41→17:04)
[2017-11-18] MEDS: oxyCODONE 5 MG TABLET PO PRN (03:57)
[2017-11-18 05:14] LABS: INR 2.8 (0.8-1.2); PT - PROTHROMBIN TIME 30.8 secs (9.9-12.6)
[2017-11-18 05:19] LABS: BASOPHILS # (AUTO) 0.1 10^3/uL (0.0-0.1); BASOPHILS % (AUTO) 0.9 %; EOSINOPHILS # (AUTO) 0.1 10^3/uL (0.0-0.7); EOSINOPHILS % (AUTO) 1.2 %; HGB - HEMOGLOBIN 7.2 g/dL (14.0-18.0); LYMPHOCYTES # (AUTO) 0.6 10^3/uL (1.5-3.5); LYMPHOCYTES % (AUTO) 8.2 %; MEAN CORPUSCULAR HEMOGLOBIN 24.7 pg (27.0-31.0); MEAN CORPUSCULAR HGB CONC 30.7 g/dL (32.0-36.0); MEAN CORPUSCULAR VOLUME 80.6 fL (80.0-94.0); MEAN PLATELET VOLUME 8.6 fL (7.4-11.4); MONOCYTES # (AUTO) 0.9 10^3/uL (0.0-1.0); MONOCYTES % (AUTO) 11.3 %; NEUTROPHILS # (AUTO) 6.1 10^3/uL (1.5-6.6); NEUTROPHILS % (AUTO) 78.4 %; PLT - PLATELET COUNT 205 10^3/uL (130-450); RED BLOOD COUNT 2.93 10^6/uL (4.70-6.10); RED CELL DISTRIBUTION WIDTH 21.2 % (12.0-15.0); WHITE BLOOD COUNT 7.7 x10^3/uL (4.8-10.8)
[2017-11-18 05:26] LABS: ALBUMIN 2.3 g/dL (3.2-5.5); ALBUMIN/GLOBULIN RATIO 0.5 (1.0-2.2); BILIRUBIN,TOTAL 0.9 mg/dL (0.2-1.0); CALCIUM 8.2 mg/dL (8.5-10.3); CREATININE 1.9 mg/dL (0.6-1.2); MAGNESIUM 1.9 mg/dL (1.7-2.8); TOTAL PROTEIN 7.1 g/dL (6.7-8.2)
[2017-11-18 05:46] LABS: PLATELET ESTIMATE, MANUAL NORMAL (130-450,000) (NORMAL); PLATELET MORPHOLOGY NORMAL APPEARANCE (NORMAL)
[2017-11-18] MEDS: PANTOPRAZOLE 40 MG TABLET PO SCH (05:58)
[2017-11-18] MEDS: LEVALBUTEROL 1.25 MG/3 ML NEB INH SCH ×3 (07:30→22:00)
[2017-11-18] MEDS: SPIRONOLACTONE 25 MG TABLET PO SCH (08:35)
[2017-11-18] MEDS: APIXABAN 2.5 MG TABLET PO SCH ×3 (08:35→20:51)
[2017-11-18] MEDS: ASPIRIN CHEW 81 MG TABLET PO SCH (08:35)
[2017-11-18] MEDS: METOPROLOL TARTRATE 25 MG TABLET PO SCH ×2 (08:35→20:51)
[2017-11-18] MEDS: FERROUS SULFATE 325 MG TABLET PO SCH ×2 (08:35→17:04)
[2017-11-18] MEDS: guaiFENesin 600 MG TABLET PO SCH ×2 (08:35→20:51)
[2017-11-18] MEDS: FUROSEMIDE 100 MG/10 ML VIAL IVP SCH (08:39)
[2017-11-18] MEDS: POLYETHYLENE GLYCOL 3350 17 GM PACKET PO SCH (08:39)
--- NOTE | 2017-11-18 14:24 | PROVIDER PROGRESS NOTE ---
Subjective - Prog Note Date Prog Note Date: 11/18/17 - Subjective Pt reports feeling: Improved Subjective: pt report he feel a little better than yesterday. he is comfortably sitting at be to eat the breakfast. pt denies chest pain, fever, chill, cough. Current Medications - Current Medications Current Medications: Active Medications Acetaminophen (Tylenol) 650 mg PO Q4HR PRN PRN Reason: Pain 1 to 4 Apixaban (Eliquis) 2.5 mg PO BID [facility] Last Admin: 11/18/17 09:00 Dose: 2.5 mg Aspirin ([place] Aspirin) 81 mg PO DAILY [facility] Last Admin: 11/18/17 08:35 Dose: 81 mg Atorvastatin Calcium (Lipitor) 40 mg PO QPM [facility] Last Admin: 11/17/17 20:28 Dose: 40 mg Ferrous Sulfate (Feosol) 325 mg PO BIDWM [facility] Last Admin: 11/18/17 08:35 Dose: 325 mg Furosemide (Lasix Inj 100mg Vial) 80 mg IVP BID [facility] Last Admin: 11/18/17 08:39 Dose: 80 mg Guaifenesin (Mucinex) 600 mg PO BID [facility] Last Admin: 11/18/17 08:35 Dose: 600 mg Levalbuterol HCl (Xopenex) 1.25 mg INH Q4H PRN PRN Reason: Shortness of Air/Wheezing Levalbuterol HCl (Xopenex) 1.25 mg INH TID [facility] Last Admin: 11/18/17 13:56 Dose: 1.25 mg Metoprolol Tartrate (Lopressor) 25 mg PO BID [facility] Last Admin: 11/18/17 08:35 Dose: 25 mg Ondansetron HCl (Zofran Inj) 4 mg IVP Q6HR PRN PRN Reason: Nausea / Vomiting Oxycodone HCl (Roxicodone) 5 mg PO Q4HR PRN PRN Reason: Pain 5 to 7 Last Admin: 11/17/17 03:23 Dose: 5 mg Oxycodone HCl (Roxicodone) 10 mg PO Q4HR PRN PRN Reason: Pain 8 to 10 Last Admin: 11/18/17 03:57 Dose: 10 mg Pantoprazole Sodium (Protonix) 40 mg PO QDAC [facility] Last Admin: 11/18/17 05:58 Dose: 40 mg Polyethylene Glycol (Miralax) 17 gm PO DAILY [facility] Last Admin: 11/18/17 08:39 Dose: Not Given Prochlorperazine Edisylate (Compazine Inj) 10 mg IVP Q6HR PRN PRN Reason: Nausea / Vomiting Promethazine HCl (Phenergan Inj) 25 mg IM Q6HR PRN PRN Reason: Nausea / Vomiting Sodium Chloride (Normal Saline Flush 0.9%) 10 ml IVP PRN PRN PRN Reason: NEEDED PER PROVIDER ORDERS Last Admin: 11/17/17 20:29 Dose: 10 ml Sodium Chloride (Normal Saline Flush 0.9%) 10 ml IVP 0100,0900,1700 [facility] Last Admin: 11/18/17 08:39 Dose: 10 ml Spironolactone (Aldactone) 12.5 mg PO DAILY [facility] Last Admin: 11/18/17 08:35 Dose: 12.5 mg Zolpidem Tartrate (Ambien) 5 mg PO QPM PRN PRN Reason: Insomnia Acetaminophen [Tylenol] 650 mg PO Q6H PRN 07/30/13 Multivit-Min/FA/Lycopen/Lutein [Centrum Silver Tablet] 1 tab PO DAILY 12/20/14 Potassium Citrate [Potassium Citrate ER] 10 meq PO DAILY 10/12/17 Calcium Carbonate [Calcium] 600 mg PO BID 11/17/17 Ipratropium/Albuterol Sulfate [Iprat-Albut 0.5-3(2.5) mg/3 ml] 1 neb INH QID 07/06 Losartan [Cozaar] 25 mg PO DAILY 11/17/17 Objective - Vital Signs/Intake & Output Reviewed Vital Signs: Yes Vital Signs: Vital Signs x48h Temp Pulse Pulse Resp BP Pulse Ox 11/18/17 13:57 81 21 11/18/17 08:22 36.4 C L 69 20 103/54 L 98 11/18/17 07:33 80 21 Intake & Output: Intake & Output 11/15/17 11/16/17 11/17/17 11/18/17 23:59 23:59 23:59 23:59 Intake Total 1744 590 Output Total 1425 400 Balance 319 190 - Objective General Appearance: positive: No acute distress, Alert. negative: Lethargic Eyes Bilateral: positive: Normal inspection, PERRL, No lid inflammation, Conjunctivae nml ENT: positive: ENT inspection nml, Pharynx nml, No signs of dehydration. negative: Purulent nasal drainage, Pharyngeal erythema, Oral lesions Neck: positive: Nml inspection, Thyroid nml, No JVD, Trachea midline. negative : Thyromegaly, Lymphadenopathy (R), Lymphadenopathy (L), Stiff neck, Carotid bruit, Swelling/bruising, Tracheal deviation Respiratory: positive: Chest non-tender, No respiratory distress, Breath sounds nml. negative: Wheezes, Rales, Rhonchi Cardiovascular: positive: Regular rate & rhythm, Systolic murmur, Diastolic murmur. negative: Extrasystoles, Tachycardia, Bradycardia Peripheral Pulses: 2+ Radial (R), 2+ Radial (L), 2+ Dorsalis pedis (R), 2+ Dorsalis pedis (L) Abdomen: positive: Non-tender, No organomegaly, Nml bowel sounds, No distention. negative: Tenderness, Guarding, Rebound Back: positive: Nml inspection. negative: CVA tenderness (R), CVA tenderness (L ) Skin: positive: Color nml, No rash, Warm, Dry. negative: Cyanosis, Diaphoresis , Pallor Extremities: positive: Non-tender, Full ROM, Nml appearance. negative: Calf tenderness, Joint swelling, Troy's sign/cords Neurologic/Psychiatric: positive: Oriented x3, Motor nml, Sensation nml. negative: Weakness, Sensory loss, Facial droop, Slurred/abnml speech, Depressed mood/affect - Lab Results Fish Bones: 11/18/17 04:50 11/18/17 04:50 Other Labs: Lab Results x24hrs 11/18/17 11/18/17 11/18/17 Range/Units 04:50 04:50 04:50 WBC (4.8-10.8) x10^3/uL RBC (4.70-6.10) 10^6/uL Hgb (14.0-18.0) g/dL Hct (42.0-52.0) % MCV (80.0-94.0) fL MCH (27.0-31.0) pg MCHC (32.0-36.0) g/dL RDW (12.0-15.0) % Plt Count (130-450) 10^3/uL MPV (7.4-11.4) fL Neut # (Auto) (1.5-6.6) 10^3/uL Lymph # (Auto) (1.5-3.5) 10^3/uL [place] # (Auto) (0.0-1.0) 10^3/uL Eos # (Auto) (0.0-0.7) 10^3/uL Baso # (Auto) (0.0-0.1) 10^3/uL Absolute Nucleated RBC x10^3/uL Nucleated RBC % /100WBC Manual Slide Review Platelet Estimate (NORMAL) Platelet Morphology (NORMAL) RBC Morph Micro Appear (NORMAL) PT 30.8 H (9.9-12.6) secs INR 2.8 H (0.8-1.2) Sodium 132 L (135-145) mmol/L Potassium 3.6 (3.5-5.0) mmol/L Chloride 100 L (101-111) mmol/L Carbon Dioxide 24 (21-32) mmol/L Anion Gap 8.0 (6-13) BUN 43 H (6-20) mg/dL Creatinine 1.9 H (0.6-1.2) mg/dL Estimated GFR (MDRD) 35 L (>89) Glucose 77 (70-100) mg/dL Calcium 8.2 L (8.5-10.3) mg/dL Magnesium 1.9 (1.7-2.8) mg/dL Total Bilirubin 0.9 (0.2-1.0) mg/dL AST 41 (10-42) IU/L ALT 31 (10-60) IU/L Alkaline Phosphatase 155 H (42-121) IU/L B-Natriuretic Peptide 1551 H (5-100) pg/mL Total Protein 7.1 (6.7-8.2) g/dL Albumin 2.3 L (3.2-5.5) g/dL Globulin 4.8 H (2.1-4.2) g/dL Albumin/Globulin Ratio 0.5 L (1.0-2.2) 11/18/17 Range/Units 04:50 WBC 7.7 (4.8-10.8) x10^3/uL RBC 2.93 L (4.70-6.10) 10^6/uL Hgb 7.2 L (14.0-18.0) g/dL Hct 23.6 L (42.0-52.0) % MCV 80.6 (80.0-94.0) fL MCH 24.7 L (27.0-31.0) pg MCHC 30.7 L (32.0-36.0) g/dL RDW 21.2 H (12.0-15.0) % Plt Count 205 (130-450) 10^3/uL MPV 8.6 (7.4-11.4) fL Neut # (Auto) 6.1 (1.5-6.6) 10^3/uL Lymph # (Auto) 0.6 L (1.5-3.5) 10^3/uL [place] # (Auto) 0.9 (0.0-1.0) 10^3/uL Eos # (Auto) 0.1 (0.0-0.7) 10^3/uL Baso # (Auto) 0.1 (0.0-0.1) 10^3/uL Absolute Nucleated RBC 0.03 x10^3/uL Nucleated RBC % 0.4 /100WBC Manual Slide Review Indicated Platelet Estimate NORMAL (130-450,000) (NORMAL) Platelet Morphology NORMAL APPEARANCE (NORMAL) RBC Morph Micro Appear 1+ HYPOCHROMASIA (NORMAL) PT (9.9-12.6) secs INR (0.8-1.2) Sodium (135-145) mmol/L Potassium (3.5-5.0) mmol/L Chloride (101-111) mmol/L Carbon Dioxide (21-32) mmol/L Anion Gap (6-13) BUN (6-20) mg/dL Creatinine (0.6-1.2) mg/dL Estimated GFR (MDRD) (>89) Glucose (70-100) mg/dL Calcium (8.5-10.3) mg/dL Magnesium (1.7-2.8) mg/dL Total Bilirubin (0.2-1.0) mg/dL AST (10-42) IU/L ALT (10-60) IU/L Alkaline Phosphatase (42-121) IU/L B-Natriuretic Peptide (5-100) pg/mL Total Protein (6.7-8.2) g/dL Albumin (3.2-5.5) g/dL Globulin (2.1-4.2) g/dL Albumin/Globulin Ratio (1.0-2.2) ABX Reporting Has patient been on IV antibiotics over the past 48 hours?: No Assessment/Plan - Problem List (1) CHF exacerbation Impression: (1) Systolic CHF with reduced left ventricular function, NYHA class 3 Conclusion/Plan: EF is 20-25% continue Lasix Fluid restriction 2 L 2 g sodium restriction Telemetry monitoring Strict I's and O's Daily weights continue coreg, spironolactone and add low-dose lisinopri Patient presents to the emergency department with 3 days of worsening shortness of breath, and respiratory distress, with increasing lower extremity swelling as well as left arm swelling. Patient has had 2 previous hospitalizations in the last 2 months for CHF exacerbation. Patient was found to be in respiratory distress on presentation, with bilateral lower extremity edema, crackles on examination, BNP of 1340 and chest x-ray showing pulmonary edema. Patient appears to be in CHF exacerbation and likely has both left and right sided failure. The patient's most recent echocardiogram from 09/20/2017 shows ejection fraction of 25-30% with moderately abnormal right heart pressures with a right ventricular systolic pressure of 58 mmHg. Patient was admitted to the medical [facility] for CHF exacerbation. Plan: IV Lasix 40 mg twice daily if patient does not have adequate output we may need to increase dose given his renal function Fluid restriction 2 L 2 g sodium restriction Telemetry monitoring Strict I's and O's Daily weights Continue optimal treatment for systolic heart failure with Coreg, spironolactone and add low-dose lisinopril. Serial troponins x3 No need for repeat echo as there was one just 2 months ago. CHF teaching and more detailed instructions on discharge as patient has now had a second readmission within the last 2 months for the same problem. (2) Acute renal failure superimposed on stage 3 chronic kidney disease Conclusion/Plan: slight improved Avoid nephrotoxic agents Monitor creatinine Patient has acute on chronic renal failure. Patient's creatinine is elevated to 2.0 on presentation with a baseline of 1.6. The patient appears to be volume overloaded and likely has cardiorenal syndrome. Plan: Give IV Lasix Avoid nephrotoxic agents Monitor creatinine (3) Hyponatremia Conclusion/Plan: slight improved, continue Lasix daily lab Patient sodium is 127 on presentation. Patient's sodium has been normal in the past during hospitalizations. The patient does not appear dry on examination rather he appears hypervolemic. Patient appears to have hypovolemic hyponatremia. Patient will be given IV Lasix and we believe that his sodium will improve with diuresis. (4) Anemia Conclusion/Plan: pt denies GI bleeding, it may be due to CKD, and chronic disease. continue iron pills will transfusion as needed. The patient is anemic on presentation with a hemoglobin of 8.2 it appears the patient's baseline hemoglobin runs at around 9.5. During previous hospitalization patient was found to have iron deficiency anemia. He is not currently on iron. We will give the patient iron supplementation. Given this iron deficiency anemia the patient does need a EGD and colonoscopy to work him up for possible malignancy or other causes of iron deficiency. Given the patient's cardiac history he may not be an optimal candidate for EGD and colonoscopy. Plan: Iron supplementation Monitor hemoglobin (5) Hyperglycemia Conclusion/Plan: resolved. A1C is 6. Patient has no history of diabetes but on presentation is hyperglycemic with a blood glucose of 145. This may just be a stress response from the patient. It appears in the past he has had elevated glucoses but also had normal glucoses. He does not appear to have had a hemoglobin A1c checked. We will check a hemoglobin A1c in the morning and continue to monitor the patient's glucose. If hemoglobin A1c is elevated we will consider placing the patient on a diabetic diet or starting sliding scale insulin while he is hospitalized. (6) Atrial fibrillation Conclusion/Plan: continue Eliquis Patient has chronic atrial fibrillation and is on Eliquis at home. Patient's chads 2 score is 4 and he is being at appropriately treated with anticoagulation. Patient's INR is elevated on presentation and this could be due to the Eliquis. The patient does not appear to be actively bleeding. Patient is on Coreg for rate control. Patient's heart rate is in the low 100s to high 90s. Plan: Telemetry monitoring Continue Eliquis Titrate dose of Coreg as patient does have room when his heart rate but may not have room with the blood pressure. (7) Hypertension Conclusion/Plan: The patient has history of hypertension and has been on Coreg and Aldactone for hypertension and CHF. On presentation the patient's blood pressure is low normal. We will need to be careful with giving him his antihypertensive medication however given his CHF it is important that we try to continue it. We are also adding a low-dose of lisinopril and will continue to monitor the blood pressure closely. Given the patient's low ejection fraction and right- sided heart failure he may live at a low blood pressure. We will try to carry medications as appropriate. (8) Hyperlipidemia Conclusion/Plan: Patient has a history of hyperlipidemia and is on Lipitor given his history of strokes. We will continue the patient on his home dose of Lipitor while he is hospitalized . (9) History of CVA (cerebrovascular accident) Conclusion/Plan: continue to support, continue on Eliquis, Aspirin, Lipitor. Patient has history of CVA with lower extremity and left sided weakness as well as dysarthria. The patient is on Eliquis to prevent future strokes given his atrial fibrillation. The patient is also on aspirin and Lipitor. Patient is wheelchair and bedbound. We will continue patient's home medications
[2017-11-18] MEDS ORDERED: diazePAM 5 MG TABLET PO PRN (15:33)
[2017-11-18] MEDS ORDERED: SODIUM CHLORIDE 0.9% 250 ML IV ONE (16:12)
[2017-11-18] MEDS ORDERED: SODIUM CHLORIDE 0.9% 1,000 ML IV ONE (20:01)
[2017-11-18] MEDS: ATORVASTATIN 40 MG TABLET PO SCH (20:51)
[2017-11-19] MEDS: SODIUM CHLORIDE FLUSH 0.9% 10 ML SYRINGE IVP SCH ×3 (00:42→18:20)
[2017-11-19 05:04] LABS: PT - PROTHROMBIN TIME 32.5 secs (9.9-12.6)
[2017-11-19 05:12] LABS: ALBUMIN 2.2 g/dL (3.2-5.5); ALBUMIN/GLOBULIN RATIO 0.4 (1.0-2.2); BILIRUBIN,TOTAL 0.9 mg/dL (0.2-1.0); CALCIUM 8.1 mg/dL (8.5-10.3); CREATININE 1.9 mg/dL (0.6-1.2); MAGNESIUM 1.9 mg/dL (1.7-2.8); TOTAL PROTEIN 7.1 g/dL (6.7-8.2)
[2017-11-19 05:13] LABS: BASOPHILS % (AUTO) 0.7 %; EOSINOPHILS # (AUTO) 0.1 10^3/uL (0.0-0.7); EOSINOPHILS % (AUTO) 1.2 %; HGB - HEMOGLOBIN 7.4 g/dL (14.0-18.0); LYMPHOCYTES # (AUTO) 0.7 10^3/uL (1.5-3.5); LYMPHOCYTES % (AUTO) 10.1 %; MEAN CORPUSCULAR HEMOGLOBIN 24.4 pg (27.0-31.0); MEAN CORPUSCULAR VOLUME 81.3 fL (80.0-94.0); MEAN PLATELET VOLUME 8.5 fL (7.4-11.4); MONOCYTES # (AUTO) 0.9 10^3/uL (0.0-1.0); MONOCYTES % (AUTO) 12.5 %; NEUTROPHILS # (AUTO) 5.3 10^3/uL (1.5-6.6); NEUTROPHILS % (AUTO) 75.5 %; PLT - PLATELET COUNT 213 10^3/uL (130-450); RED BLOOD COUNT 3.06 10^6/uL (4.70-6.10)
[2017-11-19 05:52] LABS: PLATELET ESTIMATE, MANUAL NORMAL (130-450,000) (NORMAL)
[2017-11-19] MEDS: SODIUM CHLORIDE FLUSH 0.9% 10 ML SYRINGE IVP PRN ×2 (06:46→06:48)
[2017-11-19] MEDS: FUROSEMIDE 40 MG/4 ML VIAL IVP SCH ×2 (06:47→14:33)
[2017-11-19] MEDS: PANTOPRAZOLE 40 MG TABLET PO SCH (06:47)
[2017-11-19] MEDS: LEVALBUTEROL 1.25 MG/3 ML NEB INH SCH ×3 (07:22→19:25)
[2017-11-19] MEDS: SPIRONOLACTONE 25 MG TABLET PO SCH (08:57)
[2017-11-19] MEDS: APIXABAN 2.5 MG TABLET PO SCH ×2 (08:57→20:44)
[2017-11-19] MEDS: FERROUS SULFATE 325 MG TABLET PO SCH ×2 (08:57→17:56)
[2017-11-19] MEDS: ASPIRIN CHEW 81 MG TABLET PO SCH (08:58)
[2017-11-19] MEDS: POLYETHYLENE GLYCOL 3350 17 GM PACKET PO SCH (08:58)
[2017-11-19] MEDS: guaiFENesin 600 MG TABLET PO SCH ×2 (08:58→21:06)
[2017-11-19] MEDS: METOPROLOL TARTRATE 25 MG TABLET PO SCH ×2 (08:58→21:06)
--- NOTE | 2017-11-19 12:41 | PROVIDER PROGRESS NOTE ---
Subjective - Prog Note Date Prog Note Date: 11/19/17 - Subjective Pt reports feeling: No change Subjective: pt is eating breakfast at bed, no complaints. Current Medications - Current Medications Current Medications: Active Medications Acetaminophen (Tylenol) 650 mg PO Q4HR PRN PRN Reason: Pain 1 to 4 Apixaban (Eliquis) 2.5 mg PO BID [facility] Last Admin: 11/19/17 08:57 Dose: 2.5 mg Aspirin ([facility] Aspirin) 81 mg PO DAILY [facility] Last Admin: 11/19/17 08:58 Dose: 81 mg Atorvastatin Calcium (Lipitor) 40 mg PO QPM [facility] Last Admin: 11/18/17 20:51 Dose: 40 mg Diazepam (Valium) 2.5 mg PO Q6H PRN PRN Reason: Anxiety Ferrous Sulfate (Feosol) 325 mg PO BIDWM [facility] Last Admin: 11/19/17 08:57 Dose: 325 mg Furosemide (Lasix Inj 40 Mg Vial) 40 mg IVP BIDDIURETIC [facility] Last Admin: 11/19/17 06:47 Dose: 40 mg Guaifenesin (Mucinex) 600 mg PO BID [facility] Last Admin: 11/19/17 08:58 Dose: 600 mg Levalbuterol HCl (Xopenex) 1.25 mg INH Q4H PRN PRN Reason: Shortness of Air/Wheezing Levalbuterol HCl (Xopenex) 1.25 mg INH TID [facility] Last Admin: 11/19/17 07:22 Dose: 1.25 mg Metoprolol Tartrate (Lopressor) 12.5 mg PO BID [facility] Ondansetron HCl (Zofran Inj) 4 mg IVP Q6HR PRN PRN Reason: Nausea / Vomiting Oxycodone HCl (Roxicodone) 5 mg PO Q4HR PRN PRN Reason: Pain 5 to 7 Last Admin: 11/17/17 03:23 Dose: 5 mg Oxycodone HCl (Roxicodone) 10 mg PO Q4HR PRN PRN Reason: Pain 8 to 10 Last Admin: 11/18/17 03:57 Dose: 10 mg Pantoprazole Sodium (Protonix) 40 mg PO QDAC [facility] Last Admin: 11/19/17 06:47 Dose: 40 mg Polyethylene Glycol (Miralax) 17 gm PO DAILY [facility] Last Admin: 11/19/17 08:58 Dose: Not Given Prochlorperazine Edisylate (Compazine Inj) 10 mg IVP Q6HR PRN PRN Reason: Nausea / Vomiting Promethazine HCl (Phenergan Inj) 25 mg IM Q6HR PRN PRN Reason: Nausea / Vomiting Sodium Chloride (Normal Saline Flush 0.9%) 10 ml IVP PRN PRN PRN Reason: NEEDED PER PROVIDER ORDERS Last Admin: 11/19/17 06:48 Dose: 10 ml Sodium Chloride (Normal Saline Flush 0.9%) 10 ml IVP 0100,0900,1700 [facility] Last Admin: 11/19/17 08:58 Dose: 10 ml Spironolactone (Aldactone) 12.5 mg PO DAILY [facility] Last Admin: 11/19/17 08:57 Dose: 12.5 mg Zolpidem Tartrate (Ambien) 5 mg PO QPM PRN PRN Reason: Insomnia Acetaminophen [Tylenol] 650 mg PO Q6H PRN 07/30/13 Multivit-Min/FA/Lycopen/Lutein [Centrum Silver Tablet] 1 tab PO DAILY 12/20/14 Potassium Citrate [Potassium Citrate ER] 10 meq PO DAILY 10/12/17 Calcium Carbonate [Calcium] 600 mg PO BID 11/17/17 Ipratropium/Albuterol Sulfate [Iprat-Albut 0.5-3(2.5) mg/3 ml] 1 neb INH QID 07/06 Losartan [Cozaar] 25 mg PO DAILY 11/17/17 Objective - Vital Signs/Intake & Output Reviewed Vital Signs: Yes Vital Signs: Vital Signs x48h Temp Pulse Pulse Pulse Resp BP Pulse Ox 11/19/17 10:27 36.6 C 11/19/17 08:00 35.7 C L 75 20 90/68 93 11/19/17 07:23 77 18 11/19/17 05:23 36.5 C 63 20 98/56 L 98 Intake & Output: Intake & Output 11/16/17 11/17/17 11/18/17 11/19/17 23:59 23:59 23:59 23:59 Intake Total 1744 1435 1580 Output Total 1425 1150 875 Balance 319 285 705 - Objective General Appearance: positive: No acute distress, Alert. negative: Lethargic Eyes Bilateral: positive: Normal inspection, PERRL, No lid inflammation, Conjunctivae nml ENT: positive: ENT inspection nml, Pharynx nml, No signs of dehydration. negative: Purulent nasal drainage, Pharyngeal erythema, Oral lesions Neck: positive: Nml inspection, Thyroid nml, No JVD, Trachea midline. negative : Thyromegaly, Lymphadenopathy (R), Lymphadenopathy (L), Stiff neck, Swelling/ bruising, Tracheal deviation Respiratory: positive: Chest non-tender, No respiratory distress, Breath sounds nml. negative: Wheezes, Rales, Rhonchi Cardiovascular: positive: Regular rate & rhythm, JVD present, Systolic murmur, Diastolic murmur. negative: Irregularly irregular, Extrasystoles, Tachycardia, Bradycardia Peripheral Pulses: 2+ Radial (R), 2+ Radial (L), 2+ Dorsalis pedis (R), 2+ Dorsalis pedis (L) Abdomen: positive: Non-tender, No organomegaly, Nml bowel sounds, No distention. negative: Tenderness, Guarding, Rebound Back: positive: Nml inspection. negative: CVA tenderness (R), CVA tenderness (L ) Skin: positive: Color nml, No rash, Warm, Dry. negative: Cyanosis, Diaphoresis , Pallor Extremities: positive: Non-tender, Full ROM, Nml appearance. negative: Calf tenderness, Joint swelling, Troy's sign/cords Neurologic/Psychiatric: positive: Oriented x3, Sensation nml. negative: Sensory loss, Facial droop, Slurred/abnml speech, Depressed mood/affect - Lab Results Fish Bones: 11/19/17 04:30 11/19/17 04:30 Other Labs: Lab Results x24hrs 11/19/17 11/19/17 11/19/17 Range/Units 04:30 04:30 04:30 WBC (4.8-10.8) x10^3/uL RBC (4.70-6.10) 10^6/uL Hgb (14.0-18.0) g/dL Hct (42.0-52.0) % MCV (80.0-94.0) fL MCH (27.0-31.0) pg MCHC (32.0-36.0) g/dL RDW (12.0-15.0) % Plt Count (130-450) 10^3/uL MPV (7.4-11.4) fL Neut # (Auto) (1.5-6.6) 10^3/uL Lymph # (Auto) (1.5-3.5) 10^3/uL [place] # (Auto) (0.0-1.0) 10^3/uL Eos # (Auto) (0.0-0.7) 10^3/uL Baso # (Auto) (0.0-0.1) 10^3/uL Absolute Nucleated RBC x10^3/uL Nucleated RBC % /100WBC Manual Slide Review Platelet Estimate (NORMAL) RBC Morph Micro Appear (NORMAL) PT 32.5 H (9.9-12.6) secs INR 3.0 H (0.8-1.2) Sodium 134 L (135-145) mmol/L Potassium 3.8 (3.5-5.0) mmol/L Chloride 101 (101-111) mmol/L Carbon Dioxide 26 (21-32) mmol/L Anion Gap 7.0 (6-13) BUN 39 H (6-20) mg/dL Creatinine 1.9 H (0.6-1.2) mg/dL Estimated GFR (MDRD) 35 L (>89) Glucose 84 (70-100) mg/dL Calcium 8.1 L (8.5-10.3) mg/dL Magnesium 1.9 (1.7-2.8) mg/dL Total Bilirubin 0.9 (0.2-1.0) mg/dL AST 38 (10-42) IU/L ALT 32 (10-60) IU/L Alkaline Phosphatase 153 H (42-121) IU/L B-Natriuretic Peptide 1614 H (5-100) pg/mL Total Protein 7.1 (6.7-8.2) g/dL Albumin 2.2 L (3.2-5.5) g/dL Globulin 4.9 H (2.1-4.2) g/dL Albumin/Globulin Ratio 0.4 L (1.0-2.2) 11/19/17 Range/Units 04:30 WBC 7.0 (4.8-10.8) x10^3/uL RBC 3.06 L (4.70-6.10) 10^6/uL Hgb 7.4 L (14.0-18.0) g/dL Hct 24.8 L (42.0-52.0) % MCV 81.3 (80.0-94.0) fL MCH 24.4 L (27.0-31.0) pg MCHC 30.0 L (32.0-36.0) g/dL RDW 21.0 H (12.0-15.0) % Plt Count 213 (130-450) 10^3/uL MPV 8.5 (7.4-11.4) fL Neut # (Auto) 5.3 (1.5-6.6) 10^3/uL Lymph # (Auto) 0.7 L (1.5-3.5) 10^3/uL [place] # (Auto) 0.9 (0.0-1.0) 10^3/uL Eos # (Auto) 0.1 (0.0-0.7) 10^3/uL Baso # (Auto) 0.0 (0.0-0.1) 10^3/uL Absolute Nucleated RBC 0.02 x10^3/uL Nucleated RBC % 0.3 /100WBC Manual Slide Review Indicated Platelet Estimate NORMAL (130-450,000) (NORMAL) RBC Morph Micro Appear 1+ OVALOCYTES (NORMAL) PT (9.9-12.6) secs INR (0.8-1.2) Sodium (135-145) mmol/L Potassium (3.5-5.0) mmol/L Chloride (101-111) mmol/L Carbon Dioxide (21-32) mmol/L Anion Gap (6-13) BUN (6-20) mg/dL Creatinine (0.6-1.2) mg/dL Estimated GFR (MDRD) (>89) Glucose (70-100) mg/dL Calcium (8.5-10.3) mg/dL Magnesium (1.7-2.8) mg/dL Total Bilirubin (0.2-1.0) mg/dL AST (10-42) IU/L ALT (10-60) IU/L Alkaline Phosphatase (42-121) IU/L B-Natriuretic Peptide (5-100) pg/mL Total Protein (6.7-8.2) g/dL Albumin (3.2-5.5) g/dL Globulin (2.1-4.2) g/dL Albumin/Globulin Ratio (1.0-2.2) ABX Reporting Has patient been on IV antibiotics over the past 48 hours?: No Assessment/Plan - Problem List (1) CHF exacerbation Impression: (1) Systolic CHF with reduced left ventricular function, NYHA class 3 Conclusion/Plan: 11/19 it is challenge to manage his medical condition. pt's congested condition from impaired systolic heart failure require diuretics, however, pt now present hypotension, and acute on chronic renal insufficiency of stage 3. we seek the balance point for pt continue diuretics in mild to moderate degree. Pt's EF 20-25% in the new study reduce beta-block dosage for hypotension but pt has Afib hold Losartan for hypotension EF is 20-25% continue Lasix Fluid restriction 2 L 2 g sodium restriction Telemetry monitoring Strict I's and O's Daily weights continue coreg, spironolactone and add low-dose lisinopri Patient presents to the emergency department with 3 days of worsening shortness of breath, and respiratory distress, with increasing lower extremity swelling as well as left arm swelling. Patient has had 2 previous hospitalizations in the last 2 months for CHF exacerbation. Patient was found to be in respiratory distress on presentation, with bilateral lower extremity edema, crackles on examination, BNP of 1340 and chest x-ray showing pulmonary edema. Patient appears to be in CHF exacerbation and likely has both left and right sided failure. The patient's most recent echocardiogram from 09/20/2017 shows ejection fraction of 25-30% with moderately abnormal right heart pressures with a right ventricular systolic pressure of 58 mmHg. Patient was admitted to the medical [facility] for CHF exacerbation. Plan: IV Lasix 40 mg twice daily if patient does not have adequate output we may need to increase dose given his renal function Fluid restriction 2 L 2 g sodium restriction Telemetry monitoring Strict I's and O's Daily weights Continue optimal treatment for systolic heart failure with Coreg, spironolactone and add low-dose lisinopril. Serial troponins x3 No need for repeat echo as there was one just 2 months ago. CHF teaching and more detailed instructions on discharge as patient has now had a second readmission within the last 2 months for the same problem. (2) Acute renal failure superimposed on stage 3 chronic kidney disease Conclusion/Plan: remain stable slight improved Avoid nephrotoxic agents Monitor creatinine Patient has acute on chronic renal failure. Patient's creatinine is elevated to 2.0 on presentation with a baseline of 1.6. The patient appears to be volume overloaded and likely has cardiorenal syndrome. Plan: Give IV Lasix Avoid nephrotoxic agents Monitor creatinine (3) Hyponatremia Conclusion/Plan: 11/19 slight improve, today Na 134, close normal continue Lasix slight improved, continue Lasix daily lab Patient sodium is 127 on presentation. Patient's sodium has been normal in the past during hospitalizations. The patient does not appear dry on examination rather he appears hypervolemic. Patient appears to have hypovolemic hyponatremia. Patient will be given IV Lasix and we believe that his sodium will improve with diuresis. (4) Anemia Conclusion/Plan: 11/19 HGB slight increase, stable, and asymptomatic continue lab monitor will transfusion of blood as needed. pt denies GI bleeding, it may be due to CKD, and chronic disease. continue iron pills will transfusion as needed. The patient is anemic on presentation with a hemoglobin of 8.2 it appears the patient's baseline hemoglobin runs at around 9.5. During previous hospitalization patient was found to have iron deficiency anemia. He is not currently on iron. We will give the patient iron supplementation. Given this iron deficiency anemia the patient does need a EGD and colonoscopy to work him up for possible malignancy or other causes of iron deficiency. Given the patient's cardiac history he may not be an optimal candidate for EGD and colonoscopy. Plan: Iron supplementation Monitor hemoglobin (5) Hyperglycemia Conclusion/Plan: resolved. A1C is 6. Patient has no history of diabetes but on presentation is hyperglycemic with a blood glucose of 145. This may just be a stress response from the patient. It appears in the past he has had elevated glucoses but also had normal glucoses. He does not appear to have had a hemoglobin A1c checked. We will check a hemoglobin A1c in the morning and continue to monitor the patient's glucose. If hemoglobin A1c is elevated we will consider placing the patient on a diabetic diet or starting sliding scale insulin while he is hospitalized. (6) Atrial fibrillation Conclusion/Plan: stable HR, continue Eliquis continue Eliquis Patient has chronic atrial fibrillation and is on Eliquis at home. Patient's chads 2 score is 4 and he is being at appropriately treated with anticoagulation. Patient's INR is elevated on presentation and this could be due to the Eliquis. The patient does not appear to be actively bleeding. Patient is on Coreg for rate control. Patient's heart rate is in the low 100s to high 90s. Plan: Telemetry monitoring Continue Eliquis Titrate dose of Coreg as patient does have room when his heart rate but may not have room with the blood pressure. (7) hx of Hypertension Conclusion/Plan: pt present hypotension now. review below The patient has history of hypertension and has been on Coreg and Aldactone for hypertension and CHF. On presentation the patient's blood pressure is low normal. We will need to be careful with giving him his antihypertensive medication however given his CHF it is important that we try to continue it. We are also adding a low-dose of lisinopril and will continue to monitor the blood pressure closely. Given the patient's low ejection fraction and right- sided heart failure he may live at a low blood pressure. We will try to carry medications as appropriate. (8) Hyperlipidemia Conclusion/Plan: Patient has a history of hyperlipidemia and is on Lipitor given his history of strokes. We will continue the patient on his home dose of Lipitor while he is hospitalized . (9) History of CVA (cerebrovascular accident) Conclusion/Plan: continue to support, continue on Eliquis, Aspirin, Lipitor. Patient has history of CVA with lower extremity and left sided weakness as well as dysarthria. The patient is on Eliquis to prevent future strokes given his atrial fibrillation. The patient is also on aspirin and Lipitor. Patient is wheelchair and bedbound. We will continue patient's home medications (10) hypotension hold Losatan, reduce Lasix to 40 mg bid IV reduce metoprolol dosage, since HR is well controlled. continue vital closely monitor pt
--- NOTE | 2017-11-19 13:51 | XRAY Report ---
Procedure Date: 11/19/2017 Accession Number: [id number] / [id number] Procedure: XR - Chest 1 View X-Ray CPT Code: 76699 FULL RESULT: EXAM: CHEST RADIOGRAPHY EXAM DATE: 11/19/2017 10:09 AM. CLINICAL HISTORY: Shortness of breath. COMPARISON: 11/16/2017. TECHNIQUE: 1 view. FINDINGS: Lungs/Pleura: Diffuse bilateral lung disease appears similar to slightly increased from prior exam. Small bilateral pleural effusions also appear similar. Mediastinum: Heart and mediastinum unchanged. Cardiac pacer/defibrillator lead in stable position. Other: None. IMPRESSION: 1. Diffuse bilateral lung disease appears similar to slightly increased from prior exam. Findings are nonspecific but may represent edema. 2. Heart and mediastinum unchanged. [facility]
[2017-11-19] MEDS: oxyCODONE 5 MG TABLET PO PRN (19:42)
[2017-11-19] MEDS: ATORVASTATIN 40 MG TABLET PO SCH (20:44)
[2017-11-20] MEDS: oxyCODONE 5 MG TABLET PO PRN (00:03)
[2017-11-20 05:05] LABS: INR 2.7 (0.8-1.2); PT - PROTHROMBIN TIME 29.1 secs (9.9-12.6)
[2017-11-20 05:13] LABS: ALBUMIN 2.2 g/dL (3.2-5.5); ALBUMIN/GLOBULIN RATIO 0.4 (1.0-2.2); BILIRUBIN,TOTAL 0.8 mg/dL (0.2-1.0); CALCIUM 8.2 mg/dL (8.5-10.3); CREATININE 1.9 mg/dL (0.6-1.2); MAGNESIUM 1.9 mg/dL (1.7-2.8); TOTAL PROTEIN 7.2 g/dL (6.7-8.2)
[2017-11-20 05:18] LABS: BASOPHILS # (AUTO) 0.1 10^3/uL (0.0-0.1); BASOPHILS % (AUTO) 0.8 %; EOSINOPHILS # (AUTO) 0.1 10^3/uL (0.0-0.7); EOSINOPHILS % (AUTO) 1.3 %; HGB - HEMOGLOBIN 7.3 g/dL (14.0-18.0); LYMPHOCYTES # (AUTO) 0.8 10^3/uL (1.5-3.5); LYMPHOCYTES % (AUTO) 11.6 %; MEAN CORPUSCULAR HEMOGLOBIN 24.6 pg (27.0-31.0); MEAN CORPUSCULAR HGB CONC 30.3 g/dL (32.0-36.0); MEAN CORPUSCULAR VOLUME 81.3 fL (80.0-94.0); MEAN PLATELET VOLUME 8.3 fL (7.4-11.4); MONOCYTES # (AUTO) 0.9 10^3/uL (0.0-1.0); MONOCYTES % (AUTO) 12.4 %; NEUTROPHILS # (AUTO) 5.2 10^3/uL (1.5-6.6); NEUTROPHILS % (AUTO) 73.9 %; PLT - PLATELET COUNT 215 10^3/uL (130-450); RED BLOOD COUNT 2.95 10^6/uL (4.70-6.10); RED CELL DISTRIBUTION WIDTH 21.4 % (12.0-15.0); WHITE BLOOD COUNT 7.1 x10^3/uL (4.8-10.8)
[2017-11-20] MEDS: FUROSEMIDE 40 MG/4 ML VIAL IVP SCH ×2 (05:23→14:42)
[2017-11-20] MEDS: SODIUM CHLORIDE FLUSH 0.9% 10 ML SYRINGE IVP PRN ×2 (05:24)
[2017-11-20 05:59] LABS: PLATELET ESTIMATE, MANUAL NORMAL (130-450,000) (NORMAL)
[2017-11-20] MEDS: PANTOPRAZOLE 40 MG TABLET PO SCH (06:02)
[2017-11-20] MEDS: LEVALBUTEROL 1.25 MG/3 ML NEB INH SCH ×3 (07:40→21:06)
[2017-11-20] MEDS ORDERED: POTASSIUM CHLORIDE 20 MEQ TABLET PO ONE (08:15)
[2017-11-20] MEDS: POLYETHYLENE GLYCOL 3350 17 GM PACKET PO SCH (09:26)
[2017-11-20] MEDS: APIXABAN 2.5 MG TABLET PO SCH ×2 (09:27→20:32)
[2017-11-20] MEDS: METOPROLOL TARTRATE 25 MG TABLET PO SCH ×2 (09:28→20:31)
[2017-11-20] MEDS: SPIRONOLACTONE 25 MG TABLET PO SCH (09:28)
[2017-11-20] MEDS: ASPIRIN CHEW 81 MG TABLET PO SCH (09:29)
[2017-11-20] MEDS: guaiFENesin 600 MG TABLET PO SCH ×2 (09:30→20:32)
[2017-11-20] MEDS: FERROUS SULFATE 325 MG TABLET PO SCH ×2 (09:30→16:07)
--- NOTE | 2017-11-20 13:09 | PROVIDER PROGRESS NOTE ---
Subjective - Prog Note Date Prog Note Date: 11/20/17 - Subjective Pt reports feeling: Improved Subjective: pt report he feels better today. pt denies fever, chill, chest pain. pt report some pain at his groin area and swelling. Current Medications - Current Medications Current Medications: Active Medications Acetaminophen (Tylenol) 650 mg PO Q4HR PRN PRN Reason: Pain 1 to 4 Apixaban (Eliquis) 2.5 mg PO BID [facility] Last Admin: 11/20/17 09:27 Dose: 2.5 mg Aspirin ([place] Aspirin) 81 mg PO DAILY [facility] Last Admin: 11/20/17 09:29 Dose: 81 mg Atorvastatin Calcium (Lipitor) 40 mg PO QPM [facility] Last Admin: 11/19/17 20:44 Dose: 40 mg Diazepam (Valium) 2.5 mg PO Q6H PRN PRN Reason: Anxiety Ferrous Sulfate (Feosol) 325 mg PO BIDWM [facility] Last Admin: 11/20/17 09:30 Dose: 325 mg Furosemide (Lasix Inj 40 Mg Vial) 60 mg IVP BIDDIURETIC [facility] Guaifenesin (Mucinex) 600 mg PO BID [facility] Last Admin: 11/20/17 09:30 Dose: 600 mg Levalbuterol HCl (Xopenex) 1.25 mg INH Q4H PRN PRN Reason: Shortness of Air/Wheezing Levalbuterol HCl (Xopenex) 1.25 mg INH TID [facility] Last Admin: 11/20/17 13:03 Dose: 1.25 mg Metoprolol Tartrate (Lopressor) 12.5 mg PO BID [facility] Last Admin: 11/20/17 09:28 Dose: 12.5 mg Ondansetron HCl (Zofran Inj) 4 mg IVP Q6HR PRN PRN Reason: Nausea / Vomiting Oxycodone HCl (Roxicodone) 5 mg PO Q4HR PRN PRN Reason: Pain 5 to 7 Last Admin: 11/20/17 00:03 Dose: 5 mg Oxycodone HCl (Roxicodone) 10 mg PO Q4HR PRN PRN Reason: Pain 8 to 10 Last Admin: 11/18/17 03:57 Dose: 10 mg Pantoprazole Sodium (Protonix) 40 mg PO QDAC [facility] Last Admin: 11/20/17 06:02 Dose: 40 mg Polyethylene Glycol (Miralax) 17 gm PO DAILY [facility] Last Admin: 11/20/17 09:26 Dose: 17 gm Prochlorperazine Edisylate (Compazine Inj) 10 mg IVP Q6HR PRN PRN Reason: Nausea / Vomiting Promethazine HCl (Phenergan Inj) 25 mg IM Q6HR PRN PRN Reason: Nausea / Vomiting Sodium Chloride (Normal Saline Flush 0.9%) 10 ml IVP PRN PRN PRN Reason: NEEDED PER PROVIDER ORDERS Last Admin: 11/20/17 05:24 Dose: 10 ml Sodium Chloride (Normal Saline Flush 0.9%) 10 ml IVP 0100,0900,1700 [facility] Last Admin: 11/20/17 00:00 Dose: 10 ml Spironolactone (Aldactone) 25 mg PO DAILY [facility] Last Admin: 11/20/17 09:28 Dose: 25 mg Zolpidem Tartrate (Ambien) 5 mg PO QPM PRN PRN Reason: Insomnia Acetaminophen [Tylenol] 650 mg PO Q6H PRN 07/30/13 Multivit-Min/FA/Lycopen/Lutein [Centrum Silver Tablet] 1 tab PO DAILY 12/20/14 Potassium Citrate [Potassium Citrate ER] 10 meq PO DAILY 10/12/17 Calcium Carbonate [Calcium] 600 mg PO BID 11/17/17 Ipratropium/Albuterol Sulfate [Iprat-Albut 0.5-3(2.5) mg/3 ml] 1 neb INH QID 07/06 Losartan [Cozaar] 25 mg PO DAILY 11/17/17 Objective - Vital Signs/Intake & Output Reviewed Vital Signs: Yes Vital Signs: Vital Signs x48h Temp Pulse Pulse Resp BP BP Pulse Ox 11/20/17 09:28 104/56 L 11/20/17 08:16 36.3 C L 91 19 104/56 L 93 11/20/17 07:40 84 16 Intake & Output: Intake & Output 11/17/17 11/18/17 11/19/17 11/20/17 23:59 23:59 23:59 23:59 Intake Total 1744 1435 2130 780 Output Total 1425 1150 1225 890 Balance 319 285 905 -110 - Objective General Appearance: positive: No acute distress, Alert. negative: Lethargic Eyes Bilateral: positive: Normal inspection, PERRL, No lid inflammation, Conjunctivae nml ENT: positive: ENT inspection nml, Pharynx nml, No signs of dehydration. negative: Purulent nasal drainage, Pharyngeal erythema, Oral lesions Neck: positive: Nml inspection, Thyroid nml, No JVD, Trachea midline. negative : Thyromegaly, Lymphadenopathy (R), Lymphadenopathy (L), Stiff neck, Swelling/ bruising, Tracheal deviation Respiratory: positive: Chest non-tender, No respiratory distress, Other ( reduced lung sound bilaterally). negative: Wheezes, Rales, Rhonchi Cardiovascular: positive: Irregularly irregular, Systolic murmur, Diastolic murmur. negative: Extrasystoles, Tachycardia, Bradycardia Peripheral Pulses: 2+ Radial (R), 2+ Radial (L), 2+ Dorsalis pedis (R), 2+ Dorsalis pedis (L) Abdomen: positive: Non-tender, No organomegaly, Nml bowel sounds, No distention. negative: Tenderness, Guarding, Rebound Back: positive: Nml inspection. negative: CVA tenderness (R), CVA tenderness (L ) Skin: positive: Color nml, No rash, Warm, Dry, Other (anasarca at his left upper extremity and groin area). negative: Cyanosis, Diaphoresis, Pallor Extremities: positive: Non-tender. negative: Calf tenderness, Joint swelling, Troy's sign/cords Neurologic/Psychiatric: positive: Oriented x3, Sensation nml. negative: Sensory loss, Facial droop, Depressed mood/affect - Lab Results Fish Bones: 11/20/17 04:25 11/20/17 04:25 Other Labs: Lab Results x24hrs 11/20/17 11/20/17 11/20/17 Range/Units 04:25 04:25 04:25 WBC (4.8-10.8) x10^3/uL RBC (4.70-6.10) 10^6/uL Hgb (14.0-18.0) g/dL Hct (42.0-52.0) % MCV (80.0-94.0) fL MCH (27.0-31.0) pg MCHC (32.0-36.0) g/dL RDW (12.0-15.0) % Plt Count (130-450) 10^3/uL MPV (7.4-11.4) fL Neut # (Auto) (1.5-6.6) 10^3/uL Lymph # (Auto) (1.5-3.5) 10^3/uL Collier # (Auto) (0.0-1.0) 10^3/uL Eos # (Auto) (0.0-0.7) 10^3/uL Baso # (Auto) (0.0-0.1) 10^3/uL Absolute Nucleated RBC x10^3/uL Nucleated RBC % /100WBC Manual Slide Review Platelet Estimate (NORMAL) RBC Morph Micro Appear (NORMAL) PT 29.1 H (9.9-12.6) secs INR 2.7 H (0.8-1.2) Sodium 134 L (135-145) mmol/L Potassium 3.3 L (3.5-5.0) mmol/L Chloride 101 (101-111) mmol/L Carbon Dioxide 26 (21-32) mmol/L Anion Gap 7.0 (6-13) BUN 37 H (6-20) mg/dL Creatinine 1.9 H (0.6-1.2) mg/dL Estimated GFR (MDRD) 35 L (>89) Glucose 89 (70-100) mg/dL Calcium 8.2 L (8.5-10.3) mg/dL Magnesium 1.9 (1.7-2.8) mg/dL Total Bilirubin 0.8 (0.2-1.0) mg/dL AST 35 (10-42) IU/L ALT 30 (10-60) IU/L Alkaline Phosphatase 156 H (42-121) IU/L B-Natriuretic Peptide 1691 H (5-100) pg/mL Total Protein 7.2 (6.7-8.2) g/dL Albumin 2.2 L (3.2-5.5) g/dL Globulin 5.0 H (2.1-4.2) g/dL Albumin/Globulin Ratio 0.4 L (1.0-2.2) // Range/Units 04:25 WBC 7.1 (4.8-10.8) x10^3/uL RBC 2.95 L (4.70-6.10) 10^6/uL Hgb 7.3 L (14.0-18.0) g/dL Hct 24.0 L (42.0-52.0) % MCV 81.3 (80.0-94.0) fL MCH 24.6 L (27.0-31.0) pg MCHC 30.3 L (32.0-36.0) g/dL RDW 21.4 H (12.0-15.0) % Plt Count 215 (130-450) 10^3/uL MPV 8.3 (7.4-11.4) fL Neut # (Auto) 5.2 (1.5-6.6) 10^3/uL Lymph # (Auto) 0.8 L (1.5-3.5) 10^3/uL Collier # (Auto) 0.9 (0.0-1.0) 10^3/uL Eos # (Auto) 0.1 (0.0-0.7) 10^3/uL Baso # (Auto) 0.1 (0.0-0.1) 10^3/uL Absolute Nucleated RBC 0.03 x10^3/uL Nucleated RBC % 0.4 /100WBC Manual Slide Review Indicated Platelet Estimate NORMAL (130-450,000) (NORMAL) RBC Morph Micro Appear 1+ POLYCHROMASIA (NORMAL) PT (9.9-12.6) secs INR (0.8-1.2) Sodium (135-145) mmol/L Potassium (3.5-5.0) mmol/L Chloride (101-111) mmol/L Carbon Dioxide (21-32) mmol/L Anion Gap (6-13) BUN (6-20) mg/dL Creatinine (0.6-1.2) mg/dL Estimated GFR (MDRD) (>89) Glucose (70-100) mg/dL Calcium (8.5-10.3) mg/dL Magnesium (1.7-2.8) mg/dL Total Bilirubin (0.2-1.0) mg/dL AST (10-42) IU/L ALT (10-60) IU/L Alkaline Phosphatase (42-121) IU/L B-Natriuretic Peptide (5-100) pg/mL Total Protein (6.7-8.2) g/dL Albumin (3.2-5.5) g/dL Globulin (2.1-4.2) g/dL Albumin/Globulin Ratio (1.0-2.2) ABX Reporting Has patient been on IV antibiotics over the past 48 hours?: No Assessment/Plan - Problem List (1) CHF exacerbation Impression: Conclusion/Plan: 11/20, pt's BP improved at 104/56. But pt's BNP keeps the similar. CXR reveals slight increase pulmonary edema. increase Lasix 40mg bid IV to 60mg Bid IV, precaution for dehydration, pt's CKD is stage 3 increase Spironolactone from 12.5mg to 25mg daily lab, BNP, vital monitor pt 11/19 it is challenge to manage his medical condition. pt's congested condition from impaired systolic heart failure require diuretics, however, pt now present hypotension, and acute on chronic renal insufficiency of stage 3. we seek the balance point for pt continue diuretics in mild to moderate degree. Pt's EF 20-25% in the new study reduce beta-block dosage for hypotension but pt has Afib hold Losartan for hypotension EF is 20-25% continue Lasix Fluid restriction 2 L 2 g sodium restriction Telemetry monitoring Strict I's and O's Daily weights continue coreg, spironolactone and add low-dose lisinopri Patient presents to the emergency department with 3 days of worsening shortness of breath, and respiratory distress, with increasing lower extremity swelling as well as left arm swelling. Patient has had 2 previous hospitalizations in the last 2 months for CHF exacerbation. Patient was found to be in respiratory distress on presentation, with bilateral lower extremity edema, crackles on examination, BNP of 1340 and chest x-ray showing pulmonary edema. Patient appears to be in CHF exacerbation and likely has both left and right sided failure. The patient's most recent echocardiogram from 09/20/2017 shows ejection fraction of 25-30% with moderately abnormal right heart pressures with a right ventricular systolic pressure of 58 mmHg. Patient was admitted to the medical [facility] for CHF exacerbation. Plan: IV Lasix 40 mg twice daily if patient does not have adequate output we may need to increase dose given his renal function Fluid restriction 2 L 2 g sodium restriction Telemetry monitoring Strict I's and O's Daily weights Continue optimal treatment for systolic heart failure with Coreg, spironolactone and add low-dose lisinopril. Serial troponins x3 No need for repeat echo as there was one just 2 months ago. CHF teaching and more detailed instructions on discharge as patient has now had a second readmission within the last 2 months for the same problem. (2) Acute renal failure superimposed on stage 3 chronic kidney disease Conclusion/Plan: remain stable, remain stable slight improved Avoid nephrotoxic agents Monitor creatinine Patient has acute on chronic renal failure. Patient's creatinine is elevated to 2.0 on presentation with a baseline of 1.6. The patient appears to be volume overloaded and likely has cardiorenal syndrome. Plan: Give IV Lasix Avoid nephrotoxic agents Monitor creatinine (3) Hyponatremia Conclusion/Plan: 11/20 stable, Na is 134 7/ slight improve, today Na 134, close normal continue Lasix slight improved, continue Lasix daily lab Patient sodium is 127 on presentation. Patient's sodium has been normal in the past during hospitalizations. The patient does not appear dry on examination rather he appears hypervolemic. Patient appears to have hypovolemic hyponatremia. Patient will be given IV Lasix and we believe that his sodium will improve with diuresis. (4) Anemia Conclusion/Plan: 11/20 stable, HGB 7.3 and asymptomatic / HGB slight increase, stable, and asymptomatic continue lab monitor will transfusion of blood as needed. pt denies GI bleeding, it may be due to CKD, and chronic disease. continue iron pills will transfusion as needed. The patient is anemic on presentation with a hemoglobin of 8.2 it appears the patient's baseline hemoglobin runs at around 9.5. During previous hospitalization patient was found to have iron deficiency anemia. He is not currently on iron. We will give the patient iron supplementation. Given this iron deficiency anemia the patient does need a EGD and colonoscopy to work him up for possible malignancy or other causes of iron deficiency. Given the patient's cardiac history he may not be an optimal candidate for EGD and colonoscopy. Plan: Iron supplementation Monitor hemoglobin (5) Hyperglycemia Conclusion/Plan: resolved. A1C is 6. Patient has no history of diabetes but on presentation is hyperglycemic with a blood glucose of 145. This may just be a stress response from the patient. It appears in the past he has had elevated glucoses but also had normal glucoses. He does not appear to have had a hemoglobin A1c checked. We will check a hemoglobin A1c in the morning and continue to monitor the patient's glucose. If hemoglobin A1c is elevated we will consider placing the patient on a diabetic diet or starting sliding scale insulin while he is hospitalized. (6) Atrial fibrillation Conclusion/Plan: stable HR, continue Eliquis continue Eliquis Patient has chronic atrial fibrillation and is on Eliquis at home. Patient's chads 2 score is 4 and he is being at appropriately treated with anticoagulation. Patient's INR is elevated on presentation and this could be due to the Eliquis. The patient does not appear to be actively bleeding. Patient is on Coreg for rate control. Patient's heart rate is in the low 100s to high 90s. Plan: Telemetry monitoring Continue Eliquis Titrate dose of Coreg as patient does have room when his heart rate but may not have room with the blood pressure. (7) hx of Hypertension Conclusion/Plan: pt present hypotension now. review below The patient has history of hypertension and has been on Coreg and Aldactone for hypertension and CHF. On presentation the patient's blood pressure is low normal. We will need to be careful with giving him his antihypertensive medication however given his CHF it is important that we try to continue it. We are also adding a low-dose of lisinopril and will continue to monitor the blood pressure closely. Given the patient's low ejection fraction and right- sided heart failure he may live at a low blood pressure. We will try to carry medications as appropriate. (8) Hyperlipidemia Conclusion/Plan: Patient has a history of hyperlipidemia and is on Lipitor given his history of strokes. We will continue the patient on his home dose of Lipitor while he is hospitalized . (9) History of CVA (cerebrovascular accident) Conclusion/Plan: continue to support, continue on Eliquis, Aspirin, Lipitor. Patient has history of CVA with lower extremity and left sided weakness as well as dysarthria. The patient is on Eliquis to prevent future strokes given his atrial fibrillation. The patient is also on aspirin and Lipitor. Patient is wheelchair and bedbound. We will continue patient's home medications (10) hypotension improved. HR 91, BP 104/56. continue hold Losartan. continue Metoprolol 12.5 mg bid vital monitor Q4H hold Losatan, reduce Lasix to 40 mg bid IV reduce metoprolol dosage, since HR is well controlled. continue vital closely monitor pt (11) anasarca pt present left upper extremity edema, it seems chronic. There is no pain, tenderness, erythema. pt also report today her groin area swelling as well. it also seems chronic condition, specially pt has over-fluid and congested. increase Lasix iV dosage lab and vital, tele monitor (12) pain and swelling at groin area pt report today some pain at groin area. There are swelling, tenderness, mild discolored to darkness due to swelling, without erythema. it seems one area of anasarca. order US, will follow up continue IVF Lasix lab and vital, tele monitor
[2017-11-20] MEDS: SODIUM CHLORIDE FLUSH 0.9% 10 ML SYRINGE IVP SCH ×3 (14:46→16:10)
--- NOTE | 2017-11-20 15:17 | Ultrasound Report ---
Procedure Date: 11/20/2017 Accession Number: [id number] / [id number] Procedure: US - Testicle CPT Code: FULL RESULT: EXAM: Testicle DATE: 11/20/2017 2:59 PM CLINICAL HISTORY: pain and swelling COMPARISON: 10/12/2017 TECHNIQUE: Real-time scanning was performed with static images obtained, including color-flow. FINDINGS: Right: Testis: 3.7 x 2.5 x 2.2 cm. Normal size and echotexture. No mass, calcification, or abnormal blood flow. Epididymis: 0.9 x 0.6 x 0.5 cm. Normal size and echotexture. No mass or abnormal blood flow. Hydrocele: None. Varicocele: None. Left: Testis: 3.5 x 2.6 x 2.2 cm. Normal size and echotexture. No mass, calcification, or abnormal blood flow. Epididymis: 0.7 x 0.6 x 0.5 cm. Normal size and echotexture. Incidental epididymal cyst. No mass or abnormal blood flow. Hydrocele: None. Varicocele: None. There is diffuse skin thickening throughout the scrotum, and edema. IMPRESSION: Diffuse skin thickening and edema throughout the scrotum. Normal testicles. [facility]
[2017-11-20] MEDS: ATORVASTATIN 40 MG TABLET PO SCH (20:31)
[2017-11-21] MEDS: SODIUM CHLORIDE FLUSH 0.9% 10 ML SYRINGE IVP SCH ×4 (00:05→19:30)
[2017-11-21] MEDS ORDERED: MIN OIL/DIMETHICON/COCONUT OIL 92 GM TUBE TOP PRN (03:00)
[2017-11-21] MEDS: oxyCODONE 5 MG TABLET PO PRN (04:27)
[2017-11-21 04:42] LABS: BASOPHILS % (AUTO) 0.6 %; EOSINOPHILS % (AUTO) 0.5 %; HGB - HEMOGLOBIN 7.5 g/dL (14.0-18.0); LYMPHOCYTES # (AUTO) 0.7 10^3/uL (1.5-3.5); LYMPHOCYTES % (AUTO) 8.8 %; MEAN CORPUSCULAR HEMOGLOBIN 24.8 pg (27.0-31.0); MEAN CORPUSCULAR HGB CONC 30.5 g/dL (32.0-36.0); MEAN CORPUSCULAR VOLUME 81.5 fL (80.0-94.0); MEAN PLATELET VOLUME 8.2 fL (7.4-11.4); MONOCYTES # (AUTO) 0.8 10^3/uL (0.0-1.0); MONOCYTES % (AUTO) 10.3 %; NEUTROPHILS % (AUTO) 79.8 %; PLT - PLATELET COUNT 213 10^3/uL (130-450); RED CELL DISTRIBUTION WIDTH 20.8 % (12.0-15.0); WHITE BLOOD COUNT 7.5 x10^3/uL (4.8-10.8)
[2017-11-21 04:49] LABS: ALBUMIN 2.2 g/dL (3.2-5.5); ALBUMIN/GLOBULIN RATIO 0.5 (1.0-2.2); CALCIUM 8.3 mg/dL (8.5-10.3); CREATININE 1.7 mg/dL (0.6-1.2)
[2017-11-21 05:21] LABS: PLATELET ESTIMATE, MANUAL NORMAL (130-450,000) (NORMAL)
[2017-11-21] MEDS: PANTOPRAZOLE 40 MG TABLET PO SCH (06:10)
[2017-11-21] MEDS: FUROSEMIDE 40 MG/4 ML VIAL IVP SCH (06:10)
[2017-11-21] MEDS: LEVALBUTEROL 1.25 MG/3 ML NEB INH SCH ×3 (07:16→19:13)
[2017-11-21] MEDS ORDERED: METOPROLOL SUCCINATE 25 MG TABLET PO SCH (09:00)
[2017-11-21] MEDS ORDERED: CARVEDILOL 3.125 MG TABLET PO SCH (09:00)
[2017-11-21] MEDS ORDERED: FUROSEMIDE 40 MG/4 ML VIAL IVP ONE (10:00)
[2017-11-21] MEDS: guaiFENesin 600 MG TABLET PO SCH ×2 (10:47→20:25)
[2017-11-21] MEDS: APIXABAN 2.5 MG TABLET PO SCH ×2 (10:47→20:25)
[2017-11-21] MEDS: ASPIRIN CHEW 81 MG TABLET PO SCH (10:47)
[2017-11-21] MEDS: FERROUS SULFATE 325 MG TABLET PO SCH ×2 (10:47→16:31)
[2017-11-21] MEDS: POLYETHYLENE GLYCOL 3350 17 GM PACKET PO SCH (10:47)
[2017-11-21] MEDS: SPIRONOLACTONE 25 MG TABLET PO SCH (10:47)
--- NOTE | 2017-11-21 16:49 | PROVIDER PROGRESS NOTE ---
Subjective - Prog Note Date Prog Note Date: 11/21/17 Prog Note Time: 16:53 (late entry, seen x 2 8a, 4p) - Subjective Pt reports feeling: No change Subjective: at 12pm and again ~ 4pm, states he felt better, when asked to specifiy, said "more comfortable" with breathing: complains his scrotum ("my nuts") are sore able to take PO Current Medications - Current Medications Current Medications: Active Medications Generic Name Dose Route Start Last Admin Trade Name Freq PRN Reason Stop Dose Admin Acetaminophen 650 mg 11/16/17 23:43 Tylenol PO Q4HR PRN Pain 1 to 4 Apixaban 2.5 mg 11/18/17 08:00 11/21/17 10:47 Eliquis PO 2.5 mg BID LUCY Administration Aspirin 81 mg 11/18/17 09:00 11/21/17 10:47 [facility] Aspirin PO 81 mg DAILY LUCY Administration Atorvastatin Calcium 40 mg 11/17/17 21:00 11/20/17 20:31 Lipitor PO 40 mg QPM LUCY Administration Ferrous Sulfate 325 mg 11/17/17 09:00 11/21/17 16:31 Feosol PO 325 mg BIDWM LUCY Administration Guaifenesin 600 mg 11/17/17 09:00 11/21/17 10:47 Mucinex PO 600 mg BID LUCY Administration Levalbuterol HCl 1.25 mg 11/17/17 11:22 Xopenex INH Q4H PRN Shortness of Air/Wheezing Levalbuterol HCl 1.25 mg 11/17/17 14:00 11/21/17 19:13 Xopenex INH 1.25 mg TID LUCY Administration Metoprolol Succinate 25 mg 11/21/17 09:00 11/21/17 10:48 Toprol Xl PO 25 mg DAILY LUCY Administration Mineral Oil 1 applic 11/21/17 03:00 11/21/17 04:53 Cavilon TOP 1 applic PRN PRN Administration Skin Care Ondansetron HCl 4 mg 11/16/17 23:43 Zofran Inj IVP Q6HR PRN Nausea / Vomiting Oxycodone HCl 5 mg 11/16/17 23:43 11/21/17 04:27 Roxicodone PO 5 mg Q4HR PRN Administration Pain 5 to 7 Oxycodone HCl 10 mg 11/16/17 23:43 11/18/17 03:57 Roxicodone PO 10 mg Q4HR PRN Administration Pain 8 to 10 Pantoprazole Sodium 40 mg 11/17/17 07:00 11/21/17 06:10 Protonix PO 40 mg QDAC LUCY Administration Polyethylene Glycol 17 gm 11/17/17 09:00 11/21/17 10:47 Miralax PO 17 gm DAILY LUCY Administration Prochlorperazine Edisylate 10 mg 11/16/17 23:43 Compazine Inj IVP Q6HR PRN Nausea / Vomiting Promethazine HCl 25 mg 11/16/17 23:43 Phenergan Inj IM Q6HR PRN Nausea / Vomiting Sodium Chloride 10 ml 11/16/17 23:43 11/20/17 05:24 Normal Saline Flush 0.9% IVP 10 ml PRN PRN Administration NEEDED PER PROVIDER ORDERS Sodium Chloride 10 ml 11/17/17 01:00 11/21/17 19:30 Normal Saline Flush 0.9% IVP 10 ml 0100,0900,1700 LUCY Administration Spironolactone 12.5 mg 11/22/17 09:00 Aldactone PO DAILY [facility] Acetaminophen [Tylenol] 650 mg PO Q6H PRN 07/30/13 Multivit-Min/FA/Lycopen/Lutein [Centrum Silver Tablet] 1 tab PO DAILY 12/20/14 Potassium Citrate [Potassium Citrate ER] 10 meq PO DAILY 10/12/17 Calcium Carbonate [Calcium] 600 mg PO BID 11/17/17 Ipratropium/Albuterol Sulfate [Iprat-Albut 0.5-3(2.5) mg/3 ml] 1 neb INH QID 07/06 Losartan [Cozaar] 25 mg PO DAILY 11/17/17 Objective - Vital Signs/Intake & Output Reviewed Vital Signs: Yes Vital Signs: Vital Signs x48h Temp Pulse Pulse Resp BP Pulse Ox 11/21/17 15:27 36.8 C 88 20 98/46 L 94 11/21/17 13:24 84 16 11/21/17 13:20 36.5 C 90 20 106/58 L 92 11/21/17 08:21 104 H 20 115/96 H 93 Intake & Output: Intake & Output 11/18/17 11/19/17 11/20/17 07/06/18 23:59 23:59 23:59 23:59 Intake Total 1435 2130 1500 625 Output Total 1150 1225 1590 1425 Balance 285 465 90 800 - Objective General Appearance: positive: No acute distress, Other (chronically ill appearing , awake , alert, no acute distess, sitting up in bed, somewhat kyphotic positioning.) Eyes Bilateral: positive: EOMI (eyes track evenly, sl R facial droop, sl dysarthria) Neck: positive: Other (+ HJR, 8 cm JVD) Respiratory: positive: No respiratory distress, Rales (poor inspiratory effort, clear upper lobes, reduced bases, crackles ~ 1/3 up bilat), Other (no objective dyspnea at rest/no tachypnea) Cardiovascular: positive: Irregularly irregular (rate ~ 90 this am, 80 later in day, skin warm dry, no murmur appreciated JVD ~ 8cm) Abdomen: positive: Nml bowel sounds, No distention. negative: Tenderness Skin: positive: Warm, Dry, Other (No diaphoresis). negative: Cyanosis Extremities: positive: Other (marked scrotal edema, shins w/ only trace pretibial LUE edema hand>> upper arm) Neurologic/Psychiatric: positive: Oriented x3, Mood/affect nml, Other (poor insight into illness slurred speech(dysarthric) but able to make self understood flat affect) - Lab Results Fish Bones: 11/21/17 04:15 11/21/17 04:15 Other Labs: Lab Results x24hrs 11/21/17 11/21/17 11/21/17 Range/Units 04:15 04:15 04:15 WBC 7.5 (4.8-10.8) x10^3/uL RBC 3.00 L (4.70-6.10) 10^6/uL Hgb 7.5 L (14.0-18.0) g/dL Hct 24.5 L (42.0-52.0) % MCV 81.5 (80.0-94.0) fL MCH 24.8 L (27.0-31.0) pg MCHC 30.5 L (32.0-36.0) g/dL RDW 20.8 H (12.0-15.0) % Plt Count 213 (130-450) 10^3/uL MPV 8.2 (7.4-11.4) fL Neut # (Auto) 6.0 (1.5-6.6) 10^3/uL Lymph # (Auto) 0.7 L (1.5-3.5) 10^3/uL Haines # (Auto) 0.8 (0.0-1.0) 10^3/uL Eos # (Auto) 0.0 (0.0-0.7) 10^3/uL Baso # (Auto) 0.0 (0.0-0.1) 10^3/uL Absolute Nucleated RBC 0.01 x10^3/uL Nucleated RBC % 0.1 /100WBC Manual Slide Review Indicated Platelet Estimate NORMAL (130-450,000) (NORMAL) RBC Morph Micro Appear 1+ POLYCHROMASIA (NORMAL) Sodium 133 L (135-145) mmol/L Potassium 3.7 (3.5-5.0) mmol/L Chloride 100 L (101-111) mmol/L Carbon Dioxide 25 (21-32) mmol/L Anion Gap 8.0 (6-13) BUN 39 H (6-20) mg/dL Creatinine 1.7 H (0.6-1.2) mg/dL Estimated GFR (MDRD) 39 L (>89) Glucose 88 (70-100) mg/dL Calcium 8.3 L (8.5-10.3) mg/dL Magnesium 2.0 (1.7-2.8) mg/dL Total Bilirubin 1.0 (0.2-1.0) mg/dL AST 38 (10-42) IU/L ALT 29 (10-60) IU/L Alkaline Phosphatase 155 H (42-121) IU/L B-Natriuretic Peptide 2118 H (5-100) pg/mL Total Protein 7.0 (6.7-8.2) g/dL Albumin 2.2 L (3.2-5.5) g/dL Globulin 4.8 H (2.1-4.2) g/dL Albumin/Globulin Ratio 0.5 L (1.0-2.2) Assessment/Plan - Problem List (1) 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 changed to metoprolol tartrate? If BP didnt allow coreg (greater effect on BP than toprol)>>>; changing to Toprol (got 25 mg this am, additional 12.5 tonight to hopefully allow more filling time w/ better rate control (HR low 100's on H/P) Double lasix dose (was not responding to 40 bid: double to 80 bid); pt felt subjectively more "comfortable after am diuressis check labs and orthostatics before dosing tomorrow With EF of 20-25%, as per usu cardiology recs' SBP iof 85 is very acceptable (BUN/Cr likley reflect poor forward flow ,; recheck chem panel in am w/ diuresis (with Right sided failure/ high RVSP 61mm; difficult balance as needs preload, but at this time not overdiuresed continue spironolactone (will resume home dose) ? room to resume low dose ACEI (nEEDS) (was on losartan at home) Depending on morning VS, may resume low dose in am ? candidate for Entresto? (need cardiology f/uP Pt w/ poor insithgt into disease; 2 admits in last 2 month ordered palliative care consult - Summary; continue toprol / titrate to 50 if possible before d/c (was on coreg 3.25 bid at home) - continue lasix at 80 bid today (and check orthos before redose in am - continue fern - needs to get back on arb (or low dose acei for remodeling (was on losartan 100) _ ? entresto candidate? (needs cardiology f/u); but with poor functional status; pall care consult (ordered - continue 2 g na diet - cont tele - continue strict I/O, daily wts (but his wts are not jiving w/ i/o) LUE swelling; will review records if has had US CHF teaching and more detailed instructions on discharge as patient has now had a second readmission within the last 2 months for the same problem. ( try to establish dry weight, daily wts at [facility], (may be moot depending on palliative care consult) (2) Acute renal failure superimposed on stage 3 chronic kidney disease Conclusion/Plan: baseline 1.6 October; ; has been 1.9-2.0 in past as above difficult balance w/ R sided failure, poor EF, but has room to diurese currently bun/cr likely r/t to poor forward flow (suboptimal rate control) reeval in am after todays diuresis, and orthos in am as noted (3) Hyponatremia Conclusion/Plan: most c/w hypervolemic hyponatremia on admit stable11/20 stable, imporved from 71 127 (133 today) reeval in am, today Na 134, close normal continue Lasix (4) Anemia Conclusion/Plan: 11/20 stable, no evident bleeding, no indication for RBC currently As above, ordering palliative care consult; Colonoscopy lower priority at this time w/ stable Hgb Hx from H/P The patient is anemic on presentation with a hemoglobin of 8.2 it appears the patient's baseline hemoglobin runs at around 9.5. During previous hospitalization patient was found to have iron deficiency anemia. He is not currently on iron. We will give the patient iron supplementation. Given this iron deficiency anemia the patient does need a EGD and colonoscopy to work him up for possible malignancy or other causes of iron deficiency. Given the patient's cardiac history he may not be an optimal candidate for EGD and colonoscopy. Plan: continue Iron supplementation Monitor hemoglobin (5) Hyperglycemia Conclusion/Plan: mild/ resolved. A1C is 6. Patient has no history of diabetes but on presentation is hyperglycemic with a blood glucose of 145. This may just be a stress response from the patient. It appears in the past he has had elevated glucoses but also had normal glucoses. He does not appear to have had a hemoglobin A1c checked. We will check a hemoglobin A1c in the morning and continue to monitor the patient's glucose. If hemoglobin A1c is elevated we will consider placing the patient on a diabetic diet or starting sliding scale insulin while he is hospitalized. (6) Atrial fibrillation Conclusion/Plan: As noted suboptimal Rate control for Ef 20% (hope to get below 80/ ideally 70 HR ) for rate control coreg changed to toprol (since bp evidently not tolerating coreg continue Eliquis reluctant to start een MWF dig 0.125 as sometimes done in this fragile gentleman (data for reduced admits for CHF/ no improved mortality beneift) CHADS 2 4 (7) hx of Hypertension Conclusion/Plan: at home on losartan, coreg , modifications as above under #1 for CHF w/ EF 20%, cardiologists generally indicate SBP of even 85 reasonable to allow CHF Rx optimization The patient has history of hypertension and has been on Coreg and Aldactone for hypertension and CHF. On presentation the patient's blood pressure is low normal. We will need to be careful with giving him his antihypertensive medication however given his CHF it is important that we try to continue it. We are also adding a low-dose of lisinopril and will continue to monitor the blood pressure closely. Given the patient's low ejection fraction and right- sided heart failure he may live at a low blood pressure. We will try to carry medications as appropriate. (8) Hyperlipidemia Conclusion/Plan: Patient has a history of hyperlipidemia and is on Lipitor given his history of strokes. We will continue the patient on his home dose of Lipitor while he is hospitalized . 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
[2017-11-21] MEDS ORDERED: METOPROLOL SUCCINATE 25 MG TABLET PO ONE (17:00)
[2017-11-21] MEDS ORDERED: FUROSEMIDE 100 MG/10 ML VIAL IVP SCH (20:00)
[2017-11-21] MEDS: ATORVASTATIN 40 MG TABLET PO SCH (20:25)
[2017-11-22] MEDS: SODIUM CHLORIDE FLUSH 0.9% 10 ML SYRINGE IVP SCH ×2 (00:11→17:00)
[2017-11-22] MEDS: ACETAMINOPHEN 325 MG TABLET PO PRN ×2 (00:11→09:54)
[2017-11-22 05:27] LABS: CALCIUM 8.4 mg/dL (8.5-10.3); CREATININE 1.8 mg/dL (0.6-1.2)
[2017-11-22] MEDS: PANTOPRAZOLE 40 MG TABLET PO SCH (06:40)
[2017-11-22] MEDS: LEVALBUTEROL 1.25 MG/3 ML NEB INH SCH ×3 (07:24→19:06)
[2017-11-22] MEDS ORDERED: MICONAZOLE CREAM 118 ML TUBE TOP SCH (09:00)
[2017-11-22] MEDS: ASPIRIN CHEW 81 MG TABLET PO SCH (09:28)
[2017-11-22] MEDS: SPIRONOLACTONE 25 MG TABLET PO SCH (09:28)
[2017-11-22] MEDS: APIXABAN 2.5 MG TABLET PO SCH ×2 (09:28→21:13)
[2017-11-22] MEDS: FERROUS SULFATE 325 MG TABLET PO SCH ×2 (09:29→17:00)
[2017-11-22] MEDS: POLYETHYLENE GLYCOL 3350 17 GM PACKET PO SCH (09:29)
[2017-11-22] MEDS: guaiFENesin 600 MG TABLET PO SCH ×2 (09:29→21:13)
[2017-11-22] MEDS: METOPROLOL SUCCINATE 50 MG TABLET PO SCH ×2 (09:29→11:59)
[2017-11-22] MEDS: oxyCODONE 5 MG TABLET PO PRN ×2 (09:55→21:13)
[2017-11-22] MEDS: MICONAZOLE CREAM 118 ML TUBE TOP SCH ×2 (11:59→21:14)
[2017-11-22] MEDS ORDERED: FUROSEMIDE 100 MG/10 ML VIAL IVP SCH (17:59)
[2017-11-22] MEDS: SODIUM CHLORIDE FLUSH 0.9% 10 ML SYRINGE IVP PRN (18:13)
--- NOTE | 2017-11-22 19:06 | PROVIDER PROGRESS NOTE ---
Subjective - Prog Note Date Prog Note Date: 11/22/17 Prog Note Time: 19:06 (late entry seen x 3 today) - Subjective Subjective: Iniially didnt want to be bothered with questions or exam today "what do you want", but then very quickly agreeable when explained need to examine No specific complaints, no lightheadedness, no chest pain, no nausea. Only complaint is still of sore scrotum (dependent edema) No specific shortness of breath( essentially bed bound); he doesnt elaborate on use of scooter at [facility] other than "use slide board" to get to it Pt reports had Ultrasound of LUe and legs found d/c weigh from 10/21 admission 69kg!! Current Medications - Current Medications Current Medications: Active Medications Generic Name Dose Route Start Last Admin Trade Name Freq PRN Reason Stop Dose Admin Acetaminophen 650 mg 11/16/17 23:43 11/22/17 09:54 Tylenol PO 650 mg Q4HR PRN Administration Pain 1 to 4 Apixaban 2.5 mg 11/18/17 08:00 11/22/17 09:28 Eliquis PO 2.5 mg BID LUCY Administration Aspirin 81 mg 11/18/17 09:00 11/22/17 09:28 [facility] Aspirin PO 81 mg DAILY LUCY Administration Atorvastatin Calcium 40 mg 11/17/17 21:00 11/21/17 20:25 Lipitor PO 40 mg QPM LUCY Administration Ferrous Sulfate 325 mg 11/17/17 09:00 11/22/17 17:00 Feosol PO 325 mg BIDWM LUCY Administration Furosemide 80 mg 11/22/17 17:59 11/22/17 18:13 Lasix Inj 100mg Vial IVP 11/22/17 23:59 80 mg ONCE LUCY Administration Guaifenesin 600 mg 11/17/17 09:00 11/22/17 09:29 Mucinex PO 600 mg BID LUCY Administration Levalbuterol HCl 1.25 mg 11/17/17 11:22 Xopenex INH Q4H PRN Shortness of Air/Wheezing Levalbuterol HCl 1.25 mg 11/17/17 14:00 11/22/17 19:06 Xopenex INH 1.25 mg TID LUCY Administration Metoprolol Succinate 50 mg 11/22/17 08:00 11/22/17 11:59 Toprol Xl PO Not Given DAILY [facility] Miconazole Nitrate 1 applic 11/22/17 10:30 11/22/17 11:59 Remedy Antifungal TOP 1 applic BID LUCY Administration Mineral Oil 1 applic 11/21/17 03:00 11/21/17 04:53 Cavilon TOP 1 applic PRN PRN Administration Skin Care Ondansetron HCl 4 mg 11/16/17 23:43 Zofran Inj IVP Q6HR PRN Nausea / Vomiting Oxycodone HCl 5 mg 11/16/17 23:43 11/22/17 09:55 Roxicodone PO 5 mg Q4HR PRN Administration Pain 5 to 7 Oxycodone HCl 10 mg 11/16/17 23:43 11/18/17 03:57 Roxicodone PO 10 mg Q4HR PRN Administration Pain 8 to 10 Pantoprazole Sodium 40 mg 11/17/17 07:00 11/22/17 06:40 Protonix PO 40 mg QDAC LUCY Administration Polyethylene Glycol 17 gm 11/17/17 09:00 11/22/17 09:29 Miralax PO Not Given DAILY [facility] Prochlorperazine Edisylate 10 mg 11/16/17 23:43 Compazine Inj IVP Q6HR PRN Nausea / Vomiting Promethazine HCl 25 mg 11/16/17 23:43 Phenergan Inj IM Q6HR PRN Nausea / Vomiting Sodium Chloride 10 ml 11/16/17 23:43 11/22/17 18:13 Normal Saline Flush 0.9% IVP 10 ml PRN PRN Administration NEEDED PER PROVIDER ORDERS Sodium Chloride 10 ml 11/17/17 01:00 11/22/17 17:00 Normal Saline Flush 0.9% IVP 10 ml 0100,0900,1700 [facility] Administration Spironolactone 12.5 mg 11/22/17 09:00 11/22/17 09:28 Aldactone PO 12.5 mg DAILY LUCY Administration Acetaminophen [Tylenol] 650 mg PO Q6H PRN 07/30/13 Multivit-Min/FA/Lycopen/Lutein [Centrum Silver Tablet] 1 tab PO DAILY 12/20/14 Potassium Citrate [Potassium Citrate ER] 10 meq PO DAILY 10/12/17 Calcium Carbonate [Calcium] 600 mg PO BID 11/17/17 Ipratropium/Albuterol Sulfate [Iprat-Albut 0.5-3(2.5) mg/3 ml] 1 neb INH QID 07/06 Losartan [Cozaar] 25 mg PO DAILY 11/17/17 Objective - Vital Signs/Intake & Output Reviewed Vital Signs: Yes Vital Signs: Vital Signs x48h Temp Pulse Pulse Resp BP Pulse Ox 11/22/17 18:44 36.6 C 99 18 99/60 96 11/22/17 15:18 36.4 C L 83 20 92/58 L 95 11/22/17 14:34 86 20 80/46 L 96 11/22/17 14:03 87 19 Intake & Output: Intake & Output 11/19/17 11/20/17 11/21/17 11/22/17 23:59 23:59 23:59 23:59 Intake Total 2130 1500 1165 1000 Output Total 1225 1590 2000 825 Balance 905 90 -83 175 - Objective General Appearance: positive: No acute distress, Alert, Other (baseline dysarthria (but can make self understood) Seemed a bit irritable this morning but cooperative w/ exam. Feeding self dinner later w/ evident enthusiasm, no SOB w/ eating) Respiratory: positive: No respiratory distress (Sa02 96% on 1L, unlabored resps at rest, sl basilar crackles (~ 1/4 up 1+ pretibial edema bilaterally, 1+ pedal , gross scrotal edema Left upper extremity edema). negative: Breath sounds nml Cardiovascular: positive: Irregularly irregular, Systolic murmur (possibly slight 1-2 / 6 systolic murmur periphery warm, no diaphoresis JVD still~ 8cm ( 2cm below jaw)) Abdomen: positive: Nml bowel sounds, No distention. negative: Tenderness ( wilson draining clear yellow urine (not especially dilute appearing)) Skin: positive: Warm, Dry (no diaphoresis LUE swelling) Neurologic/Psychiatric: positive: Oriented x3, Mood/affect nml (other than seemed a bit irritable this am, otherwise cooperative) - Lab Results Fish Bones: 11/21/17 04:15 11/23/17 05:16 Other Labs: Lab Results x24hrs 11/22/17 11/22/17 Range/Units 04:51 04:51 Sodium 134 L (135-145) mmol/L Potassium 3.6 (3.5-5.0) mmol/L Chloride 100 L (101-111) mmol/L Carbon Dioxide 28 (21-32) mmol/L Anion Gap 6.0 (6-13) BUN 38 H (6-20) mg/dL Creatinine 1.8 H (0.6-1.2) mg/dL Estimated GFR (MDRD) 37 L (>89) Glucose 88 (70-100) mg/dL Calcium 8.4 L (8.5-10.3) mg/dL B-Natriuretic Peptide 1907 H (5-100) pg/mL Assessment/Plan - Problem List (1) 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 No tachycardia, or severe hypotension to suggest too little preload (with his RVSP 61 / RV dysfxn ) sl improved BNP, BUN/Cr essentially stable refused position change for orthostatics to help assess volume status/ held lasix this am w/ SBP 80 BUT; SBP now improved; getting 80mg IV Lasix late in day; - -Toprol increased to 50 mg today for better rate control (better rate control than coreg/ less BP effect than coreg) -continue strict I/O and daily wts (wts have been somewhat discordant w/ I/O Wt today 81 11/17 78.9 -10/18 BNP 821 (? euvolemic BNP in this patient Dry weight looks like 69kg from 10/21 discharge -continue diuresis as status permits - continue toprol; titrate when possible - continue wts (?? standing would be helpful) - cont fern -resume aRB vs ACEI once close to euvolemic when bp allows - Palliative care consult Mon 11/21 Ef 20%, (severe global HK) RVSP 61 with RV function moderately impaired per echo) ; looking at I/O's, wts since admit; have made little progress, needed 1L fluid bolus several days ago w/hypotension after diuresis - dont know dry weight (will check last admit records) HR poor control for EF 20% (and afib) coreg stopped at admit? changed to metoprolol tartrate? If BP didnt allow coreg (greater effect on BP than toprol)>>>; changing to Toprol (got 25 mg this am, additional 12.5 tonight to hopefully allow more filling time w/ better rate control (HR low 100's on H/P) Double lasix dose (was not responding to 40 bid: double to 80 bid); pt felt subjectively more "comfortable after am diuressis check labs and orthostatics before dosing tomorrow With EF of 20-25%, as per usu cardiology recs' SBP iof 85 is very acceptable (BUN/Cr likley reflect poor forward flow ,; recheck chem panel in am w/ diuresis (with Right sided failure/ high RVSP 61mm; difficult balance as needs preload, but at this time not overdiuresed continue spironolactone (will resume home dose) ? room to resume low dose ACEI (nEEDS) (was on losartan at home) Depending on morning VS, may resume low dose in am ? candidate for Entresto? (need cardiology f/uP Pt w/ poor insithgt into disease; 2 admits in last 2 month ordered palliative care consult - Summary; continue toprol / titrate to 50 if possible before d/c (was on coreg 3.25 bid at home) - continue lasix at 80 bid today (and check orthos before redose in am - continue fern - needs to get back on arb (or low dose acei for remodeling (was on losartan 100) _ ? entresto candidate? (needs cardiology f/u); but with poor functional status; pall care consult (ordered - continue 2 g na diet - cont tele - continue strict I/O, daily wts (but his wts are not jiving w/ i/o) LUE swelling; will review records if has had CHF teaching and more detailed instructions on discharge as patient has now had a second readmission within the last 2 months for the same problem. ( try to establish dry weight, daily wts at [facility], (may be moot depending on palliative care consult) (2) Acute renal failure superimposed on stage 3 chronic kidney disease Conclusion/Plan: 11/22; BUN/Cr stable; reeval in AM w/ continued diuresis aseline 1.6 October; ; has been 1.9-2.0 in past as above difficult balance w/ R sided failure, poor EF, but has room to diurese currently bun/cr likely r/t to poor forward flow (suboptimal rate control) reeval in am after todays diuresis, and orthos in am as noted (3) Hyponatremia Conclusion/Plan: 11/22; stable improved since admit 11/21 most c/w hypervolemic hyponatremia on admit stable11/20 stable, imporved from 71 127 (133 today) reeval in am, today Na 134, close normal continue Lasix and daily eval (overall poor prognostic indicator , but as above IS improved) (4) Anemia Conclusion/Plan: 11/20 stable, no evident bleeding, no indication for RBC currently As above, ordering palliative care consult; Colonoscopy lower priority at this time w/ stable Hgb Hx from H/P The patient is anemic on presentation with a hemoglobin of 8.2 it appears the patient's baseline hemoglobin runs at around 9.5. During previous hospitalization patient was found to have iron deficiency anemia. He is not currently on iron. We will give the patient iron supplementation. Given this iron deficiency anemia the patient does need a EGD and colonoscopy to work him up for possible malignancy or other causes of iron deficiency. Given the patient's cardiac history he may not be an optimal candidate for EGD and colonoscopy. Plan: continue Iron supplementation Monitor hemoglobin (5) Atrial fibrillation Conclusion/Plan: 11/22; sl improved rate control today (80's on Toprol 50; Idelly push Toprol to 75 eventually for better rate control s noted suboptimal Rate control for Ef 20% (hope to get below 80/ ideally 70 HR) for rate control coreg changed to toprol (since bp evidently not tolerating coreg continue Eliquis reluctant to start een MWF dig 0.125 as sometimes done in this fragile gentleman (data for reduced admits for CHF/ no improved mortality beneift) CHADS 2 vasc 4; on eliquis (6) Hypertension Conclusion/Plan: at home on losartan, coreg ,spironolactone (HFrEF) modifications as above under #1 for CHF w/ EF 20%, cardiologists generally indicate SBP of 85 reasonable to allow CHF Rx optimization / hold parameters are SBP 85 (7) Hyperlipidemia Conclusion/Plan: On statin/ continue lipitor, Hx stroke . 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 A1C is 6. Patient has no history of diabetes but on presentation is hyperglycemic with a blood glucose of 145. This may just be a stress response from the patient. It appears in the past he has had elevated glucoses but also had normal glucoses. He does not appear to have had a hemoglobin A1c checked. We will check a hemoglobin A1c in the morning and continue to monitor the patient's glucose. If hemoglobin A1c is elevated we will consider placing the patient on a diabetic diet or starting sliding scale insulin while he is hospitalized.
[2017-11-22] MEDS: ATORVASTATIN 40 MG TABLET PO SCH (21:13)
[2017-11-23] MEDS: SODIUM CHLORIDE FLUSH 0.9% 10 ML SYRINGE IVP SCH ×3 (01:23→16:43)
[2017-11-23 06:22] LABS: CALCIUM 8.3 mg/dL (8.5-10.3); CREATININE 1.8 mg/dL (0.6-1.2)
[2017-11-23] MEDS: PANTOPRAZOLE 40 MG TABLET PO SCH (06:30)
[2017-11-23] MEDS ORDERED: FUROSEMIDE 100 MG/10 ML VIAL IVP ONE (08:09)
--- NOTE | 2017-11-23 08:14 | PROVIDER PROGRESS NOTE ---
Subjective - Prog Note Date Prog Note Date: 11/23/17 Prog Note Time: 08:11 - Subjective Pt reports feeling: No change (denies feeling better, or worse, Chief complaint still of tender edematous scrotum Denies he is upright weight bearing at home ( ? last d/c summary indicates bilateral thigh muscl spasm has made ambulation difficult. Sounds like pt gets around using scooter at [facility] and transfer board Absolutely refusing to get oob w/ assist offered. Per PT he declined PT today (citing scrotum too tender) Seen again ~ 3:30 pm; still no new complaints , unchanged ( After Lasix 80 this am ~ -500 for today) Current Medications - Current Medications Current Medications: Active Medications Generic Name Dose Route Start Last Admin Trade Name Nitza PRN Reason Stop Dose Admin Acetaminophen 650 mg 11/16/17 23:43 11/22/17 09:54 Tylenol PO 650 mg Q4HR PRN Administration Pain 1 to 4 Apixaban 2.5 mg 11/18/17 08:00 11/22/17 21:13 Eliquis PO 2.5 mg BID LUCY Administration Aspirin 81 mg 11/18/17 09:00 11/22/17 09:28 [facility] Aspirin PO 81 mg DAILY LUCY Administration Atorvastatin Calcium 40 mg 11/17/17 21:00 11/22/17 21:13 Lipitor PO 40 mg QPM LUCY Administration Ferrous Sulfate 325 mg 11/17/17 09:00 11/22/17 17:00 Feosol PO 325 mg BIDWM LUCY Administration Furosemide 80 mg 11/23/17 08:09 Lasix Inj 40 Mg Vial IVP 11/23/17 08:10 ONCE ONE Guaifenesin 600 mg 11/17/17 09:00 11/22/17 21:13 Mucinex PO 600 mg BID LUCY Administration Levalbuterol HCl 1.25 mg 11/17/17 11:22 Xopenex INH Q4H PRN Shortness of Air/Wheezing Levalbuterol HCl 1.25 mg 11/17/17 14:00 11/22/17 19:06 Xopenex INH 1.25 mg TID LUCY Administration Metoprolol Succinate 50 mg 11/22/17 08:00 11/22/17 11:59 Toprol Xl PO Not Given DAILY LUCY Miconazole Nitrate 1 applic 11/22/17 10:30 11/22/17 21:14 Remedy Antifungal TOP Not Given BID LUCY Mineral Oil 1 applic 11/21/17 03:00 11/21/17 04:53 Cavilon TOP 1 applic PRN PRN Administration Skin Care Ondansetron HCl 4 mg 11/16/17 23:43 Zofran Inj IVP Q6HR PRN Nausea / Vomiting Oxycodone HCl 5 mg 11/16/17 23:43 11/22/17 09:55 Roxicodone PO 5 mg Q4HR PRN Administration Pain 5 to 7 Oxycodone HCl 10 mg 11/16/17 23:43 11/22/17 21:13 Roxicodone PO 10 mg Q4HR PRN Administration Pain 8 to 10 Pantoprazole Sodium 40 mg 11/17/17 07:00 11/23/17 06:30 Protonix PO 40 mg QDAC LUCY Administration Polyethylene Glycol 17 gm 11/17/17 09:00 11/22/17 09:29 Miralax PO Not Given DAILY [facility] Prochlorperazine Edisylate 10 mg 11/16/17 23:43 Compazine Inj IVP Q6HR PRN Nausea / Vomiting Promethazine HCl 25 mg 11/16/17 23:43 Phenergan Inj IM Q6HR PRN Nausea / Vomiting Sodium Chloride 10 ml 11/16/17 23:43 11/22/17 18:13 Normal Saline Flush 0.9% IVP 10 ml PRN PRN Administration NEEDED PER PROVIDER ORDERS Sodium Chloride 10 ml 11/17/17 01:00 11/23/17 01:23 Normal Saline Flush 0.9% IVP 10 ml 0100,0900,1700 [facility] Administration Spironolactone 12.5 mg 11/22/17 09:00 11/22/17 09:28 Aldactone PO 12.5 mg DAILY LUCY Administration Acetaminophen [Tylenol] 650 mg PO Q6H PRN 07/30/13 Multivit-Min/FA/Lycopen/Lutein [Centrum Silver Tablet] 1 tab PO DAILY 12/20/14 Potassium Citrate [Potassium Citrate ER] 10 meq PO DAILY 10/12/17 Calcium Carbonate [Calcium] 600 mg PO BID 11/17/17 Ipratropium/Albuterol Sulfate [Iprat-Albut 0.5-3(2.5) mg/3 ml] 1 neb INH QID 07/06 Losartan [Cozaar] 25 mg PO DAILY 11/17/17 Objective - Vital Signs/Intake & Output Reviewed Vital Signs: Yes Vital Signs: Vital Signs x48h Temp Pulse Resp BP Pulse Ox 11/23/17 05:00 36.6 C 92 18 92/72 95 Intake & Output: Intake & Output 11/20/17 11/21/17 11/22/17 11/23/17 23:59 23:59 23:59 23:59 Intake Total 1500 1165 1150 150 Output Total 1590 2000 1100 350 Balance -90 -835 50 -200 - Objective General Appearance: positive: No acute distress, Other (lying in bed , awake , alert. Somewhat flat affect, and somewhat disgruntled affect with status questions, but cooperative.) Respiratory: positive: No respiratory distress (unlabored resps at rest Sa02 95 % on 1L), Wheezes (very slight expiratory squeaks bilaterally upper lobes only mild basilar crackls). negative: Breath sounds nml Cardiovascular: positive: Irregularly irregular, Systolic murmur (2/6 loudest [place] rate ~ 80 apically on exam tele), Other (JVD still ~ 8cm w/ HJR (~ 2cm below jaw) () Skin: positive: Warm, Dry Extremities: positive: Other (LLE 1+ pretibial edema, ankle edema RLE trace pretibial edema Gross scrotal edema, still large grapefruit size,(no breakdown noted) LUE 2+ edema, peuau d'orange appearance (mild)) Neurologic/Psychiatric: positive: Oriented x3. 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) - Lab Results Fish Bones: 11/21/17 04:15 11/23/17 05:16 Other Labs: Lab Results x24hrs 11/23/17 11/23/17 Range/Units 05:16 05:16 Sodium 135 (135-145) mmol/L Potassium 3.8 (3.5-5.0) mmol/L Chloride 99 L (101-111) mmol/L Carbon Dioxide 29 (21-32) mmol/L Anion Gap 7.0 (6-13) BUN 43 H (6-20) mg/dL Creatinine 1.8 H (0.6-1.2) mg/dL Estimated GFR (MDRD) 37 L (>89) Glucose 75 (70-100) mg/dL Calcium 8.3 L (8.5-10.3) mg/dL B-Natriuretic Peptide 1787 H (5-100) pg/mL Assessment/Plan - Problem List (1) 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 Caldwell) Weights remarkably unchanged 81 kg today ? accurate (reviewed weights in early October CHF admission; discharge weight 69 kg. scrotal edema resolved)? standing weight With EF 20-25%, an SBP of 85 is acceptable Since got lasix this morning will eval response, and possibly try titrate Toprol later for current suboptimal rate control Pt declined request to sit at bedside for orthos to assess volume status but BP tolerating 80 mg dosing (See prior note; coreg changed to toprol for better rate control, and BP not leaving room for coreg (more effect on BP)- --continue diuresis as status permits --titrate toprol (RN will contact hospitalist in AM to ensure tolerated additional 25mg) --once close to euvolemic , ideally need ARB or ACEI back on board for HFrEF --continue aldactone --Lizet Garg consult for pall care Friday / reevaluate goals of care - 11/21 Ef 20%, (severe global HK) RVSP 61 with RV function moderately impaired per echo) ; looking at I/O's, wts since admit; have made little progress, needed 1L fluid bolus several days ago w/hypotension after diuresis (but SBP 83 with EF 20% not unreasonable) - dont know dry weight (will check last admit records) HR poor control for EF 20% (and afib) coreg stopped at admit? changed to metoprolol tartrate? If BP didnt allow coreg (greater effect on BP than toprol)>>>; changing to Toprol (got 25 mg this am, additional 12.5 tonight to hopefully allow more filling time w/ better rate control (HR low 100's on H/P) Double lasix dose (was not responding to 40 bid: double to 80 bid); pt felt subjectively more "comfortable after am diuressis check labs and orthostatics before dosing tomorrow With EF of 20-25%, as per u cardiology recs' SBP iof 85 is very acceptable (BUN/Cr likley reflect poor forward flow ,; recheck chem panel in am w/ diuresis (with Right sided failure/ high RVSP 61mm; difficult balance as needs preload, but at this time not overdiuresed continue spironolactone (will resume home dose) ? room to resume low dose ACEI (nEEDS) (was on losartan at home) Depending on morning VS, may resume low dose in am ? candidate for Entresto? (need cardiology f/uP Pt w/ poor insithgt into disease; 2 admits in last 2 month ordered palliative care consult - Summary; continue toprol / titrate to 50 if possible before d/c (was on coreg 3.25 bid at home) - continue lasix at 80 bid today (and check orthos before redose in am - continue fern - needs to get back on arb (or low dose acei for remodeling (was on losartan 100) _ ? entresto candidate? (needs cardiology f/u); but with poor functional status; pall care consult (ordered - continue 2 g na diet - cont tele - continue strict I/O, daily wts (but his wts are not jiving w/ i/o) LUE swelling; will review records if has had US CHF teaching and more detailed instructions on discharge as patient has now had a second readmission within the last 2 months for the same problem. ( try to establish dry weight, daily wts at [facility], (may be moot depending on palliative care consult) (2) Acute renal failure superimposed on stage 3 chronic kidney disease Conclusion/Plan: 11/22; Cr stable, but increasingly prerenal (may be dealing more w/ R sided fluid at this point) and holding more diuresis tonight aseline 1.6 October; ; has been 1.9-2.0 in past as above difficult balance w/ R sided failure, poor EF, but has room to diurese currently bun/cr likely r/t to poor forward flow (suboptimal rate control) reeval in am after todays diuresis, and orthos in am as noted (3) Hyponatremia Conclusion/Plan: 11/23; stable improved since admit 11/21 most c/w hypervolemic hyponatremia on admit stable11/20 stable, imporved from 71 127 (133 today) reeval in am, today Na 134, close normal continue Lasix and daily eval (overall poor prognostic indicator , but as above IS improved) (4) Anemia Conclusion/Plan: 11/23; no indication to recheck daily (try to minimize some iatrogenic blood loss) 11/20 stable, no evident bleeding, no indication for RBC currently As above, ordering palliative care consult; Colonoscopy lower priority at this time w/ stable Hgb Hx from H/P The patient is anemic on presentation with a hemoglobin of 8.2 it appears the patient's baseline hemoglobin runs at around 9.5. During previous hospitalization patient was found to have iron deficiency anemia. He is not currently on iron. We will give the patient iron supplementation. Given this iron deficiency anemia the patient does need a EGD and colonoscopy to work him up for possible malignancy or other causes of iron deficiency. Given the patient's cardiac history he may not be an optimal candidate for EGD and colonoscopy. Plan: continue Iron supplementation Monitor hemoglobin (5) Atrial fibrillation Conclusion/Plan: 11/22; sl improved rate control today (80's on Toprol 50; as above may try to push Toprol to 75 s noted suboptimal Rate control for Ef 20% (hope to get below 80/ ideally 70 HR) for rate control coreg changed to toprol (since bp evidently not tolerating coreg continue Eliquis reluctant to start een MWF dig 0.125 as sometimes done in this fragile gentleman (data for reduced admits for CHF/ no improved mortality beneift) CHADS 2 vasc 4; on eliquis (6) hx of Hypertension Conclusion/Plan: at home on losartan, coreg ,spironolactone (HFrEF) modifications as above under #1 for CHF w/ EF 20%, cardiologists generally indicate SBP of even 85 reasonable to allow CHF Rx optimization / hold parameters are SBp 85 (7) Hyperlipidemia Conclusion/Plan: On statin/ continue lipitor, Hx stroke . 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 A1C is 6. Patient has no history of diabetes but on presentation is hyperglycemic with a blood glucose of 145. This may just be a stress response from the patient. It appears in the past he has had elevated glucoses but also had normal glucoses. He does not appear to have had a hemoglobin A1c checked. We will check a hemoglobin A1c in the morning and continue to monitor the patient's glucose. If hemoglobin A1c is elevated we will consider placing the patient on a diabetic diet or starting sliding scale insulin while he is hospitalized 10; code status; adamant re: remaining Full code, but very uninterested in discussing I did discuss w/ him plan for Palliative care consult aurelio
[2017-11-23] MEDS: LEVALBUTEROL 1.25 MG/3 ML NEB INH SCH ×3 (08:23→21:07)
[2017-11-23] MEDS: ASPIRIN CHEW 81 MG TABLET PO SCH (08:41)
[2017-11-23] MEDS: APIXABAN 2.5 MG TABLET PO SCH ×2 (08:41→20:52)
[2017-11-23] MEDS: SPIRONOLACTONE 25 MG TABLET PO SCH (08:41)
[2017-11-23] MEDS: FERROUS SULFATE 325 MG TABLET PO SCH ×2 (08:41→16:43)
[2017-11-23] MEDS: guaiFENesin 600 MG TABLET PO SCH ×2 (08:41→20:52)
[2017-11-23] MEDS: METOPROLOL SUCCINATE 50 MG TABLET PO SCH (08:41)
[2017-11-23] MEDS: MICONAZOLE CREAM 118 ML TUBE TOP SCH ×2 (08:42→21:52)
[2017-11-23] MEDS: POLYETHYLENE GLYCOL 3350 17 GM PACKET PO SCH (09:29)
[2017-11-23] MEDS ORDERED: METOPROLOL TARTRATE 25 MG TABLET PO ONE (19:37)
[2017-11-23] MEDS: ATORVASTATIN 40 MG TABLET PO SCH (20:52)
[2017-11-23] MEDS: oxyCODONE 5 MG TABLET PO PRN (20:52)
[2017-11-24] MEDS: ACETAMINOPHEN 325 MG TABLET PO PRN (00:50)
[2017-11-24] MEDS: SODIUM CHLORIDE FLUSH 0.9% 10 ML SYRINGE IVP SCH ×5 (00:52→23:29)
[2017-11-24 05:52] LABS: CALCIUM 8.2 mg/dL (8.5-10.3); CREATININE 1.9 mg/dL (0.6-1.2)
[2017-11-24] MEDS: PANTOPRAZOLE 40 MG TABLET PO SCH (06:11)
[2017-11-24] MEDS: LEVALBUTEROL 1.25 MG/3 ML NEB INH SCH ×3 (07:25→23:01)
[2017-11-24] MEDS ORDERED: FUROSEMIDE 100 MG/10 ML VIAL IVP SCH ×2 (08:00→10:00)
[2017-11-24] MEDS: METOPROLOL SUCCINATE 50 MG TABLET PO SCH ×2 (09:00→10:57)
[2017-11-24] MEDS: FERROUS SULFATE 325 MG TABLET PO SCH ×2 (09:00→17:17)
[2017-11-24] MEDS: POLYETHYLENE GLYCOL 3350 17 GM PACKET PO SCH (10:45)
[2017-11-24] MEDS: SPIRONOLACTONE 25 MG TABLET PO SCH (10:54)
[2017-11-24] MEDS: guaiFENesin 600 MG TABLET PO SCH ×2 (10:54→20:16)
[2017-11-24] MEDS: APIXABAN 2.5 MG TABLET PO SCH ×2 (10:55→20:16)
[2017-11-24] MEDS: ASPIRIN CHEW 81 MG TABLET PO SCH (10:55)
[2017-11-24] MEDS: MICONAZOLE CREAM 118 ML TUBE TOP SCH ×2 (10:56→20:16)
--- NOTE | 2017-11-24 13:55 | PROVIDER PROGRESS NOTE ---
Subjective - Prog Note Date Prog Note Date: 11/24/17 - Subjective Pt reports feeling: No change Subjective: pt had a palliative consult. pt signed PLOST and now DNR code status. Pt agree on palliative care, request to be d/c to [facility]. Pt agree to have hospice care in [facility] after [facility] if continue deteriorated. pt is on palliative care and plan to d/c to [facility]. Current Medications - Current Medications Current Medications: Active Medications Acetaminophen (Tylenol) 650 mg PO Q4HR PRN PRN Reason: Pain 1 to 4 Last Admin: 11/24/17 00:50 Dose: 650 mg Apixaban (Eliquis) 2.5 mg PO BID [facility] Last Admin: 11/24/17 10:55 Dose: 2.5 mg Aspirin ([place] Aspirin) 81 mg PO DAILY [facility] Last Admin: 11/24/17 10:55 Dose: 81 mg Atorvastatin Calcium (Lipitor) 40 mg PO QPM [facility] Last Admin: 11/23/17 20:52 Dose: 40 mg Ferrous Sulfate (Feosol) 325 mg PO BIDWM [facility] Last Admin: 11/24/17 09:00 Dose: 325 mg Furosemide (Lasix Inj 100mg Vial) 80 mg IVP BIDDIURETIC [facility] Last Admin: 11/24/17 11:09 Dose: 80 mg Guaifenesin (Mucinex) 600 mg PO BID [facility] Last Admin: 11/24/17 10:54 Dose: 600 mg Levalbuterol HCl (Xopenex) 1.25 mg INH Q4H PRN PRN Reason: Shortness of Air/Wheezing Levalbuterol HCl (Xopenex) 1.25 mg INH TID [facility] Last Admin: 11/24/17 13:46 Dose: 1.25 mg Metoprolol Succinate (Toprol Xl) 75 mg PO DAILY [facility] Last Admin: 11/24/17 10:57 Dose: Not Given Miconazole Nitrate (Remedy Antifungal) 1 applic TOP BID [facility] Last Admin: 11/24/17 10:56 Dose: 1 applic Mineral Oil (Cavilon) 1 applic TOP PRN PRN PRN Reason: Skin Care Last Admin: 11/21/17 04:53 Dose: 1 applic Ondansetron HCl (Zofran Inj) 4 mg IVP Q6HR PRN PRN Reason: Nausea / Vomiting Oxycodone HCl (Roxicodone) 5 mg PO Q4HR PRN PRN Reason: Pain 5 to 7 Last Admin: 11/22/17 09:55 Dose: 5 mg Oxycodone HCl (Roxicodone) 10 mg PO Q4HR PRN PRN Reason: Pain 8 to 10 Last Admin: 11/23/17 20:52 Dose: 10 mg Pantoprazole Sodium (Protonix) 40 mg PO QDAC [facility] Last Admin: 11/24/17 06:11 Dose: 40 mg Polyethylene Glycol (Miralax) 17 gm PO DAILY [facility] Last Admin: 11/24/17 10:45 Dose: Not Given Prochlorperazine Edisylate (Compazine Inj) 10 mg IVP Q6HR PRN PRN Reason: Nausea / Vomiting Promethazine HCl (Phenergan Inj) 25 mg IM Q6HR PRN PRN Reason: Nausea / Vomiting Sodium Chloride (Normal Saline Flush 0.9%) 10 ml IVP PRN PRN PRN Reason: NEEDED PER PROVIDER ORDERS Last Admin: 11/22/17 18:13 Dose: 10 ml Sodium Chloride (Normal Saline Flush 0.9%) 10 ml IVP 0100,0900,1700 [facility] Last Admin: 11/24/17 10:56 Dose: 10 ml Spironolactone (Aldactone) 12.5 mg PO DAILY [facility] Last Admin: 11/24/17 10:54 Dose: 12.5 mg Acetaminophen [Tylenol] 650 mg PO Q6H PRN 07/30/13 Multivit-Min/FA/Lycopen/Lutein [Centrum Silver Tablet] 1 tab PO DAILY 12/20/14 Potassium Citrate [Potassium Citrate ER] 10 meq PO DAILY 10/12/17 Calcium Carbonate [Calcium] 600 mg PO BID 11/17/17 Ipratropium/Albuterol Sulfate [Iprat-Albut 0.5-3(2.5) mg/3 ml] 1 neb INH QID 07/06 Losartan [Cozaar] 25 mg PO DAILY 11/17/17 Objective - Vital Signs/Intake & Output Reviewed Vital Signs: Yes Vital Signs: Vital Signs x48h Temp Pulse Pulse Resp BP Pulse Ox 11/24/17 10:45 83 20 100/78 93 11/24/17 08:17 36.4 C L 93 21 85/58 L 92 11/24/17 07:25 66 18 Intake & Output: Intake & Output 11/21/17 11/22/17 11/23/17 11/24/17 23:59 23:59 23:59 23:59 Intake Total 1165 1150 920 240 Output Total 1999 1100 1125 325 Balance -835 50 -205 -85 - Objective General Appearance: positive: Alert, Mild distress. negative: Lethargic Eyes Bilateral: positive: Normal inspection, PERRL, No lid inflammation, Conjunctivae nml ENT: positive: ENT inspection nml, Pharynx nml, No signs of dehydration. negative: Purulent nasal drainage, Pharyngeal erythema, Oral lesions Neck: positive: Nml inspection, Thyroid nml, No JVD, Trachea midline. negative : Thyromegaly, Lymphadenopathy (R), Lymphadenopathy (L), Stiff neck, Carotid bruit, Swelling/bruising, Tracheal deviation Respiratory: positive: Chest non-tender, No respiratory distress, Rhonchi. negative: Wheezes, Rales Cardiovascular: positive: Irregularly irregular, JVD present, Systolic murmur, Diastolic murmur. negative: Extrasystoles, Tachycardia, Bradycardia Peripheral Pulses: 2+ Radial (R), 2+ Radial (L), 2+ Dorsalis pedis (R), 2+ Dorsalis pedis (L) Abdomen: positive: Non-tender, No organomegaly, Nml bowel sounds, No distention. negative: Tenderness, Guarding, Rebound Back: positive: Nml inspection. negative: CVA tenderness (R), CVA tenderness (L ) Skin: positive: Color nml, No rash, Warm, Dry. negative: Cyanosis, Diaphoresis , Pallor Extremities: positive: Non-tender, Full ROM, Pedal edema. negative: Calf tenderness, Troy's sign/cords Neurologic/Psychiatric: positive: Oriented x3. negative: Mood/affect nml, Sensory loss, Facial droop, Slurred/abnml speech, Depressed mood/affect - Lab Results Fish Bones: 11/21/17 04:15 11/24/17 05:12 Other Labs: Lab Results x24hrs 11/24/17 11/24/17 Range/Units 05:12 05:12 Sodium 132 L (135-145) mmol/L Potassium 3.9 (3.5-5.0) mmol/L Chloride 98 L (101-111) mmol/L Carbon Dioxide 27 (21-32) mmol/L Anion Gap 7.0 (6-13) BUN 43 H (6-20) mg/dL Creatinine 1.9 H (0.6-1.2) mg/dL Estimated GFR (MDRD) 35 L (>89) Glucose 86 (70-100) mg/dL Calcium 8.2 L (8.5-10.3) mg/dL B-Natriuretic Peptide 1996 H (5-100) pg/mL ABX Reporting Has patient been on IV antibiotics over the past 48 hours?: No Assessment/Plan - Problem List (1) CHF exacerbation Impression: (1) 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 continue diuresis bid 80mg Lasix, although pt developed some resistance to diuresis tele and vital monitor continue Metoprolol fluid restrict daily weight low sodium diet plan to d/c to [facility] per pts's request. 11/23; Holding lasix this pm (80mg this this am; overall negative last 2 days I/O ) but getting more prerenal (minimal 02 need; may be dealing mainly w/ "Rsided" fluid at this point) Titrating beta yogi further for better rate control/ more filling time; -- Metoprolol tartrate 25 mg x 1 this pm; if tolerates addition>>> Toprol XL 75 mg in am (also discussed w/ Dr. Caldwell) Weights remarkably unchanged 81 kg today ? accurate (reviewed weights in early October CHF admission; discharge weight 69 kg. scrotal edema resolved)? standing weight With EF 20-25%, an SBP of 85 is acceptable Since got lasix this morning will eval response, and possibly try titrate Toprol later for current suboptimal rate control Pt declined request to sit at bedside for orthos to assess volume status but BP tolerating 80 mg dosing (See prior note; coreg changed to toprol for better rate control, and BP not leaving room for coreg (more effect on BP)- --continue diuresis as status permits --titrate toprol (RN will contact hospitalist in AM to ensure tolerated additional 25mg) --once close to euvolemic , ideally need ARB or ACEI back on board for HFrEF --continue aldactone --Lizet Garg consult for pall care Friday / reevaluate goals of care - 11/21 Ef 20%, (severe global HK) RVSP 61 with RV function moderately impaired per echo) ; looking at I/O's, wts since admit; have made little progress, needed 1L fluid bolus several days ago w/hypotension after diuresis (but SBP 83 with EF 20% not unreasonable) - dont know dry weight (will check last admit records) HR poor control for EF 20% (and afib) coreg stopped at admit? changed to metoprolol tartrate? If BP didnt allow coreg (greater effect on BP than toprol)>>>; changing to Toprol (got 25 mg this am, additional 12.5 tonight to hopefully allow more filling time w/ better rate control (HR low 100's on H/P) Double lasix dose (was not responding to 40 bid: double to 80 bid); pt felt subjectively more "comfortable after am diuressis check labs and orthostatics before dosing tomorrow With EF of 20-25%, as per usu cardiology recs' SBP iof 85 is very acceptable (BUN/Cr likley reflect poor forward flow ,; recheck chem panel in am w/ diuresis (with Right sided failure/ high RVSP 61mm; difficult balance as needs preload, but at this time not overdiuresed continue spironolactone (will resume home dose) ? room to resume low dose ACEI (nEEDS) (was on losartan at home) Depending on morning VS, may resume low dose in am ? candidate for Entresto? (need cardiology f/uP Pt w/ poor insithgt into disease; 2 admits in last 2 month ordered palliative care consult - Summary; continue toprol / titrate to 50 if possible before d/c (was on coreg 3.25 bid at home) - continue lasix at 80 bid today (and check orthos before redose in am - continue fern - needs to get back on arb (or low dose acei for remodeling (was on losartan 100) _ ? entresto candidate? (needs cardiology f/u); but with poor functional status; pall care consult (ordered - continue 2 g na diet - cont tele - continue strict I/O, daily wts (but his wts are not jiving w/ i/o) LUE swelling; will review records if has had US CHF teaching and more detailed instructions on discharge as patient has now had a second readmission within the last 2 months for the same problem. ( try to establish dry weight, daily wts at [facility], (may be moot depending on palliative care consult) (2) Acute renal failure superimposed on stage 3 chronic kidney disease Conclusion/Plan: stable, continue lab monitor 11/22; Cr stable, but increasingly prerenal (may be dealing more w/ R sided fluid at this point) and holding more diuresis tonight aseline 1.6 October; ; has been 1.9-2.0 in past as above difficult balance w/ R sided failure, poor EF, but has room to diurese currently bun/cr likely r/t to poor forward flow (suboptimal rate control) reeval in am after todays diuresis, and orthos in am as noted (3) Hyponatremia Conclusion/Plan: Na 132, a little down from previous one continue diuresis daily lab monitor 11/23; stable improved since admit 11/21 most c/w hypervolemic hyponatremia on admit stable11/20 stable, imporved from 71 127 (133 today) reeval in am, today Na 134, close normal continue Lasix and daily eval (overall poor prognostic indicator , but as above IS improved) (4) Anemia Conclusion/Plan: recheck CBC, follow up 11/23; no indication to recheck daily (try to minimize some iatrogenic blood loss) 11/20 stable, no evident bleeding, no indication for RBC currently As above, ordering palliative care consult; Colonoscopy lower priority at this time w/ stable Hgb Hx from H/P The patient is anemic on presentation with a hemoglobin of 8.2 it appears the patient's baseline hemoglobin runs at around 9.5. During previous hospitalization patient was found to have iron deficiency anemia. He is not currently on iron. We will give the patient iron supplementation. Given this iron deficiency anemia the patient does need a EGD and colonoscopy to work him up for possible malignancy or other causes of iron deficiency. Given the patient's cardiac history he may not be an optimal candidate for EGD and colonoscopy. Plan: continue Iron supplementation Monitor hemoglobin (5) Atrial fibrillation Conclusion/Plan: 7/9 HR is stable, continue Eliquis, Metoprolol continue tele, vital monitor 11/22; sl improved rate control today (80's on Toprol 50; as above may try to push Toprol to 75 7/6As noted suboptimal Rate control for Ef 20% (hope to get below 80/ ideally 70 HR) for rate control coreg changed to toprol (since bp evidently not tolerating coreg continue Eliquis reluctant to start een MWF dig 0.125 as sometimes done in this fragile gentleman (data for reduced admits for CHF/ no improved mortality beneift) CHADS 2 vasc 4; on eliquis (6) hx of Hypertension Conclusion/Plan: at home on losartan, coreg ,spironolactone (HFrEF) modifications as above under #1 for CHF w/ EF 20%, cardiologists generally indicate SBP of even 85 reasonable to allow CHF Rx optimization / hold parameters are SBp 85 (7) Hyperlipidemia Conclusion/Plan: On statin/ continue lipitor, Hx stroke . 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 A1C is 6. (10) hypotension base on pt's EF, SBP is allowed at above 80 continue vital monitor improved. HR 91, BP 104/56. continue hold Losartan. continue Metoprolol 12.5 mg bid vital monitor Q4H hold Losatan, reduce Lasix to 40 mg bid IV reduce metoprolol dosage, since HR is well controlled. continue vital closely monitor pt (11) anasarca pt had EF 20%, fluid congested. no significant improvement continue diuretics lab and vital monitor pt present left upper extremity edema, it seems chronic. There is no pain, tenderness, erythema. pt also report today her groin area swelling as well. it also seems chronic condition, specially pt has over-fluid and congested. increase Lasix iV dosage lab and vital, tele monitor (12) pain and swelling at groin area chronic condition. US reveals no acute significant finding continue LAsix, closely monitor pt pt report today some pain at groin area. There are swelling, tenderness, mild discolored to darkness due to swelling, without erythema. it seems one area of anasarca. order US, will follow up continue IVF Lasix lab and vital, tele monitor
--- NOTE | 2017-11-24 18:04 | CONSULTATION NOTE ---
Palliative Care Consultation - Referral Referring Provider: Tobin PONCE Time of Visit: [id number] Referral setting: Hospitalized patient Referral Reason: NYHA Stage IV/Goals of Care - Information Sources Records reviewed: RN notes reviewed, Previous records reviewed History/Review of Systems obtained from: Patient, Family (Yehuda Bocanegra and his Karine) Exam limitations: Clinical condition (patient [place] and feeling overwhelmed; able to participate in conversation;) - History of Present Illness Brief History of Present Illness: This is a 77-year-old gentleman who was admitted on 11/16/2017 for increased shortness of breath, with an exacerbation of his heart failure. He has had a recent hospitalization of 10/12 - 5, with NYHA class IV heart failure, at that point in time his ejection fraction was 30-35%, he also had an underlying pneumonia, UTI, groin edema and COPD. He presents with the same except for worsening symptoms, resistant to multiple medication changes, remains with baseline breathlessness and minimal improvement in his heart failure over this last week. He does have now an ejection fraction of 20%, with severe global hypokinesis, as well as severe pulmonary hypertension. The ongoing medication adjustments have resulted in minimal improvement, there is concern trying to balance with his chronic renal failure, ongoing atrial fib, and the patient's unwillingness to participate in care. He also does present with anemia with hemoglobin of 7.4 and hematocrit 24.8. 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 He has recovered from both to a more acceptable level of functioning, and has always "been a fighter". Given the seriousness of his illness, and minimal improvement in his dyspnea, and bedbound status, palliative care has been asked to meet with patient and nephew and define goals of care. Medical/Surgical History - Past Medical History Cardiovascular: reports: Congestive heart failure, Hypertension, Atrial fibrillation Respiratory: reports: COPD, Pneumonia, Shortness of breath Neuro: CVA Neuro: reports: CVA (CVA 1998; second stroke 2015) Endocrine/Autoimmune: reports: None GI: reports: GI bleed, Ulcers, Hemorrhoids : reports: Benign prostate hypertrophy, Incontinence, Renal insuffiency, Other (scrotal swelling; testicular pain) HEENT: reports: None Psych: reports: Anxiety Musculoskeletal: reports: Hemiplegia (left side non dominant), Fatigue Derm: reports: None MRSA Hx?: No - Past Surgical History General: reports: Cholecystectomy, EGD Ortho: reports: Hip replacement Cardiovascular: reports: Pacemaker, AICD - Substance History Use: Uses substance without health or social issues: Tobacco (hx of heavy smoking), Alcohol (hx of heavy alcohol use; none recent) Social History - Living Situation Living arrangement: Assisted living (Patient has since his original stroke in had multiple living situations, including several times at [facility] and other care facilities. He most recently was at [facility], after recovering from his most recent stroke in 2016. He was making progress until his recent hospitalization for CHF. He is estranged from his 4 sons, they are reportedly all over the [place], have not had contact for several years. Yehuda his nephew, has been involved in his care, and has been designated as DPOAE.He is willing to take on this role, but does need to know what patient's goals and wishes are. Reports he has recovered and come back from multiple difficulties before) Family History - Family History Family History: Mother: , Diabetes, Type 2, Father: , CAD Medications/Allergies - Medications Active Medication List: Active Medications Acetaminophen (Tylenol) 650 mg PO Q4HR PRN PRN Reason: Pain 1 to 4 Last Admin: 11/24/17 00:50 Dose: 650 mg Apixaban (Eliquis) 2.5 mg PO BID [facility] Last Admin: 11/24/17 10:55 Dose: 2.5 mg Aspirin ([place] Aspirin) 81 mg PO DAILY [facility] Last Admin: 11/24/17 10:55 Dose: 81 mg Atorvastatin Calcium (Lipitor) 40 mg PO QPM [facility] Last Admin: 11/23/17 20:52 Dose: 40 mg Ferrous Sulfate (Feosol) 325 mg PO BIDWM [facility] Last Admin: 11/24/17 17:17 Dose: 325 mg Furosemide (Lasix Inj 100mg Vial) 80 mg IVP 1100,2300 [facility] Guaifenesin (Mucinex) 600 mg PO BID [facility] Last Admin: 11/24/17 10:54 Dose: 600 mg Levalbuterol HCl (Xopenex) 1.25 mg INH Q4H PRN PRN Reason: Shortness of Air/Wheezing Levalbuterol HCl (Xopenex) 1.25 mg INH TID [facility] Last Admin: 11/24/17 13:46 Dose: 1.25 mg Metoprolol Succinate (Toprol Xl) 75 mg PO DAILY [facility] Last Admin: 11/24/17 10:57 Dose: Not Given Miconazole Nitrate (Remedy Antifungal) 1 applic TOP BID [facility] Last Admin: 11/24/17 10:56 Dose: 1 applic Mineral Oil (Cavilon) 1 applic TOP PRN PRN PRN Reason: Skin Care Last Admin: 11/21/17 04:53 Dose: 1 applic Ondansetron HCl (Zofran Inj) 4 mg IVP Q6HR PRN PRN Reason: Nausea / Vomiting Oxycodone HCl (Roxicodone) 5 mg PO Q4HR PRN PRN Reason: Pain 5 to 7 Last Admin: 11/22/17 09:55 Dose: 5 mg Oxycodone HCl (Roxicodone) 10 mg PO Q4HR PRN PRN Reason: Pain 8 to 10 Last Admin: 11/23/17 20:52 Dose: 10 mg Pantoprazole Sodium (Protonix) 40 mg PO QDAC [facility] Last Admin: 11/24/17 06:11 Dose: 40 mg Polyethylene Glycol (Miralax) 17 gm PO DAILY [facility] Last Admin: 11/24/17 10:45 Dose: Not Given Prochlorperazine Edisylate (Compazine Inj) 10 mg IVP Q6HR PRN PRN Reason: Nausea / Vomiting Promethazine HCl (Phenergan Inj) 25 mg IM Q6HR PRN PRN Reason: Nausea / Vomiting Sodium Chloride (Normal Saline Flush 0.9%) 10 ml IVP PRN PRN PRN Reason: NEEDED PER PROVIDER ORDERS Last Admin: 11/22/17 18:13 Dose: 10 ml Sodium Chloride (Normal Saline Flush 0.9%) 10 ml IVP 0100,0900,1700 [facility] Last Admin: 11/24/17 17:12 Dose: Not Given Spironolactone (Aldactone) 12.5 mg PO DAILY [facility] Last Admin: 11/24/17 10:54 Dose: 12.5 mg Acetaminophen [Tylenol] 650 mg PO Q6H PRN 03/14/14 Multivit-Min/FA/Lycopen/Lutein [Centrum Silver Tablet] 1 tab PO DAILY 12/20/14 Potassium Citrate [Potassium Citrate ER] 10 meq PO DAILY 10/12/17 Calcium Carbonate [Calcium] 600 mg PO BID 11/17/17 Ipratropium/Albuterol Sulfate [Iprat-Albut 0.5-3(2.5) mg/3 ml] 1 neb INH QID 07/06 Losartan [Cozaar] 25 mg PO DAILY 11/17/17 - Allergies Allergies/Adverse Reactions: Allergies Allergy/AdvReac Type Severity Reaction Status Date / Time Sulfa (Sulfonamide Allergy Unknown unk Verified 10/12/17 06:39 Antibiotics) sulfamethoxazole Allergy Unknown unk Verified 10/12/17 06:39 [From Bactrim] trimethoprim [From Bactrim] Allergy Unknown unk Verified 10/12/17 06:39 Review of Systems - Constitutional Constitutional: reports: Fatigue, Weakness - Eyes Eyes: reports: Vision loss - Ears, Nose & Throat Ears, Nose & Throat: reports: Hearing loss, Dry mouth - Cardiovascular Cardiovascular: reports: Irregular heart rate, Edema (left arm new;), Decr. exercise tolerance. denies: Chest pain - Respiratory Respiratory: reports: SOB at rest, SOB with exertion - Gastrointestinal Gastrointestinal: reports: Early satiety. denies: Constipation, Nausea, Reflux/ heartburn - Genitourinary Genitourinary: reports: Other (wilson catheter) - Musculoskeletal Musculoskeletal: reports: Limited range of motion, Muscle weakness, Transfer issues (has been refusing to get up or participate in therapy) - Integumentary Integumentary: reports: Pruritis, Dryness - Neurological Neurological: reports: General weakness, Slurred speech - Psychiatric Psychiatric: denies: Depression, Anxiety - Hematologic/Lymphatic Hematologic/Lymphatic: reports: Anemia, Recurrent infections (hx of UTI's/ pneumonia) - All Other Systems All Other Systems: reports: Reviewed and negative Physical Exam - Vital Signs Vital Signs: Vital Signs x48h Temp Pulse Pulse Resp BP Pulse Ox 11/24/17 15:39 36.3 C L 90 24 94/50 L 93 11/24/17 13:59 36.6 C 75 18 88/50 L 96 11/24/17 13:46 89 16 11/24/17 10:45 83 20 100/78 93 - Physical Exam General Appearance: positive: Mild distress (respiratory effort) Eyes Bilateral: positive: Normal inspection ENT: positive: Dry mucous membranes Neck: positive: Trachea midline, Other (some difficulty with secretions; using oral suction) Cardiovascular: positive: Irregular Respiratory: positive: Diminished in bases, Wheezes (few scattered anteriorly), Rales (few crackles in bases) Abdomen: positive: Non-tender, Soft, Nml bowel sounds Skin: positive: Pallor, Pruritis, Rash (mulitple areas of scratching on extremities) Extremities: positive: No pedal edema, Other (LUE with swelling; some movement but "heavy") Neurologic/Psychiatric: positive: Oriented x3, Slurred/abnml speech (able to participate with clarification) Palliative Care - POLST Patient has POLST: Yes POLST Status: DNR, Selective Treatment (filled out with nephew and patient to reflect goals of care) Pain: No pain Tiredness/Fatigue: Moderate (4-6) Drowsiness/Sedation: Mild (1-3) Nausea: None Depression: None Anxiety: Mild (1-3) Dyspnea: Moderate (4-6) Anorexia: Mild (1-3) Constipation: No Performance Status: Patient has been non-participatory and physical therapy and transfers, has attributed this to scrotal pain. At baseline at facility, was making progress with home physical therapy, able to transfer with poles in his room, he uses scooter at facility to go to meals. Currently has been bedbound since admit. - Palliative Care Discussion: Family meeting with Yehuda ALVES, and Karine with patient. When reviewed patient's understanding of his current illness, patient with very little insight to the seriousness of his heart failure and current hospitalization. We did review the seriousness of his current status, the concern about whether he will improve or worsen as far as his health, and the need to talk about what is most important to him now. His hope is to be able to be more independent, and return to [facility]. We did discuss that it is a good goal, and he was requesting to go to [facility] "to get better", But to move forward on this we would need to have him participate in physical therapy to show as this was possible for him to participate in rehab, and to further evaluate his ability to tolerate activity given the underlying seriousness of the heart failure. We also discussed in the context of what his goals were. If he were not to get better, and his heart were to worsen, his wish would be to allow natural . He would like to continue to try and improve, but intubation would not be an acceptable intervention. JESUS ST was completed and reviewed, to reflect his goals, DNAR/Selected Treatements, which is to focus on quality of life, to improve as much as he can, and end-of-life he would like to have a comfortable respectful back at [facility] which he considers his home. His nephew is in agreement with supporting his wishes. Counseling done regarding the continuum of care with his nephew regarding Medicare coverage for rehab, patient's need to be able to participate and improve, and at any point if the goals need to transition to focus on comfort, patient currently would meet criteria for hospice. He is maximally managed medically, does have stage IV [place] heart failure, poor activity tolerance, is breathlessness at rest. But this would only occur, if this was a transition point for patient's goals and wishes. [facility] would accept him back with either continued HH after [facility], and/or transition to hospice. Results - Lab Results Lab results reviewed: Yes Fish Bones: 11/21/17 04:15 11/24/17 05:12 Lab and Imaging Results: Lab Results x24hrs 11/24/17 11/24/17 Range/Units 05:12 05:12 Sodium 132 L (135-145) mmol/L Potassium 3.9 (3.5-5.0) mmol/L Chloride 98 L (101-111) mmol/L Carbon Dioxide 27 (21-32) mmol/L Anion Gap 7.0 (6-13) BUN 43 H (6-20) mg/dL Creatinine 1.9 H (0.6-1.2) mg/dL Estimated GFR (MDRD) 35 L (>89) Glucose 86 (70-100) mg/dL Calcium 8.2 L (8.5-10.3) mg/dL B-Natriuretic Peptide 1996 H (5-100) pg/mL Impression and Recommendations - Palliative Care Impression: This is a 77-year-old gentleman with multiple comorbidities, admitted for an acute heart failure exacerbation. This is the second hospital admit within a month, and is having minimal improvement in his underlying cardiac status currently. Patient does have residual from his left CVA, making his recovery more complex, the patient's goals are to try and improve his functional status and return to [facility] "his home". Palliative care to continue to provide support defining goals of care and follow as discharges to the different settings given the seriousness of his status. Recommendations/Counseling Done: 1. Generalized weakness. Counseling with nephew and patient, regarding patient stated goals of care, patient does understand is going to need to participate in physical therapy if wants to transition to [place] and improved. The goal would be to return to previous level of functioning for at least independent transfers, or 1 person assist. Patient currently is requesting transition to [facility], did explore considering SNF closer to nephew, both feel [facility] would be preferable. Communicated to RN regarding patient ready to participate in PT, will go forward with evaluation, communicated wishes to [facility] COORDINATOR. 2. Acute on Chronic Heart Failure. Counseling regarding education on underlying disease status, seriousness of illness, expectations regarding natural progression of disease. Patient currently NYHA Stage IV, and maximally managed , would meet hospice criteria wtih EF 20%, but patient would need to be ready to focus on comfort goals, patient would like to try improve functionally with goals for rehab, but nephew and patient made aware of option. Patient may benefit from blood transfusion to maximize activity tolerance and improve weakness in congruence with his goals to "get stronger". 3. Advanced care planning. DPOAE has been established, form is been completed and scanned into H IM. JESUS ST has been completed and goals discussed and documented. Will continue to follow patient given the seriousness of precarious stenosis of his current situation, patient agreeable to have ongoing palliative care support, and nephew feels this would be helpful as well. Time Spent: 75 minutes with greater than 50% of this done in counseling with patient regarding disease process, goals of care, and coordination of care with hospitalist, licensed clinical social worker, and anticipatory guidance.
[2017-11-24] MEDS: ATORVASTATIN 40 MG TABLET PO SCH (20:16)
[2017-11-24] MEDS: FUROSEMIDE 100 MG/10 ML VIAL IVP SCH (22:59)
[2017-11-25 05:39] LABS: BASOPHILS # (AUTO) 0.1 10^3/uL (0.0-0.1); BASOPHILS % (AUTO) 0.7 %; EOSINOPHILS # (AUTO) 0.1 10^3/uL (0.0-0.7); EOSINOPHILS % (AUTO) 0.9 %; HGB - HEMOGLOBIN 7.8 g/dL (14.0-18.0); LYMPHOCYTES # (AUTO) 0.7 10^3/uL (1.5-3.5); MEAN CORPUSCULAR HEMOGLOBIN 25.6 pg (27.0-31.0); MEAN CORPUSCULAR HGB CONC 30.2 g/dL (32.0-36.0); MEAN CORPUSCULAR VOLUME 84.5 fL (80.0-94.0); MEAN PLATELET VOLUME 8.4 fL (7.4-11.4); MONOCYTES # (AUTO) 0.8 10^3/uL (0.0-1.0); MONOCYTES % (AUTO) 9.8 %; NEUTROPHILS # (AUTO) 6.6 10^3/uL (1.5-6.6); NEUTROPHILS % (AUTO) 80.6 %; PLT - PLATELET COUNT 224 10^3/uL (130-450); RED BLOOD COUNT 3.06 10^6/uL (4.70-6.10); RED CELL DISTRIBUTION WIDTH 25.9 % (12.0-15.0); WHITE BLOOD COUNT 8.2 x10^3/uL (4.8-10.8)
[2017-11-25 05:42] LABS: CALCIUM 8.2 mg/dL (8.5-10.3)
[2017-11-25 06:10] LABS: PLATELET ESTIMATE, MANUAL NORMAL (130-450,000) (NORMAL); PLATELET MORPHOLOGY NORMAL APPEARANCE (NORMAL)
[2017-11-25] MEDS: PANTOPRAZOLE 40 MG TABLET PO SCH (06:18)
[2017-11-25] MEDS: LEVALBUTEROL 1.25 MG/3 ML NEB INH SCH ×3 (07:42→20:22)
[2017-11-25] MEDS: guaiFENesin 600 MG TABLET PO SCH ×2 (09:04→20:20)
[2017-11-25] MEDS: APIXABAN 2.5 MG TABLET PO SCH (09:04)
[2017-11-25] MEDS: POLYETHYLENE GLYCOL 3350 17 GM PACKET PO SCH (09:05)
[2017-11-25] MEDS: ASPIRIN CHEW 81 MG TABLET PO SCH (09:05)
[2017-11-25] MEDS: FERROUS SULFATE 325 MG TABLET PO SCH ×2 (09:05→17:43)
[2017-11-25] MEDS: SODIUM CHLORIDE FLUSH 0.9% 10 ML SYRINGE IVP SCH ×3 (09:06→22:39)
[2017-11-25] MEDS: SPIRONOLACTONE 25 MG TABLET PO SCH (09:06)
[2017-11-25] MEDS: METOPROLOL SUCCINATE 50 MG TABLET PO SCH (09:12)
[2017-11-25] MEDS: MICONAZOLE CREAM 118 ML TUBE TOP SCH ×2 (09:17→20:20)
--- NOTE | 2017-11-25 09:20 | ADVANCE CARE PLANNING NOTE ---
Advance Care Planning - Date/Time Date: 11/24/17 Time: 10:00 - Purpose of encounter Text: discuss with pt for his code status, and advance care such as palliative and hospice care - Parties in attendance Parties in attendance: pt, pt's nephew and me. - Decisional capacity Decisional capacity of: pt is alert and oriented. pt make his own decision - Subjective/Patient's story Subjective/Patient's story: pt request full code before, right now after discussion with him, pt desire to change his code status to DNR, willing to have palliative care first, then switch to hospice care - Objective/Medical story Objective/Medical Story: Pt's EF of his heart is 20%, heart failure according [place] stage 4, congestion and anasarca, and resistance to diuretics, CKD3/4, Afib, CVA, hypotension - Goals of Care Goals of care determinations: for pt's quality life and advance care, pt desire to change his code status to DNR, willing to have palliative care first, then switch to hospice care - Plan Plan: switch to DNR of his codes status, will D/C to [facility] on one or two days after reviewed by palliative care, then possibly switch to hospice according to pt's development. - Code Status Code Status: Do Not Attempt Resuscitation - Time Spent on Advance Care Planning Time spent on advance care plannin
[2017-11-25] MEDS: SODIUM CHLORIDE FLUSH 0.9% 10 ML SYRINGE IVP PRN (11:51)
[2017-11-25] MEDS: FUROSEMIDE 100 MG/10 ML VIAL IVP SCH ×2 (11:51→22:39)
--- NOTE | 2017-11-25 14:30 | CONSULTATION NOTE ---
Palliative Care Follow Up - Referral Referring Provider: Yasmani PONCE Time of Visit: [id number] Referral setting: Hospitalized patient Referral Reason: CHF/Goals of Care - Information Sources Records reviewed: Previous records reviewed History/Review of Systems obtained from: Patient Exam limitations: Clinical condition (patient with limited insight into seriousness of illness; [place]) - History of Present Illness Update Brief HPI Update: Please see HPI for history 11/24 Palliative Care Consultation. Patient did participate in physical therapy yesterday, his goals remain stated to get stronger. Patient is hoping to regain some independence and return to previous level of functioning to at [facility]. Unfortunately, despite medications adjustments, remains quite fragile, with respiratory effort, poor activity tolerance, and third spacing into abdomen and left arm, has crackles bilaterally , and cough. Social History - Living Situation Living arrangement: Assisted living Support System: Nephew Yehuda and his Karine hawkins, live in [place], aware of the seriousness of the situation but are supportive of patient "giving it a try". Medications/Allergies - Medications Active Medication List: Active Medications Acetaminophen (Tylenol) 650 mg PO Q4HR PRN PRN Reason: Pain 1 to 4 Last Admin: 11/24/17 00:50 Dose: 650 mg Apixaban (Eliquis) 2.5 mg PO BID [facility] Last Admin: 11/25/17 09:04 Dose: 2.5 mg Aspirin ([place] Aspirin) 81 mg PO DAILY [facility] Last Admin: 11/25/17 09:05 Dose: 81 mg Atorvastatin Calcium (Lipitor) 40 mg PO QPM [facility] Last Admin: 11/24/17 20:16 Dose: 40 mg Ferrous Sulfate (Feosol) 325 mg PO BIDWM [facility] Last Admin: 11/25/17 09:05 Dose: 325 mg Furosemide (Lasix Inj 100mg Vial) 80 mg IVP 1100,2300 [facility] Last Admin: 11/25/17 11:51 Dose: 80 mg Guaifenesin (Mucinex) 600 mg PO BID [facility] Last Admin: 11/25/17 09:04 Dose: 600 mg Levalbuterol HCl (Xopenex) 1.25 mg INH Q4H PRN PRN Reason: Shortness of Air/Wheezing Levalbuterol HCl (Xopenex) 1.25 mg INH TID [facility] Last Admin: 11/25/17 13:47 Dose: 1.25 mg Metoprolol Succinate (Toprol Xl) 75 mg PO DAILY [facility] Last Admin: 11/25/17 09:12 Dose: 75 mg Miconazole Nitrate (Remedy Antifungal) 1 applic TOP BID [facility] Last Admin: 11/25/17 09:17 Dose: 1 applic Mineral Oil (Cavilon) 1 applic TOP PRN PRN PRN Reason: Skin Care Last Admin: 11/21/17 04:53 Dose: 1 applic Ondansetron HCl (Zofran Inj) 4 mg IVP Q6HR PRN PRN Reason: Nausea / Vomiting Oxycodone HCl (Roxicodone) 5 mg PO Q4HR PRN PRN Reason: Pain 5 to 7 Last Admin: 11/22/17 09:55 Dose: 5 mg Oxycodone HCl (Roxicodone) 10 mg PO Q4HR PRN PRN Reason: Pain 8 to 10 Last Admin: 11/23/17 20:52 Dose: 10 mg Pantoprazole Sodium (Protonix) 40 mg PO QDAC [facility] Last Admin: 11/25/17 06:18 Dose: 40 mg Polyethylene Glycol (Miralax) 17 gm PO DAILY [facility] Last Admin: 11/25/17 09:05 Dose: Not Given Prochlorperazine Edisylate (Compazine Inj) 10 mg IVP Q6HR PRN PRN Reason: Nausea / Vomiting Promethazine HCl (Phenergan Inj) 25 mg IM Q6HR PRN PRN Reason: Nausea / Vomiting Sodium Chloride (Normal Saline Flush 0.9%) 10 ml IVP PRN PRN PRN Reason: NEEDED PER PROVIDER ORDERS Last Admin: 11/25/17 11:51 Dose: 10 ml Sodium Chloride (Normal Saline Flush 0.9%) 10 ml IVP 0100,0900,1700 [facility] Last Admin: 11/25/17 09:06 Dose: 10 ml Spironolactone (Aldactone) 12.5 mg PO DAILY [facility] Last Admin: 11/25/17 09:06 Dose: 12.5 mg Acetaminophen [Tylenol] 650 mg PO Q6H PRN 07/30/13 Multivit-Min/FA/Lycopen/Lutein [Centrum Silver Tablet] 1 tab PO DAILY 12/20/14 Potassium Citrate [Potassium Citrate ER] 10 meq PO DAILY 10/12/17 Calcium Carbonate [Calcium] 600 mg PO BID 11/17/17 Ipratropium/Albuterol Sulfate [Iprat-Albut 0.5-3(2.5) mg/3 ml] 1 neb INH QID 07/06 Losartan [Cozaar] 25 mg PO DAILY 11/17/17 - Allergies Allergies/Adverse Reactions: Allergies Allergy/AdvReac Type Severity Reaction Status Date / Time Sulfa (Sulfonamide Allergy Unknown unk Verified 10/12/17 06:39 Antibiotics) sulfamethoxazole Allergy Unknown unk Verified 10/12/17 06:39 [From Bactrim] trimethoprim [From Bactrim] Allergy Unknown unk Verified 10/12/17 06:39 Review of Systems - Constitutional Constitutional: reports: Fatigue - Cardiovascular Cardiovascular: reports: Irregular heart rate - Respiratory Respiratory: reports: Cough, Orthopnea, SOB at rest, SOB with exertion - Gastrointestinal Gastrointestinal: reports: Early satiety. denies: Constipation, Nausea, Reflux/ heartburn - Genitourinary Genitourinary: reports: Other (requests wilson be removed; communicated to hospitalist) - Musculoskeletal Musculoskeletal: reports: Muscle weakness, Transfer issues (max assist with lift currently; baseline has transfer poles at facility) - Integumentary Integumentary: reports: Pruritis, Dryness - Neurological Neurological: reports: General weakness, Slurred speech (dysarthia) - Psychiatric Psychiatric: reports: Anxiety. denies: Depression - Hematologic/Lymphatic Hematologic/Lymphatic: reports: Anemia (some improvement today), Bruising - All Other Systems All Other Systems: reports: Reviewed and negative Physical Exam - Vital Signs Vital Signs: Vital Signs x48h Temp Pulse Pulse Resp BP Pulse Ox 11/25/17 13:48 83 20 11/25/17 11:25 82 20 91/59 L 92 11/25/17 09:17 92 11/25/17 08:11 36.3 C L 70 20 82/52 L 94 11/25/17 07:43 87 20 - Physical Exam General Appearance: positive: Mild distress (with respiratory effort;) Eyes Bilateral: positive: Normal inspection ENT: positive: Dry mucous membranes Neck: positive: No JVD, Trachea midline Cardiovascular: positive: Irregular Respiratory: positive: Diminished in bases, Rales (fine in bases) Abdomen: positive: Soft, Nml bowel sounds, Tenderness (right upper quadrant with palpation), Other (scrotal swelling) Skin: positive: Dryness, Bruising, Pruritis Extremities: positive: No pedal edema, Other (left arm with mild improvement inswelling) Neurologic/Psychiatric: positive: Disoriented to person (unclear if remembers [employer] 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 He denies feeling worried about anything, his goal continues to be focused on going to the SNF. He does feel somewhat lonely and isolated in his room, he reports he has lots of friends and enjoys the staff at [facility]. He has been at [facility] before, and is looking forward to "getting stronger". He does have poor activity tolerance, we discussed will continue to see how he does with his serious illness, and his advanced age. We can continue to talk about how best to support him, with his ultimate goal to return back to [facility]. Results - Lab Results Lab results reviewed: Yes Fish Bones: 11/25/17 05:13 11/25/17 05:13 Lab and Imaging Results: Lab Results x24hrs 11/25/17 11/25/17 11/25/17 Range/Units 05:13 05:13 05:13 WBC 8.2 (4.8-10.8) x10^3/uL RBC 3.06 L (4.70-6.10) 10^6/uL Hgb 7.8 L (14.0-18.0) g/dL Hct 25.9 L (42.0-52.0) % MCV 84.5 (80.0-94.0) fL MCH 25.6 L (27.0-31.0) pg MCHC 30.2 L (32.0-36.0) g/dL RDW 25.9 H (12.0-15.0) % Plt Count 224 (130-450) 10^3/uL MPV 8.4 (7.4-11.4) fL Neut # (Auto) 6.6 (1.5-6.6) 10^3/uL Lymph # (Auto) 0.7 L (1.5-3.5) 10^3/uL Jenkins # (Auto) 0.8 (0.0-1.0) 10^3/uL Eos # (Auto) 0.1 (0.0-0.7) 10^3/uL Baso # (Auto) 0.1 (0.0-0.1) 10^3/uL Absolute Nucleated RBC 0.01 x10^3/uL Nucleated RBC % 0.1 /100WBC Manual Slide Review Indicated Platelet Estimate NORMAL (130-450,000) (NORMAL) Platelet Morphology NORMAL APPEARANCE (NORMAL) RBC Morph Micro Appear 1+ OVALOCYTES (NORMAL) Sodium 132 L (135-145) mmol/L Potassium 3.9 (3.5-5.0) mmol/L Chloride 97 L (101-111) mmol/L Carbon Dioxide 29 (21-32) mmol/L Anion Gap 6.0 (6-13) BUN 44 H (6-20) mg/dL Creatinine 2.0 H (0.6-1.2) mg/dL Estimated GFR (MDRD) 33 L (>89) Glucose 82 (70-100) mg/dL Calcium 8.2 L (8.5-10.3) mg/dL B-Natriuretic Peptide 1992 H (5-100) pg/mL Impression and Recommendations - Palliative Care Impression: This is a 77-year-old gentleman with NYHA Stage 4 heart failure, CKD stage III, anemia, post CVA with left hemiplegia and dysarthia, who has had little improvement in managing his CHF. Patient may be at his new baseline, and expected continued decline, but patient is hopeful to improve his functional status and return back to [facility]. Palliative care to provide support and oversight in transitions, with anticipation to transition to hospice in the next weeks to months. Recommendations/Counseling Done: 1. CHF NYHA Stage 4. Medications maximally managed with minimal improvement, difficult balance with CKD. Concern regarding expected most likely continued decline. Palliative care to monitor for transition point to hospice, as well as focus on comfort/symptom management. 2. Generalized weakness. Patient goal to improve, he would like to go to [facility] for rehab. Awaiting decision from [facility], plan to discharge today or tomorrow. 3. Advanced care planning. Continue to milieu counselor regarding patient's goals of care , assisting with education regarding disease course and anticipatory guidance. Patient's EOL goals when he is ready to transition to comfort measures, are to be at [facility], would need hospice support for him to return in his current level of functioning and symptom burden. Time Spent: 15 minutes with greater than 50% done in counseling and anticipatory guidance.
--- NOTE | 2017-11-25 17:44 | PROVIDER PROGRESS NOTE ---
Subjective - Prog Note Date Prog Note Date: 11/25/17 - Subjective Pt reports feeling: No change Subjective: pt stay the same, denies chest pain, fever, chill, cough. He state he hope to be d/c to [facility] today or tomorrow. Lizet Garg also saw ot, and recommended pt to be d/c to [facility] on tomorrow. nurse report pt had nose bleeding. pt is hemodynamically as his baseline. Will check H&H, PT/INR, and stop Eliquis and Aspirin. Current Medications - Current Medications Current Medications: Active Medications Acetaminophen (Tylenol) 650 mg PO Q4HR PRN PRN Reason: Pain 1 to 4 Last Admin: 11/24/17 00:50 Dose: 650 mg Atorvastatin Calcium (Lipitor) 40 mg PO QPM [facility] Last Admin: 11/24/17 20:16 Dose: 40 mg Ferrous Sulfate (Feosol) 325 mg PO BIDWM [facility] Last Admin: 11/25/17 17:43 Dose: 325 mg Furosemide (Lasix Inj 100mg Vial) 80 mg IVP 1100,2300 [facility] Last Admin: 11/25/17 11:51 Dose: 80 mg Guaifenesin (Mucinex) 600 mg PO BID [facility] Last Admin: 11/25/17 09:04 Dose: 600 mg Levalbuterol HCl (Xopenex) 1.25 mg INH Q4H PRN PRN Reason: Shortness of Air/Wheezing Levalbuterol HCl (Xopenex) 1.25 mg INH TID [facility] Last Admin: 11/25/17 13:47 Dose: 1.25 mg Metoprolol Succinate (Toprol Xl) 75 mg PO DAILY [facility] Last Admin: 11/25/17 09:12 Dose: 75 mg Miconazole Nitrate (Remedy Antifungal) 1 applic TOP BID [facility] Last Admin: 11/25/17 09:17 Dose: 1 applic Mineral Oil (Cavilon) 1 applic TOP PRN PRN PRN Reason: Skin Care Last Admin: 11/21/17 04:53 Dose: 1 applic Ondansetron HCl (Zofran Inj) 4 mg IVP Q6HR PRN PRN Reason: Nausea / Vomiting Oxycodone HCl (Roxicodone) 5 mg PO Q4HR PRN PRN Reason: Pain 5 to 7 Last Admin: 11/22/17 09:55 Dose: 5 mg Oxycodone HCl (Roxicodone) 10 mg PO Q4HR PRN PRN Reason: Pain 8 to 10 Last Admin: 11/23/17 20:52 Dose: 10 mg Pantoprazole Sodium (Protonix) 40 mg PO QDAC [facility] Last Admin: 11/25/17 06:18 Dose: 40 mg Polyethylene Glycol (Miralax) 17 gm PO DAILY [facility] Last Admin: 11/25/17 09:05 Dose: Not Given Prochlorperazine Edisylate (Compazine Inj) 10 mg IVP Q6HR PRN PRN Reason: Nausea / Vomiting Promethazine HCl (Phenergan Inj) 25 mg IM Q6HR PRN PRN Reason: Nausea / Vomiting Sodium Chloride (Normal Saline Flush 0.9%) 10 ml IVP PRN PRN PRN Reason: NEEDED PER PROVIDER ORDERS Last Admin: 11/25/17 11:51 Dose: 10 ml Sodium Chloride (Normal Saline Flush 0.9%) 10 ml IVP 0100,0900,1700 [facility] Last Admin: 11/25/17 16:10 Dose: Not Given Spironolactone (Aldactone) 12.5 mg PO DAILY [facility] Last Admin: 11/25/17 09:06 Dose: 12.5 mg Acetaminophen [Tylenol] 650 mg PO Q6H PRN 07/30/13 Multivit-Min/FA/Lycopen/Lutein [Centrum Silver Tablet] 1 tab PO DAILY 12/20/14 Potassium Citrate [Potassium Citrate ER] 10 meq PO DAILY 10/12/17 Calcium Carbonate [Calcium] 600 mg PO BID 11/17/17 Ipratropium/Albuterol Sulfate [Iprat-Albut 0.5-3(2.5) mg/3 ml] 1 neb INH QID 07/06 Losartan [Cozaar] 25 mg PO DAILY 11/17/17 Objective - Vital Signs/Intake & Output Reviewed Vital Signs: Yes Vital Signs: Vital Signs x48h Temp Pulse Pulse Resp BP Pulse Ox 11/25/17 15:17 36.6 C 86 22 110/51 L 96 11/25/17 13:48 83 20 11/25/17 11:25 82 20 91/59 L 92 Intake & Output: Intake & Output 11/22/17 11/23/17 11/24/17 11/25/17 23:59 23:59 23:59 23:59 Intake Total 1150 920 610 270 Output Total 1100 1125 575 900 Balance 50 -205 35 -630 - Objective General Appearance: positive: No acute distress, Alert. negative: Lethargic Eyes Bilateral: positive: Normal inspection, PERRL, No lid inflammation, Conjunctivae nml ENT: positive: ENT inspection nml, Pharynx nml, No signs of dehydration. negative: Purulent nasal drainage, Pharyngeal erythema, Oral lesions Neck: positive: Nml inspection, Thyroid nml, No JVD, Trachea midline. negative : Thyromegaly, Lymphadenopathy (R), Lymphadenopathy (L), Stiff neck, Carotid bruit, Swelling/bruising, Tracheal deviation Respiratory: positive: Chest non-tender, No respiratory distress, Other ( reduced lung sound bilaterally). negative: Wheezes, Rales, Rhonchi Cardiovascular: positive: Irregularly irregular, Systolic murmur, Diastolic murmur. negative: Extrasystoles, Tachycardia, Bradycardia Peripheral Pulses: 2+ Radial (R), 2+ Radial (L), 2+ Dorsalis pedis (R), 2+ Dorsalis pedis (L) Abdomen: positive: Non-tender, No organomegaly, Nml bowel sounds, No distention. negative: Tenderness, Guarding, Rebound Back: positive: Nml inspection. negative: CVA tenderness (R), CVA tenderness (L ) Skin: positive: Color nml, No rash, Warm, Dry. negative: Cyanosis, Diaphoresis , Pallor Extremities: positive: Non-tender, Nml appearance. negative: Calf tenderness, Joint swelling, Troy's sign/cords Neurologic/Psychiatric: positive: Oriented x3, Sensation nml. negative: Sensory loss, Facial droop, Slurred/abnml speech, Depressed mood/affect - Lab Results Fish Bones: 11/25/17 17:42 11/25/17 05:13 Other Labs: Lab Results x24hrs 11/25/17 11/25/17 11/25/17 Range/Units 05:13 05:13 05:13 WBC 8.2 (4.8-10.8) x10^3/uL RBC 3.06 L (4.70-6.10) 10^6/uL Hgb 7.8 L (14.0-18.0) g/dL Hct 25.9 L (42.0-52.0) % MCV 84.5 (80.0-94.0) fL MCH 25.6 L (27.0-31.0) pg MCHC 30.2 L (32.0-36.0) g/dL RDW 25.9 H (12.0-15.0) % Plt Count 224 (130-450) 10^3/uL MPV 8.4 (7.4-11.4) fL Neut # (Auto) 6.6 (1.5-6.6) 10^3/uL Lymph # (Auto) 0.7 L (1.5-3.5) 10^3/uL Motley # (Auto) 0.8 (0.0-1.0) 10^3/uL Eos # (Auto) 0.1 (0.0-0.7) 10^3/uL Baso # (Auto) 0.1 (0.0-0.1) 10^3/uL Absolute Nucleated RBC 0.01 x10^3/uL Nucleated RBC % 0.1 /100WBC Manual Slide Review Indicated Platelet Estimate NORMAL (130-450,000) (NORMAL) Platelet Morphology NORMAL APPEARANCE (NORMAL) RBC Morph Micro Appear 1+ OVALOCYTES (NORMAL) Sodium 132 L (135-145) mmol/L Potassium 3.9 (3.5-5.0) mmol/L Chloride 97 L (101-111) mmol/L Carbon Dioxide 29 (21-32) mmol/L Anion Gap 6.0 (6-13) BUN 44 H (6-20) mg/dL Creatinine 2.0 H (0.6-1.2) mg/dL Estimated GFR (MDRD) 33 L (>89) Glucose 82 (70-100) mg/dL Calcium 8.2 L (8.5-10.3) mg/dL B-Natriuretic Peptide 1992 H (5-100) pg/mL ABX Reporting Has patient been on IV antibiotics over the past 48 hours?: No Assessment/Plan - Problem List (1) CHF exacerbation Impression: (1) nose bleed nurse report pt had nurse bleed. Now bleed stopped when I assessed pt. pt is hemodynamically as his baseline. 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 pt also has slight elevated BUN and creatinine level. continue Lasix CXR tonight plan d/c to [facility] per palliative recommend 11/24 EF at 20, pt signed PLOST to DNR, and agree on palliative care, and request to d/c [facility], then hospice care to [facility] if continue deteriorated. continue diuresis bid 80mg Lasix, although pt developed some resistance to diuresis tele and vital monitor continue Metoprolol fluid restrict daily weight low sodium diet plan to d/c to [facility] per pts's request. 11/23; Holding lasix this pm (80mg this this am; overall negative last 2 days I/O ) but getting more prerenal (minimal 02 need; may be dealing mainly w/ "Rsided" fluid at this point) Titrating beta yogi further for better rate control/ more filling time; -- Metoprolol tartrate 25 mg x 1 this pm; if tolerates addition>>> Toprol XL 75 mg in am (also discussed w/ Dr. Caldwell) Weights remarkably unchanged 81 kg today ? accurate (reviewed weights in early October CHF admission; discharge weight 69 kg. scrotal edema resolved)? standing weight With EF 20-25%, an SBP of 85 is acceptable Since got lasix this morning will eval response, and possibly try titrate Toprol later for current suboptimal rate control Pt declined request to sit at bedside for orthos to assess volume status but BP tolerating 80 mg dosing (See prior note; coreg changed to toprol for better rate control, and BP not leaving room for coreg (more effect on BP)- --continue diuresis as status permits --titrate toprol (RN will contact hospitalist in AM to ensure tolerated additional 25mg) --once close to euvolemic , ideally need ARB or ACEI back on board for HFrEF --continue aldactone --Lizet Garg consult for pall care Friday / reevaluate goals of care - 11/21 Ef 20%, (severe global HK) RVSP 61 with RV function moderately impaired per echo) ; looking at I/O's, wts since admit; have made little progress, needed 1L fluid bolus several days ago w/hypotension after diuresis (but SBP 83 with EF 20% not unreasonable) - dont know dry weight (will check last admit records) HR poor control for EF 20% (and afib) coreg stopped at admit? changed to metoprolol tartrate? If BP didnt allow coreg (greater effect on BP than toprol)>>>; changing to Toprol (got 25 mg this am, additional 12.5 tonight to hopefully allow more filling time w/ better rate control (HR low 100's on H/P) Double lasix dose (was not responding to 40 bid: double to 80 bid); pt felt subjectively more "comfortable after am diuressis check labs and orthostatics before dosing tomorrow With EF of 20-25%, as per [facility] cardiology recs' SBP iof 85 is very acceptable (BUN/Cr likley reflect poor forward flow ,; recheck chem panel in am w/ diuresis (with Right sided failure/ high RVSP 61mm; difficult balance as needs preload, but at this time not overdiuresed continue spironolactone (will resume home dose) ? room to resume low dose ACEI (nEEDS) (was on losartan at home) Depending on morning VS, may resume low dose in am ? candidate for Entresto? (need cardiology f/uP Pt w/ poor insithgt into disease; 2 admits in last 2 month ordered palliative care consult - Summary; continue toprol / titrate to 50 if possible before d/c (was on coreg 3.25 bid at home) - continue lasix at 80 bid today (and check orthos before redose in am - continue fern - needs to get back on arb (or low dose acei for remodeling (was on losartan 100) _ ? entresto candidate? (needs cardiology f/u); but with poor functional status; pall care consult (ordered - continue 2 g na diet - cont tele - continue strict I/O, daily wts (but his wts are not jiving w/ i/o) LUE swelling; will review records if has had US CHF teaching and more detailed instructions on discharge as patient has now had a second readmission within the last 2 months for the same problem. ( try to establish dry weight, daily wts at [facility], (may be moot depending on palliative care consult) (3) Acute renal failure superimposed on stage 3 chronic kidney disease Conclusion/Plan: 11/25 pt is on high dosage of diuretics, and pt has slight elevated BUN and creatinine hold nephrological toxic agents continue lab and vital monitor stable, continue lab monitor 11/22; Cr stable, but increasingly prerenal (may be dealing more w/ R sided fluid at this point) and holding more diuresis tonight aseline 1.6 October; ; has been 1.9-2.0 in past as above difficult balance w/ R sided failure, poor EF, but has room to diurese currently bun/cr likely r/t to poor forward flow (suboptimal rate control) reeval in am after todays diuresis, and orthos in am as noted (4) Hyponatremia Conclusion/Plan: Na 132, a little down from previous one continue diuresis daily lab monitor 11/23; stable improved since admit 11/21 most c/w hypervolemic hyponatremia on admit stable11/20 stable, imporved from 71 127 (133 today) reeval in am, today Na 134, close normal continue Lasix and daily eval (overall poor prognostic indicator , but as above IS improved) (5) Anemia Conclusion/Plan: 11/25 slight elevated HGB to 7.8, continue Ferrous sulf recheck CBC, follow up 11/23; no indication to recheck daily (try to minimize some iatrogenic blood loss) 11/20 stable, no evident bleeding, no indication for RBC currently As above, ordering palliative care consult; Colonoscopy lower priority at this time w/ stable Hgb Hx from H/P The patient is anemic on presentation with a hemoglobin of 8.2 it appears the patient's baseline hemoglobin runs at around 9.5. During previous hospitalization patient was found to have iron deficiency anemia. He is not currently on iron. We will give the patient iron supplementation. Given this iron deficiency anemia the patient does need a EGD and colonoscopy to work him up for possible malignancy or other causes of iron deficiency. Given the patient's cardiac history he may not be an optimal candidate for EGD and colonoscopy. Plan: continue Iron supplementation Monitor hemoglobin (6) Atrial fibrillation Conclusion/Plan: stop Eliquis and Aspirin now, pt had nose bleeding 11/24 HR is stable, continue Eliquis, Metoprolol continue tele, vital monitor 7/7; sl improved rate control today (80's on Toprol 50; as above may try to push Toprol to 75 7/6As noted suboptimal Rate control for Ef 20% (hope to get below 80/ ideally 70 HR) for rate control coreg changed to toprol (since bp evidently not tolerating coreg continue Eliquis reluctant to start een MWF dig 0.125 as sometimes done in this fragile gentleman (data for reduced admits for CHF/ no improved mortality beneift) CHADS 2 vasc 4; on eliquis (7) hx of Hypertension Conclusion/Plan: at home on losartan, coreg ,spironolactone (HFrEF) modifications as above under #1 for CHF w/ EF 20%, cardiologists generally indicate SBP of even 85 reasonable to allow CHF Rx optimization / hold parameters are SBp 85 (8) Hyperlipidemia Conclusion/Plan: On statin/ continue lipitor, Hx stroke . (9) History of CVA (cerebrovascular accident) 11/25 continue PT/OT. PT/OT recommend pt to be d/c to SNF w/ residual L weakness (wheelchair/bedbound) (scooter at [place] per H/P / dysarthria continue ASA, statin, eliquis for #6 (10) Hyperglycemia Conclusion/Plan: mild/ resolved. A1C is 6. (11) hypotension base on pt's EF, SBP is allowed at above 80 continue vital monitor improved. HR 91, BP 104/56. continue hold Losartan. continue Metoprolol 12.5 mg bid vital monitor Q4H hold Losatan, reduce Lasix to 40 mg bid IV reduce metoprolol dosage, since HR is well controlled. continue vital closely monitor pt (11) anasarca 11/25, edema at hand reduced but edema at groin area remains the same continue Lasix pt had EF 20%, fluid congested. no significant improvement continue diuretics lab and vital monitor pt present left upper extremity edema, it seems chronic. There is no pain, tenderness, erythema. pt also report today her groin area swelling as well. it also seems chronic condition, specially pt has over-fluid and congested. increase Lasix iV dosage lab and vital, tele monitor (12) pain and swelling at groin area chronic condition. US reveals edema, no infection, clots, abscess. continue LAsix, closely monitor pt pt report today some pain at groin area. There are swelling, tenderness, mild discolored to darkness due to swelling, without erythema. it seems one area of anasarca. order US, will follow up continue IVF Lasix lab and vital, tele monitor
[2017-11-25 18:00] LABS: HGB - HEMOGLOBIN 8.3 g/dL (14.0-18.0)
[2017-11-25 18:07] LABS: INR 2.5 (0.8-1.2); PT - PROTHROMBIN TIME 27.6 secs (9.9-12.6)
[2017-11-25] MEDS: ATORVASTATIN 40 MG TABLET PO SCH (20:20)
--- NOTE | 2017-11-25 22:03 | XRAY Report ---
Procedure Date: 11/25/2017 Accession Number: [id number] / [id number] Procedure: XR - Chest 1 View X-Ray CPT Code: 36716 FULL RESULT: EXAM: CHEST RADIOGRAPHY EXAM DATE: 11/25/2017 07:41 PM. CLINICAL HISTORY: Shortness of breath COMPARISON: 11/19/2017 chest x-ray. TECHNIQUE: 1 view. FINDINGS: Lungs/Pleura: Small to moderate bilateral pleural effusions. Interval increase in diffuse hazy lung opacities. No pneumothorax. Mediastinum: Enlarged cardiac contours. Single defibrillator lead noted. No generator. Other: None. IMPRESSION: Interval increase in bilateral pleural effusions and pulmonary edema. RADIA
[2017-11-26 05:22] LABS: BASOPHILS # (AUTO) 0.1 10^3/uL (0.0-0.1); BASOPHILS % (AUTO) 0.9 %; EOSINOPHILS # (AUTO) 0.1 10^3/uL (0.0-0.7); EOSINOPHILS % (AUTO) 0.9 %; HGB - HEMOGLOBIN 7.8 g/dL (14.0-18.0); LYMPHOCYTES # (AUTO) 0.6 10^3/uL (1.5-3.5); LYMPHOCYTES % (AUTO) 7.7 %; MEAN CORPUSCULAR HEMOGLOBIN 25.8 pg (27.0-31.0); MEAN CORPUSCULAR HGB CONC 30.4 g/dL (32.0-36.0); MEAN CORPUSCULAR VOLUME 84.8 fL (80.0-94.0); MEAN PLATELET VOLUME 8.4 fL (7.4-11.4); MONOCYTES # (AUTO) 0.7 10^3/uL (0.0-1.0); MONOCYTES % (AUTO) 9.5 %; NEUTROPHILS # (AUTO) 6.1 10^3/uL (1.5-6.6); PLT - PLATELET COUNT 227 10^3/uL (130-450); RED BLOOD COUNT 3.03 10^6/uL (4.70-6.10); RED CELL DISTRIBUTION WIDTH 27.2 % (12.0-15.0); WHITE BLOOD COUNT 7.6 x10^3/uL (4.8-10.8)
[2017-11-26] MEDS: ACETAMINOPHEN 325 MG TABLET PO PRN (05:28)
[2017-11-26] MEDS: PANTOPRAZOLE 40 MG TABLET PO SCH (06:22)
[2017-11-26 06:50] LABS: PLATELET MORPHOLOGY NORMAL APPEARANCE (NORMAL)
[2017-11-26] MEDS ORDERED: TORSEMIDE 20 MG TABLET PO SCH (08:00)
[2017-11-26 08:23] LABS: ALBUMIN/GLOBULIN RATIO 0.4 (1.0-2.2); BILIRUBIN,TOTAL 1.1 mg/dL (0.2-1.0); CALCIUM 8.3 mg/dL (8.5-10.3)
[2017-11-26] MEDS: LEVALBUTEROL 1.25 MG/3 ML NEB INH SCH ×3 (08:35→18:04)
[2017-11-26] MEDS: guaiFENesin 600 MG TABLET PO SCH ×2 (09:14→21:20)
[2017-11-26] MEDS: METOPROLOL SUCCINATE 50 MG TABLET PO SCH (09:14)
[2017-11-26] MEDS: SPIRONOLACTONE 25 MG TABLET PO SCH (09:14)
[2017-11-26] MEDS: FERROUS SULFATE 325 MG TABLET PO SCH ×2 (09:14→16:48)
[2017-11-26] MEDS: MICONAZOLE CREAM 118 ML TUBE TOP SCH ×2 (09:14→21:20)
[2017-11-26] MEDS: SODIUM CHLORIDE FLUSH 0.9% 10 ML SYRINGE IVP SCH ×2 (09:15→16:48)
[2017-11-26] MEDS: POLYETHYLENE GLYCOL 3350 17 GM PACKET PO SCH (09:15)
[2017-11-26] MEDS: FUROSEMIDE 100 MG/10 ML VIAL IVP SCH ×2 (11:12→22:03)
--- NOTE | 2017-11-26 13:11 | CONSULTATION NOTE ---
Palliative Care Follow Up - Referral Referring Provider: Tobin PONCE Time of Visit: [id number] Referral setting: Hospitalized patient Referral Reason: CHF/Goals of Care - Information Sources Records reviewed: Previous records reviewed History/Review of Systems obtained from: Patient Exam limitations: Clinical condition (patient with STM issues, some communication challenges; able to particpate and repeat back decisions today) - History of Present Illness Update Brief HPI Update: This is a 77-year-old gentleman who was admitted on 11/16/2017 for his second hospitalization for an exacerbation of his heart failure. He had a recent hospitalization 10/12 2 5 with exacerbation of his NYHA class IV heart failure, underlying pneumonia, UTI, groin edema, and COPD. He has had a prolonged hospitalization, resistant to multiple medication adjustments, remains with baseline breathlessness and minimal improvement in his heart failure over this last week. His ejection fraction has decreased from his last hospitalization of 30-35% down to 20%, has noted severe global hypokinesis as well as severe pulmonary hypertension. His medication changes were done in the context of trying to balance with his chronic renal failure, ongoing atrial fib , as well as patient's willingness to participate in care. He still has profound activity intolerance, has mostly been bedbound, his original goals have been stated as trying to regain some functional status, but has not met these. He had planned to try and bridge with a SNF stay, but today is wanting to return home, recognizing he has not improved much and his goals for end of life is to have a at [facility]. He is wanting to transition back home, [facility] is willing to take him, but will be with hospice support. Arrangements for equipment and services are now being followed up. Social History - Living Situation Living arrangement: Assisted living Living Situation: Alone Support System: His nephew Yehuda is his DPOAE, is willing to support his goals and transition to hospice. Yehuda's Karine, is also of good support. Patient is estranged from his other 4 sons. He does perceive [facility] as a welcoming place and "home". And follow-up with Pauline at [facility] they are willing to take him with hospice support. Since patient's stroke in 1998, he has had multiple stays at [facility], most recently moved in this last winter. Medications/Allergies - Medications Active Medication List: Active Medications Acetaminophen (Tylenol) 650 mg PO Q4HR PRN PRN Reason: Pain 1 to 4 Last Admin: 11/26/17 05:28 Dose: 650 mg Apixaban (Eliquis) 2.5 mg PO BID [facility] Aspirin (Eulogio) 81 mg PO DAILYWM [facility] Atorvastatin Calcium (Lipitor) 40 mg PO QPM [facility] Last Admin: 11/25/17 20:20 Dose: 40 mg Ferrous Sulfate (Feosol) 325 mg PO BIDWM [facility] Last Admin: 11/26/17 09:14 Dose: 325 mg Furosemide (Lasix Inj 100mg Vial) 80 mg IVP 1100,2300 [facility] Last Admin: 11/26/17 11:12 Dose: 80 mg Guaifenesin (Mucinex) 600 mg PO BID [facility] Last Admin: 11/26/17 09:14 Dose: 600 mg Levalbuterol HCl (Xopenex) 1.25 mg INH Q4H PRN PRN Reason: Shortness of Air/Wheezing Levalbuterol HCl (Xopenex) 1.25 mg INH TID [facility] Last Admin: 11/26/17 08:35 Dose: 1.25 mg Metoprolol Succinate (Toprol Xl) 75 mg PO DAILY [facility] Last Admin: 11/26/17 09:14 Dose: 75 mg Miconazole Nitrate (Remedy Antifungal) 1 applic TOP BID [facility] Last Admin: 11/26/17 09:14 Dose: 1 applic Mineral Oil (Cavilon) 1 applic TOP PRN PRN PRN Reason: Skin Care Last Admin: 11/21/17 04:53 Dose: 1 applic Ondansetron HCl (Zofran Inj) 4 mg IVP Q6HR PRN PRN Reason: Nausea / Vomiting Oxycodone HCl (Roxicodone) 5 mg PO Q4HR PRN PRN Reason: Pain 5 to 7 Last Admin: 11/22/17 09:55 Dose: 5 mg Oxycodone HCl (Roxicodone) 10 mg PO Q4HR PRN PRN Reason: Pain 8 to 10 Last Admin: 11/23/17 20:52 Dose: 10 mg Pantoprazole Sodium (Protonix) 40 mg PO QDAC [facility] Last Admin: 11/26/17 06:22 Dose: 40 mg Polyethylene Glycol (Miralax) 17 gm PO DAILY [facility] Last Admin: 11/26/17 09:15 Dose: Not Given Prochlorperazine Edisylate (Compazine Inj) 10 mg IVP Q6HR PRN PRN Reason: Nausea / Vomiting Promethazine HCl (Phenergan Inj) 25 mg IM Q6HR PRN PRN Reason: Nausea / Vomiting Sodium Chloride (Normal Saline Flush 0.9%) 10 ml IVP PRN PRN PRN Reason: NEEDED PER PROVIDER ORDERS Last Admin: 11/25/17 11:51 Dose: 10 ml Sodium Chloride (Normal Saline Flush 0.9%) 10 ml IVP 0100,0900,1700 [facility] Last Admin: 11/26/17 09:15 Dose: 10 ml Spironolactone (Aldactone) 12.5 mg PO DAILY [facility] Last Admin: 11/26/17 09:14 Dose: 12.5 mg Acetaminophen [Tylenol] 650 mg PO Q6H PRN 07/30/13 Multivit-Min/FA/Lycopen/Lutein [Centrum Silver Tablet] 1 tab PO DAILY 12/20/14 Potassium Citrate [Potassium Citrate ER] 10 meq PO DAILY 10/12/17 Calcium Carbonate [Calcium] 600 mg PO BID 11/17/17 Ipratropium/Albuterol Sulfate [Iprat-Albut 0.5-3(2.5) mg/3 ml] 1 neb INH QID 07/06 Losartan [Cozaar] 25 mg PO DAILY 11/17/17 - Allergies Allergies/Adverse Reactions: Allergies Allergy/AdvReac Type Severity Reaction Status Date / Time Sulfa (Sulfonamide Allergy Unknown unk Verified 10/12/17 06:39 Antibiotics) sulfamethoxazole Allergy Unknown unk Verified 10/12/17 06:39 [From Bactrim] trimethoprim [From Bactrim] Allergy Unknown unk Verified 10/12/17 06:39 Review of Systems - Constitutional Constitutional: reports: Fatigue, Weakness, Poor appetite. denies: Fever, Chills - Eyes Eyes: reports: Vision loss - Ears, Nose & Throat Ears, Nose & Throat: reports: Hearing loss, Dry mouth, Other (frequent spitting with secretions/phelgm) - Cardiovascular Cardiovascular: reports: Irregular heart rate, Edema (left upper ext. improved slightly;) - Respiratory Respiratory: reports: Cough, Orthopnea, SOB at rest, SOB with exertion - Gastrointestinal Gastrointestinal: reports: Early satiety. denies: Constipation, Nausea, Reflux/ heartburn - Genitourinary Genitourinary: reports: Incontinence (had wilson removed; is voiding without difficulty; had depends on) - Musculoskeletal Musculoskeletal: reports: Stiffness, Limited range of motion (left sided hemiplegia), Muscle weakness, Transfer issues (has transfer poles at home, feels "environment" will be more supportive for some improvement) - Integumentary Integumentary: reports: Dryness - Neurological Neurological: reports: General weakness (has mostly been bedbound since admit), Memory problems (STM; does not talk alot;so hard to get baseline of cognitive status; appropriate and interactive with visit today), Slurred speech (residual of stroke) - Psychiatric Psychiatric: denies: Depression, Anxiety - Hematologic/Lymphatic Hematologic/Lymphatic: reports: Anemia - All Other Systems All Other Systems: reports: Reviewed and negative Physical Exam - Vital Signs Vital Signs: Vital Signs x48h Temp Pulse Pulse Resp BP Pulse Ox 11/26/17 11:12 93/57 L 11/26/17 08:39 76 19 11/26/17 08:13 36.4 C L 80 19 79/57 L 98 - Physical Exam General Appearance: positive: Mild distress (respiratory effort worsens wtih talking) Eyes Bilateral: positive: Normal inspection ENT: positive: Dry mucous membranes Neck: positive: No JVD, Trachea midline Cardiovascular: positive: Irregular Respiratory: positive: Rales (crackles in bases; some upper airway rhonchi clear with coughing) Abdomen: positive: Soft, Nml bowel sounds, Tenderness (right upper quadrant) Skin: positive: Pallor Extremities: positive: No pedal edema, Other (LUE edematous) Neurologic/Psychiatric: positive: Oriented x3, Mood/affect nml, Flat affect Palliative Care - POLST Patient has POLST: Yes POLST Status: DNR, Selective Treatment Pain: No pain Tiredness/Fatigue: Severe (7-10) Drowsiness/Sedation: None Nausea: None Constipation: No - Palliative Care Discussion: Had received message patient wanted to return to [facility] with hospice. Met with patient, discussed patient's change of heart, wants to get home to his home environment, acknowledges he is not improving, but feels he will do better at [facility]. His ultimate goal for end-of-life is to have a at that facility. We did discuss in the context of hospice as we would not as part of his goals return back to the hospital, he was able to verbalize understanding of this back, and willing to focus on comfort only at this point. He is of course hoping for the best, tibialis settle in and have some better quality time , as well as hoping to improve somewhat functionally in his own home. He denies any fears or distress, denies worrying about anything, counseling and reviewed again hospice benefit, Dr. Serrano was his original doctor, is looking forward to reestablishing with him. He is aware the seriousness of his illness , that is not improved, and he is quite compromised. Called to nephew and DPO a gym, discussed patient's ongoing decline, patient's goals to return back to [facility], this would be best met as far as success with the hospice team. Again reviewed the hospice benefit, Shala is in agreement to be supportive of patient's wishes, and is willing to meet with the hospice team at the time of admission. Patient does present with decision-making capacity to make his wishes known, unclear if he understands the fine points and will need support from his nephew. Results - Lab Results Lab results reviewed: Yes Fish Bones: 11/26/17 04:40 11/26/17 08:03 Lab and Imaging Results: Lab Results x24hrs 11/26/17 11/26/17 11/26/17 Range/Units 08:03 04:40 04:40 WBC 7.6 (4.8-10.8) x10^3/uL RBC 3.03 L (4.70-6.10) 10^6/uL Hgb 7.8 L (14.0-18.0) g/dL Hct 25.7 L (42.0-52.0) % MCV 84.8 (80.0-94.0) fL MCH 25.8 L (27.0-31.0) pg MCHC 30.4 L (32.0-36.0) g/dL RDW 27.2 H (12.0-15.0) % Plt Count 227 (130-450) 10^3/uL MPV 8.4 (7.4-11.4) fL Neut # (Auto) 6.1 (1.5-6.6) 10^3/uL Lymph # (Auto) 0.6 L (1.5-3.5) 10^3/uL Forest # (Auto) 0.7 (0.0-1.0) 10^3/uL Eos # (Auto) 0.1 (0.0-0.7) 10^3/uL Baso # (Auto) 0.1 (0.0-0.1) 10^3/uL Absolute Nucleated RBC 0.00 x10^3/uL Nucleated RBC % 0.1 /100WBC Manual Slide Review Indicated Platelet Morphology NORMAL APPEARANCE (NORMAL) RBC Morph Micro Appear 1+ POLYCHROMASIA (NORMAL) PT (9.9-12.6) secs INR (0.8-1.2) Sodium 134 L (135-145) mmol/L Potassium 4.0 (3.5-5.0) mmol/L Chloride 97 L (101-111) mmol/L Carbon Dioxide 29 (21-32) mmol/L Anion Gap 8.0 (6-13) BUN 49 H (6-20) mg/dL Creatinine 2.0 H (0.6-1.2) mg/dL Estimated GFR (MDRD) 33 L (>89) Glucose 79 (70-100) mg/dL Calcium 8.3 L (8.5-10.3) mg/dL Total Bilirubin 1.1 H (0.2-1.0) mg/dL AST 34 (10-42) IU/L ALT 25 (10-60) IU/L Alkaline Phosphatase 157 H (42-121) IU/L B-Natriuretic Peptide 2067 H (5-100) pg/mL Total Protein 7.0 (6.7-8.2) g/dL Albumin 2.0 L (3.2-5.5) g/dL Globulin 5.0 H (2.1-4.2) g/dL Albumin/Globulin Ratio 0.4 L (1.0-2.2) 11/25/17 11/25/17 11/25/17 Range/Units 23:35 17:42 17:42 WBC (4.8-10.8) x10^3/uL RBC (4.70-6.10) 10^6/uL Hgb 8.0 L 8.3 L (14.0-18.0) g/dL Hct 26.4 L 27.8 L (42.0-52.0) % MCV (80.0-94.0) fL MCH (27.0-31.0) pg MCHC (32.0-36.0) g/dL RDW (12.0-15.0) % Plt Count (130-450) 10^3/uL MPV (7.4-11.4) fL Neut # (Auto) (1.5-6.6) 10^3/uL Lymph # (Auto) (1.5-3.5) 10^3/uL Forest # (Auto) (0.0-1.0) 10^3/uL Eos # (Auto) (0.0-0.7) 10^3/uL Baso # (Auto) (0.0-0.1) 10^3/uL Absolute Nucleated RBC x10^3/uL Nucleated RBC % /100WBC Manual Slide Review Platelet Morphology (NORMAL) RBC Morph Micro Appear (NORMAL) PT 27.6 H (9.9-12.6) secs INR 2.5 H (0.8-1.2) Sodium (135-145) mmol/L Potassium (3.5-5.0) mmol/L Chloride (101-111) mmol/L Carbon Dioxide (21-32) mmol/L Anion Gap (6-13) BUN (6-20) mg/dL Creatinine (0.6-1.2) mg/dL Estimated GFR (MDRD) (>89) Glucose (70-100) mg/dL Calcium (8.5-10.3) mg/dL Total Bilirubin (0.2-1.0) mg/dL AST (10-42) IU/L ALT (10-60) IU/L Alkaline Phosphatase (42-121) IU/L B-Natriuretic Peptide (5-100) pg/mL Total Protein (6.7-8.2) g/dL Albumin (3.2-5.5) g/dL Globulin (2.1-4.2) g/dL Albumin/Globulin Ratio (1.0-2.2) Impression and Recommendations - Palliative Care Impression: Gentleman with multiple comorbidities, admitted for acute heart failure exacerbation, second hospitalization within a month, with minimal improvement of his underlying cardiac status. He does have an ejection fraction of 20%, is breathless at rest, he has poor activity tolerance and his goals are to return back to [facility] with hospice for end-of-life support. Palliative care will continue to work with hospitalist to define goals and help facilitate discharge to hospice. Recommendations/Counseling Done: 1. Acute on chronic heart failure, worsening. This will be patient's terminal diagnosis, does currently meet hospice criteria. Would recommend on discharge prescription for dyspnea morphine sulfate 20 mg per/ml 0.25 ml=5 mg every 4 hours as needed for dyspnea #30 for patient to have available for distress. 2. COPD. Patient to have oxygen delivered, as well as hospital bed second to orthopnea. Will also make arrangements for yaker suction as this has made it easier for patient to manage secretions. 3. Advanced care planning. Patient has chosen to transition to hospice, hospice team contacted with list of needed equipment, follow-up with Pauline at [facility] regarding discharge tomorrow, patient will need BLS transfer given his weakened state. JESUS and DPO a previously could completed Time Spent: 45 minutes with greater than 50% of this done in counseling regarding hospice benefit and goals of care, follow-up with nephew regarding transition to hospice and hospice benefit, coordination with care team of hospitalists, clinical staff, C[employer]ER CARE SPECIALIST for transportation as well as hospice team.
--- NOTE | 2017-11-26 15:52 | PROVIDER PROGRESS NOTE ---
Subjective - Prog Note Date Prog Note Date: 11/26/17 - Subjective Pt reports feeling: No change Subjective: pt is alert and oriented, have the capability to make his own decision. Pt told me and nurse, he want to be d/c to [facility] for hospice care. DPOA is notified and support pt's own decision. Lizet Garg, palliative care provider, was notified pt's new decision, and saw pt. Hospice team was consulted as well. Pauline at [facility] they are willing to take him with hospice support. planned to d/c pt on tomorrow to [facility] Current Medications - Current Medications Current Medications: Active Medications Acetaminophen (Tylenol) 650 mg PO Q4HR PRN PRN Reason: Pain 1 to 4 Last Admin: 11/26/17 05:28 Dose: 650 mg Apixaban (Eliquis) 2.5 mg PO BID [facility] Aspirin (Eulogio) 81 mg PO DAILYWM [facility] Atorvastatin Calcium (Lipitor) 40 mg PO QPM [facility] Last Admin: 11/25/17 20:20 Dose: 40 mg Ferrous Sulfate (Feosol) 325 mg PO BIDWM [facility] Last Admin: 11/26/17 09:14 Dose: 325 mg Furosemide (Lasix Inj 100mg Vial) 80 mg IVP 1100,2300 [facility] Last Admin: 11/26/17 11:12 Dose: 80 mg Guaifenesin (Mucinex) 600 mg PO BID [facility] Last Admin: 11/26/17 09:14 Dose: 600 mg Levalbuterol HCl (Xopenex) 1.25 mg INH Q4H PRN PRN Reason: Shortness of Air/Wheezing Levalbuterol HCl (Xopenex) 1.25 mg INH TID [facility] Last Admin: 11/26/17 14:46 Dose: 1.25 mg Metoprolol Succinate (Toprol Xl) 75 mg PO DAILY [facility] Last Admin: 11/26/17 09:14 Dose: 75 mg Miconazole Nitrate (Remedy Antifungal) 1 applic TOP BID [facility] Last Admin: 11/26/17 09:14 Dose: 1 applic Mineral Oil (Cavilon) 1 applic TOP PRN PRN PRN Reason: Skin Care Last Admin: 11/21/17 04:53 Dose: 1 applic Ondansetron HCl (Zofran Inj) 4 mg IVP Q6HR PRN PRN Reason: Nausea / Vomiting Oxycodone HCl (Roxicodone) 5 mg PO Q4HR PRN PRN Reason: Pain 5 to 7 Last Admin: 11/22/17 09:55 Dose: 5 mg Oxycodone HCl (Roxicodone) 10 mg PO Q4HR PRN PRN Reason: Pain 8 to 10 Last Admin: 11/23/17 20:52 Dose: 10 mg Pantoprazole Sodium (Protonix) 40 mg PO QDAC [facility] Last Admin: 11/26/17 06:22 Dose: 40 mg Polyethylene Glycol (Miralax) 17 gm PO DAILY [facility] Last Admin: 11/26/17 09:15 Dose: Not Given Prochlorperazine Edisylate (Compazine Inj) 10 mg IVP Q6HR PRN PRN Reason: Nausea / Vomiting Promethazine HCl (Phenergan Inj) 25 mg IM Q6HR PRN PRN Reason: Nausea / Vomiting Sodium Chloride (Normal Saline Flush 0.9%) 10 ml IVP PRN PRN PRN Reason: NEEDED PER PROVIDER ORDERS Last Admin: 11/25/17 11:51 Dose: 10 ml Sodium Chloride (Normal Saline Flush 0.9%) 10 ml IVP 0100,0900,1700 [facility] Last Admin: 11/26/17 09:15 Dose: 10 ml Spironolactone (Aldactone) 12.5 mg PO DAILY [facility] Last Admin: 11/26/17 09:14 Dose: 12.5 mg Acetaminophen [Tylenol] 650 mg PO Q6H PRN 07/30/13 Multivit-Min/FA/Lycopen/Lutein [Centrum Silver Tablet] 1 tab PO DAILY 12/20/14 Potassium Citrate [Potassium Citrate ER] 10 meq PO DAILY 10/12/17 Calcium Carbonate [Calcium] 600 mg PO BID 11/17/17 Ipratropium/Albuterol Sulfate [Iprat-Albut 0.5-3(2.5) mg/3 ml] 1 neb INH QID 07/06 Losartan [Cozaar] 25 mg PO DAILY 11/17/17 Objective - Vital Signs/Intake & Output Reviewed Vital Signs: Yes Vital Signs: Vital Signs x48h Temp Pulse Pulse Resp BP Pulse Ox 11/26/17 15:19 36.6 C 80 106/53 L 95 11/26/17 14:48 82 19 11/26/17 11:12 93/57 L 11/26/17 08:39 76 19 11/26/17 08:13 36.4 C L 80 19 79/57 L 98 Intake & Output: Intake & Output 11/23/17 11/24/17 11/25/17 11/26/17 23:59 23:59 23:59 23:59 Intake Total 920 610 790 560 Output Total 1125 575 900 Balance -205 35 -110 560 - Objective General Appearance: positive: No acute distress, Alert, Lethargic Eyes Bilateral: positive: Normal inspection, PERRL, No lid inflammation, Conjunctivae nml ENT: positive: ENT inspection nml, Pharynx nml, No signs of dehydration. negative: Purulent nasal drainage, Pharyngeal erythema, Oral lesions Neck: positive: Nml inspection, Thyroid nml, No JVD. negative: Trachea midline , Thyromegaly, Lymphadenopathy (R), Lymphadenopathy (L), Stiff neck, Swelling/ bruising, Tracheal deviation Respiratory: positive: Chest non-tender, No respiratory distress, Other ( reduced bilateral lung sounds). negative: Wheezes, Rales, Rhonchi Cardiovascular: positive: Irregularly irregular, JVD present, Systolic murmur, Diastolic murmur. negative: Extrasystoles, Tachycardia, Bradycardia Peripheral Pulses: 2+ Radial (R), 2+ Radial (L), 2+ Dorsalis pedis (R), 2+ Dorsalis pedis (L) Abdomen: positive: Non-tender, No organomegaly, Nml bowel sounds, No distention. negative: Tenderness, Guarding, Rebound Back: positive: Nml inspection. negative: CVA tenderness (R), CVA tenderness (L ) Skin: positive: Color nml, Warm, Dry, Pallor. negative: Cyanosis, Diaphoresis Extremities: positive: Non-tender. negative: Calf tenderness, Joint swelling, Troy's sign/cords Neurologic/Psychiatric: positive: Oriented x3, Slurred/abnml speech. negative: Facial droop, Depressed mood/affect - Lab Results Fish Bones: 11/26/17 04:40 11/26/17 08:03 Other Labs: Lab Results x24hrs 11/26/17 11/26/17 11/26/17 Range/Units 08:03 04:40 04:40 WBC 7.6 (4.8-10.8) x10^3/uL RBC 3.03 L (4.70-6.10) 10^6/uL Hgb 7.8 L (14.0-18.0) g/dL Hct 25.7 L (42.0-52.0) % MCV 84.8 (80.0-94.0) fL MCH 25.8 L (27.0-31.0) pg MCHC 30.4 L (32.0-36.0) g/dL RDW 27.2 H (12.0-15.0) % Plt Count 227 (130-450) 10^3/uL MPV 8.4 (7.4-11.4) fL Neut # (Auto) 6.1 (1.5-6.6) 10^3/uL Lymph # (Auto) 0.6 L (1.5-3.5) 10^3/uL [place] # (Auto) 0.7 (0.0-1.0) 10^3/uL Eos # (Auto) 0.1 (0.0-0.7) 10^3/uL Baso # (Auto) 0.1 (0.0-0.1) 10^3/uL Absolute Nucleated RBC 0.00 x10^3/uL Nucleated RBC % 0.1 /100WBC Manual Slide Review Indicated Platelet Morphology NORMAL APPEARANCE (NORMAL) RBC Morph Micro Appear 1+ POLYCHROMASIA (NORMAL) PT (9.9-12.6) secs INR (0.8-1.2) Sodium 134 L (135-145) mmol/L Potassium 4.0 (3.5-5.0) mmol/L Chloride 97 L (101-111) mmol/L Carbon Dioxide 29 (21-32) mmol/L Anion Gap 8.0 (6-13) BUN 49 H (6-20) mg/dL Creatinine 2.0 H (0.6-1.2) mg/dL Estimated GFR (MDRD) 33 L (>89) Glucose 79 (70-100) mg/dL Calcium 8.3 L (8.5-10.3) mg/dL Total Bilirubin 1.1 H (0.2-1.0) mg/dL AST 34 (10-42) IU/L ALT 25 (10-60) IU/L Alkaline Phosphatase 157 H (42-121) IU/L B-Natriuretic Peptide 2067 H (5-100) pg/mL Total Protein 7.0 (6.7-8.2) g/dL Albumin 2.0 L (3.2-5.5) g/dL Globulin 5.0 H (2.1-4.2) g/dL Albumin/Globulin Ratio 0.4 L (1.0-2.2) 11/25/17 11/25/17 11/25/17 Range/Units 23:35 17:42 17:42 WBC (4.8-10.8) x10^3/uL RBC (4.70-6.10) 10^6/uL Hgb 8.0 L 8.3 L (14.0-18.0) g/dL Hct 26.4 L 27.8 L (42.0-52.0) % MCV (80.0-94.0) fL MCH (27.0-31.0) pg MCHC (32.0-36.0) g/dL RDW (12.0-15.0) % Plt Count (130-450) 10^3/uL MPV (7.4-11.4) fL Neut # (Auto) (1.5-6.6) 10^3/uL Lymph # (Auto) (1.5-3.5) 10^3/uL [place] # (Auto) (0.0-1.0) 10^3/uL Eos # (Auto) (0.0-0.7) 10^3/uL Baso # (Auto) (0.0-0.1) 10^3/uL Absolute Nucleated RBC x10^3/uL Nucleated RBC % /100WBC Manual Slide Review Platelet Morphology (NORMAL) RBC Morph Micro Appear (NORMAL) PT 27.6 H (9.9-12.6) secs INR 2.5 H (0.8-1.2) Sodium (135-145) mmol/L Potassium (3.5-5.0) mmol/L Chloride (101-111) mmol/L Carbon Dioxide (21-32) mmol/L Anion Gap (6-13) BUN (6-20) mg/dL Creatinine (0.6-1.2) mg/dL Estimated GFR (MDRD) (>89) Glucose (70-100) mg/dL Calcium (8.5-10.3) mg/dL Total Bilirubin (0.2-1.0) mg/dL AST (10-42) IU/L ALT (10-60) IU/L Alkaline Phosphatase (42-121) IU/L B-Natriuretic Peptide (5-100) pg/mL Total Protein (6.7-8.2) g/dL Albumin (3.2-5.5) g/dL Globulin (2.1-4.2) g/dL Albumin/Globulin Ratio (1.0-2.2) ABX Reporting Has patient been on IV antibiotics over the past 48 hours?: No Assessment/Plan - Problem List (1) CHF exacerbation Impression: (1) nose bleed 11/26 no more bleed from nose. it seems from dry nose and skin small break from nose cannel of O2 supplement. HGB, PT/INR at the pt's baseline continue eliquis and aspirin transfer pt to hospice care and [facility] care. nurse report pt had nurse bleed. Now bleed stopped when I assessed pt. pt is hemodynamically as his baseline. 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 Pt has the increased pulmonary congestion on CXR, still swelling on groin area, BNP continue to increase. Pt's EF 20%. pt wish to have hospice care at [facility], will support pt's wish. plan D/c to [facility] on tomorrow with hospice care. 11/25, bid Lasix 80mg IV, pt still has swelling groin area, but edema at his hand reduced. pt also has slight elevated BUN and creatinine level. continue Lasix CXR tonight plan d/c to [facility] per palliative recommend 11/24 EF at 20, pt signed PLOST to DNR, and agree on palliative care, and request to d/c [facility], then hospice care to [facility] if continue deteriorated. continue diuresis bid 80mg Lasix, although pt developed some resistance to diuresis tele and vital monitor continue Metoprolol fluid restrict daily weight low sodium diet plan to d/c to [facility] per pts's request. 11/23; Holding lasix this pm (80mg this this am; overall negative last 2 days I/O ) but getting more prerenal (minimal 02 need; may be dealing mainly w/ "Rsided" fluid at this point) Titrating beta yogi further for better rate control/ more filling time; -- Metoprolol tartrate 25 mg x 1 this pm; if tolerates addition>>> Toprol XL 75 mg in am (also discussed w/ Dr. Caldwell) Weights remarkably unchanged 81 kg today ? accurate (reviewed weights in early October CHF admission; discharge weight 69 kg. scrotal edema resolved)? standing weight With EF 20-25%, an SBP of 85 is acceptable Since got lasix this morning will eval response, and possibly try titrate Toprol later for current suboptimal rate control Pt declined request to sit at bedside for orthos to assess volume status but BP tolerating 80 mg dosing (See prior note; coreg changed to toprol for better rate control, and BP not leaving room for coreg (more effect on BP)- --continue diuresis as status permits --titrate toprol (RN will contact hospitalist in AM to ensure tolerated additional 25mg) --once close to euvolemic , ideally need ARB or ACEI back on board for HFrEF --continue aldactone --Lizet Garg consult for [facility] Friday / reevaluate goals of care - 11/21 Ef 20%, (severe global HK) RVSP 61 with RV function moderately impaired per echo) ; looking at I/O's, wts since admit; have made little progress, needed 1L fluid bolus several days ago w/hypotension after diuresis (but SBP 83 with EF 20% not unreasonable) - dont know dry weight (will check last admit records) HR poor control for EF 20% (and afib) coreg stopped at admit? changed to metoprolol tartrate? If BP didnt allow coreg (greater effect on BP than toprol)>>>; changing to Toprol (got 25 mg this am, additional 12.5 tonight to hopefully allow more filling time w/ better rate control (HR low 100's on H/P) Double lasix dose (was not responding to 40 bid: double to 80 bid); pt felt subjectively more "comfortable after am diuressis check labs and orthostatics before dosing tomorrow With EF of 20-25%, as per usu cardiology recs' SBP iof 85 is very acceptable (BUN/Cr likley reflect poor forward flow ,; recheck chem panel in am w/ diuresis (with Right sided failure/ high RVSP 61mm; difficult balance as needs preload, but at this time not overdiuresed continue spironolactone (will resume home dose) ? room to resume low dose ACEI (nEEDS) (was on losartan at home) Depending on morning VS, may resume low dose in am ? candidate for Entresto? (need cardiology f/uP Pt w/ poor insithgt into disease; 2 admits in last 2 month ordered palliative care consult - Summary; continue toprol / titrate to 50 if possible before d/c (was on coreg 3.25 bid at home) - continue lasix at 80 bid today (and check orthos before redose in am - continue fern - needs to get back on arb (or low dose acei for remodeling (was on losartan 100) _ ? entresto candidate? (needs cardiology f/u); but with poor functional status; pall care consult (ordered - continue 2 g na diet - cont tele - continue strict I/O, daily wts (but his wts are not jiving w/ i/o) LUE swelling; will review records if has had CHF teaching and more detailed instructions on discharge as patient has now had a second readmission within the last 2 months for the same problem. ( try to establish dry weight, daily wts at [facility], (may be moot depending on palliative care consult) (3) Acute renal failure superimposed on stage 3 chronic kidney disease Conclusion/Plan: 11/25 pt is on high dosage of diuretics, and pt has slight elevated BUN and creatinine hold nephrological toxic agents continue lab and vital monitor stable, continue lab monitor 11/22; Cr stable, but increasingly prerenal (may be dealing more w/ R sided fluid at this point) and holding more diuresis tonight aseline 1.6 October; ; has been 1.9-2.0 in past as above difficult balance w/ R sided failure, poor EF, but has room to diurese currently bun/cr likely r/t to poor forward flow (suboptimal rate control) reeval in am after todays diuresis, and orthos in am as noted (4) Hyponatremia Conclusion/Plan: Na 132, a little down from previous one continue diuresis daily lab monitor 11/23; stable improved since admit 11/21 most c/w hypervolemic hyponatremia on admit stable11/20 stable, imporved from 71 127 (133 today) reeval in am, today Na 134, close normal continue Lasix and daily eval (overall poor prognostic indicator , but as above IS improved) (5) Anemia Conclusion/Plan: 11/25 slight elevated HGB to 7.8, continue Ferrous sulf recheck CBC, follow up 11/23; no indication to recheck daily (try to minimize some iatrogenic blood loss) 11/20 stable, no evident bleeding, no indication for RBC currently As above, ordering palliative care consult; Colonoscopy lower priority at this time w/ stable Hgb Hx from H/P The patient is anemic on presentation with a hemoglobin of 8.2 it appears the patient's baseline hemoglobin runs at around 9.5. During previous hospitalization patient was found to have iron deficiency anemia. He is not currently on iron. We will give the patient iron supplementation. Given this iron deficiency anemia the patient does need a EGD and colonoscopy to work him up for possible malignancy or other causes of iron deficiency. Given the patient's cardiac history he may not be an optimal candidate for EGD and colonoscopy. Plan: continue Iron supplementation Monitor hemoglobin (6) Atrial fibrillation Conclusion/Plan: stop Eliquis and Aspirin now, pt had nose bleeding 11/24 HR is stable, continue Eliquis, Metoprolol continue tele, vital monitor 11/22; sl improved rate control today (80's on Toprol 50; as above may try to push Toprol to 75 76As noted suboptimal Rate control for Ef 20% (hope to get below 80/ ideally 70 HR) for rate control coreg changed to toprol (since bp evidently not tolerating coreg continue Eliquis reluctant to start een MWF dig 0.125 as sometimes done in this fragile gentleman (data for reduced admits for CHF/ no improved mortality beneift) CHADS 2 vasc 4; on eliquis (7) hx of Hypertension Conclusion/Plan: at home on losartan, coreg ,spironolactone (HFrEF) modifications as above under #1 for CHF w/ EF 20%, cardiologists generally indicate SBP of even 85 reasonable to allow CHF Rx optimization / hold parameters are SBp 85 (8) Hyperlipidemia Conclusion/Plan: On statin/ continue lipitor, Hx stroke . (9) History of CVA (cerebrovascular accident) 11/25 continue PT/OT. PT/OT recommend pt to be d/c to SNF w/ residual L weakness (wheelchair/bedbound) (scooter at [place] per H/P / dysarthria continue ASA, statin, eliquis for #6 (10) Hyperglycemia Conclusion/Plan: mild/ resolved. A1C is 6. (11) hypotension base on pt's EF, SBP is allowed at above 80 continue vital monitor improved. HR 91, BP 104/56. continue hold Losartan. continue Metoprolol 12.5 mg bid vital monitor Q4H hold Losatan, reduce Lasix to 40 mg bid IV reduce metoprolol dosage, since HR is well controlled. continue vital closely monitor pt (11) anasarca 11/25, edema at hand reduced but edema at groin area remains the same continue Lasix pt had EF 20%, fluid congested. no significant improvement continue diuretics lab and vital monitor pt present left upper extremity edema, it seems chronic. There is no pain, tenderness, erythema. pt also report today her groin area swelling as well. it also seems chronic condition, specially pt has over-fluid and congested. increase Lasix iV dosage lab and vital, tele monitor (12) pain and swelling at groin area chronic condition. US reveals edema, no infection, clots, abscess. continue LAsix, closely monitor pt pt report today some pain at groin area. There are swelling, tenderness, mild discolored to darkness due to swelling, without erythema. it seems one area of anasarca. order US, will follow up continue IVF Lasix lab and vital, tele monitor
[2017-11-26] MEDS: ATORVASTATIN 40 MG TABLET PO SCH (21:20)
[2017-11-26] MEDS: APIXABAN 2.5 MG TABLET PO SCH (21:20)
[2017-11-27 04:51] LABS: BASOPHILS # (AUTO) 0.1 10^3/uL (0.0-0.1); BASOPHILS % (AUTO) 0.9 %; EOSINOPHILS # (AUTO) 0.1 10^3/uL (0.0-0.7); EOSINOPHILS % (AUTO) 0.8 %; LYMPHOCYTES # (AUTO) 0.6 10^3/uL (1.5-3.5); LYMPHOCYTES % (AUTO) 7.7 %; MEAN CORPUSCULAR HEMOGLOBIN 25.4 pg (27.0-31.0); MEAN CORPUSCULAR HGB CONC 31.1 g/dL (32.0-36.0); MEAN CORPUSCULAR VOLUME 81.5 fL (80.0-94.0); MEAN PLATELET VOLUME 8.3 fL (7.4-11.4); MONOCYTES # (AUTO) 0.7 10^3/uL (0.0-1.0); MONOCYTES % (AUTO) 9.6 %; NEUTROPHILS # (AUTO) 6.3 10^3/uL (1.5-6.6); PLT - PLATELET COUNT 250 10^3/uL (130-450); RED BLOOD COUNT 3.16 10^6/uL (4.70-6.10); RED CELL DISTRIBUTION WIDTH 27.7 % (12.0-15.0); WHITE BLOOD COUNT 7.8 x10^3/uL (4.8-10.8)
[2017-11-27 04:59] LABS: ALBUMIN 2.1 g/dL (3.2-5.5); ALBUMIN/GLOBULIN RATIO 0.4 (1.0-2.2); BILIRUBIN,TOTAL 0.9 mg/dL (0.2-1.0); CALCIUM 8.2 mg/dL (8.5-10.3); TOTAL PROTEIN 7.1 g/dL (6.7-8.2)
[2017-11-27 05:17] LABS: PLATELET MORPHOLOGY NORMAL APPEARANCE (NORMAL)
[2017-11-27] MEDS: LEVALBUTEROL 1.25 MG/3 ML NEB INH SCH ×2 (06:09→11:20)
[2017-11-27] MEDS: PANTOPRAZOLE 40 MG TABLET PO SCH (06:35)
[2017-11-27] MEDS: SODIUM CHLORIDE FLUSH 0.9% 10 ML SYRINGE IVP SCH ×2 (06:35→09:32)
[2017-11-27] MEDS ORDERED: ASPIRIN 325 MG TABLET PO SCH (08:00)
[2017-11-27] MEDS: SPIRONOLACTONE 25 MG TABLET PO SCH (09:31)
[2017-11-27] MEDS: FERROUS SULFATE 325 MG TABLET PO SCH (09:31)
[2017-11-27] MEDS: guaiFENesin 600 MG TABLET PO SCH (09:31)
[2017-11-27] MEDS: MICONAZOLE CREAM 118 ML TUBE TOP SCH (09:32)
[2017-11-27] MEDS: METOPROLOL SUCCINATE 50 MG TABLET PO SCH (09:32)
--- NOTE | 2017-11-27 11:21 | Discharge Plan ---
"Discharge Plan for SNF / [facility] - DC Plan and Transition Orders Disposition: 03 SNF DC/Xfer Condition: Serious SNF Transition Orders: Admit to: [[facility]] under the care of [Doctor Zach] Discharge Diagnosis: [heart failure stage 4, anasarca, CKD, Afib, anemia, hypotension, CVA, ] Medicare Certification: I do not certify that Post Hospital intermediate care is medically necessary on a continuing basis for any of the conditions for which she/he is receiving care during hospitalization. Notify PCP of admission and forward orders to primary provider for signature. Weight on admission and [79kg]. Call PCP immediately if weight increases by [4 ] pounds or if patient develops dyspnea, chest pain/tightness or edema. House Bowel Program: [Yes] If no BM after 2 days, nurse may give M.O.M. 30ml PO PRN and /or ducolax Supp 1 [place] and /or KEARA 250mg P.O., and/or senna 1-2 tabs PO. On day 3 nurse may give repeat above order until residents constipation is resolved. Immunizations: Annual Influenza Vaccine: [Yes]. (between Jan 17 and August 16.) Unless allergy or already given Two-Step PPD: [Yes] per [facility] [id number] or appropriate documentation of approved exceptions Treatments & Other Orders: [may follow up hospice provider when pt is arrival to [facility]] Oxygen Orders: [PRN] Lab Tests or X-Rays Orders: [follow up hospice provider] Orthopedic Orders: [n]. Medications: PLEASE REFER TO THE DISCHARGE MEDICATION LIST. Insulin Orders? [No] Diagnosis: Diabetes Initiate hypo and hyperglycemia protocols for BG <70 and BG >375. May check BG prn for signs/symptoms of dysglycemia. Frequency of BG checks: [AC/Meal/HS] Basal Insulin: [] Lantus 100 units / ml inject subq as follows: [] [] Other: [] Correction Insulin: - Select the type of insulin below [Choose: Novolog/Humalog]100 units /ml insulin inject subq per orders indicate below [] LOW DOSE [] MODERATE DOSE [] MODERATE/HIGH DOSE [] HIGH DOSE GB UNITS GB UNITS GB UNITS GB UNITS 61-140 0 UNITS 61-140 0 UNITS 61-140 0 UNITS 61-140 0 UNITS 141-175 1 UNITS 141-175 1 UNITS 141-175 2 UNITS 141-175 3 UNITS 176-225 2 UNITS 176-225 3 UNITS 176-225 4 UNITS 176-225 5 UNITS 226-275 3 UNITS 226-275 5 UNITS 226-275 6 UNITS 226-275 7 UNITS 276-325 4 UNITS 276-325 7 UNITS 276-325 8 UNITS 276-325 9 UNITS 326-375 5 UNITS 326-375 9 UNITS 326-375 10 UNITS 326-375 11 UNITS >375 CONTACT MD >375 CONTACT MD >375 CONTACT MD >375 CONTACT MD Custom Dosing: [Choose: None/Novolog/Humalog] 100 units/ml Insulin inject subq as follows: GB Units 61-140 [] Units 141-175 [] Units 176-225 [] Units 226-275 [] Units 276-325 []Units 326-375 [] Units >375 Contact MD Allergies and Adverse Reactions: Allergies Allergy/AdvReac Type Severity Reaction Status Date / Time Sulfa (Sulfonamide Allergy Unknown unk Verified 10/12/17 06:39 Antibiotics) sulfamethoxazole Allergy Unknown unk Verified 10/12/17 06:39 [From Bactrim] trimethoprim [From Bactrim] Allergy Unknown unk Verified 10/12/17 06:39 - Medications New Prescriptions: Furosemide [Lasix] 80 mg PO BID #40 tablet Metoprolol Succinate [Toprol Xl] 75 mg PO DAILY #10 tablet Miconazole Cream [Remedy Antifungal] 1 applic TOP BID #1 tube - Diet Type: Geriatric Texture: Dysphagia mech Liquids: Honey thick May have monthly special meal: Yes - Therapies | Activity Additional Instructions: may follow up hospice care team as pt is arrival to [facility]"
[2017-11-27] MEDS: APIXABAN 2.5 MG TABLET PO SCH (11:44)
[2017-11-27] MEDS: FUROSEMIDE 100 MG/10 ML VIAL IVP SCH (11:44)
--- NOTE | 2017-11-27 11:50 | DISCHARGE SUMMARY ---
Discharge Summary Discharge Date: 11/27/17 Discharging Provider: BROWN Primary Care Provider: Dr. Hernandez Condition at Discharge: Serious Discharge Disposition: 50 Hospice/Home DC/Xfer Discharge Facility Name: [facility] - DIAGNOSES Admission Diagnoses: (1) Systolic CHF with reduced left ventricular function, NYHA class 3 (2) Acute renal failure superimposed on stage 3 chronic kidney disease (3) Hyponatremia (4) Anemia (5) Hyperglycemia (6) Atrial fibrillation (7) Hypertension (8) Hyperlipidemia (9) History of CVA (cerebrovascular accident) Discharge Diagnoses with Status of Each Condition: Hospice care pt request hospice care in [facility] and DPOA respect pt's wish. Pt was d/c to [facility] under Dr. Serrano' hospice care. (1) nose bleed resolved (2) Biventricular heart failure with reduced left ventricular function worsen, hospice care (3) Acute renal failure superimposed on stage 3 chronic kidney disease worsen, hospice care (4) Hyponatremia stable (5) Anemia stable (6) Atrial fibrillation stable (7) hx of Hypertension resolved (8) Hyperlipidemia stable (9) History of CVA (cerebrovascular accident) stable (10) Hyperglycemia stable (11) hypotension present and continue, hospice care (11) anasarca present, hospice care (12) pain and swelling at groin area present, hospice care - HPI History of Present Illness: refer from 's HPI for pt as the following: Patient is an unfortunate 77-year-old gentleman who is a resident of [facility] with a past medical history significant for chronic systolic congestive heart failure with an ejection fraction of 25-30%, 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 The patient has been admitted to [facility] 2 times in the last 2 months with CHF exacerbation. The patient states that over the last 3 days he has had increasing shortness of breath to a point where he can barely speak a few sentences without having to gasp for air. The patient states that he was doing well up until earlier this week when he started having increasing swelling of his left upper extremity and also increased swelling of bilateral lower extremities. He states that over the last 3 days he has had an increasing wet cough. He also admits to orthopnea. He states that initially the shortness of breath was with some exertion but now it has become at rest and he gets short of breath just trying to have a conversation. The staff at [place] sent the patient to the emergency room tonight as he appeared to be quite short of breath and in some respiratory distress. The patient denies any fevers or chills. He denies any chest pain, palpitations, nausea, diaphoresis or abdominal pain. Patient also complains of scrotal pain which is chronic for him. The patient denies any headache, dizziness, sore throat, nasal congestion, difficulty swallowing, vomiting, diarrhea, constipation, urinary urgency, urinary frequency, dysuria, back pain, neck stiffness, hair loss, skin changes, recent unintentional weight loss, changes in his appetite, night sweats, or any new focal neurologic deficits. On presentation to the emergency department the patient is afebrile and slightly tachycardic with a heart rate of 105. Patient's blood pressure is low normal at 108/76 and the patient appears to be tachypneic with hypoxia down to 90% on room air. The patient underwent routine labs which showed a sodium of 127 with a creatinine of 2.0 which is slightly elevated from his baseline of about 1.6. Patient is also slightly hyperglycemic. The patient's BNP is elevated at 1340. The patient's UA was negative and influenza swab was negative. Patient underwent a chest x-ray in the emergency department which showed cardiomegaly with moderate diffuse bilateral airspace disease which look to represent pulmonary edema. The patient also appeared to be volume overloaded with bilateral lower extremity edema as well as edema of his left upper extremity. Given the left upper extremity edema the emergency room physician ordered a Doppler of the left upper extremity which showed no evidence of arterial occlusion or high-grade stenosis. The patient appear to be in a CHF exacerbation and was admitted to the medical [facility] for treatment with diuresis. - HOSPITAL COURSE Hospital Course: pt was admitted for CHF exacerbation and anasarca. ECHO reveals pt's EF is 20%. pt is resistance to diuretics treatment. Anasarca became worsening. Pt became more shortness of breath. pt request hospice care and want to be d/c to [facility]. Pt's DPOA respect pt's willing. pt is d/c to [facility] under Dr. Serrano's hospice care. - ALLERGIES Allergies/Adverse Reactions: Allergies Allergy/AdvReac Type Severity Reaction Status Date / Time Sulfa (Sulfonamide Allergy Unknown unk Verified 10/12/17 06:39 Antibiotics) sulfamethoxazole Allergy Unknown unk Verified 10/12/17 06:39 [From Bactrim] trimethoprim [From Bactrim] Allergy Unknown unk Verified 10/12/17 06:39 - MEDICATIONS Home Medications: Ambulatory Orders Medication Instructions Recorded Confirmed Acetaminophen [Tylenol] 650 mg PO Q6H PRN 07/30/13 11/17/17 Multivit-Min/FA/Lycopen/Lutein 1 tab PO DAILY 12/20/14 11/17/17 [Centrum Silver Tablet] Vitamin B Complex 1 tab PO DAILY #0 09/26/17 11/17/17 Potassium Citrate [Potassium 10 meq PO DAILY 10/12/17 11/17/17 Citrate ER] Apixaban [Eliquis] 5 mg PO BID #30 10/21/17 11/17/17 Ascorbic Acid [Vitamin C] 500 mg PO DAILY #30 10/21/17 11/17/17 Aspirin [Aspirin EC] 325 mg PO DAILY #30 10/21/17 11/17/17 Atorvastatin Calcium 40 mg PO QPM #30 10/21/17 11/17/17 Lactobac No.41/Bifidobact No.7 70 mg PO BID 20 Days #40 capsule 10/21/17 [Probiotic-10 3 Billion Cell Cp] Spironolactone [Aldactone] 12.5 mg PO DAILY #15 tablet 10/21/17 11/17/17 Calcium Carbonate [Calcium] 600 mg PO BID 11/17/17 11/17/17 Ipratropium/Albuterol Sulfate 1 neb INH QID 11/17/17 11/17/17 [Iprat-Albut 0.5-3(2.5) mg/3 ml] Furosemide [Lasix] 80 mg PO BID #40 tablet 11/27/17 Metoprolol Succinate [Toprol Xl] 75 mg PO DAILY #10 tablet 11/27/17 Miconazole Cream [Remedy 1 applic TOP BID #1 tube 11/27/17 Antifungal] Morphine Sulfate [Morphine Sulf 5 mg PO Q4H PRN #30 ml 11/27/17 Oral (Roxanol)] - PHYSICAL EXAM AT DISCHARGE General Appearance: positive: No acute distress, Mild distress, Lethargic Eyes Bilateral: positive: Normal inspection, PERRL, No lid inflammation, Conjunctivae nml ENT: positive: ENT inspection nml, Pharynx nml, No signs of dehydration. negative: Purulent nasal drainage, Pharyngeal erythema, Oral lesions Neck: positive: Nml inspection, Thyroid nml, No JVD, Trachea midline. negative : Thyromegaly, Lymphadenopathy (R), Lymphadenopathy (L), Stiff neck, Carotid bruit, Swelling/bruising, Tracheal deviation Respiratory: positive: Chest non-tender, No respiratory distress, Rhonchi. negative: Wheezes, Rales Cardiovascular: positive: Irregularly irregular, Systolic murmur, Diastolic murmur. negative: Extrasystoles, Tachycardia, Bradycardia Peripheral Pulses: positive: 2+ Abdomen: positive: Non-tender, No organomegaly, Nml bowel sounds, No distention. negative: Tenderness, Guarding, Rebound Back: positive: Nml inspection. negative: CVA tenderness (R), CVA tenderness (L ) Skin: positive: Color nml, No rash, Warm, Dry, Pallor. negative: Cyanosis, Diaphoresis Extremities: positive: Non-tender, Pedal edema. negative: Calf tenderness, Joint swelling, Troy's sign/cords Neurologic/Psychiatric: positive: Oriented x3, Slurred/abnml speech. negative: Sensory loss, Facial droop, Depressed mood/affect - LABS Result Diagrams: 11/27/17 04:20 11/27/17 04:20 - FOLLOW UP Follow Up: pt may follow up hospice provider when pt is arrival to [facility] - TIME SPENT Time Spent in Discharge (Minutes): 55
[2017-11-27 14:28] VITALS: BP 99/68
== END 2017-11-27 14:41 | disposition home or self-care (01) | DRG 291 ==
LOC: EDUNIT# → ED 19:34 → ICU 23:43 → MS3 11-17 18:37
PROVIDERS: ADMIT Internal Medicine; ATTEND Nurse Practitioner Gerontology
DX: I13.0 Hypertensive heart and chronic kidney disease with heart failure and stage 1 through stage 4 chronic kidney disease, or unspecified chronic kidney disease (principal); I11.0 Hypertensive heart disease with heart failure; I50.20 Unspecified systolic (congestive) heart failure; I50.23 Acute on chronic systolic (congestive) heart failure; N17.9 Acute kidney failure, unspecified; I48.91 Unspecified atrial fibrillation; I25.2 Old myocardial infarction; E87.1 Hypo-osmolality and hyponatremia; I69.354 Hemiplegia and hemiparesis following cerebral infarction affecting left non-dominant side; I50.82 Biventricular heart failure; Z95.0 Presence of cardiac pacemaker; N18.3 Chronic kidney disease, stage 3 (moderate); I95.9 Hypotension, unspecified; N50.82 Scrotal pain; N50.89 Other specified disorders of the male genital organs; R04.0 Epistaxis; D50.9 Iron deficiency anemia, unspecified; I48.2 Chronic atrial fibrillation; I69.322 Dysarthria following cerebral infarction; E78.5 Hyperlipidemia, unspecified; I25.10 Atherosclerotic heart disease of native coronary artery without angina pectoris; R09.02 Hypoxemia; N40.1 Benign prostatic hyperplasia with lower urinary tract symptoms; I27.20 Pulmonary hypertension, unspecified; N39.498 Other specified urinary incontinence; H91.90 Unspecified hearing loss, unspecified ear; J44.9 Chronic obstructive pulmonary disease, unspecified; I69.391 Dysphagia following cerebral infarction; R13.10 Dysphagia, unspecified; R41.3 Other amnesia; Z66 Do not resuscitate; Z51.5 Encounter for palliative care; Z87.01 Personal history of pneumonia (recurrent); Z79.01 Long term (current) use of anticoagulants; Z87.891 Personal history of nicotine dependence; Z79.899 Other long term (current) drug therapy; Z79.82 Long term (current) use of aspirin; Z74.01 Bed confinement status; Z95.810 Presence of automatic (implantable) cardiac defibrillator
CPT/HCPCS: 36415; 51702; 51703; 71045; 76870; 80048; 80053; 81001; 81003; 83036; 83605; 83690; 83735; 83880; 84100; 84484; 85014; 85018; 85025; 85610; 85730; 87040; 87086; 87150; 87275; 87276; 93005; 93306; 94640; 99223; 99231; 99233; 99284; 99285

== ENCOUNTER 2017-11-27 14:30 | Outpatient (CLI) | payer MEDICARE, OTHER | END 2017-11-27 14:31 | disposition hospice, home (50) | LOC: EMS 14:30 | PROVIDERS: ATTEND Surgery | DX: I50.9 Heart failure, unspecified (principal); Z74.01 Bed confinement status | CPT/HCPCS: A0425; A0428 ==